=== PATIENT | female | born 1935 | race Hispanic/Latino ===

== ENCOUNTER 2024-12-02 10:29 | Inpatient (IN) | payer MEDICARE ==
[~2024-12-02] VITALS: Ht 162.6 cm; Wt 58.5 kg
[2024-12-02] MEDS: 0.9%NACL 1000ML 1,000 ML IV STA (10:54)
--- NOTE | 2024-12-02 11:30 | ERN ---
ED Note History of Present Illness Stated Complaint: HEART AFIB, DEHYDRATION Chief Complaint: Nausea,Vomiting,Diarrhea Time Seen by MD: 10:32 Time Seen by Midlevel: 10:36 Dictation: 89-year-old female with a history of AFib, hypertension, coming in with complaints of feeling �dehydrated�, states she is not able to keep down any fluid and has not had urine output since yesterday. Patient has epigastric pain upon taking a deep breath. Denies any fever, diarrhea, dysuria. Allergies: Coded Allergies: No Known Drug Allergies (Unverified Allergy, Unknown, 12/02/24) Past Medical History Past Medical History: A-Fib, Hypertension Additional Past Medical Hx: PARKINSON'S Surgical History: Hysterectomy Review of System Dictation Constitutional: Negative for fever,chills, and weight loss Eyes: Negative for injury, pain,redness, and discharge ENT: Negative for injury,pain or swelling Cardiovascular: Negative for chest pain, palpitations, and edema Respiratory: Negative for shortness of breath, cough, and wheezing, Abdomen/GI: Complaining of epigastric pain, nausea or vomiting, no diarrhea, and no constipation Back: Negative for injury and pain : Negative for injury, bleeding and discharge MS/Extremity: Negative for injury and deformity Skin: Negative for rash, and discoloration Neuro: Negative for headache, weakness, numbness, tingling, and seizure Psych: Negative for suicide ideation, homicidal ideation, and hallucinations Review of Systems: was completed Initial Vital Sign VS Vital Signs Date Time Temp Pulse Resp B/P (MAP) Pulse Ox O2 Delivery O2 Flow Rate FiO2 12/02/24 10:51 97.3 68 18 116/74 98 0 12/02/24 13:07 Room Air* 21 Physical Exam Dictation General: awake, alert, NAD Head/Face: Normocephalic, atraumatic Eyes: PERRL, EOMI, vision at baseline ENT: oral cavity clear, TMs clear, no signs of infection Neck: Trachea midline, supple, no nuchal rigidity Cardiovascular: RRR, normal S1/S2, No MRGs, no JVD Respiratory: CTAB, no respiratory distress, No rales or wheezes Abdomen: Soft, non-tender, non-distended, normal bowel sounds, no guarding or rebound. Skin: Warm, dry, normal turgor, no rash MS/Extremity: Pulses equal, no cyanosis, neurovascular intact, FROM Neuro: COAx4, GCS 15, strength 5/5, CN 2-12 intact, normal cerebellar exam, normal gait, Psych: Normal behavior, mood, and affect normal Results (Laboratory/Radiology) Laboratory/Radiology Laboratory Tests Test 12/02/24 11:33 White Blood Count 14.4 K/uL (4.8-10.8) H Red Blood Count 4.97 MIL/uL (4.00-5.50) Hemoglobin 14.8 g/dL (12.0-16.0) Hematocrit 43.1 % (36-48) Mean Corpuscular Volume 86.7 fL (79-99) Mean Corpuscular Hemoglobin 29.8 pg (27.0-33.0) Mean Corpuscular Hemoglobin Concent 34.3 g/dL (32.0-36.0) Red Cell Distribution Width 16.9 % (11.0-15.5) H Platelet Count 281 K/uL (130-400) Mean Platelet Volume 8.8 fL (7.5-10.5) Immature Granulocyte % (Auto) 0.3 % (0-1) Neutrophils (%) (Auto) 73.8 % (40.0-77.0) Lymphocytes (%) (Auto) 17.8 % (21.0-51.0) L Monocytes (%) (Auto) 7.7 % (3.0-13.0) Eosinophils (%) (Auto) 0.3 % (0.0-8.0) Basophils (%) (Auto) 0.1 % (0.0-5.0) Neutrophils # (Auto) 10.6 K/uL (1.8-7.7) H Lymphocytes # (Auto) 2.6 K/uL (1.0-4.8) Monocytes # (Auto) 1.1 K/uL (0.1-1.0) H Eosinophils # (Auto) 0.05 K/uL (0.00-0.70) Basophils # (Auto) 0.02 K/uL (0.00-0.20) Absolute Immature Granulocyte (auto 0.05 K/uL (0-1) Nucleated Red Blood Cells 0.0 % (0.0-0.19) Sodium Level 121 mmol/L (136-145) L Potassium Level 5.0 mmol/L (3.5-5.1) Chloride Level 88 mmol/L (101-111) *L Carbon Dioxide Level 28 mmol/L (21-32) Blood Urea Nitrogen 17 mg/dL (7-18) Creatinine 0.9 mg/dL (0.5-1.0) Glomerular Filtration Rate Calc 62 mL/min (>90) Random Glucose 121 mg/dL (70-105) H Total Calcium 9.6 mg/dL (8.5-10.1) Total Bilirubin 1.1 mg/dL (0.2-1.0) H Direct Bilirubin 0.3 mg/dL (0.0-0.3) Aspartate Amino Transf (AST/SGOT) 16 U/L (10-37) Alanine Aminotransferase (ALT/SGPT) 18 U/L (12-78) Alkaline Phosphatase 126 U/L (50-136) Troponin I High Sensitivity 7 ng/L (4-50) Total Protein 8.1 g/dL (6.0-8.3) Albumin 4.2 g/dL (3.5-5.0) Lipase 38 U/L (16-77) Labs Reviewed?: Yes EKG Comment: EKGs done at 11:44 a.m.. Atrial flutter at a rate of 63. Ventricular premature complex, IVCD, consider RBBB, left ventricular hypertrophy, ST elevation secondary to IVCD. X-RAY Comment: [place] [address] [place] [id number] IMAGING REPORT Signed PATIENT: PAYTON TARANGO MR#: [id number] : 1935 SEX: F AGE: 89 LOCATION: [facility] ORDER 105 STATUS: REG REPORT#: [id number] SERVICE 57 REASON: cp ORDERING PHYSICIAN: HOLLY WAITE NP PROCEDURE: CXR1VW - CHEST 1VW CHEST 1VW HISTORY: Chest pain COMPARISON: None FINDINGS: A frontal projection of the chest was obtained. No acute pulmonary infiltrates is seen. The heart is borderline enlarged. Left humeral prosthesis is seen. Prominent interstitial markings are seen. No evidence of aortic calcification is seen. IMPRESSION: 1. No acute pulmonary infiltrate is seen. DICTATED BY: TIFFANIE SCHAFFER MD DATE: 12/02/24 1147 ELECTRONICALLY SIGNED BY: TIFFANIE SCHAFFER MD DATE: 12/02/[address] Scan Comment: [facility] [address] [place] [address] IMAGING REPORT Signed PATIENT: PAYTON TARANGO MR#: [id number] : 1935 SEX: F AGE: 89 LOCATION: [facility] ORDER 24 STATUS: REG ER REPORT#: [id number] SERVICE 23 REASON: abdominal pain, n/v ORDERING PHYSICIAN: HOLLY WAITE NP PROCEDURE: ABD PEL WO - CT ABDOMEN/PELVIS W/O CONTRAST CT ABDOMEN/PELVIS W/O CONTRAST HISTORY: Abdominal pain COMPARISON: None TECHNIQUE: Multiple sequential axial images of the abdomen and pelvis were obtained from the dome of the diaphragm through symphysis pubis. Patient was not given contrast through intravenous route. Oral contrast was not given. FINDINGS: No pleural effusion is seen bilaterally. Bibasilar linear atelectasis changes are seen. There is no evidence of parenchymal disease or pulmonary nodule of the visualized lower lungs. Degenerative changes of the thoracolumbar spine are present. The heart is not enlarged. Small hiatal hernia is seen. Compression fractures are seen involving L4 and L5 with vertebroplasty changes. The liver, spleen, adrenal glands and pancreas are unremarkable. There is no evidence of hydronephrosis bilaterally. No evidence of renal stone is seen. Fecal material is seen in the colon. There are normal size retroperitoneal and mesenteric lymph nodes. No ascites is seen. Atherosclerotic changes are present. There is diverticulosis. There are small bilateral inguinal hernias with fat content. No CT evidence of acute appendicitis is seen. Pelvic sidewalls are symmetric bilaterally. Bladder is poorly distended. IMPRESSION: 1. No definite bowel obstruction is seen. Small hiatal hernia. Diverticulosis. No ascites is seen. CT was performed with one or more following dose reduction techniques: automated exposure control, adjustment of the mA and kv according to patient's size, or use of a iterative reconstruction technique. DICTATED BY: TIFFANIE SCHAFFER MD DATE: 12/02/24 1326 ELECTRONICALLY SIGNED BY: TIFFANIE SCHAFFER MD DATE: 12/02/24 1331 ED Course ED Course Orders Procedure Category Date Status Time Cbc With Differential LAB 12/02/24 Complete 10:52 Basic Metabolic Panel LAB 12/02/24 Complete 10:52 Lipase LAB 12/02/24 Complete 10:52 Hepatic Function Panel LAB 12/02/24 Complete 10:52 Urinalysis Profile LAB 12/02/24 Logged 10:52 12 Lead Ekg Tracing- EKG 12/02/24 Logged Technical 10:52 Troponin I High LAB 12/02/24 Complete Sensitivity 10:52 Influenza Type A & B, LAB 12/02/24 In Process Rapid 10:52 Covid Rna Naat LAB 12/02/24 In Process 10:52 0.9%Nacl 1000ml (Ns PHA 12/02/24 Complete 1000ml) 10:54 Chest 1vw RAD 12/02/24 Resulted 10:58 Ct Abdomen/Pelvis W/O CT 12/02/24 Resulted Contrast 12:24 Morphine 2mg Syg PHA 12/02/24 Complete (Morphine 2mg Syg) 13:33 Ondansetron 4mg Inj PHA 12/02/24 Complete (Zofran 4mg Inj) 13:33 Current Medications Medications (Trade) Dose Ordered Sig/Mahnaz Route PRN Reason Start Time Stop Time Status Last Admin Dose Admin Morphine Sulfate (morPHINE 2MG SYG) 2 mg ONCE STAT IVP 12/02/24 13:33 12/02/24 13:38 DC 12/02/24 13:39 Ondansetron HCl (zoFRAN 4MG INJ) 4 mg ONCE STAT IVP 12/02/24 13:33 12/02/24 13:38 DC 12/02/24 13:39 Sodium Chloride 1,000 ml @ 1,000 mls/hr Q1H STAT IV 12/02/24 10:54 12/02/24 11:53 DC 12/02/24 10:54 Vital Signs Date Time Temp Pulse Resp B/P (MAP) Pulse Ox O2 Delivery O2 Flow Rate FiO2 12/02/24 13:07 98.1 67 16 167/70 98 Room Air* 0 21 12/02/24 10:51 97.3 68 18 116/74 98 0 Medical Decision Making MDM MDM: 89-year-old female with a history of AFib, hypertension, coming in with complaints of feeling �dehydrated�, states she is not able to keep down any fluid and has not had urine output since yesterday. Patient has epigastric pain upon taking a deep breath. Denies any fever, diarrhea, dysuria. CBC shows leukocytosis of 14, no anemia, no thrombocytopenia. Chemistry shows hyponatremia at 121., hypochloremia at 88, normal kidney function. No transaminitis, lipase within normal range. Pending urinary sample. CT scan of the abdomen shows diverticulosis, fecal material in the colon, no acute findings. Patient will be admitted for dehydration and hyponatremia. Discussed case with cathy Saravia to admit patient. Differential diagnosis: Gastroenteritis, dehydration, YOLANDA Rationale: Tests considered and ordered secondary to shared decision making include: labs, ECG and radiology Previous outside records reviewed: Old ER visits. Risk of complication and/or morbidity or mortality of patient management: None Medications-Per medication reconciliation Need for hospitalization: Patient does meet criteria for hospitalization. Need for emergency major/minor surgery: No There are no social concerns with this patient. Prescription drug management Prescriptions will include symptomatic care Patient's prior external medical records from other ER visits were reviewed by me as indicated. Prior testing and results from previous visits were reviewed. Prior tests were taken into account with medical decision making and resource utilization, independent historian/historians were used to obtain complete medical history. I independently interpreted the test that were performed, results were reviewed by me and considered findings on radiology if ordered. Medical management and examination interpretation discussions were had by me with other qualified healthcare professionals as indicated for the patient's care. DX & DISP Disposition: Inpatient Decision to Admit Date: December 02, 2024 Decision to Admit Time: 13:53 Departure Impression: Primary Impression: Dehydration Additional Impressions: Hyponatremia, Hypochloremia Condition: Stable Referrals: SELF,REFERRAL (PCP) Time of Disposition: 13:53 I have reviewed the case, and I agree with, Diagnosis and Plan HOLLY WAITE NP December 02, 2024 11:30
[2024-12-02 11:41] LABS: BASOPHILS # (AUTO) 0.02 K/uL (0.00-0.20); BASOPHILS % (AUTO) 0.1 % (0.0-5.0); EOSINOPHILS # (AUTO) 0.05 K/uL (0.00-0.70); EOSINOPHILS % (AUTO) 0.3 % (0.0-8.0); HEMATOCRIT 43.1 % (36-48); IMMATURE GRANULOCYTE ABSOLUTE 0.05 K/uL (0-1); LYMPHOCYTES # (AUTO) 2.6 K/uL (1.0-4.8); LYMPHOCYTES % (AUTO) 17.8 % (21.0-51.0); MEAN CORPUSCULAR HEMOGLOBIN 29.8 pg (27.0-33.0); MEAN CORPUSCULAR HGB CONC 34.3 g/dL (32.0-36.0); MEAN CORPUSCULAR VOLUME 86.7 fL (79-99); MONOCYTES # (AUTO) 1.1 K/uL (0.1-1.0); MONOCYTES % (AUTO) 7.7 % (3.0-13.0); NEUTROPHILS # (AUTO) 10.6 K/uL (1.8-7.7); NEUTROPHILS % (AUTO) 73.8 % (40.0-77.0); PLATELET COUNT (AUTO) 281 K/uL (130-400); RED BLOOD CELL COUNT(AUTO) 4.97 MIL/uL (4.00-5.50); RED CELL DISTRIBUTION WIDTH 16.9 % (11.0-15.5); WHITE BLOOD COUNT (AUTO) 14.4 K/uL (4.8-10.8)
--- NOTE | 2024-12-02 11:50 | HMCIMG ---
CHEST 1VW HISTORY: Chest pain COMPARISON: None FINDINGS: A frontal projection of the chest was obtained. No acute pulmonary infiltrates is seen. The heart is borderline enlarged. Left humeral prosthesis is seen. Prominent interstitial markings are seen. No evidence of aortic calcification is seen. IMPRESSION: 1. No acute pulmonary infiltrate is seen.
[2024-12-02 11:56] LABS: ALBUMIN 4.2 g/dL (3.5-5.0); CREATININE 0.9 mg/dL (0.5-1.0)
[2024-12-02 12:00] LABS: BILIRUBIN,DIRECT 0.3 mg/dL (0.0-0.3); BILIRUBIN,TOTAL 1.1 mg/dL (0.2-1.0); TOTAL PROTEIN, SERUM 8.1 g/dL (6.0-8.3)
--- NOTE | 2024-12-02 13:31 | HMCIMG ---
CT ABDOMEN/PELVIS W/O CONTRAST HISTORY: Abdominal pain COMPARISON: None TECHNIQUE: Multiple sequential axial images of the abdomen and pelvis were obtained from the dome of the diaphragm through symphysis pubis. Patient was not given contrast through intravenous route. Oral contrast was not given. FINDINGS: No pleural effusion is seen bilaterally. Bibasilar linear atelectasis changes are seen. There is no evidence of parenchymal disease or pulmonary nodule of the visualized lower lungs. Degenerative changes of the thoracolumbar spine are present. The heart is not enlarged. Small hiatal hernia is seen. Compression fractures are seen involving L4 and L5 with vertebroplasty changes. The liver, spleen, adrenal glands and pancreas are unremarkable. There is no evidence of hydronephrosis bilaterally. No evidence of renal stone is seen. Fecal material is seen in the colon. There are normal size retroperitoneal and mesenteric lymph nodes. No ascites is seen. Atherosclerotic changes are present. There is diverticulosis. There are small bilateral inguinal hernias with fat content. No CT evidence of acute appendicitis is seen. Pelvic sidewalls are symmetric bilaterally. Bladder is poorly distended. IMPRESSION: 1. No definite bowel obstruction is seen. Small hiatal hernia. Diverticulosis. No ascites is seen. CT was performed with one or more following dose reduction techniques: automated exposure control, adjustment of the mA and kv according to patient's size, or use of a iterative reconstruction technique.
[2024-12-02] MEDS: ondanSETRON 4MG INJ IVP STA (13:39)
[2024-12-02] MEDS: morPHINE 2 MG SYG IVP STA (13:39)
[2024-12-02 14:05] LABS: SARS-CoV-2, RNA, NAAT NEGATIVE SARS CoV-2 (NEGATIVE)
[2024-12-02 14:09] LABS: INFLUENZA TYPE A Negative For Type A (NEGATIVE); INFLUENZA TYPE B Negative For Type B (NEGATIVE)
[2024-12-02] MEDS ORDERED: 0.9%NACL 1000ML 1,000 ML IV SCH (14:30)
--- NOTE | 2024-12-02 14:35 | HP ---
[facility] HISTORY AND PHYSICAL Date of Service: December 02, 2024 Time of Service: 14:35 HISTORY OF PRESENT ILLNESS: [Date of service: 12/02/2024, patient was seen in ER room one This is a 89-year-old female with underlying history of hypertension, hyperlipidemia, history of CVA, recent history of compression fractures involving L4 and L5 status post vertebroplasty in [facility], history of atrial fibrillation maintained on chronic anticoagulation with Eliquis, Parkinson's disease who presented to the ER with chief complaint of epigastric pain with midsternal chest discomfort, poor oral intake ongoing since last night. Patient reports having nausea and one episode of vomiting. She has pain when taking a deep breath in as well as when changing positions and walking. Pain is mostly in the epigastric, midsternal region. Daughter reports that she had similar pain about a year ago when she was hospitalized in [place] for chest pain. Patient states that pain is improving and she states that it is mild in intensity. She denies any significant abdominal pain. Oral intake has been poor due to vomiting. Patient also reports having significant back pain from underlying compression fractures and she has been maintained on outpatient hydrocodone. Pain has been worsened after she underwe nt a CT in the ER. Patient denies any falls. Patient is followed by [facility] with Cardiology and Dr. Villarreal with Cardiac electrophysiology. She is supposed to see Dr. Villarreal tomorrow for follow up on her atrial fibrillation. On presentation to the hospital, patient was noted to be afebrile with T-max of 98.1� F, heart rate of 67, blood pressure 116/74. [place] [address], hemoglobin of 14.8, platelet count of 415344. BMP showed sodium of 121, potassium 5.0, chloride of 88, creatinine of 0.9 normal AST and ALT, cardiac troponin was negative with seven. Patient will be admitted for further treatment evaluation of hyponatremia and will be started on gentle IV fluids. Diuretics will be held until sodium trend improves. We will also trend cardiac panel to rule out ACS. We will request consultation with Cardiology and Nephrology, plan of care was discussed with patient and daughters at bedside. ] REVIEW OF SYSTEMS CONSTITUTIONAL: Denies fevers, chills, or night sweats. No unintentional weight loss reported. NEUROLOGICAL: Denies headache, amaurosis fugax, motor weakness, sensory deficit, vertigo/spinning sensation, gait abnormalities, or tremors. ENT: No hearing loss, otalgia, otorrhea, rhinitis, rhinorrhea, hoarseness, or sore throat. CARDIOVASCULAR: Patient reports having substernal chest discomfort PULMONARY: Denies any shortness of breath, cough, phlegm/sputum, hemoptysis, pleuritic chest pain. SLEEP: Denies morning headaches, daytime somnolence or napping. Denies difficulty falling asleep, staying asleep, waking from sleep. Denies knowledge of snoring. GASTROINTESTINAL: Nausea, vomiting, epigastric pain, mild in intensity, denies any significant lower quadrant abdominal pain GENITOURINARY: Denies frequency, urgency, nocturia, hematuria or incontinence (Storage/Irritative symptoms.) Low urinary stream, straining to void, urinary intermittency or hesitancy, splitting of the voiding stream, terminal dribbling. ENDOCRINOLOGIC: Denies polyuria, polydipsia, polyphagia or heat/cold intolerances. HEMATOLOGIC: Denies thrombophilia/previous clots, or coagulopathy/bleeding disorders. ONCOLOGIC: Denies personal history of malignancy. DERMATOLOGIC: Denies rashes or pruritus. PSYCHIATRIC: Denies any suicidal or homicidal ideation. Denies hallucinations. PAST MEDICAL HISTORY: Hypertension, hyperlipidemia, history of atrial fibrillation maintained on chronic anticoagulation with Eliquis, history of Parkinson's disease, per daughter, patient was hospitalized in [place] in 09/2023 for chest pain, history of compression fractures involving L4 and L5 requiring hospitalization in [facility] in 09/2024 PAST SURGICAL HISTORY: History of hysterectomy, history of knee replacement involving the bilateral knees, history of shoulder surgery PAST SOCIAL HISTORY: Denies active smoking alcohol consumption, resides alone at home and uses a walker to ambulate, patient's daughters checks on her frequently FAMILY HISTORY: Denies pertinent family history Allergies: No known drug allergies Home medications: Amlodipine 5 mg daily, apixaban 2.5 mg b.i.d., atorvastatin 40 mg daily, carbidopa-levodopa 25 mg-100 mg t.i.d., furosemide 20 mg daily, Aulander 5 mg q.6 hours p.r.n., methocarbamol 500 mg t.i.d. p.r.n., metoprolol tartrate 75 mg b.i.d., trazodone Coded Allergies: No Known Drug Allergies (Unverified Allergy, Unknown, 12/02/24) PHYSICAL EXAM GENERAL APPEARANCE: The patient is awake, alert, appears frail and chronically ill NEUROLOGICAL: Cranial nerves II-XII grossly intact. Patient is moving her upper and lower extremities, resting tremors noted of the hands HEENT: Face is symmetric. Pupils are equal and reactive. Extraocular movements are intact. NECK: Supple. No JVD. No thyromegaly. No submental, submandibular, pre- /postauricular, occipital or supraclavicular lymphadenopathy. CHEST: Normal chest expansion. No Telemetry. LUNGS: Absence of any rales, rhonchi or any wheezing. CARDIOVASCULAR: Irregular, no rubs or gallops noted ABDOMEN: Soft, nontender, and nondistended. No significant tenderness on palpation of the abdomen : Deferred. No Beckham. EXTREMITIES: Non-edematous and not cyanotic. No clubbing. Good capillary refill. SKIN: No skin breakdown. Vital Sign (Last 24 Hours) 12/02/24 13:07 Temp 98.1 Pulse 67 Resp 16 B/P (MAP) 167/70 Pulse Ox 98 O2 Delivery Room Air* O2 Flow Rate 0 FiO2 21 LABS: Laboratory: Test 12/02/24 13:25 12/02/24 11:33 Range/Units Influenza Type A Antigen Negative For Type A NEGATIVE Influenza Type B Antigen Negative For Type B NEGATIVE SARS-CoV-2, RNA, NAAT NEGATIVE SARS CoV-2 NEGATIVE White Blood Count 14.4 H 4.8-10.8 K/uL Red Blood Count 4.97 4.00-5.50 MIL/uL Hemoglobin 14.8 12.0-16.0 g/dL Hematocrit 43.1 36-48 % Mean Corpuscular Volume 86.7 79-99 fL Mean Corpuscular Hemoglobin 29.8 27.0-33.0 pg Mean Corpuscular Hemoglobin Concent 34.3 32.0-36.0 g/dL Red Cell Distribution Width 16.9 H 11.0-15.5 % Platelet Count 281 130-400 K/uL Mean Platelet Volume 8.8 7.5-10.5 fL Immature Granulocyte % (Auto) 0.3 0-1 % Neutrophils (%) (Auto) 73.8 40.0-77.0 % Lymphocytes (%) (Auto) 17.8 L 21.0-51.0 % Monocytes (%) (Auto) 7.7 3.0-13.0 % Eosinophils (%) (Auto) 0.3 0.0-8.0 % Basophils (%) (Auto) 0.1 0.0-5.0 % Neutrophils # (Auto) 10.6 H 1.8-7.7 K/uL Lymphocytes # (Auto) 2.6 1.0-4.8 K/uL Monocytes # (Auto) 1.1 H 0.1-1.0 K/uL Eosinophils # (Auto) 0.05 0.00-0.70 K/uL Basophils # (Auto) 0.02 0.00-0.20 K/uL Absolute Immature Granulocyte (auto 0.05 0-1 K/uL Nucleated Red Blood Cells 0.0 0.0-0.19 % Sodium Level 121 L 136-145 mmol/L Potassium Level 5.0 3.5-5.1 mmol/L Chloride Level 88 *L 101-111 mmol/L Carbon Dioxide Level 28 21-32 mmol/L Blood Urea Nitrogen 17 7-18 mg/dL Creatinine 0.9 0.5-1.0 mg/dL Glomerular Filtration Rate Calc 62 >90 mL/min Random Glucose 121 H 70-105 mg/dL Total Calcium 9.6 8.5-10.1 mg/dL Total Bilirubin 1.1 H 0.2-1.0 mg/dL Direct Bilirubin 0.3 0.0-0.3 mg/dL Aspartate Amino Transf (AST/SGOT) 16 10-37 U/L Alanine Aminotransferase (ALT/SGPT) 18 12-78 U/L Alkaline Phosphatase 126 50-136 U/L Troponin I High Sensitivity 7 4-50 ng/L Total Protein 8.1 6.0-8.3 g/dL Albumin 4.2 3.5-5.0 g/dL Lipase 38 16-77 U/L Current Medications Medications (Trade) Dose Ordered Sig/Mahnaz Route PRN Reason Start Time Stop Time Status Last Admin Dose Admin Acetaminophen (TYLenol 500MG TAB) 500 mg Q6H PRN PO MILD PAIN (1-3) 12/02/24 14:30 01/01/25 14:29 Ceftriaxone Sodium (ROCEphine 1G INJ) 1 gm Q24H IVPB 12/02/24 14:30 12/12/24 14:29 Hydromorphone HCl (DiLAUDid 0.5MG INJ) 0.5 mg Q6H PRN IVP SEVERE PAIN (7-10) 12/02/24 14:30 12/07/24 14:29 Morphine Sulfate (morPHINE 2MG SYG) 2 mg ONCE STAT IVP 12/02/24 13:33 12/02/24 13:38 DC 12/02/24 13:39 2 MG Nitroglycerin (Nitrostat) 0.4 mg AD PRN SL CHEST PAIN 12/02/24 14:30 01/01/25 14:29 Ondansetron HCl (zoFRAN 4MG INJ) 4 mg ONCE STAT IVP 12/02/24 13:33 12/02/24 13:38 DC 12/02/24 13:39 4 MG Ondansetron HCl (zoFRAN 4MG INJ) 4 mg Q6H PRN IVP NAUSEA/VOMITING 12/02/24 14:30 01/01/25 14:29 Pantoprazole Sodium (PROTonix 40MG INJ) 40 mg Q24H IVP 12/02/24 14:30 01/01/25 14:29 Sodium Chloride 1,000 ml @ 60 mls/hr [id number] IV 12/02/24 14:30 12/02/24 14:26 DC Sodium Chloride 1,000 ml @ 60 mls/hr [id number] IV 12/02/24 14:30 01/01/25 14:29 Sodium Chloride 1,000 ml @ 1,000 mls/hr Q1H STAT IV 12/02/24 10:54 12/02/24 11:53 DC 12/02/24 10:54 1,000 MLS/HR Thiamine HCl (Vitamin B-1) 100 mg Q24H IVP 12/02/24 14:30 01/01/25 14:29 DIAGNOSTICS / RADIOLOGY: SERVICE 1224 REASON: abdominal pain, n/v ORDERING PHYSICIAN: HOLLY WAITE VARNISH INSPECTOR PROCEDURE: ABD PEL WO - CT ABDOMEN/PELVIS W/O CONTRAST CT ABDOMEN/PELVIS W/O CONTRAST HISTORY: Abdominal pain COMPARISON: None TECHNIQUE: Multiple sequential axial images of the abdomen and pelvis were obtained from the dome of the diaphragm through symphysis pubis. Patient was not given contrast through intravenous route. Oral contrast was not given. FINDINGS: No pleural effusion is seen bilaterally. Bibasilar linear atelectasis changes are seen. There is no evidence of parenchymal disease or pulmonary nodule of the visualized lower lungs. Degenerative changes of the thoracolumbar spine are present. The heart is not enlarged. Small hiatal hernia is seen. Compression fractures are seen involving L4 and L5 with vertebroplasty changes. The liver, spleen, adrenal glands and pancreas are unremarkable. There is no evidence of hydronephrosis bilaterally. No evidence of renal stone is seen. Fecal material is seen in the colon. There are normal size retroperitoneal and mesenteric lymph nodes. No ascites is seen. Atherosclerotic changes are present. There is diverticulosis. There are small bilateral inguinal hernias with fat content. No CT evidence of acute appendicitis is seen. Pelvic sidewalls are symmetric bilaterally. Bladder is poorly distended. IMPRESSION: 1. No definite bowel obstruction is seen. Small hiatal hernia. Diverticulosis. No ascites is seen. CT was performed with one or more following dose reduction techniques: automated exposure control, adjustment of the mA and kv according to patient's size, or use of a iterative reconstruction technique. DICTATED BY: TIFFANIE SCHAFFER MD DATE: 12/02/24 1326 ELECTRONICALLY SIGNED BY: TIFFANIE SCHAFFER MD DATE: 12/02/24 1331 ASSESSMENT: [id number] hyponatremia, POA Atypical chest pain, POA Epigastric abdominal pain with nausea and vomiting, POA Leukocytosis, POA History of CVA in 2023, POA History of L4-L5 compression fracture with recent history of vertebroplasty in 09/2024, POA Debility/frailty, POA Prior history of PA in [place] in 09/2023, POA History of atrial fibrillation maintained on chronic anticoagulation with Eliquis, POA History of outpatient use of opioids with hydrocodone, POA Hyperlipidemia, POA Rule out occult infection, POA History of diuretic use as outpatient, POA History of Parkinson's disease, POA Protein calorie malnutrition, POA PLAN: Patient will be admitted to cardiac telemetry floor We will start patient on gentle IV hydration with NS at 60 mL/hour We will obtain cardiac records to see if patient has history of significant cardiomyopathy With regards to workup of hyponatremia, we will monitor BMP q.6-q.8 hours, we will check serum and plasma osmolality, consultation with Nephrology will be requested, we will place fluid restrictions of 1.5 L, we will hold diuretics until sodium trend improves We will trend cardiac panel to rule out active ACS patient with multiple prior cardiac comorbidities Pain control with hydromorphone 0.5 mg q6h, patient is reporting worsening pain of the lower back, she has been maintained on outpatient treatment with hydrocodone We will see how patient progresses in the next 48-72 hours Consultation with physical therapy will be requested Patient to continue with anticoagulation with Eliquis, age adjusted D-dimer is normal for the patient Continue with metoprolol tartrate 75 mg b.i.d. for management of atrial fibrillation All labs will be repeated in the morning Family is requesting for me to notify Dr. Villarreal, per family, she has an appointment with him tomorrow, discussed with family that I will notify cardiology service who is covering for Dr. Villarreal today, discussed with drafter construction cardiology service about the patient Further orders per clinical course, will request dietitian consult for optimizing nutritional intake as patient is very frail Date of service: 12/02/2024 Plan of care was discussed with patient and family at bedside, Mick Andersen MD Advanced Care Planning: Which of the following were discussed: Hospice care: Yes __ No _X_ Therapeutic options: Yes _X_ No __ Advance directives: Yes _X_ No __ Other discussions: Discussed with who?: Patient Voluntary nature of this service was explained to the patient? Yes _x_ No __ Amount of time spent: 20 minutes MICK ANDERSEN MD December 02, 2024 14:35
[2024-12-02 14:38] LABS: APPEARANCE,URINE CLEAR (CLEAR); BILIRUBIN,URINE NEGATIVE (NEGATIVE); COLOR,URINE YELLOW (YELLOW); GLUCOSE, URINE (UA) NEGATIVE (NEGATIVE); KETONES,URINE NEGATIVE (NEGATIVE); LEUKOCYTE ESTERASE ,URINE NEGATIVE Leu/uL (NEGATIVE); NITRATE,URINE NEGATIVE (NEGATIVE); OCCULT BLOOD,URINE NEGATIVE (NEGATIVE); PROTEIN,URINE NEGATIVE (NEGATIVE); UROBILINOGEN,URINE 0.2 mg/dL (0.2-1.0)
[2024-12-02 14:44] LABS: ADD UA MICROSCOPIC YES
[2024-12-02 14:57] LABS: THYROID STIMULATING HORMONE 1.23 uIU/mL (0.36-3.74)
[2024-12-02 14:58] LABS: CREATININE,URINE RANDOM 51.65 mg/dL (30-135)
[2024-12-02 14:59] LABS: PROTHROMBIN TIME 10.6 SEC (9.6-11.6)
[2024-12-02 15:00] LABS: PARTIAL THROMBOPLASTIN TIME 27.8 SEC (26.3-35.5)
[2024-12-02 15:00] LABS: BACTERIA,URINE RARE /HPF (None Seen); MUCUS,URINE RARE LPF (None Seen); SQUAMOUS EPITHELIAL CELL,UR RARE /HPF (0-2); WBC,URINE 0-1 /HPF (0-1)
[2024-12-02] MEDS ORDERED: hydrALAZine 20MG/ML VIAL IV PRN (15:00)
[2024-12-02] MEDS ORDERED: METO75TA PO (15:13)
[2024-12-02] MEDS ORDERED: AMLO-257 PO (15:13)
[2024-12-02] MEDS ORDERED: CARB1TAB35 PO (15:13)
[2024-12-02] MEDS ORDERED: APIX2.5T PO (15:13)
[2024-12-02] MEDS ORDERED: ATOR40TA69 PO (15:13)
[2024-12-02] MEDS ORDERED: METH-811 PO (15:13)
[2024-12-02] MEDS ORDERED: FURO20TA4 PO (15:13)
[2024-12-02] MEDS ORDERED: HYDR-4060 PO (15:18)
[2024-12-02] MEDS ORDERED: TRAZ-185 PO (15:18)
[2024-12-02] MEDS: acetaMINOPHEN 500 MG TABLET PO PRN (17:02)
[2024-12-02] MEDS: hydroMORPHone 0.5 MG SYG (0.5MG/0.5ML) IVP ONE (17:02)
[2024-12-02] MEDS: CARBIDOPA-LEVODOPA 25-100 TAB PO ONE (17:03)
--- NOTE | 2024-12-02 17:13 | CONS ---
[facility] Cardiology Consultation Note Date Patient Seen: December 02, 2024 Time of Visit: 16:58 CHIEF COMPLAINT: [Epigastric pain, nausea, anorexia ] SOURCE: [ ] OUTPATIENT MEDICAL INFORMATION OFFICER: [ Dr. Villarreal--EP, --Cardiology] OUTPATIENT PRIMARY MD: [ ] HPI: [ ] REVIEW OF SYSTEMS: PAST MEDICAL HISTORY: [ ] PAST SURGICAL HISTORY: [ ] FAMILY HISTORY: [ ] SOCIAL HISTORY: [ ] Coded Allergies: No Known Drug Allergies (Unverified Allergy, Unknown, 12/02/24) Reported Medications Trazodone HCl (Trazodone HCl) 50 Mg Tablet, 50 MG PO HSPRN, TAB 12/02/24 Hydrocodone/Acetaminophen (Hydrocodon-Acetaminophen 5-325) 5 Mg-325 Mg Tablet, 1 TAB PO Q6HPRN PRN for pain for 5 Days, #15 TAB 0 Refills 12/02/24 Apixaban (Eliquis) 2.5 Mg Tablet, 1 TAB PO BID, TAB 0 Refills 12/02/24 Metoprolol Tartrate (Metoprolol Tartrate) 75 Mg Tablet, 1 TAB PO BID, TAB 0 Refills 12/02/24 Methocarbamol (Methocarbamol) 500 Mg Tablet, 1 TAB PO TID for 30 Days, #90 TAB 0 Refills 12/02/24 Furosemide (Furosemide) 20 Mg Tablet, 1 TAB PO DAILY for 30 Days, #30 TAB 0 Refills 12/02/24 Atorvastatin Calcium (LIPITOR) 40 Mg Tablet, 1 TAB PO HS, TAB 0 Refills 12/02/24 Carbidopa/Levodopa (Carbidopa-Levodopa 25-100 Tab) 25 Mg-100 Mg Tablet, 1 TAB PO TID, TAB 0 Refills 12/02/24 Amlodipine Besylate (Amlodipine Besylate) 5 Mg Tablet, 5 MG PO DAILY, TAB 12/02/24 PHYSICAL EXAMINATION: GENERAL: [Resting comfortably, no acute distress.] HEENT: [Atraumatic. Hearing is intact. No facial asymmetry, nasal discharge, icterus or lid lag.] NECK: [Symmetric. Midline trachea. No bruits noted bilaterally.] CARDIOVASCULAR: [Rhythm and rate regular. No murmur] No edema. Pedal pulses intact. RESPIRATORY: [Lungs clear to the bases. No retractions, wheezes or rhonchi.] GASTROINTESTINAL: [Benign, soft, nontender, nondistended.] MUSCULOSKELETAL: [No amputations. Range of motion is grossly normal.] SKIN: [No ecchymosis, erythema or ulcers. Warm to touch.] NEUROLOGIC: [No tremors. Speech is clear.] PSYCHIATRY: [Alert and oriented x 3. Cooperative and pleasant.] Vital Signs (last 8hr) Date Time Temp Pulse Resp B/P (MAP) Pulse Ox O2 Delivery O2 Flow Rate FiO2 12/02/24 15:15 98.1 82 16 110/82 98 Room Air* 0 21 12/02/24 13:07 98.1 67 16 167/70 98 Room Air* 0 21 12/02/24 10:51 97.3 68 18 116/74 98 0 Hematology Labs: Test 12/02/24 11:33 Range/Units White Blood Count 14.4 H 4.8-10.8 K/uL Red Blood Count 4.97 4.00-5.50 MIL/uL Hemoglobin 14.8 12.0-16.0 g/dL Hematocrit 43.1 36-48 % Mean Corpuscular Volume 86.7 79-99 fL Mean Corpuscular Hemoglobin 29.8 27.0-33.0 pg Mean Corpuscular Hemoglobin Concent 34.3 32.0-36.0 g/dL Red Cell Distribution Width 16.9 H 11.0-15.5 % Platelet Count 281 130-400 K/uL Mean Platelet Volume 8.8 7.5-10.5 fL Immature Granulocyte % (Auto) 0.3 0-1 % Neutrophils (%) (Auto) 73.8 40.0-77.0 % Lymphocytes (%) (Auto) 17.8 L 21.0-51.0 % Monocytes (%) (Auto) 7.7 3.0-13.0 % Eosinophils (%) (Auto) 0.3 0.0-8.0 % Basophils (%) (Auto) 0.1 0.0-5.0 % Neutrophils # (Auto) 10.6 H 1.8-7.7 K/uL Lymphocytes # (Auto) 2.6 1.0-4.8 K/uL Monocytes # (Auto) 1.1 H 0.1-1.0 K/uL Eosinophils # (Auto) 0.05 0.00-0.70 K/uL Basophils # (Auto) 0.02 0.00-0.20 K/uL Absolute Immature Granulocyte (auto 0.05 0-1 K/uL Nucleated Red Blood Cells 0.0 0.0-0.19 % Erythrocyte Sedimentation Rate 4 0-30 MM/HR Chemistry Labs: Test 12/02/24 16:00 12/02/24 11:33 Range/Units Total Creatine Kinase 30 21-232 U/L Troponin I High Sensitivity 10.3 4-50 ng/L Sodium Level 121 L 136-145 mmol/L Potassium Level 5.0 3.5-5.1 mmol/L Chloride Level 88 *L 101-111 mmol/L Carbon Dioxide Level 28 21-32 mmol/L Blood Urea Nitrogen 17 7-18 mg/dL Creatinine 0.9 0.5-1.0 mg/dL Glomerular Filtration Rate Calc 62 >90 mL/min Random Glucose 121 H 70-105 mg/dL Total Calcium 9.6 8.5-10.1 mg/dL Total Bilirubin 1.1 H 0.2-1.0 mg/dL Direct Bilirubin 0.3 0.0-0.3 mg/dL Aspartate Amino Transf (AST/SGOT) 16 10-37 U/L Alanine Aminotransferase (ALT/SGPT) 18 12-78 U/L Alkaline Phosphatase 126 50-136 U/L C-Reactive Protein, Quantitative 0.60 0.5-3.0 mg/L Total Protein 8.1 6.0-8.3 g/dL Albumin 4.2 3.5-5.0 g/dL Lipase 38 16-77 U/L Procalcitonin < 0.05 L 0.05-0.5 ng/mL Thyroid Stimulating Hormone (TSH) 1.23 0.36-3.74 uIU/mL Coagulation Labs: Test 12/02/24 11:33 Range/Units Prothrombin Time 10.6 9.6-11.6 SEC Prothromb Time International Ratio 1.00 0.85-1.15 Activated Partial Thromboplast Time 27.8 26.3-35.5 SEC D-Dimer Quantitative (PE/DVT) 618 *H 0-500 ng/mL Current Medications Medications (Trade) Dose Ordered Sig/Mahnaz Route Start Time Stop Time Status Last Admin Dose Admin Amlodipine Besylate (NorvASC 5MG TAB) 5 mg DAILY PO 12/03/24 09:00 01/02/25 08:59 Apixaban (EliquIS 2.5 mg) 2.5 mg BID PO 12/02/24 21:00 01/01/25 20:59 Atorvastatin Calcium (LIPItor 40MG) 40 mg HS PO 12/02/24 21:00 01/01/25 20:59 Carbidopa/Levodopa (Sinemet 25-100 Tab) 1 each TID PO 12/02/24 21:00 01/01/25 20:59 Ceftriaxone Sodium (ROCEphine 1G INJ) 1 gm Q24H IVPB 12/02/24 14:30 12/12/24 14:29 Metoprolol Tartrate (loprESSOR) 25 mg BID PO 12/02/24 21:00 01/01/25 20:59 Metoprolol Tartrate (loprESSOR) 50 mg BID PO 12/02/24 21:00 01/01/25 20:59 Miscellaneous Medication (Metoprolol Tartrate ) 1 tab BID PO 12/02/24 21:00 12/02/24 15:32 DC Morphine Sulfate (morPHINE 2MG SYG) 2 mg ONCE STAT IVP 12/02/24 13:33 12/02/24 13:38 DC 12/02/24 13:39 2 MG Ondansetron HCl (zoFRAN 4MG INJ) 4 mg ONCE STAT IVP 12/02/24 13:33 12/02/24 13:38 DC 12/02/24 13:39 4 MG Pantoprazole Sodium (PROTonix 40MG INJ) 40 mg Q24H IVP 12/02/24 14:30 01/01/25 14:29 Sodium Chloride 1,000 ml @ 60 mls/hr [id number] IV 12/02/24 14:30 12/02/24 14:26 DC Sodium Chloride 1,000 ml @ 60 mls/hr [id number] IV 12/02/24 14:30 01/01/25 14:29 Sodium Chloride 1,000 ml @ 1,000 mls/hr Q1H STAT IV 12/02/24 10:54 12/02/24 11:53 DC 12/02/24 10:54 1,000 MLS/HR Thiamine HCl (Vitamin B-1) 100 mg Q24H IVP 12/02/24 14:30 01/01/25 14:29 Trazodone HCl (DesyREL/OlepTRO) 50 mg HS PO 12/02/24 21:00 01/01/25 20:59 EKG: [ ] Personally interpreted. RADIOLOGY: [ ] ASSESSMENT: [ ] PLAN: [ ] SANTOS HOPPER PAC December 02, 2024 17:13
[2024-12-02 17:35] VITALS: BP 151/75; PULSE 77; RESP 19; TEMP 98.2
[2024-12-02 18:00] VITALS: O2SAT 98
[2024-12-02] MEDS: 0.9%NACL 1000ML 1,000 ML IV SCH (18:12)
[2024-12-02 19:00] VITALS: BP 127/52; PULSE 62; RESP 18; TEMP 98.1
[2024-12-02 19:53] LABS: CREATININE 0.8 mg/dL (0.5-1.0); POTASSIUM 4.3 mmol/L (3.5-5.1)
[2024-12-02 20:05] VITALS: O2SAT 95
[2024-12-02] MEDS: APIXaban 2.5 MG TABLET PO SCH (20:06)
[2024-12-02] MEDS: trAZOdone HCL 50 MG TAB PO SCH (20:06)
[2024-12-02] MEDS: cefTRIAXone 1G VIAL IVPB SCH (20:06)
[2024-12-02] MEDS: THIAMINE HCL 100 MG/ML 2ML VIAL IVP SCH (20:07)
[2024-12-02] MEDS: atorVAStatin 40 MG TABLET PO SCH (20:07)
[2024-12-02] MEDS: metoPROLOL tartRATE 25 MG TAB PO SCH (20:08)
[2024-12-02] MEDS: metoPROLOL tartRATE 50 MG TAB PO SCH (20:08)
[2024-12-02] MEDS: PANTOPrazole 40 MG/VIAL IVP SCH (20:10)
[2024-12-02] MEDS ORDERED: NON-FORMULARY MEDICATION 1 EACH (Metoprolol Tartrate 1 TAB) PO SCH (21:00)
--- NOTE | 2024-12-02 22:56 | CONS ---
CHIEF COMPLAINT: Epigastric pain with inspiration. OUTPATIENT ENVIRONMENTAL ENGINEER: Josh Villarreal MD OUTPATIENT GENERAL KEYSEATER OPERATOR: Aj Carney MD SOURCE: The patient, who is reliable, and the medical record. HISTORY OF PRESENT ILLNESS: The patient is an 89-year-old female with a history of hypertension, Parkinsonism, insomnia, ventricular tachycardia with syncope, and VT ablation in 1990 who has felt dehydrated, nauseous, weak, with vomiting and epigastric pain with deep breaths since yesterday. She did not have any chest pain per se, shortness of breath, or palpitations. No leg edema. The patient had a similar episode in [place] in September and was hospitalized for several days, but was told the reproducible chest discomfort is noncardiac. Because of the similarity to the symptoms in September, she was brought to the emergency room. Labs here are notable for 2 normal troponins, sodium 121, chloride 88, glucose 121, white count 14,000, ESR 4. I do not have the EKG, but she has been in sinus sinus jayant since admission. CT of the abdomen and pelvis showed small hiatal hernia. No definite bowel obstruction seen. Chest x-ray showed hyperexpansion, no effusions or infiltrates. Because of the epigastric vein, cardiology was consulted, despite 2 negative troponins. The patient normally sees Dr. Aj Carney at [facility] and reportedly had a normal stress test this year. She has a history of syncope with a VT ablation in 1990 at [facility]. She was hospitalized at [facility] in May 2024 and apparently had some atrial fibrillation, documented on a screenshot of a progress note. She apparently had some decompensated heart failure at that time. In June 2024, she presented to [facility] with hallucinations and hypertensive urgency with a blood pressure of 208 systolic. Subsequent MRI showed subacute right frontal lobe infarct, possible mild petechial hemorrhage. CTA showed mild carotid disease. Echocardiogram at that time showed EF of 65%, negative bubble study. EKG then showed sinus. The patient was discharged on Eliquis 5 mg. Note she was not discharged with Eliquis or other anticoagulant when she was admitted to [facility] in May 2024. The patient was also hospitalized in [place] in September for epigastric pain, worse with inspiration. She saw Dr. Villarreal in July 2024. EKG at that time showed sinus bradycardia at 49. She had mobile telemetry placed and was continued on Eliquis. She fractured her sacrum and so was hospitalized and did not make her followup with Dr. Villarreal. She does have an appointment tomorrow with him, another reason for the consultation. The patient is currently resting in bed, maintaining sinus. She does complain of epigastric discomfort with deep inspiration and palpation. No precordial pain, shortness of breath or edema. She is maintained on Eliquis 2.5 mg, amlodipine 5 mg, metoprolol tartrate 50 mg b.i.d., atorvastatin 40 mg. No fever. She has a chronically elevated white count more today than usual. She has not slept for 2 days. She is tremulous all over as if something is crawling under her skin. She feels this restless crawling sensation throughout her body, not just her legs. No GI or bleeding, diabetes. ALLERGIES: No known drug allergies. HOME MEDICATIONS: Include metoprolol tartrate 75 mg b.i.d., atorvastatin 40, Eliquis 2.5, amlodipine 5, Lasix 20 daily. PAST MEDICAL HISTORY: * Syncope secondary to ventricular tachycardia with ablation in 1990 at [facility]. Reportedly normal cardiac stress test in 2024. * Subacute right frontal lobe CVA in 06/2024 at [facility], with possible mild petechial hemorrhage. * June 2024 echocardiogram, EF 65%, negative bubble study, mildly dilated left atrium. * Mild carotid disease on CTA in June 2024. * Hypertension. * Parkinsonism. * Paroxysmal atrial fibrillation, by report. * Chronic Eliquis anticoagulation. * Chronic diastolic heart failure. FAMILY HISTORY: Mother had heart disease, passed in her 90s from it. She has had left knee and shoulder replacement, remote hysterectomy, and a VT ablation at [facility] in 1990. SOCIAL HISTORY: Nonsmoker, nondrinker. 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 PHYSICAL EXAMINATION: GENERAL: Thin elderly female, in no acute distress. Diffuse trembling. VITAL SIGNS: Temperature 98.1, pulse 82, respirations 16, blood pressure 110/82. HEENT: Hearing intact. No facial asymmetry, nasal discharge, icterus or lid lag. NECK: Symmetric midline trachea. No bruits. CARDIOVASCULAR: Rhythm and rate regular. No murmurs. No edema. Dorsal pulses are nonpalpable due to motion artifact. RESPIRATORY: Clear to the bases. No crackles or wheezes. GASTROINTESTINAL: Epigastric tenderness with deep inspiration and palpation. No guarding or rebound. SKIN: No ecchymosis or ulcerations, somewhat pale. MUSCULOSKELETAL: Thin, diminished muscle bulk overall. No amputations. Range of motion is grossly normal. NEUROLOGIC: Speech clear. Diffuse resting tremors in both feet and both hands, worse on the right. PSYCHIATRY: Alert, oriented and pleasant. Memory intact. LABORATORY: WBC 14,000, otherwise unremarkable CBC. Sodium 121, chloride 88. Cardiac enzymes negative x 2. TSH normal. EKG telemetry shows sinus jayant. Radiology is described above. Benign chest x-ray with hyperexpansion, but no effusions or infiltrates. CT of the abdomen and pelvis showed no definite bowel obstruction. There is small hiatal hernia and diverticulosis noted. ASSESSMENT: * Epigastric pain, anorexia, and nausea. * Electrolyte abnormalities. * Paroxysmal atrial fibrillation. * Chronic Eliquis anticoagulation. * History of ventricular tachycardia and syncope in 1990 with VT ablation at [facility]. * June 2024 subacute right frontal lobe CVA at [facility]. * Mild carotid disease on CTA in June 2024. * June 2024 echocardiogram, EF 65%. Negative bubble study, mildly dilated LA. * Recent fall with sacral fracture. * Insomnia. * Parkinson's. * Hypertension. PLAN: The patient with a vaguely documented history of paroxysmal atrial fibrillation based on a screenshot from a hospitalization in [facility] in May 2024. She did have a mobile telemetry placed with Dr. Villarreal earlier in this year, but has been able to follow up due to sacral fracture. She has a history of ventricular tachycardia with a syncopal event followed by an ablation in 1990. She reportedly had a normal Lexiscan earlier this year with her regular transcripter, Dr. Carney. Cardiology has been consulted because of the epigastric pain, worse with breathing and palpation. Apparently, this was what she felt in [place] in September, which she was told was noncardiac at the time. Troponins have been negative. Other issues include hyponatremia, for which nephrology has been consulted. Unclear if GI or general surgery have been consulted by the primary team due to her abdominal pain. She has extensive Parkinson's, unclear if neurology will be consulted or psychiatry for insomnia. We will notify Dr. Villarreal tomorrow of the consult to review her outpatient mobile telemetry. Continue her current metoprolol 75 mg b.i.d., amlodipine 5 mg, atorvastatin 40 mg, and Eliquis 2.5 mg. TID: [id number] RECEIPT: [id number]
[2024-12-02] MEDS: CARBIDOPA-LEVODOPA 25-100 TAB PO SCH (23:02)
[2024-12-03] VITALS (23 sets, daily range): BP systolic 91–165; BP diastolic 28–88; PULSE 47–161; RESP 15–33; TEMP 98.1–98.8; O2SAT 96–100
[2024-12-03] MEDS: hydrALAZine 20MG/ML VIAL IV PRN (05:10)
--- NOTE | 2024-12-03 06:52 | CONS ---
NEPHROLOGY NOTE REASON FOR CONSULTATION: This patient has multiple medical problems, has renal failure, electrolyte problem, hyponatremia. HISTORY OF PRESENT ILLNESS: An 89-year-old who has a history of coronary artery disease, CVA, hypertension, and hyperlipidemia. The patient also has back pain with compression fracture needing vertebroplasty, history of atrial fibrillation and Parkinson's disease. The patient is admitted with chest pain and abdominal pain. The patient is having some nausea and vomiting also and the patient has poor oral intake and has multiple other comorbidities. The patient has leukocytosis and now very low sodium and electrolyte problem. PAST MEDICAL HISTORY: As above, atrial fibrillation, hypertension, hyperlipidemia, anticoagulation, Parkinson's, MN, compression fracture L4-L5. PAST SURGICAL HISTORY: Knee replacement, shoulder surgery, hysterectomy. SOCIAL HISTORY: No smoking, alcohol, or drug abuse. FAMILY HISTORY: Unremarkable. ALLERGIES: No allergies. MEDICATIONS: Home medicines reviewed include diuretic, Lasix. REVIEW OF SYSTEMS: CONSTITUTIONAL: Has been weak. No fever, chills, or rigors. HEENT: With no headache, oral ulcer, sore throat, or difficulty swallowing. No new vision complaints. RESPIRATORY: Has no cough, expectoration, hemoptysis, or pleuritic pain. CARDIOVASCULAR: As above, chest pain and mild shortness of breath. GASTROINTESTINAL: Positive for nausea, vomiting, and abdominal pain. GENITOURINARY: Negative for dysuria or hematuria. No stone. MUSCULOSKELETAL: No joint redness or inflammation. DERMATOLOGIC: No rashes, pruritus, or skin lesion. NEUROLOGIC: No seizure or syncope. ENDOCRINE: No polyuria, polydipsia, or polyphagia. PSYCHIATRIC: Negative for anxiety or depression. Other systems are unchanged. PHYSICAL EXAMINATION: GENERAL: Elderly, awake, alert, nonfocal, chronically ill. VITAL SIGNS: Blood pressure is 167/70, pulse 67, respiratory rate is 16. HEENT: Head is atraumatic, normocephalic. Pupils are round and reactive. Sclerae are anicteric. Conjunctivae not pale. Oral mucosa is not dry. NECK: Supple. No masses or bruits. Thyroid is palpable. Neck has no bruits. CHEST: Shows equal thoracic percussion note being resonant in all areas. CARDIAC: Regular rhythm. No rub, no S3 or S4. No murmur. ABDOMEN: No guarding or tenderness. Bowel sounds are normoactive. No free fluid. EXTREMITIES: With no edema and no cyanosis, clubbing. NEUROLOGIC: Awake, alert, nonfocal. No cranial nerve palsies or motor sensory deficit. LABORATORY DATA: We have reviewed the labs in detail. Labs have shown, the patient has influenza test, COVID test negative. Hemoglobin and hematocrit are low. Old records reviewed. Sodium is very low up to 121, sugar 121, creatinine 0.9, albumin is 4.2. IMAGING STUDIES: Personally reviewed. The patient underwent CT abdomen and pelvis, no bowel obstruction, small hiatal hernia, diverticulosis. Old records and imaging studies personally reviewed. PROBLEMS: * This patient has moderately severe hyponatremia. * Chest pain. * Abdominal pain. * Uncontrolled hypertension. * Leukocytosis. * History of CVA before. * Previous back surgery for L4-L5 compression. * History of atrial fibrillation. * Coronary artery disease. * Hyperlipidemia. * Parkinson's. PLAN: * The patient will get urine electrolytes. * Uric acid. * TSH. * Serum osmolality. * The patient will have a followup on sodium level. * No need to correct hyponatremia fast. * The patient's narcotics will be minimized. * For pain, Dilaudid 0.5 mg q. 6 hours can be used. * Follow up on blood pressure, electrolytes, and overall status. * We have reviewed the labs, x-rays, imaging studies personally. * We have discussed with Dr. Andersen. * Previous external and old records have been reviewed in detail. * The patient is followed by portainer operator also. Condition is critical and guarded. Seen several times. Thank you for this patient. TID: [id number] RECEIPT: [id number]
[2024-12-03 07:32] LABS: ALBUMIN 3.3 g/dL (3.5-5.0); BILIRUBIN,TOTAL 0.7 mg/dL (0.2-1.0); CREATININE 0.8 mg/dL (0.5-1.0); PHOSPHORUS 3.4 mg/dL (2.5-4.9); POTASSIUM 4.1 mmol/L (3.5-5.1); THYROID STIMULATING HORMONE 1.05 uIU/mL (0.36-3.74); TOTAL PROTEIN, SERUM 6.6 g/dL (6.0-8.3); URIC ACID 2.8 mg/dL (2.6-7.2)
[2024-12-03 07:39] LABS: BASOPHILS # (AUTO) 0.03 K/uL (0.00-0.20); BASOPHILS % (AUTO) 0.3 % (0.0-5.0); EOSINOPHILS # (AUTO) 0.04 K/uL (0.00-0.70); EOSINOPHILS % (AUTO) 0.4 % (0.0-8.0); HEMATOCRIT 38.3 % (36-48); IMMATURE GRANULOCYTE ABSOLUTE 0.04 K/uL (0-1); LYMPHOCYTES # (AUTO) 2.8 K/uL (1.0-4.8); LYMPHOCYTES % (AUTO) 25.7 % (21.0-51.0); MEAN CORPUSCULAR HEMOGLOBIN 30.3 pg (27.0-33.0); MEAN CORPUSCULAR HGB CONC 34.2 g/dL (32.0-36.0); MEAN CORPUSCULAR VOLUME 88.5 fL (79-99); MONOCYTES % (AUTO) 8.9 % (3.0-13.0); NEUTROPHILS # (AUTO) 6.9 K/uL (1.8-7.7); NEUTROPHILS % (AUTO) 64.3 % (40.0-77.0); PLATELET COUNT (AUTO) 211 K/uL (130-400); RED BLOOD CELL COUNT(AUTO) 4.33 MIL/uL (4.00-5.50); RED CELL DISTRIBUTION WIDTH 17.2 % (11.0-15.5); WHITE BLOOD COUNT (AUTO) 10.7 K/uL (4.8-10.8)
--- NOTE | 2024-12-03 08:04 | EKG ---
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
--- NOTE | 2024-12-03 08:35 | PN ---
[facility] PROGRESS NOTE Date of Service: December 03, 2024 Time of Service: 08:25 SUBJECTIVE: [ ] This is a 89-year-old female with underlying history of hypertension, hyperlipidemia, per daughter, prior history of MT in [place] in 09/2023, history of CVA, recent history of compression fractures involving L4 and L5 status post vertebroplasty in [facility], history of atrial fibrillation maintained on chronic anticoagulation with Eliquis, Parkinson's disease who presented to the ER with chief complaint of epigastric pain with midsternal chest discomfort, poor oral intake ongoing since last night. 12/03/24 during my rounds patient was complaining of chest pain states 05/10. Patient was placed on oxygen in given x1 morphine. Patient is retaining urine bladder scan showed [address] Beckham catheter. Patient continues to have chest discomfort patient was given nitroglycerin. AFib with RVR 170. The patient became diaphoretic thereafter radiate to her right arm. Repeat cardiac enzymes. Patient was given one dose of IV Lopressor then was transferred to ICU REVIEW OF SYSTEMS CONSTITUTIONAL: Denies fevers, chills, or night sweats. No unintentional weight loss reported. NEUROLOGICAL: Denies headache, amaurosis fugax, motor weakness, sensory deficit, vertigo/spinning sensation, gait abnormalities, or tremors. ENT: No hearing loss, otalgia, otorrhea, rhinitis, rhinorrhea, hoarseness, or sore throat. CARDIOVASCULAR: Patient reports having substernal chest discomfort PULMONARY: Denies any shortness of breath, cough, phlegm/sputum, hemoptysis, pleuritic chest pain. SLEEP: Denies morning headaches, daytime somnolence or napping. Denies difficulty falling asleep, staying asleep, waking from sleep. Denies knowledge of snoring. GASTROINTESTINAL: Nausea, vomiting, epigastric pain, mild in intensity, denies any significant lower quadrant abdominal pain GENITOURINARY: Denies frequency, urgency, nocturia, hematuria or incontinence (Storage/Irritative symptoms.) Low urinary stream, straining to void, urinary intermittency or hesitancy, splitting of the voiding stream, terminal dribbling. ENDOCRINOLOGIC: Denies polyuria, polydipsia, polyphagia or heat/cold intolerances. HEMATOLOGIC: Denies thrombophilia/previous clots, or coagulopathy/bleeding disorders. ONCOLOGIC: Denies personal history of malignancy. DERMATOLOGIC: Denies rashes or pruritus. PSYCHIATRIC: Denies any suicidal or homicidal ideation. Denies hallucinations. PHYSICAL EXAM GENERAL APPEARANCE: The patient is awake, alert, appears frail and chronically ill NEUROLOGICAL: Cranial nerves II-XII grossly intact. Patient is moving her upper and lower extremities, resting tremors noted of the hands HEENT: Face is symmetric. Pupils are equal and reactive. Extraocular movements are intact. NECK: Supple. No JVD. No thyromegaly. No submental, submandibular, pre- /postauricular, occipital or supraclavicular lymphadenopathy. CHEST: Normal chest expansion. No Telemetry. LUNGS: Absence of any rales, rhonchi or any wheezing. CARDIOVASCULAR: Irregular, no rubs or gallops noted ABDOMEN: Soft, nontender, and nondistended. No significant tenderness on palpation of the abdomen : Deferred. No Beckham. EXTREMITIES: Non-edematous and not cyanotic. No clubbing. Good capillary refill. SKIN: No skin breakdown. Vital Signs (last 8hr) Date Time Temp Pulse Resp B/P (MAP) Pulse Ox O2 Delivery O2 Flow Rate FiO2 12/03/24 07:40 98.1 63 19 140/67 95 Room Air 12/03/24 06:44 73 140/66 12/03/24 04:00 98.4 61 18 165/83 97 Room Air LABS: Laboratory: Test 12/03/24 07:03 12/03/24 00:45 12/02/24 14:22 12/02/24 13:25 Range/Units White Blood Count 10.7 # 4.8-10.8 K/uL Red Blood Count 4.33 4.00-5.50 MIL/uL Hemoglobin 13.1 12.0-16.0 g/dL Hematocrit 38.3 36-48 % Mean Corpuscular Volume 88.5 79-99 fL Mean Corpuscular Hemoglobin 30.3 27.0-33.0 pg Mean Corpuscular Hemoglobin Concent 34.2 32.0-36.0 g/dL Red Cell Distribution Width 17.2 H 11.0-15.5 % Platelet Count 211 130-400 K/uL Mean Platelet Volume 8.8 7.5-10.5 fL Immature Granulocyte % (Auto) 0.4 0-1 % Neutrophils (%) (Auto) 64.3 40.0-77.0 % Lymphocytes (%) (Auto) 25.7 21.0-51.0 % Monocytes (%) (Auto) 8.9 3.0-13.0 % Eosinophils (%) (Auto) 0.4 0.0-8.0 % Basophils (%) (Auto) 0.3 0.0-5.0 % Neutrophils # (Auto) 6.9 1.8-7.7 K/uL Lymphocytes # (Auto) 2.8 1.0-4.8 K/uL Monocytes # (Auto) 1.0 0.1-1.0 K/uL Eosinophils # (Auto) 0.04 0.00-0.70 K/uL Basophils # (Auto) 0.03 0.00-0.20 K/uL Absolute Immature Granulocyte (auto 0.04 0-1 K/uL Nucleated Red Blood Cells 0.0 0.0-0.19 % Sodium Level 132 L 136-145 mmol/L Potassium Level 4.1 3.5-5.1 mmol/L Chloride Level 102 101-111 mmol/L Carbon Dioxide Level 25 21-32 mmol/L Blood Urea Nitrogen 11 7-18 mg/dL Creatinine 0.8 0.5-1.0 mg/dL Glomerular Filtration Rate Calc 71 >90 mL/min Random Glucose 87 70-105 mg/dL Uric Acid 2.8 2.6-7.2 mg/dL Total Calcium 8.8 8.5-10.1 mg/dL Phosphorus Level 3.4 2.5-4.9 mg/dL Magnesium Level 2.00 1.80-2.40 mg/dL Total Bilirubin 0.7 # 0.2-1.0 mg/dL Aspartate Amino Transf (AST/SGOT) 15 10-37 U/L Alanine Aminotransferase (ALT/SGPT) 5 L 12-78 U/L Alkaline Phosphatase 104 50-136 U/L Total Protein 6.6 6.0-8.3 g/dL Albumin 3.3 #L 3.5-5.0 g/dL Thyroid Stimulating Hormone (TSH) 1.05 0.36-3.74 uIU/mL Total Creatine Kinase 59 # 21-232 U/L Troponin I High Sensitivity 11.5 4-50 ng/L Urine Color YELLOW YELLOW Urine Appearance CLEAR CLEAR Urine pH 7.0 5.0-8.0 Urine Specific Zoe 1.011 1.001-1.031 Urine Protein NEGATIVE NEGATIVE mg/dL Urine Glucose (UA) NEGATIVE NEGATIVE mg/dL Urine Ketones NEGATIVE NEGATIVE mg/dL Urine Occult Blood NEGATIVE NEGATIVE Urine Nitrate NEGATIVE NEGATIVE Urine Bilirubin NEGATIVE NEGATIVE mg/dL Urine Urobilinogen 0.2 0.2-1.0 mg/dL Urine Leukocyte Esterase NEGATIVE NEGATIVE Zoie/uL Urine RBC 2-5 H 0-1 /HPF Urine WBC 0-1 0-1 /HPF Urine Squamous Epithelial Cells RARE 0-2 /HPF Urine Bacteria RARE None Seen /HPF Urine Random Creatinine 51.65 30-135 mg/dL Urine Random Sodium 20 L 40-220 mmol/l Influenza Type A Antigen Negative For Type A NEGATIVE Influenza Type B Antigen Negative For Type B NEGATIVE SARS-CoV-2, RNA, NAAT NEGATIVE SARS CoV-2 NEGATIVE Test 12/02/24 11:33 Range/Units Erythrocyte Sedimentation Rate 4 0-30 MM/HR Prothrombin Time 10.6 9.6-11.6 SEC Prothromb Time International Ratio 1.00 0.85-1.15 Activated Partial Thromboplast Time 27.8 26.3-35.5 SEC D-Dimer Quantitative (PE/DVT) 618 *H 0-500 ng/mL Direct Bilirubin 0.3 0.0-0.3 mg/dL C-Reactive Protein, Quantitative 0.60 0.5-3.0 mg/L Lipase 38 16-77 U/L Procalcitonin < 0.05 L 0.05-0.5 ng/mL Current Medications Medications (Trade) Dose Ordered Sig/Mahnaz Route PRN Reason Start Time Stop Time Status Last Admin Dose Admin Acetaminophen (TYLenol 500MG TAB) 500 mg Q6H PRN PO MILD PAIN (1-3) 12/02/24 14:30 01/01/25 14:29 12/02/24 17:02 500 MG Amlodipine Besylate (NorvASC 5MG TAB) 5 mg DAILY PO 12/03/24 09:00 01/02/25 08:59 Apixaban (EliquIS 2.5 mg) 2.5 mg BID PO 12/02/24 21:00 01/01/25 20:59 12/02/24 20:06 2.5 MG Atorvastatin Calcium (LIPItor 40MG) 40 mg HS PO 12/02/24 21:00 01/01/25 20:59 12/02/24 20:07 40 MG Carbidopa/Levodopa (Sinemet 25-100 Tab) 1 each TID PO 12/02/24 21:00 01/01/25 20:59 12/02/24 23:02 1 EACH Ceftriaxone Sodium (ROCEphine 1G INJ) 1 gm Q24H IVPB 12/02/24 14:30 12/12/24 14:29 12/02/24 20:06 1 GM Hydralazine HCl (APRESOLine 20MG INJ) 5 mg Q6H PRN IV ADMINISTER FOR SBP > 160 12/02/24 15:00 12/03/24 04:45 DC Hydralazine HCl (APRESOLine 20MG INJ) 10 mg Q2HPRN PRN IV ADMINISTER FOR SBP > 160 12/03/24 04:30 01/02/25 04:29 12/03/24 05:10 10 MG Hydromorphone HCl (DiLAUDid 0.5MG INJ) 0.5 mg Q6H PRN IVP SEVERE PAIN (7-10) 12/02/24 14:30 12/07/24 14:29 Methocarbamol (methoCARBamol) 500 mg TID PRN PO muscle cramps 12/02/24 15:30 01/01/25 15:29 Metoprolol Tartrate (loprESSOR) 25 mg BID PO 12/02/24 21:00 01/01/25 20:59 12/02/24 20:08 25 MG Metoprolol Tartrate (loprESSOR) 50 mg BID PO 12/02/24 21:00 01/01/25 20:59 12/02/24 20:08 50 MG Miscellaneous Medication (Metoprolol Tartrate ) 1 tab BID PO 12/02/24 21:00 12/02/24 15:32 DC Morphine Sulfate (morPHINE 2MG SYG) 2 mg ONCE STAT IVP 12/02/24 13:33 12/02/24 13:38 DC 12/02/24 13:39 2 MG Nitroglycerin (Nitrostat) 0.4 mg AD PRN SL CHEST PAIN 12/02/24 14:30 01/01/25 14:29 Ondansetron HCl (zoFRAN 4MG INJ) 4 mg ONCE STAT IVP 12/02/24 13:33 12/02/24 13:38 DC 12/02/24 13:39 4 MG Ondansetron HCl (zoFRAN 4MG INJ) 4 mg Q6H PRN IVP NAUSEA/VOMITING 12/02/24 14:30 01/01/25 14:29 Pantoprazole Sodium (PROTonix 40MG INJ) 40 mg Q24H IVP 12/02/24 14:30 01/01/25 14:29 12/02/24 20:10 40 MG Sodium Chloride 1,000 ml @ 60 mls/hr [id number] IV 12/02/24 14:30 12/02/24 14:26 DC Sodium Chloride 1,000 ml @ 60 mls/hr [id number] IV 12/02/24 14:30 01/01/25 14:29 12/02/24 18:12 60 MLS/HR Sodium Chloride 1,000 ml @ 1,000 mls/hr Q1H STAT IV 12/02/24 10:54 12/02/24 11:53 DC 12/02/24 10:54 1,000 MLS/HR Thiamine HCl (Vitamin B-1) 100 mg Q24H IVP 12/02/24 14:30 01/01/25 14:29 12/02/24 20:07 100 MG Trazodone HCl (DesyREL/OlepTRO) 50 mg HS PO 12/02/24 21:00 01/01/25 20:59 12/02/24 20:06 50 MG DIAGNOSTICS / RADIOLOGY: [ ] ASSESSMENT: Afibb with RVR: requiring Adenosine [id number] hyponatremia, POA Atypical chest pain, POA Epigastric abdominal pain with nausea and vomiting, POA Leukocytosis, POA History of CVA in 2023, POA History of L4-L5 compression fracture with recent history of vertebroplasty in 09/2024, POA Debility/frailty, POA Prior history of MT in [place] in 09/2023, POA History of atrial fibrillation maintained on chronic anticoagulation with Eliquis, POA History of outpatient use of opioids with hydrocodone, POA Hyperlipidemia, POA Rule out occult infection, POA History of diuretic use as outpatient, POA History of Parkinson's disease, POA urinary retention not POA PLAN: Admit: med surg with Tele monitoring IVF: NS at 60 ml/hr consulted: Ballaster: DR Villarreal as per family request continue with fluid restriction; sodium today 132 CE x3 negative: 7- 10.3- 11.5 pain management: cont with Methocarbamol prn PT to eval and treat. cont anticoagulation with Eliquis, will monitor H/H trends: transfuse to keep hgb above 7.0 All labs will be repeated in the morning Addendum: transfer to ICU critical team consulted troponin set ordered Lopressor IV given x1 oxygen supplemental, Morphine 1 mg IV inserted Beckham catheter GI Consulted. ATTESTATION BY PHYSICIAN I have seen and examined the patient. I reviewed the documentation, medical decision making, and treatment plan as noted by the mid-level provider above. I agree with the findings and plan of care. MARKELL MAHMOOD MD, ELIZABETH NP December 03, 2024 08:35
[2024-12-03] MEDS: amLODIPine 5 MG TAB PO SCH (09:54)
[2024-12-03] MEDS: morPHINE 2 MG SYG IVP ONE (09:59)
--- NOTE | 2024-12-03 10:07 | NUR ---
PATIENT CALLING OUT INTO HALLWAY, "I NEED HELP". ENTERED PATIENT'S ROOM TO ASSIST. PATIENT STATES, "CAN YOU PLEASE CALL [facility]? MY CHEST IS HURTING". CALLED TELEMETRY TO OBTAIN CURRENT HEART RATE. TELEMETRY REPORTS HEART RATE OF Janiya GARCIA IN THE 160'S. NOTIFIED ADDY NICHOLS NP OF CONDITION. ATTEMPTED TO NOTIFY [facility] TWICE WITH NO RESPONSE. RAPID RESPONSE CALLED AT 1010. PATIENT DISPLAYS PULSE RATES IN THE 170'S. DR. MAHMOOD AND ADDY NICHOLS BUCKLE SEWER ARRIVED AND ORDERED ADMINISTRATION OF IV LOPRESSOR FOR PULSE CONTROL. UNABLE TO OBTAIN BLOOD PRESSURE WITH MACHINE OR MANUAL CUFF. LOPRESSOR ORDERED TO BE GIVEN ANYWAY BY DR. MAHMOOD, WHO IS PRESENT IN ROOM, FOR PULSE CONTROL. PATIENT TO BE TRANSFERRED TO ICU. REPORT CALLED TO JENNIFER LENNON. TRANSFERRED TO ROOM 217 AT 1024.
[2024-12-03] MEDS: NITROGLYCERIN 0.4 MG SL TAB SL PRN (10:25)
[2024-12-03] MEDS: metoPROLOL tartRATE 1 MG/ML 5ML VIAL IV ONE (10:27)
[2024-12-03] MEDS ORDERED: AMIOdarone 900MG VIAL 360 MG in DEXTROSE 5%-WATER 200 ML IV SCH (11:00)
[2024-12-03] MEDS ORDERED: AMIOdarone 900MG VIAL 150 MG in DEXTROSE 5%-WATER 100 ML IV SCH (11:00)
--- NOTE | 2024-12-03 11:00 | NUR ---
Order received for PT to eval and treat (12/02/24 @ 1808). Rapid response called for patient at 10:00 am. Spoke to nurse who stated patient went into A fib with HR in the 170's. Patient was transferred to ICU. PT team to follow.
--- NOTE | 2024-12-03 11:03 | EKG ---
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: [id number] : 1935 Requested By: MARKELL MAHMOOD Order Number: [id number] Reading MD: Thomas Mendes Measurements Intervals [place] Rate: 178 P: 0 KS: 0 QRS: -35 QRSD: 86 T: 132 QT: 250 QTc: 430 Interpretive Statements Atrial fibrillation with rapid ventricular response Left axis deviation Moderate voltage criteria for LVH, may be normal variant Marked ST abnormality, possible inferior subendocardial injury Marked ST abnormality, possible anterolateral subendocardial injury Compared to ECG 12/02/2024 11:44:15 Left-axis deviation now present Atrial flutter no longer present Ventricular premature complex(es) no longer present Intraventricular conduction delay no longer present ST (T wave) deviation still present Electronically Signed On 12-03-2024 12:53:06 CDT by Thomas Mendes Please click the below link to view image of tracing.
[2024-12-03] MEDS: ADENOSINE 6MG VIAL IV STA ×2 (11:06)
--- NOTE | 2024-12-03 11:16 | NUR ---
1035 admitted to unit post rapid response on 3rd floor. HR 160-140'S, PIV started to right AC, adenosine 6mg ivp adm. crash cart at bedside for emergency. 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 12 lead done. Orders received for amiodarone.
[2024-12-03 11:39] LABS: MAGNESIUM 1.9 mg/dL (1.80-2.40); POTASSIUM 4.2 mmol/L (3.5-5.1)
--- NOTE | 2024-12-03 11:56 | CONS ---
[facility] CARDIAC ELECTRTOPHYSIOLOGY CONSULTATION Date Patient Seen: December 03, 2024 Time of Visit: 11:28 Reason for Consultation: Atrial Fibrillation History of Present Illness: The patient is an 89-year-old woman known to me from prior evaluation for atrial fibrillation. 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 Aj Hall in [place]. I last saw the patient in July of 2024 and she had a mobile tetryl blender operator placed however she did not make it to her follow up visit due to a sacral fracture. This monitor showed sinus rhythm with frequent PACs, and one four beat run of nonsustained VT. There was a lot of artifact throughout due to tremor from her Parkinson's disease. She was admitted with atypical chest pain and epigastric pain with nausea , vomiting, and weakness. She then spontaneously developed atrial fibrillation with rapid ventricular response. The patient states that this is the 1st time she has experienced this in several years. She has been at the appropriate dose of Eliquis at 2.5 mg b.i.d. as well as metoprolol. She has not been treated with antiarrhythmic therapy. She had an echocardiogram in June 2024 showing an ejection fraction of 65%, negative bubble study, and a mildly dilated left atrium. This was done when she presented with a subacute right frontal lobe CVA as [facility]. She also has a history of ventricular tachycardia and syncope in 1990 with VT ablation at [facility]. Currently, her heart rate is in the 1 teens to 120s, in comparison to 170s to 180s initially. She is feeling more comfortable. She complains of nausea and vomiting as well as weakness, however she does have chest pain which is r eproducible on palpation of the lower part of the sternum. She she states that when this episode of atrial fibrillation began she experienced chest pain radiating to the back, right arm, and right neck. This pain has subsided. Her troponins have been negative during this admission. Also of note is that the patient and family state that she has lost about 40 lb in the last 14 months. The patient states it was secondary to poor appetite. Past Medical History: As above Family History: Noncontributory Social History: Denies smoking or alcohol abuse Review of Systems: Negative on a 13 point review Physical Examination: GENERAL: Frail woman in no apparent distress HEENT: Grossly within normal limits NECK: No JVD LUNGS: Clear HEART: Irregular and rapid, no murmurs appreciated CHEST: Significant tenderness to palpation of the lower sternum ABD: Mild epigastric tenderness EXT: No edema Vital Signs (last 8hr) Date Time Temp Pulse Resp B/P (MAP) Pulse Ox O2 Delivery O2 Flow Rate FiO2 12/03/24 11:06 150 122/88 12/03/24 10:44 98.8 129 26 122/88 99 Nasal Cannula 4.0 12/03/24 10:34 145 19 107/64 99 Nasal Cannula 4.0 12/03/24 10:27 179 12/03/24 10:12 161 28 N/Cannula Low lpm 4.0 12/03/24 07:40 98.1 63 19 140/67 95 Room Air 12/03/24 06:44 73 140/66 12/03/24 04:00 98.4 61 18 165/83 97 Room Air Laboratory: Hematology Labs: Test 12/03/24 07:03 12/02/24 11:33 Range/Units White Blood Count 10.7 # 4.8-10.8 K/uL Red Blood Count 4.33 4.00-5.50 MIL/uL Hemoglobin 13.1 12.0-16.0 g/dL Hematocrit 38.3 36-48 % Mean Corpuscular Volume 88.5 79-99 fL Mean Corpuscular Hemoglobin 30.3 27.0-33.0 pg Mean Corpuscular Hemoglobin Concent 34.2 32.0-36.0 g/dL Red Cell Distribution Width 17.2 H 11.0-15.5 % Platelet Count 211 130-400 K/uL Mean Platelet Volume 8.8 7.5-10.5 fL Immature Granulocyte % (Auto) 0.4 0-1 % Neutrophils (%) (Auto) 64.3 40.0-77.0 % Lymphocytes (%) (Auto) 25.7 21.0-51.0 % Monocytes (%) (Auto) 8.9 3.0-13.0 % Eosinophils (%) (Auto) 0.4 0.0-8.0 % Basophils (%) (Auto) 0.3 0.0-5.0 % Neutrophils # (Auto) 6.9 1.8-7.7 K/uL Lymphocytes # (Auto) 2.8 1.0-4.8 K/uL Monocytes # (Auto) 1.0 0.1-1.0 K/uL Eosinophils # (Auto) 0.04 0.00-0.70 K/uL Basophils # (Auto) 0.03 0.00-0.20 K/uL Absolute Immature Granulocyte (auto 0.04 0-1 K/uL Nucleated Red Blood Cells 0.0 0.0-0.19 % Erythrocyte Sedimentation Rate 4 0-30 MM/HR Chemistry Labs: Test 12/03/24 10:15 12/03/24 09:44 12/03/24 07:03 12/02/24 11:33 Range/Units Whole Blood Glucose 124 H 70-110 MG/DL Troponin I High Sensitivity 14 4-50 ng/L Sodium Level 132 L 136-145 mmol/L Potassium Level 4.1 3.5-5.1 mmol/L Chloride Level 102 101-111 mmol/L Carbon Dioxide Level 25 21-32 mmol/L Blood Urea Nitrogen 11 7-18 mg/dL Creatinine 0.8 0.5-1.0 mg/dL Glomerular Filtration Rate Calc 71 >90 mL/min Random Glucose 87 70-105 mg/dL Uric Acid 2.8 2.6-7.2 mg/dL Total Calcium 8.8 8.5-10.1 mg/dL Phosphorus Level 3.4 2.5-4.9 mg/dL Magnesium Level 2.00 1.80-2.40 mg/dL Total Bilirubin 0.7 # 0.2-1.0 mg/dL Aspartate Amino Transf (AST/SGOT) 15 10-37 U/L Alanine Aminotransferase (ALT/SGPT) 5 L 12-78 U/L Alkaline Phosphatase 104 50-136 U/L Total Creatine Kinase 19 #L 21-232 U/L Total Protein 6.6 6.0-8.3 g/dL Albumin 3.3 #L 3.5-5.0 g/dL Thyroid Stimulating Hormone (TSH) 1.05 0.36-3.74 uIU/mL Direct Bilirubin 0.3 0.0-0.3 mg/dL C-Reactive Protein, Quantitative 0.60 0.5-3.0 mg/L Lipase 38 16-77 U/L Procalcitonin < 0.05 L 0.05-0.5 ng/mL Coagulation Labs: Test 12/02/24 11:33 Range/Units Prothrombin Time 10.6 9.6-11.6 SEC Prothromb Time International Ratio 1.00 0.85-1.15 Activated Partial Thromboplast Time 27.8 26.3-35.5 SEC D-Dimer Quantitative (PE/DVT) 618 *H 0-500 ng/mL Assessment: 1. Admission for nausea, vomiting, weakness, and epigastric pain 2. Acute onset atrial fibrillation with rapid ventricular response with a history of PAF, none recently. 3. Atypical chest pain due to musculoskeletal source at the sternum. 4. Possible angina related to rapid rate 5. Normal LV systolic function in June 2024 with ejection fraction 65% 6. 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 Possibly unexplained weight loss Plan: 1. Given this patient's tenuous state, I believe prompt mosque of sinus rhythm is preferable over only rate control. 2. We will start the amiodarone intravenous infusion protocol which should assist in rate control which is already better after some IV metoprolol 3. If the patient does not convert to sinus rhythm by morning then we will proceed with cardioversion 4. The patient was experienced nausea and vomiting related to amiodarone in the past. We will therefore avoid this as a oral medication but will select a different antiarrhythmic once the echocardiogram is done. 5. We will proceed with follow up echocardiogram however it would be better to wait until she is in sinus rhythm 6. Once her cardiac rhythm is stabilized then I recommend proceeding with a Lexiscan Cardiolite stress test 7. Workup of nausea vomiting and epigastric pain per hospitalist team 8. Workup of unexplained weight loss as per hospitalist team and outpatient primary care physician. Thank you very much for this consultation. MARAL SHERMAN MD December 03, 2024 11:56
--- NOTE | 2024-12-03 14:14 | PN ---
NEPHROLOGY PROGRESS NOTE Date/Time Patient Seen: December 03, 2024 SUBJECTIVE: This is an 89-year-old who has a history of coronary artery disease, CVA, hypertension, hyperlipidemia, back pain with compression fracture needing vertebroplasty, history of atrial fibrillation and Parkinson's disease. The patient is admitted with chest pain and abdominal pain. The patient is having some nausea and vomiting also and the patient has poor oral intake and has multiple other comorbidities. The patient has leukocytosis and now very low sodium and electrolyte problem. She was transferred to ICU due to atrial fibrillation Renal function is improving Sodium level is improving She was seen in the ICU, in no acute distress Family at the bedside Condition is critical and guarded REVIEW OF SYSTEMS: GENERAL: Negative for any nausea, vomiting, fevers, chills, or weight loss. NEUROLOGIC: Negative for any blurry vision, blind spots, double vision, facial asymmetry, dysphagia, dysarthria, hemiparesis, hemisensory deficits, vertigo, ataxia. HEENT: Negative for any head trauma, neck trauma, neck stiffness, photophobia, phonophobia, sinusitis, rhinitis. CARDIAC: Negative for any chest pain, dyspnea on exertion, paroxysmal nocturnal dyspnea, peripheral edema. PULMONARY: Negative for any shortness of breath, wheezing, COPD, or TB exposure. GASTROINTESTINAL: Negative for any abdominal pain, nausea, vomiting, bright red blood per rectum, melena. GENITOURINARY: Negative for any dysuria, hematuria, incontinence. INTEGUMENTARY: Negative for any rashes, cuts, insect bites. RHEUMATOLOGIC: Negative for any joint pains, photosensitive rashes, history of vasculitis or kidney problems. HEMATOLOGIC: Negative for any abnormal bruising, frequent infections or bleeding. Vital Signs (last 8hr) Date Time Temp Pulse Resp B/P (MAP) Pulse Ox O2 Delivery O2 Flow Rate FiO2 12/03/24 11:44 101 22 104/58 99 Nasal Cannula 4.0 12/03/24 11:29 110 23 117/59 100 Nasal Cannula 4.0 12/03/24 11:14 128 31 134/78 100 Nasal Cannula 4.0 12/03/24 11:06 150 122/88 12/03/24 10:44 98.8 129 26 122/88 99 Nasal Cannula 4.0 12/03/24 10:34 145 19 107/64 99 Nasal Cannula 4.0 12/03/24 10:27 179 5/5/25 10:12 161 28 N/Cannula Low lpm 4.0 12/03/24 09:54 96 Room Air* 0 21 12/03/24 07:40 98.1 63 19 140/67 95 Room Air 12/03/24 06:44 73 140/66 PHYSICAL EXAM: GENERAL: Alert and oriented x 3. No acute distress. Well-nourished. EYES: EOMI. Anicteric. HENT: Moist mucous membranes. No scleral icterus. No cervical lymphadenopathy. LUNGS: Clear to auscultation bilaterally. No accessory muscle use. CARDIOVASCULAR: Regular rate and rhythm. No murmur. No JVD. ABDOMEN: Soft, non-tender and non-distended. No palpable masses. EXTREMITIES: No edema. Non-tender.?SKIN: No rashes or lesions. Warm. NEUROLOGIC: No focal neurological deficits. CN II-XII grossly intact, but not individually tested. PSYCHIATRIC: Cooperative. Appropriate mood and affect. Current Medications Medications (Trade) Dose Ordered Sig/Mahnaz Route PRN Reason Start Time Stop Time Status Last Admin Dose Admin Acetaminophen (TYLenol 500MG TAB) 500 mg Q6H PRN PO MILD PAIN (1-3) 12/02/24 14:30 01/01/25 14:29 12/02/24 17:02 500 MG Adenosine (Adenocard 6mg Vial) 6 mg ONCE STAT IV 12/03/24 10:39 12/03/24 10:42 DC 12/03/24 11:06 6 MG Adenosine (Adenocard 6mg Vial) 6 mg ONCE STAT IV 12/03/24 10:44 12/03/24 10:45 DC Amiodarone HCl 150 mg/Dextrose 103 ml @ 618 mls/hr ONCE IV 12/03/24 11:00 12/03/24 11:03 DC Amiodarone HCl 360 mg/Dextrose 207.2 ml @ 33.3 mls/hr AD IV 12/03/24 11:00 12/03/24 11:03 DC Amlodipine Besylate (NorvASC 5MG TAB) 5 mg DAILY PO 12/03/24 09:00 01/02/25 08:59 12/03/24 09:54 5 MG Apixaban (EliquIS 2.5 mg) 2.5 mg BID PO 12/02/24 21:00 01/01/25 20:59 12/03/24 09:54 2.5 MG Atorvastatin Calcium (LIPItor 40MG) 40 mg HS PO 12/02/24 21:00 01/01/25 20:59 12/02/24 20:07 40 MG Carbidopa/Levodopa (Sinemet 25-100 Tab) 1 each TID PO 12/02/24 21:00 01/01/25 20:59 12/03/24 09:54 1 EACH Ceftriaxone Sodium (ROCEphine 1G INJ) 1 gm Q24H IVPB 12/02/24 14:30 12/12/24 14:29 12/02/24 20:06 1 GM Hydralazine HCl (APRESOLine 20MG INJ) 5 mg Q6H PRN IV ADMINISTER FOR SBP > 160 12/02/24 15:00 12/03/24 04:45 DC Hydralazine HCl (APRESOLine 20MG INJ) 10 mg Q2HPRN PRN IV ADMINISTER FOR SBP > 160 12/03/24 04:30 01/02/25 04:29 12/03/24 05:10 10 MG Hydromorphone HCl (DiLAUDid 0.5MG INJ) 0.5 mg Q6H PRN IVP SEVERE PAIN (7-10) 12/02/24 14:30 12/07/24 14:29 Methocarbamol (methoCARBamol) 500 mg TID PRN PO muscle cramps 12/02/24 15:30 01/01/25 15:29 Metoprolol Tartrate (loprESSOR) 25 mg BID PO 12/02/24 21:00 01/01/25 20:59 12/03/24 09:54 25 MG Metoprolol Tartrate (loprESSOR) 50 mg BID PO 12/02/24 21:00 01/01/25 20:59 12/03/24 12:24 50 MG Miscellaneous Medication (Metoprolol Tartrate ) 1 tab BID PO 12/02/24 21:00 12/02/24 15:32 DC Morphine Sulfate (morPHINE 2MG SYG) 2 mg ONCE STAT IVP 12/02/24 13:33 12/02/24 13:38 DC 12/02/24 13:39 2 MG Nitroglycerin (Nitrostat) 0.4 mg AD PRN SL CHEST PAIN 12/02/24 14:30 01/01/25 14:29 12/03/24 10:25 0.4 MG Ondansetron HCl (zoFRAN 4MG INJ) 4 mg ONCE STAT IVP 12/02/24 13:33 12/02/24 13:38 DC 12/02/24 13:39 4 MG Ondansetron HCl (zoFRAN 4MG INJ) 4 mg Q6H PRN IVP NAUSEA/VOMITING 12/02/24 14:30 01/01/25 14:29 Pantoprazole Sodium (PROTonix 40MG INJ) 40 mg BID IVP 12/03/24 21:00 01/01/25 14:29 Pantoprazole Sodium (PROTonix 40MG INJ) 40 mg Q24H IVP 12/02/24 14:30 12/03/24 09:37 DC 12/02/24 20:10 40 MG Sodium Chloride 1,000 ml @ 60 mls/hr [id number] IV 12/02/24 14:30 12/02/24 14:26 DC Sodium Chloride 1,000 ml @ 60 mls/hr [id number] IV 12/02/24 14:30 01/01/25 14:29 12/02/24 18:12 60 MLS/HR Sodium Chloride 1,000 ml @ 1,000 mls/hr Q1H STAT IV 12/02/24 10:54 12/02/24 11:53 DC 12/02/24 10:54 1,000 MLS/HR Thiamine HCl (Vitamin B-1) 100 mg Q24H IVP 12/02/24 14:30 01/01/25 14:29 12/02/24 20:07 100 MG Trazodone HCl (DesyREL/OlepTRO) 50 mg HS PO 12/02/24 21:00 01/01/25 20:59 12/02/24 20:06 50 MG LABORATORY: [ ] Hematology Labs: Test 12/03/24 07:03 12/02/24 11:33 Range/Units White Blood Count 10.7 # 4.8-10.8 K/uL Red Blood Count 4.33 4.00-5.50 MIL/uL Hemoglobin 13.1 12.0-16.0 g/dL Hematocrit 38.3 36-48 % Mean Corpuscular Volume 88.5 79-99 fL Mean Corpuscular Hemoglobin 30.3 27.0-33.0 pg Mean Corpuscular Hemoglobin Concent 34.2 32.0-36.0 g/dL Red Cell Distribution Width 17.2 H 11.0-15.5 % Platelet Count 211 130-400 K/uL Mean Platelet Volume 8.8 7.5-10.5 fL Immature Granulocyte % (Auto) 0.4 0-1 % Neutrophils (%) (Auto) 64.3 40.0-77.0 % Lymphocytes (%) (Auto) 25.7 21.0-51.0 % Monocytes (%) (Auto) 8.9 3.0-13.0 % Eosinophils (%) (Auto) 0.4 0.0-8.0 % Basophils (%) (Auto) 0.3 0.0-5.0 % Neutrophils # (Auto) 6.9 1.8-7.7 K/uL Lymphocytes # (Auto) 2.8 1.0-4.8 K/uL Monocytes # (Auto) 1.0 0.1-1.0 K/uL Eosinophils # (Auto) 0.04 0.00-0.70 K/uL Basophils # (Auto) 0.03 0.00-0.20 K/uL Absolute Immature Granulocyte (auto 0.04 0-1 K/uL Nucleated Red Blood Cells 0.0 0.0-0.19 % Erythrocyte Sedimentation Rate 4 0-30 MM/HR Chemistry Labs: Test 12/03/24 10:15 12/03/24 09:44 12/03/24 07:03 12/02/24 11:33 Range/Units Whole Blood Glucose 124 H 70-110 MG/DL Potassium Level 4.2 3.5-5.1 mmol/L Magnesium Level 1.90 1.80-2.40 mg/dL Troponin I High Sensitivity 14 4-50 ng/L Sodium Level 132 L 136-145 mmol/L Chloride Level 102 101-111 mmol/L Carbon Dioxide Level 25 21-32 mmol/L Blood Urea Nitrogen 11 7-18 mg/dL Creatinine 0.8 0.5-1.0 mg/dL Glomerular Filtration Rate Calc 71 >90 mL/min Random Glucose 87 70-105 mg/dL Uric Acid 2.8 2.6-7.2 mg/dL Total Calcium 8.8 8.5-10.1 mg/dL Phosphorus Level 3.4 2.5-4.9 mg/dL Total Bilirubin 0.7 # 0.2-1.0 mg/dL Aspartate Amino Transf (AST/SGOT) 15 10-37 U/L Alanine Aminotransferase (ALT/SGPT) 5 L 12-78 U/L Alkaline Phosphatase 104 50-136 U/L Total Creatine Kinase 19 #L 21-232 U/L Total Protein 6.6 6.0-8.3 g/dL Albumin 3.3 #L 3.5-5.0 g/dL Thyroid Stimulating Hormone (TSH) 1.05 0.36-3.74 uIU/mL Direct Bilirubin 0.3 0.0-0.3 mg/dL C-Reactive Protein, Quantitative 0.60 0.5-3.0 mg/L Lipase 38 16-77 U/L Procalcitonin < 0.05 L 0.05-0.5 ng/mL Coagulation Labs: Test 12/02/24 11:33 Range/Units Prothrombin Time 10.6 9.6-11.6 SEC Prothromb Time International Ratio 1.00 0.85-1.15 Activated Partial Thromboplast Time 27.8 26.3-35.5 SEC D-Dimer Quantitative (PE/DVT) 618 *H 0-500 ng/mL DIAGNOSTICS / RADIOLOGY: REASON: abdominal pain, n/v ORDERING PHYSICIAN: HOLLY WAITE NP PROCEDURE: ABD PEL WO - CT ABDOMEN/PELVIS W/O CONTRAST CT ABDOMEN/PELVIS W/O CONTRAST HISTORY: Abdominal pain COMPARISON: None TECHNIQUE: Multiple sequential axial images of the abdomen and pelvis were obtained from the dome of the diaphragm through symphysis pubis. Patient was not given contrast through intravenous route. Oral contrast was not given. FINDINGS: No pleural effusion is seen bilaterally. Bibasilar linear atelectasis changes are seen. There is no evidence of parenchymal disease or pulmonary nodule of the visualized lower lungs. Degenerative changes of the thoracolumbar spine are present. The heart is not enlarged. Small hiatal hernia is seen. Compression fractures are seen involving L4 and L5 with vertebroplasty changes. The liver, spleen, adrenal glands and pancreas are unremarkable. There is no evidence of hydronephrosis bilaterally. No evidence of renal stone is seen. Fecal material is seen in the colon. There are normal size retroperitoneal and mesenteric lymph nodes. No ascites is seen. Atherosclerotic changes are present. There is diverticulosis. There are small bilateral inguinal hernias with fat content. No CT evidence of acute appendicitis is seen. Pelvic sidewalls are symmetric bilaterally. Bladder is poorly distended. IMPRESSION: 1. No definite bowel obstruction is seen. Small hiatal hernia. Diverticulosis. No ascites is seen. CT was performed with one or more following dose reduction techniques: automated exposure control, adjustment of the mA and kv according to patient's size, or use of a iterative reconstruction technique. DICTATED BY: TIFFANIE SCHAFFER MD DATE: 12/02/24 1326 REASON: cp ORDERING PHYSICIAN: HOLLY WAITE NP PROCEDURE: CXR1VW - CHEST 1VW CHEST 1VW HISTORY: Chest pain COMPARISON: None FINDINGS: A frontal projection of the chest was obtained. No acute pulmonary infiltrates is seen. The heart is borderline enlarged. Left humeral prosthesis is seen. Prominent interstitial markings are seen. No evidence of aortic calcification is seen. IMPRESSION: 1. No acute pulmonary infiltrate is seen. DICTATED BY: TIFFANIE SCHAFFER MD DATE: 12/02/24 1147 ASSESSMENT: Hyponatremia, A-fibb with RVR Atypical chest pain Epigastric abdominal pain with nausea and vomiting Leukocytosis History of CVA in 2023 History of L4-L5 compression fracture with recent history of vertebroplasty in 09/2024 Debility/frailty Prior history of ND in [place] in 09/2023, History of atrial fibrillation maintained on chronic anticoagulation with Eliquis History of outpatient use of opioids with hydrocodone Hyperlipidemia Parkinson's disease Urinary retention PLAN: Labs, diagnostic, radiologic exams reviewed and interpreted by myself and supervising physician. We have reviewed external records in detail Discontinue IV fluids Require close monitoring of renal function and electrolytes Order CBC, CMP, and electrolytes in am BiPAP as necessary, for respiratory distress IV pressors as needed Monitor blood pressure adjust medication doses as needed Avoid hypotensive episodes May use Dilaudid 0.5 mg IV every 6 hours as needed for severe pain Monitor blood sugars Strict intake, output, and daily weight should be monitored Please renally adjust medications Avoid nephrotoxic and nonsteroidal drugs Avoid contrast if possible Will continue to monitor renal function, anemia, electrolytes Treatment plan discussed with patient Questions were answered We have discussed with the other team physicians in detail about the care plan We will continue to monitor the patient closely Total critical care time spent with patient, nursing staff, critical care team over 35 minutes ATTESTATION BY PHYSICIAN I have seen and examined the patient. I reviewed the documentation, medical decision making, and treatment plan as noted by the mid-level provider above. I agree with the findings and plan of care. EDRE MESA MD, [facility] December 03, 2024 14:14
--- NOTE | 2024-12-03 16:07 | CONS ---
[facility] CONSULTATION NOTE Date Patient Seen: December 03, 2024 Time of Visit: 16:02 Supervising Physician: Dr. Sweeney Reason for Consultation: Acute onset A-fib with RVR, [facility] Primary Care Physician: Dr. Caridad Iyer Outpatient Specialists: [ ] Inpatient Consults: [ ] PROBLEM LIST: Acute onset AFib with RVR. Atypical chest pain rule out ACS. Acute hyponatremia POA now improved. Leukocytosis POA now resolved. Hypertension. Hyperlipidemia. Parkinson's disease. Severe Protein calorie malnutrition. History of opioid use with hydrocodone HPI: This is any 89-year-old female patient who has a past medical history that is significant for hypertension, hyperlipidemia, history of CVA, recent history of compression fractures involving L4 and L5 status post vertebroplasty in [facility], history of atrial fibrillation maintained on chronic anticoagulation with Eliquis and Parkinson's. She initially presented to the emergency department with complaint of midsternal chest discomfort, poor oral intake and concerns for dehydration. In the emergency department, her initial workup was significant for a WBC count of 14.4, hemoglobin of 14.8, platelet count of 281. Chemistry panel showed sodium of 121, potassium 5.0, chloride of 88, creatinine of 0.9 normal AST and ALT, cardiac troponin was negative with 7. Initial imaging was unremarkable. The patient was admitted and started on gentle IV hydration. Today, her elevated WBC corrected to 10.7, sodium count improved to 132. Unfortunately, the patient began complaining of chest pain and was noticed in tachyarrhythmias on the monitor for which a rapid response was called. After the rapid response, the patient was upgraded to the ICU with concerns for SVT and EPS was consulted. The time of my visit, the patient was in her assigned room and Dr. Villarreal was at the bedside also evaluating the patient. Prior to my visit, the patient had received a dose of adenosine with no significant change in rhythm. No other complaint. PAST MEDICAL HX: see above PAST SURGICAL HX: noncontributory SOCIAL HISTORY: No tobacco, ETOH, or illicit drug use Coded Allergies: No Known Drug Allergies (Unverified Allergy, Unknown, 12/02/24) REVIEW OF SYSTEMS: 12 point ROS reviewed with patient. Pertinent positives mentioned above. Otherwise negative. PHYSICAL EXAM: GENERAL: Alert, weak, awake oriented x 3 HEENT: EOMI, Sclera non icteric, moist mucosa NECK: Supple, no JVD, trachea midline LUNGS: Clear breath sounds bilaterally. No wheezes HEART: Regular rate and rhythm. Normal S1 and S2, without murmurs ABD: Abdomen soft, nontender. Bowel sounds present EXT: + parkinon tremors. No clubbing cyanosis or edema NEURO: Alert and oriented to person, follows commands Vital Signs (last 8hr) Date Time Temp Pulse Resp B/P (MAP) Pulse Ox O2 Delivery O2 Flow Rate FiO2 12/03/24 14:44 98.4 80 18 112/45 (67) 100 12/03/24 13:57 98 33 112/39 (63) 99 12/03/24 12:29 133 26 96/61 (73) 99 12/03/24 12:14 106 26 110/44 (66) 99 12/03/24 11:59 90 15 125/66 (85) 99 12/03/24 11:44 101 22 104/58 99 Nasal Cannula 4.0 12/03/24 11:44 101 22 104/58 (73) 99 12/03/24 11:29 110 23 117/59 (78) 100 12/03/24 11:29 110 23 117/59 100 Nasal Cannula 4.0 12/03/24 11:14 128 31 134/78 (96) 100 12/03/24 11:14 128 31 134/78 100 Nasal Cannula 4.0 12/03/24 11:06 150 122/88 12/03/24 10:44 98.8 129 26 122/88 99 Nasal Cannula 4.0 12/03/24 10:34 145 19 107/64 99 Nasal Cannula 4.0 12/03/24 10:27 179 12/03/24 10:12 161 28 N/Cannula Low lpm 4.0 12/03/24 09:54 96 Room Air* 0 21 LABS: Hematology Labs: Test 12/03/24 07:03 12/02/24 11:33 Range/Units White Blood Count 10.7 # 4.8-10.8 K/uL Red Blood Count 4.33 4.00-5.50 MIL/uL Hemoglobin 13.1 12.0-16.0 g/dL Hematocrit 38.3 36-48 % Mean Corpuscular Volume 88.5 79-99 fL Mean Corpuscular Hemoglobin 30.3 27.0-33.0 pg Mean Corpuscular Hemoglobin Concent 34.2 32.0-36.0 g/dL Red Cell Distribution Width 17.2 H 11.0-15.5 % Platelet Count 211 130-400 K/uL Mean Platelet Volume 8.8 7.5-10.5 fL Immature Granulocyte % (Auto) 0.4 0-1 % Neutrophils (%) (Auto) 64.3 40.0-77.0 % Lymphocytes (%) (Auto) 25.7 21.0-51.0 % Monocytes (%) (Auto) 8.9 3.0-13.0 % Eosinophils (%) (Auto) 0.4 0.0-8.0 % Basophils (%) (Auto) 0.3 0.0-5.0 % Neutrophils # (Auto) 6.9 1.8-7.7 K/uL Lymphocytes # (Auto) 2.8 1.0-4.8 K/uL Monocytes # (Auto) 1.0 0.1-1.0 K/uL Eosinophils # (Auto) 0.04 0.00-0.70 K/uL Basophils # (Auto) 0.03 0.00-0.20 K/uL Absolute Immature Granulocyte (auto 0.04 0-1 K/uL Nucleated Red Blood Cells 0.0 0.0-0.19 % Erythrocyte Sedimentation Rate 4 0-30 MM/HR Chemistry Labs: Test 12/03/24 10:15 12/03/24 09:44 12/03/24 07:03 12/02/24 11:33 Range/Units Whole Blood Glucose 124 H 70-110 MG/DL Potassium Level 4.2 3.5-5.1 mmol/L Magnesium Level 1.90 1.80-2.40 mg/dL Troponin I High Sensitivity 14 4-50 ng/L Sodium Level 132 L 136-145 mmol/L Chloride Level 102 101-111 mmol/L Carbon Dioxide Level 25 21-32 mmol/L Blood Urea Nitrogen 11 7-18 mg/dL Creatinine 0.8 0.5-1.0 mg/dL Glomerular Filtration Rate Calc 71 >90 mL/min Random Glucose 87 70-105 mg/dL Uric Acid 2.8 2.6-7.2 mg/dL Total Calcium 8.8 8.5-10.1 mg/dL Phosphorus Level 3.4 2.5-4.9 mg/dL Total Bilirubin 0.7 # 0.2-1.0 mg/dL Aspartate Amino Transf (AST/SGOT) 15 10-37 U/L Alanine Aminotransferase (ALT/SGPT) 5 L 12-78 U/L Alkaline Phosphatase 104 50-136 U/L Total Creatine Kinase 19 #L 21-232 U/L Total Protein 6.6 6.0-8.3 g/dL Albumin 3.3 #L 3.5-5.0 g/dL Thyroid Stimulating Hormone (TSH) 1.05 0.36-3.74 uIU/mL Direct Bilirubin 0.3 0.0-0.3 mg/dL C-Reactive Protein, Quantitative 0.60 0.5-3.0 mg/L Lipase 38 16-77 U/L Procalcitonin < 0.05 L 0.05-0.5 ng/mL Coagulation Labs: Test 12/02/24 11:33 Range/Units Prothrombin Time 10.6 9.6-11.6 SEC Prothromb Time International Ratio 1.00 0.85-1.15 Activated Partial Thromboplast Time 27.8 26.3-35.5 SEC D-Dimer Quantitative (PE/DVT) 618 *H 0-500 ng/mL DIAGNOSTICS / RADIOLOGY RESULTS: [ ] PLAN The patient was transferred to the ICU, critical care team was consulted. The patient will be started on a amiodarone drip, she is already on Eliquis 2.5 twice daily. We will continue to monitor the rate and rhythm and we will adjust management if necessary. Per Dr. Villarreal possible cardioversion for tomorrow if the patient does not convert to sinus rhythm. She is also on metoprolol 25 p.o. b.i.d.. Considering her low blood pressures I am going to hold the amlodipine to give room for the benefits of metoprolol. Patient will continue on cardiac management per the Cardiology team/EPS. We will repeat surveillance labs in morning and monitor the electrolyte trend. We will follow the recommendation of the CTS and we will intervene if necessary. We will continue to provide general supportive care, GI and DVT prophylaxis. Further orders per attending MD and hospital course. NEURO: Minimize central acting medications as possible. Fall Precautions. Well lighted room through the day and minimize interruptions through the night to prevent acute delirium. PULMONARY: Supplemental 02 as needed Titrate Fio2 to keep Spo2 > or = 90% DuoNeb�s and CPT as needed IS hourly while awake for pulmonary hygiene Out of bed to chair as tolerated VAP Bundle CARDIOVASCULAR: Follow hemodynamics. Titrate vasopressor to keep MAP >65 or systolic blood pressure >95mmHg DIPS: Amiodarone LINES: PIV's GI & NUTRITION: Continue nutritional support Aspirations precautions Prokinetic agents and laxatives as needed KIDNEYS & ELECTROLYTES: Strict monitoring of intake and output Daily weights Avoid nephrotoxic agents Monitor electrolytes and replace as needed Goal urine output of 30mL/hr or 0.5mL/kg/hr Urine output: [ ] Fluid Balance: [ ] ENDOCRINE: Maintain blood glucose between 100-180 at all times. Insulin sliding scale for blood glucose management INFECTIOUS DISEASE: Trend temperature. Rouse-culture if febrile. Micro: [ ] Antibiotics: Rocephin HEMATOLOGY & COAGULATION: Monitor H&H. Keep Hgb > 7 Transfuse 1 unit of PRBC for Hgb < 7 Transfuse 1 pack of platelets of platelets < 20, 000 Watch for any signs and symptoms of bleeding SKIN: Pressure ulcer prevention per facility protocol Rehab: PT/OT Prophylaxis: GI: Protonix DVT: Eliquis Code Status: Full Resuscitation Disposition: ICU Other: I personally spent 45 minutes of critical care time in treatment of this patient. This includes patient management, time at bedside, time reviewing tests, labs, appropriate images and studies, documentation, and patient care coordination. This time excludes separately billable procedures. Case was discussed and seen with my supervising physician. The above plan was formulated and agreed upon. BREANNA BARBER NP December 03, 2024 16:07
--- NOTE | 2024-12-03 16:53 | HMCIMG ---
Exam Type: CHEST 1VW Clinical Information: picc line placement Comparison: None Findings: RightPICC line is noted with tip within the distal superior vena cava and there are no other interval changes. IMPRESSION: Right PICC line as noted.
[2024-12-03] MEDS: AMIOdarone 900MG VIAL 540 MG in DEXTROSE 5%-WATER 300 ML IV ONE (17:17)
[2024-12-03] MEDS: PANTOPrazole 40 MG/VIAL IVP SCH (21:17)
[2024-12-04] VITALS (29 sets, daily range): BP systolic 102–169; BP diastolic 39–85; PULSE 43–73; RESP 16–30; TEMP 97.8–99.1; O2SAT 94–99
[2024-12-04 05:22] LABS: BASOPHILS # (AUTO) 0.04 K/uL (0.00-0.20); BASOPHILS % (AUTO) 0.3 % (0.0-5.0); EOSINOPHILS # (AUTO) 0.04 K/uL (0.00-0.70); EOSINOPHILS % (AUTO) 0.3 % (0.0-8.0); HEMATOCRIT 36.9 % (36-48); IMMATURE GRANULOCYTE ABSOLUTE 0.05 K/uL (0-1); LYMPHOCYTES # (AUTO) 2.4 K/uL (1.0-4.8); MEAN CORPUSCULAR HEMOGLOBIN 29.4 pg (27.0-33.0); MEAN CORPUSCULAR HGB CONC 32.8 g/dL (32.0-36.0); MEAN CORPUSCULAR VOLUME 89.8 fL (79-99); MONOCYTES # (AUTO) 1.1 K/uL (0.1-1.0); MONOCYTES % (AUTO) 8.2 % (3.0-13.0); NEUTROPHILS # (AUTO) 9.5 K/uL (1.8-7.7); NEUTROPHILS % (AUTO) 72.8 % (40.0-77.0); PLATELET COUNT (AUTO) 197 K/uL (130-400); RED BLOOD CELL COUNT(AUTO) 4.11 MIL/uL (4.00-5.50); RED CELL DISTRIBUTION WIDTH 17.6 % (11.0-15.5); WHITE BLOOD COUNT (AUTO) 13.1 K/uL (4.8-10.8)
[2024-12-04 05:50] LABS: BILIRUBIN,TOTAL 0.4 mg/dL (0.2-1.0); CREATININE 0.9 mg/dL (0.5-1.0); MAGNESIUM 1.8 mg/dL (1.80-2.40); POTASSIUM 3.8 mmol/L (3.5-5.1); TOTAL PROTEIN, SERUM 6.3 g/dL (6.0-8.3)
--- NOTE | 2024-12-04 09:04 | PN ---
[facility] PROGRESS NOTE Date Patient Seen: December 04, 2024 Time of Visit: 09:04 Supervising Physician: Neil Sweeney MD Primary Care Physician: Dr. Caridad Iyer Outpatient Specialists: [ ] Inpatient Consults: [ ] PROBLEM LIST: Acute onset AFib with RVR, now sinus bradycardia Atypical chest pain rule out ACS Acute hyponatremia POA now improved. Leukocytosis POA now resolved. Hypertension. Hyperlipidemia. Parkinson's disease. Severe Protein calorie malnutrition. History of opioid use with hydrocodone INTERVAL HISTORY: Pt is awake alert and oriented x 3. She continues on amiodarone gtt at 0.5mg/min but has refused PO amiodarone due to side effects and has been administered metoprolol PO. This morning HR 42 bpm, therefore we will hold BB for now until further recs from cardiology. She is hemodynamically stable. WBC 13.1, slightly increased from yesterday, Chemistry unremarkable. She has a Lexiscan test planned for today. If HR improves ok to downgrade to PCCU. REVIEW OF SYSTEMS: 12 point ROS reviewed with patient. Pertinent positives mentioned above. Otherwise negative. PHYSICAL EXAM: GENERAL: Alert, weak, awake oriented x 3 HEENT: EOMI, Sclera non icteric, moist mucosa NECK: Supple, no JVD, trachea midline LUNGS: Clear breath sounds bilaterally. No wheezes HEART: Regular rate and rhythm. Normal S1 and S2, without murmurs ABD: Abdomen soft, nontender. Bowel sounds present EXT: + parkinon tremors. No clubbing cyanosis or edema NEURO: Alert and oriented to person, follows commands Vital Signs (last 8hr) Date Time Temp Pulse Resp B/P (MAP) Pulse Ox O2 Delivery O2 Flow Rate FiO2 12/04/24 07:51 94 Room Air* 0 21 12/04/24 07:00 97.9 43 21 106/39 (61) 95 12/04/24 05:00 52 20 148/65 (92) 98 12/04/24 04:00 97 Room Air* 0 21 12/04/24 04:00 98.8 12/04/24 04:00 52 20 125/46 (72) 97 12/04/24 03:00 49 30 125/50 (75) 98 12/04/24 02:00 46 16 127/47 (73) 99 LABS: Hematology Labs: Test 12/04/24 05:08 12/02/24 11:33 Range/Units White Blood Count 13.1 H 4.8-10.8 K/uL Red Blood Count 4.11 4.00-5.50 MIL/uL Hemoglobin 12.1 12.0-16.0 g/dL Hematocrit 36.9 36-48 % Mean Corpuscular Volume 89.8 79-99 fL Mean Corpuscular Hemoglobin 29.4 27.0-33.0 pg Mean Corpuscular Hemoglobin Concent 32.8 32.0-36.0 g/dL Red Cell Distribution Width 17.6 H 11.0-15.5 % Platelet Count 197 130-400 K/uL Mean Platelet Volume 9.1 7.5-10.5 fL Immature Granulocyte % (Auto) 0.4 0-1 % Neutrophils (%) (Auto) 72.8 40.0-77.0 % Lymphocytes (%) (Auto) 18.0 L 21.0-51.0 % Monocytes (%) (Auto) 8.2 3.0-13.0 % Eosinophils (%) (Auto) 0.3 0.0-8.0 % Basophils (%) (Auto) 0.3 0.0-5.0 % Neutrophils # (Auto) 9.5 H 1.8-7.7 K/uL Lymphocytes # (Auto) 2.4 1.0-4.8 K/uL Monocytes # (Auto) 1.1 H 0.1-1.0 K/uL Eosinophils # (Auto) 0.04 0.00-0.70 K/uL Basophils # (Auto) 0.04 0.00-0.20 K/uL Absolute Immature Granulocyte (auto 0.05 0-1 K/uL Nucleated Red Blood Cells 0.0 0.0-0.19 % Erythrocyte Sedimentation Rate 4 0-30 MM/HR Chemistry Labs: Test 12/04/24 05:08 12/03/24 10:15 12/03/24 09:44 12/03/24 07:03 Range/Units Sodium Level 134 L 136-145 mmol/L Potassium Level 3.8 3.5-5.1 mmol/L Chloride Level 101 101-111 mmol/L Carbon Dioxide Level 23 21-32 mmol/L Blood Urea Nitrogen 18 7-18 mg/dL Creatinine 0.9 0.5-1.0 mg/dL Glomerular Filtration Rate Calc 62 >90 mL/min Random Glucose 159 #H 70-105 mg/dL Total Calcium 8.4 L 8.5-10.1 mg/dL Magnesium Level 1.80 1.80-2.40 mg/dL Total Bilirubin 0.4 # 0.2-1.0 mg/dL Aspartate Amino Transf (AST/SGOT) 17 10-37 U/L Alanine Aminotransferase (ALT/SGPT) 17 # 12-78 U/L Alkaline Phosphatase 104 50-136 U/L Total Protein 6.3 6.0-8.3 g/dL Albumin 3.0 L 3.5-5.0 g/dL Whole Blood Glucose 124 H 70-110 MG/DL Troponin I High Sensitivity 14 4-50 ng/L Uric Acid 2.8 2.6-7.2 mg/dL Phosphorus Level 3.4 2.5-4.9 mg/dL Total Creatine Kinase 19 #L 21-232 U/L Thyroid Stimulating Hormone (TSH) 1.05 0.36-3.74 uIU/mL Test 12/02/24 11:33 Range/Units Serum Osmolality 261 L 278-305 mOsm/kg Direct Bilirubin 0.3 0.0-0.3 mg/dL C-Reactive Protein, Quantitative 0.60 0.5-3.0 mg/L Lipase 38 16-77 U/L Procalcitonin < 0.05 L 0.05-0.5 ng/mL Coagulation Labs: Test 12/02/24 11:33 Range/Units Prothrombin Time 10.6 9.6-11.6 SEC Prothromb Time International Ratio 1.00 0.85-1.15 Activated Partial Thromboplast Time 27.8 26.3-35.5 SEC D-Dimer Quantitative (PE/DVT) 618 *H 0-500 ng/mL DIAGNOSTICS / RADIOLOGY RESULTS: [ ] IMAGING REPORT Signed PATIENT: PAYTON TARANGO MR#: [id number] : 1935 SEX: F AGE: 89 LOCATION: 2CH ORDER 1155 STATUS: ADM IN REPORT#: [id number] SERVICE 1153 REASON: nonsustained ventricular tachycardia ORDERING PHYSICIAN: MARAL SHERMAN MD PROCEDURE: ECHO CMP - ECHO 2-D COMPLETE APPROVED REPORT EXAM: Two-dimensional and M-mode echocardiogram with Doppler and color Doppler. INDICATION ICD: nonsustained ventricular tachycardia 2D Dimensions RVDd 3.3 cm LVEF(%) 67.8 (>50%) LVED Vol(simp.) 63.0 mL IVSd 1.4 (0.7-1.1cm) FS(%) 37 % LVES Vol(simp.) 21.0 mL LVDd 3.6 (3.8-5.6cm) LA (2D) 4.2 (1.6-4.0cm) LVEF(%, simp.) 67 % PWd 1.2 (0.7-1.1cm) Ao Root(2D) 2.7 (2.0-3.7cm) LA ESV INDEX (BP) 27.63 mL/m2 LVDs 2.3 (2.5-4.0cm) LVOT diam 1.8 (1.8-2.4cm) IVC diam 1.6 cm Deformation Strain Apical 4 -19.7 % Apical 2 -21.6 % Apical 3 -11.5 % Global Strain -17.6 % M-Mode Dimensions EPSS 0.3 cm LA (MM) 4.7 (1.6-4.0cm) Ao Root(MM) 2.6 (2.0-3.7cm) Aortic Valve AoV Vmax 1.3 m/s Ao Peak GR 6.8 mmHg LVOT Vmax 1.0 m/s AoV VTI 0.3 m Ao Mean GR 2.8 mmHg LVOT VTI 0.23 m KIMBER (VMAX) 1.99 cm2 Al P1/2T 797 ms KIMBER (VTI) 2.0 cm2 Mitral Valve MV E Vmax 88.7 cm/s DECEL Time 217 ms MV A Vmax 88.7 cm/s P 1/2 T 95 ms E/A ratio 1.0 MVA (PHT) 2.3 cm2 TDI E/E' Medial 12.0 E/E' Lateral 10.2 Medial E' Peak V 7.37 cm/s Lateral E' Peak V 8.66 cm/s Tricuspid Valve TR Vmax 2.9 m/s RVSP 30.7 mmHg TR Peak GR 36.5 mmHg Left Ventricle The left ventricle is normal size. Mild concentric left ventricular hypertrophy. LVEF is 65-70%. Indeterminate diastolic dysfunction. Right Ventricle The right ventricle is normal size. The right ventricular systolic function is normal. Atria The left atrium size is normal. The right atrium size is normal. Aortic Valve The aortic valve is normal in structure. Mild aortic regurgitation. There is no aortic valvular stenosis. Mitral Valve Mitral valve leaflets open well. Posterior leaflet is moderately calcified. Mitral regurgitation is mild. There is no mitral valve stenosis. Tricuspid Valve The tricuspid valve is normal in structure. There is mild tricuspid valve regurgitation noted. Pulmonic Valve The pulmonary valve is normal in structure. There is no pulmonic valvular regurgitation. Great Vessels The aortic root is normal in size. The IVC is normal in size and collapses >50% with inspiration. Pericardium There is no pericardial effusion. DICTATED BY: DELLA HARPER MD DATE: 12/04/24906 ELECTRONICALLY SIGNED BY: DELLA HARPER MD DATE: 12/04/24 [id number] PLAN pt converted to sinus jayant , no need for cardioversion Lexiscan test today downgrade to medical surgical if HR improves. NEURO: Minimize central acting medications as possible. Fall Precautions. Well lighted room through the day and minimize interruptions through the night to prevent acute delirium. PULMONARY: Supplemental 02 as needed Titrate Fio2 to keep Spo2 > or = 90% DuoNeb�s and CPT as needed IS hourly while awake for pulmonary hygiene Out of bed to chair as tolerated VAP Bundle CARDIOVASCULAR: Follow hemodynamics. Titrate vasopressor to keep MAP >65 or systolic blood pressure >95mmHg DIPS: Amiodarone LINES: PIV's GI & NUTRITION: Continue nutritional support Aspirations precautions Prokinetic agents and laxatives as needed KIDNEYS & ELECTROLYTES: Strict monitoring of intake and output Daily weights Avoid nephrotoxic agents Monitor electrolytes and replace as needed Goal urine output of 30mL/hr or 0.5mL/kg/hr Urine output: [ ] Fluid Balance: [ ] ENDOCRINE: Maintain blood glucose between 100-180 at all times. Insulin sliding scale for blood glucose management INFECTIOUS DISEASE: Trend temperature. Rouse-culture if febrile. Micro: [ ] Antibiotics: Rocephin HEMATOLOGY & COAGULATION: Monitor H&H. Keep Hgb > 7 Transfuse 1 unit of PRBC for Hgb < 7 Transfuse 1 pack of platelets of platelets < 20, 000 Watch for any signs and symptoms of bleeding SKIN: Pressure ulcer prevention per facility protocol Rehab: PT/OT Prophylaxis: GI: Protonix DVT: Eliquis Code Status: Full Resuscitation Disposition: ICU Other: I personally spent 45 minutes of critical care time in treatment of this patient. This includes patient management, time at bedside, time reviewing tests, labs, appropriate images and studies, documentation, and patient care coordination. This time excludes separately billable procedures. Case was discussed and seen with my supervising physician. The above plan was formulated and agreed upon. ATTESTATION BY PHYSICIAN I attest that I reviewed and discussed the case with the Physician Clutch Assembler as well as agree with the Physician Clutch Assembler's findings, plans of care, and documentation above. Neil Parker MD, NELLY J ARNP December 04, 2024 09:04
--- NOTE | 2024-12-04 09:08 | PN ---
[facility] PROGRESS NOTE Date of Service: December 04, 2024 Time of Service: 09:07 SUBJECTIVE: [ ] This is a 89-year-old female with underlying history of hypertension, hyperlipidemia, per daughter, prior history of SC in [place] in 09/2023, history of CVA, recent history of compression fractures involving L4 and L5 status post vertebroplasty in [facility], history of atrial fibrillation maintained on chronic anticoagulation with Eliquis, Parkinson's disease who presented to the ER with chief complaint of epigastric pain with midsternal chest discomfort, poor oral intake ongoing since last night. 12/03/24 during my rounds patient was complaining of chest pain states 05/10. Patient was placed on oxygen in given x1 morphine. Patient is retaining urine bladder scan showed [address] Beckham catheter. Patient continues to have chest discomfort patient was given nitroglycerin. AFib with RVR 170. The patient became diaphoretic thereafter radiate to her right arm. Repeat cardiac enzymes. Patient was given one dose of IV Lopressor then was transferred to ICU 12/04/24 patient went down for nuclear medicine. Lexiscan we will follow results. Bradycardia beta-blockers were discontinued patient converted back to sinus We will follow air compressor operator's recommendations. REVIEW OF SYSTEMS CONSTITUTIONAL: Denies fevers, chills, or night sweats. No unintentional weight loss reported. NEUROLOGICAL: Denies headache, amaurosis fugax, motor weakness, sensory deficit, vertigo/spinning sensation, gait abnormalities, or tremors. ENT: No hearing loss, otalgia, otorrhea, rhinitis, rhinorrhea, hoarseness, or sore throat. CARDIOVASCULAR: Patient reports having substernal chest discomfort PULMONARY: Denies any shortness of breath, cough, phlegm/sputum, hemoptysis, pleuritic chest pain. SLEEP: Denies morning headaches, daytime somnolence or napping. Denies difficulty falling asleep, staying asleep, waking from sleep. Denies knowledge of snoring. GASTROINTESTINAL: Nausea, vomiting, epigastric pain, mild in intensity, denies any significant lower quadrant abdominal pain GENITOURINARY: Denies frequency, urgency, nocturia, hematuria or incontinence (Storage/Irritative symptoms.) Low urinary stream, straining to void, urinary intermittency or hesitancy, splitting of the voiding stream, terminal dribbling. ENDOCRINOLOGIC: Denies polyuria, polydipsia, polyphagia or heat/cold intolerances. HEMATOLOGIC: Denies thrombophilia/previous clots, or coagulopathy/bleeding disorders. ONCOLOGIC: Denies personal history of malignancy. DERMATOLOGIC: Denies rashes or pruritus. PSYCHIATRIC: Denies any suicidal or homicidal ideation. Denies hallucinations. PHYSICAL EXAM GENERAL APPEARANCE: The patient is awake, alert, appears frail and chronically ill NEUROLOGICAL: Cranial nerves II-XII grossly intact. Patient is moving her upper and lower extremities, resting tremors noted of the hands HEENT: Face is symmetric. Pupils are equal and reactive. Extraocular movements are intact. NECK: Supple. No JVD. No thyromegaly. No submental, submandibular, pre- /postauricular, occipital or supraclavicular lymphadenopathy. CHEST: Normal chest expansion. No Telemetry. LUNGS: Absence of any rales, rhonchi or any wheezing. CARDIOVASCULAR: Irregular, no rubs or gallops noted ABDOMEN: Soft, nontender, and nondistended. No significant tenderness on palpation of the abdomen : Deferred. No Beckham. EXTREMITIES: Non-edematous and not cyanotic. No clubbing. Good capillary refill. SKIN: No skin breakdown. Vital Signs (last 8hr) Date Time Temp Pulse Resp B/P (MAP) Pulse Ox O2 Delivery O2 Flow Rate FiO2 12/04/24 07:51 94 Room Air* 0 21 12/04/24 07:00 97.9 43 21 106/39 (61) 95 12/04/24 05:00 52 20 148/65 (92) 98 12/04/24 04:00 97 Room Air* 0 21 12/04/24 04:00 98.8 12/04/24 04:00 52 20 125/46 (72) 97 12/04/24 03:00 49 30 125/50 (75) 98 12/04/24 02:00 46 16 127/47 (73) 99 LABS: Laboratory: Test 12/04/24 05:08 12/03/24 10:15 12/03/24 09:44 12/03/24 07:03 Range/Units White Blood Count 13.1 H 4.8-10.8 K/uL Red Blood Count 4.11 4.00-5.50 MIL/uL Hemoglobin 12.1 12.0-16.0 g/dL Hematocrit 36.9 36-48 % Mean Corpuscular Volume 89.8 79-99 fL Mean Corpuscular Hemoglobin 29.4 27.0-33.0 pg Mean Corpuscular Hemoglobin Concent 32.8 32.0-36.0 g/dL Red Cell Distribution Width 17.6 H 11.0-15.5 % Platelet Count 197 130-400 K/uL Mean Platelet Volume 9.1 7.5-10.5 fL Immature Granulocyte % (Auto) 0.4 0-1 % Neutrophils (%) (Auto) 72.8 40.0-77.0 % Lymphocytes (%) (Auto) 18.0 L 21.0-51.0 % Monocytes (%) (Auto) 8.2 3.0-13.0 % Eosinophils (%) (Auto) 0.3 0.0-8.0 % Basophils (%) (Auto) 0.3 0.0-5.0 % Neutrophils # (Auto) 9.5 H 1.8-7.7 K/uL Lymphocytes # (Auto) 2.4 1.0-4.8 K/uL Monocytes # (Auto) 1.1 H 0.1-1.0 K/uL Eosinophils # (Auto) 0.04 0.00-0.70 K/uL Basophils # (Auto) 0.04 0.00-0.20 K/uL Absolute Immature Granulocyte (auto 0.05 0-1 K/uL Nucleated Red Blood Cells 0.0 0.0-0.19 % Sodium Level 134 L 136-145 mmol/L Potassium Level 3.8 3.5-5.1 mmol/L Chloride Level 101 101-111 mmol/L Carbon Dioxide Level 23 21-32 mmol/L Blood Urea Nitrogen 18 7-18 mg/dL Creatinine 0.9 0.5-1.0 mg/dL Glomerular Filtration Rate Calc 62 >90 mL/min Random Glucose 159 #H 70-105 mg/dL Total Calcium 8.4 L 8.5-10.1 mg/dL Magnesium Level 1.80 1.80-2.40 mg/dL Total Bilirubin 0.4 # 0.2-1.0 mg/dL Aspartate Amino Transf (AST/SGOT) 17 10-37 U/L Alanine Aminotransferase (ALT/SGPT) 17 # 12-78 U/L Alkaline Phosphatase 104 50-136 U/L Total Protein 6.3 6.0-8.3 g/dL Albumin 3.0 L 3.5-5.0 g/dL Whole Blood Glucose 124 H 70-110 MG/DL Troponin I High Sensitivity 14 4-50 ng/L Uric Acid 2.8 2.6-7.2 mg/dL Phosphorus Level 3.4 2.5-4.9 mg/dL Total Creatine Kinase 19 #L 21-232 U/L Thyroid Stimulating Hormone (TSH) 1.05 0.36-3.74 uIU/mL Test 12/02/24 14:22 12/02/24 13:25 12/02/24 11:33 Range/Units Urine Color YELLOW YELLOW Urine Appearance CLEAR CLEAR Urine pH 7.0 5.0-8.0 Urine Specific [place] 1.011 1.001-1.031 Urine Protein NEGATIVE NEGATIVE mg/dL Urine Glucose (UA) NEGATIVE NEGATIVE mg/dL Urine Ketones NEGATIVE NEGATIVE mg/dL Urine Occult Blood NEGATIVE NEGATIVE Urine Nitrate NEGATIVE NEGATIVE Urine Bilirubin NEGATIVE NEGATIVE mg/dL Urine Urobilinogen 0.2 0.2-1.0 mg/dL Urine Leukocyte Esterase NEGATIVE NEGATIVE [place]/uL Urine RBC 2-5 H 0-1 /HPF Urine WBC 0-1 0-1 /HPF Urine Squamous Epithelial Cells RARE 0-2 /HPF Urine Bacteria RARE None Seen /HPF Urine Osmolality 315 50-1200 mOsm/kg Urine Random Creatinine 51.65 30-135 mg/dL Urine Random Sodium 20 L 40-220 mmol/l Influenza Type A Antigen Negative For Type A NEGATIVE Influenza Type B Antigen Negative For Type B NEGATIVE SARS-CoV-2, RNA, NAAT NEGATIVE SARS CoV-2 NEGATIVE Erythrocyte Sedimentation Rate 4 0-30 MM/HR Prothrombin Time 10.6 9.6-11.6 SEC Prothromb Time International Ratio 1.00 0.85-1.15 Activated Partial Thromboplast Time 27.8 26.3-35.5 SEC D-Dimer Quantitative (PE/DVT) 618 *H 0-500 ng/mL Serum Osmolality 261 L 278-305 mOsm/kg Direct Bilirubin 0.3 0.0-0.3 mg/dL C-Reactive Protein, Quantitative 0.60 0.5-3.0 mg/L Lipase 38 16-77 U/L Procalcitonin < 0.05 L 0.05-0.5 ng/mL Current Medications Medications (Trade) Dose Ordered Sig/Mahnaz Route PRN Reason Start Time Stop Time Status Last Admin Dose Admin Acetaminophen (TYLenol 500MG TAB) 500 mg Q6H PRN PO MILD PAIN (1-3) 12/02/24 14:30 01/01/25 14:29 12/02/24 17:02 500 MG Adenosine (Adenocard 6mg Vial) 6 mg ONCE STAT IV 12/03/24 10:39 12/03/24 10:42 DC 12/03/24 11:06 6 MG Adenosine (Adenocard 6mg Vial) 6 mg ONCE STAT IV 12/03/24 10:44 12/03/24 10:45 DC Amiodarone HCl 150 mg/Dextrose 103 ml @ 618 mls/hr ONCE IV 12/03/24 11:00 12/03/24 11:03 DC Amiodarone HCl 360 mg/Dextrose 207.2 ml @ 33.3 mls/hr AD IV 12/03/24 11:00 12/03/24 11:03 DC Amlodipine Besylate (NorvASC 5MG TAB) 5 mg DAILY PO 12/03/24 09:00 12/03/24 16:08 DC 12/03/24 09:54 5 MG Apixaban (EliquIS 2.5 mg) 2.5 mg BID PO 12/02/24 21:00 01/01/25 20:59 12/03/24 21:17 2.5 MG Atorvastatin Calcium (LIPItor 40MG) 40 mg HS PO 12/02/24 21:00 01/01/25 20:59 12/03/24 21:17 40 MG Carbidopa/Levodopa (Sinemet 25-100 Tab) 1 each TID PO 12/02/24 21:00 01/01/25 20:59 12/03/24 17:16 1 EACH Ceftriaxone Sodium (ROCEphine 1G INJ) 1 gm Q24H IVPB 12/02/24 14:30 12/12/24 14:29 12/03/24 15:54 1 GM Hydralazine HCl (APRESOLine 20MG INJ) 5 mg Q6H PRN IV ADMINISTER FOR SBP > 160 12/02/24 15:00 12/03/24 04:45 DC Hydralazine HCl (APRESOLine 20MG INJ) 10 mg Q2HPRN PRN IV ADMINISTER FOR SBP > 160 12/03/24 04:30 01/02/25 04:29 12/03/24 05:10 10 MG Hydromorphone HCl (DiLAUDid 0.5MG INJ) 0.5 mg Q6H PRN IVP SEVERE PAIN (7-10) 12/02/24 14:30 12/07/24 14:29 Methocarbamol (methoCARBamol) 500 mg TID PRN PO muscle cramps 12/02/24 15:30 01/01/25 15:29 Metoprolol Tartrate (loprESSOR) 25 mg BID PO 12/02/24 21:00 01/01/25 20:59 Hold 12/03/24 21:17 25 MG Metoprolol Tartrate (loprESSOR) 50 mg BID PO 12/02/24 21:00 01/01/25 20:59 Hold 12/03/24 22:17 50 MG Miscellaneous Medication (Metoprolol Tartrate ) 1 tab BID PO 12/02/24 21:00 12/02/24 15:32 DC Morphine Sulfate (morPHINE 2MG SYG) 2 mg ONCE STAT IVP 12/02/24 13:33 12/02/24 13:38 DC 12/02/24 13:39 2 MG Nitroglycerin (Nitrostat) 0.4 mg AD PRN SL CHEST PAIN 12/02/24 14:30 01/01/25 14:29 12/03/24 10:25 0.4 MG Ondansetron HCl (zoFRAN 4MG INJ) 4 mg ONCE STAT IVP 12/02/24 13:33 12/02/24 13:38 DC 12/02/24 13:39 4 MG Ondansetron HCl (zoFRAN 4MG INJ) 4 mg Q6H PRN IVP NAUSEA/VOMITING 12/02/24 14:30 01/01/25 14:29 Pantoprazole Sodium (PROTonix 40MG INJ) 40 mg BID IVP 12/03/24 21:00 01/01/25 14:29 12/03/24 21:17 40 MG Pantoprazole Sodium (PROTonix 40MG INJ) 40 mg Q24H IVP 12/02/24 14:30 12/03/24 09:37 DC 12/02/24 20:10 40 MG Sodium Chloride 1,000 ml @ 60 mls/hr [id number] IV 12/02/24 14:30 12/02/24 14:26 DC Sodium Chloride 1,000 ml @ 60 mls/hr [id number] IV 12/02/24 14:30 01/01/25 14:29 12/04/24 00:16 60 MLS/HR Sodium Chloride 1,000 ml @ 1,000 mls/hr Q1H STAT IV 12/02/24 10:54 12/02/24 11:53 DC 12/02/24 10:54 1,000 MLS/HR Thiamine HCl (Vitamin B-1) 100 mg Q24H IVP 12/02/24 14:30 01/01/25 14:29 12/03/24 17:16 100 MG Trazodone HCl (DesyREL/OlepTRO) 50 mg HS PO 12/02/24 21:00 01/01/25 20:59 12/03/24 21:17 50 MG DIAGNOSTICS / RADIOLOGY: [ ] ASSESSMENT: [id number] hyponatremia, POA Atypical chest pain, POA Epigastric abdominal pain with nausea and vomiting, POA Leukocytosis, POA History of CVA in 2023, POA History of L4-L5 compression fracture with recent history of vertebroplasty in 09/2024, POA Debility/frailty, POA Prior history of SC in [place] in 09/2023, POA History of atrial fibrillation maintained on chronic anticoagulation with Eliquis, POA History of outpatient use of opioids with hydrocodone, POA Hyperlipidemia, POA Rule out occult infection, POA History of diuretic use as outpatient, POA History of Parkinson's disease, POA Protein calorie malnutrition, POA Bradycardia not POA PLAN: Admit: med surg with Tele monitoring IVF: Hep-Lock consulted: Color Strainer: DR Villarreal we will follow recommendations Test Lexiscan we will follow-up results Bradycardia being monitored. Beta-blockers were discontinued Amiodarone was discontinued. Continues Eliquis 2.5 mg.will monitor H/H trends: transfuse to keep hgb above 7.0 Continues carbidopa levodopa for Parkinson's. pain management: cont with Methocarbamol prn and Dilaudid as needed. PT to eval and treat. All labs will be repeated in the morning DVT GI prophylaxis Further orders as per response to treatment All questions addressed. ATTESTATION BY PHYSICIAN I have seen and examined the patient. I reviewed the documentation, medical decision making, and treatment plan as noted by the mid-level provider above. I agree with the findings and plan of care. MARKELL MAHMOOD MD, ELIZABETH NP December 04, 2024 09:08
[2024-12-04] MEDS ORDERED: REGADENOSON 0.4 MG/5 ML PF SYG IVP ONE (09:27)
[2024-12-04] MEDS ORDERED: diazePAM 5 MG/ML 2 ML SYG IV PRN (09:30)
--- NOTE | 2024-12-04 09:40 | HMCIMG ---
Exam Type: CHEST 1VW Clinical Information: PNA Comparison: None Findings: Pulmonary pattern is as before. No worrisome interval changes have taken place. Impression: Stable exam.
--- NOTE | 2024-12-04 10:03 | EKG ---
[facility] Test Date: 2024-12-03 Test Time: 10:53:02 Pat Name: PAYTON TARANGO Department: [facility] Room: 204 Gender: F Buttonhole Tacker: jenny : [id number] Requested By: MARKELL MAHMOOD Order Number: [id number] Reading MD: Lashon Rea Measurements Intervals [place] Rate: 129 P: 0 FL: 0 QRS: -13 QRSD: 77 T: 82 QT: 310 QTc: 455 Interpretive Statements Poor quality data, interpretation may be affected Atrial fibrillation Probable left ventricular hypertrophy Repolarization abnormality, prob rate related Compared to ECG 12/03/2024 09:16:43 Early repolarization now present Left-axis deviation no longer present ST (T wave) deviation no longer present Electronically Signed On 12-05-2024 09:18:46 CDT by Lashon Rea Please click the below link to view image of tracing.
--- NOTE | 2024-12-04 11:04 | NUR ---
PRESENTLY SHARON NEAL
--- NOTE | 2024-12-04 11:06 | NUR ---
C/O OF CHEST PAIN, THEN ABDOMINAL PAIN THEN "TORSO PAIN" DURING GER[place]IA SCAN.
--- NOTE | 2024-12-04 11:27 | NUR ---
DCP: HOME vs SNF SW spoke with dgt Valentin Bradshaw [phone] due to pt being down for a procedure. Pt lives alone in her home, a friend goes over once a day to assist her with completing ADLs. Pt has a walker and wheelchair at home. Dgt voiced being interested in getting a shower chair, bedside commode, and cane for when she goes home. PCP is Dr. Caridad Iyer and uses [facility] for RX needs. During conversation dgt voiced that they would be open to the idea of SNF if the DR were to recommend it for pt if not she will dc home. Addendum: 12/04/24 at 1138 by PAMELA JOHANSEN SS Amended: Links added.
--- NOTE | 2024-12-04 12:47 | PN ---
NEPHROLOGY PROGRESS NOTE Date/Time Patient Seen: December 04, 2024 Reason for Consultation: 12:46 SUBJECTIVE: This is an 89-year-old who has a history of coronary artery disease, CVA, hypertension, hyperlipidemia, back pain with compression fracture needing vertebroplasty, history of atrial fibrillation and Parkinson's disease. The patient is admitted with chest pain and abdominal pain. The patient is having some nausea and vomiting also and the patient has poor oral intake and has multiple other comorbidities. The patient has leukocytosis and now very low sodium and electrolyte problem. She was transferred to ICU due to atrial fibrillation Renal function is stable Sodium continues to improve. Pending Lexiscan stress test and echocardiogram. She was seen in the ICU, in no acute distress Family at the bedside Condition is critical and guarded REVIEW OF SYSTEMS: GENERAL: Negative for any nausea, vomiting, fevers, chills, or weight loss. NEUROLOGIC: Negative for any blurry vision, blind spots, double vision, facial asymmetry, dysphagia, dysarthria, hemiparesis, hemisensory deficits, vertigo, ataxia. HEENT: Negative for any head trauma, neck trauma, neck stiffness, photophobia, phonophobia, sinusitis, rhinitis. CARDIAC: Negative for any chest pain, dyspnea on exertion, paroxysmal nocturnal dyspnea, peripheral edema. PULMONARY: Negative for any shortness of breath, wheezing, COPD, or TB exposure. GASTROINTESTINAL: Negative for any abdominal pain, nausea, vomiting, bright red blood per rectum, melena. GENITOURINARY: Negative for any dysuria, hematuria, incontinence. INTEGUMENTARY: Negative for any rashes, cuts, insect bites. RHEUMATOLOGIC: Negative for any joint pains, photosensitive rashes, history of vasculitis or kidney problems. HEMATOLOGIC: Negative for any abnormal bruising, frequent infections or bleeding. Vital Signs (last 8hr) Date Time Temp Pulse Resp B/P (MAP) Pulse Ox O2 Delivery O2 Flow Rate FiO2 12/03/24 11:44 101 22 104/58 99 Nasal Cannula 4.0 12/03/24 11:29 110 23 117/59 100 Nasal Cannula 4.0 12/03/24 11:14 128 31 134/78 100 Nasal Cannula 4.0 12/03/24 11:06 150 122/88 12/03/24 10:44 98.8 129 26 122/88 99 Nasal Cannula 4.0 12/03/24 10:34 145 19 107/64 99 Nasal Cannula 4.0 12/03/24 10:27 179 12/03/24 10:12 161 28 N/Cannula Low lpm 4.0 12/03/24 09:54 96 Room Air* 0 21 12/03/24 07:40 98.1 63 19 140/67 95 Room Air 12/03/24 06:44 73 140/66 PHYSICAL EXAM: GENERAL: Alert and oriented x 3. No acute distress. Well-nourished. EYES: EOMI. Anicteric. HENT: Moist mucous membranes. No scleral icterus. No cervical lymphadenopathy. LUNGS: Clear to auscultation bilaterally. No accessory muscle use. CARDIOVASCULAR: Regular rate and rhythm. No murmur. No JVD. ABDOMEN: Soft, non-tender and non-distended. No palpable masses. EXTREMITIES: No edema. Non-tender.?SKIN: No rashes or lesions. Warm. NEUROLOGIC: No focal neurological deficits. CN II-XII grossly intact, but not individually tested. PSYCHIATRIC: Cooperative. Appropriate mood and affect. Current Medications Medications (Trade) Dose Ordered Sig/Mahnaz Route PRN Reason Start Time Stop Time Status Last Admin Dose Admin Acetaminophen (TYLenol 500MG TAB) 500 mg Q6H PRN PO MILD PAIN (1-3) 12/02/24 14:30 01/01/25 14:29 12/02/24 17:02 500 MG Adenosine (Adenocard 6mg Vial) 6 mg ONCE STAT IV 12/03/24 10:39 12/03/24 10:42 DC 12/03/24 11:06 6 MG Adenosine (Adenocard 6mg Vial) 6 mg ONCE STAT IV 12/03/24 10:44 12/03/24 10:45 DC Amiodarone HCl 150 mg/Dextrose 103 ml @ 618 mls/hr ONCE IV 12/03/24 11:00 12/03/24 11:03 DC Amiodarone HCl 360 mg/Dextrose 207.2 ml @ 33.3 mls/hr AD IV 12/03/24 11:00 12/03/24 11:03 DC Amlodipine Besylate (NorvASC 5MG TAB) 5 mg DAILY PO 12/03/24 09:00 01/02/25 08:59 12/03/24 09:54 5 MG Apixaban (EliquIS 2.5 mg) 2.5 mg BID PO 12/02/24 21:00 01/01/25 20:59 12/03/24 09:54 2.5 MG Atorvastatin Calcium (LIPItor 40MG) 40 mg HS PO 12/02/24 21:00 01/01/25 20:59 12/02/24 20:07 40 MG Carbidopa/Levodopa (Sinemet 25-100 Tab) 1 each TID PO 12/02/24 21:00 01/01/25 20:59 12/03/24 09:54 1 EACH Ceftriaxone Sodium (ROCEphine 1G INJ) 1 gm Q24H IVPB 12/02/24 14:30 12/12/24 14:29 12/02/24 20:06 1 GM Hydralazine HCl (APRESOLine 20MG INJ) 5 mg Q6H PRN IV ADMINISTER FOR SBP > 160 12/02/24 15:12/03/24 04:45 DC Hydralazine HCl (APRESOLine 20MG INJ) 10 mg Q2HPRN PRN IV ADMINISTER FOR SBP > 160 12/03/24 04:30 01/02/25 04:29 12/03/24 05:10 10 MG Hydromorphone HCl (DiLAUDid 0.5MG INJ) 0.5 mg Q6H PRN IVP SEVERE PAIN (7-10) 12/02/24 14:30 12/07/24 14:29 Methocarbamol (methoCARBamol) 500 mg TID PRN PO muscle cramps 12/02/24 15:30 01/01/25 15:29 Metoprolol Tartrate (loprESSOR) 25 mg BID PO 12/02/24 21:00 01/01/25 20:59 12/03/24 09:54 25 MG Metoprolol Tartrate (loprESSOR) 50 mg BID PO 12/02/24 21:00 01/01/25 20:59 12/03/24 12:24 50 MG Miscellaneous Medication (Metoprolol Tartrate ) 1 tab BID PO 12/02/24 21:00 12/02/24 15:32 DC Morphine Sulfate (morPHINE 2MG SYG) 2 mg ONCE STAT IVP 12/02/24 13:33 12/02/24 13:38 DC 12/02/24 13:39 2 MG Nitroglycerin (Nitrostat) 0.4 mg AD PRN SL CHEST PAIN 12/02/24 14:30 01/01/25 14:29 12/03/24 10:25 0.4 MG Ondansetron HCl (zoFRAN 4MG INJ) 4 mg ONCE STAT IVP 12/02/24 13:33 12/02/24 13:38 DC 12/02/24 13:39 4 MG Ondansetron HCl (zoFRAN 4MG INJ) 4 mg Q6H PRN IVP NAUSEA/VOMITING 12/02/24 14:30 01/01/25 14:29 Pantoprazole Sodium (PROTonix 40MG INJ) 40 mg BID IVP 12/03/24 21:00 01/01/25 14:29 Pantoprazole Sodium (PROTonix 40MG INJ) 40 mg Q24H IVP 12/02/24 14:30 12/03/24 09:37 DC 12/02/24 20:10 40 MG Sodium Chloride 1,000 ml @ 60 mls/hr [id number] IV 12/02/24 14:30 12/02/24 14:26 DC Sodium Chloride 1,000 ml @ 60 mls/hr [id number] IV 12/02/24 14:30 01/01/25 14:29 12/02/24 18:12 60 MLS/HR Sodium Chloride 1,000 ml @ 1,000 mls/hr Q1H STAT IV 12/02/24 10:54 12/02/24 11:53 DC 12/02/24 10:54 1,000 MLS/HR Thiamine HCl (Vitamin B-1) 100 mg Q24H IVP 12/02/24 14:30 01/01/25 14:29 12/02/24 20:07 100 MG Trazodone HCl (DesyREL/OlepTRO) 50 mg HS PO 12/02/24 21:00 01/01/25 20:59 12/02/24 20:06 50 MG LABORATORY: [ ] Hematology Labs: Test 12/04/24 05:08 Range/Units White Blood Count 13.1 H 4.8-10.8 K/uL Red Blood Count 4.11 4.00-5.50 MIL/uL Hemoglobin 12.1 12.0-16.0 g/dL Hematocrit 36.9 36-48 % Mean Corpuscular Volume 89.8 79-99 fL Mean Corpuscular Hemoglobin 29.4 27.0-33.0 pg Mean Corpuscular Hemoglobin Concent 32.8 32.0-36.0 g/dL Red Cell Distribution Width 17.6 H 11.0-15.5 % Platelet Count 197 130-400 K/uL Mean Platelet Volume 9.1 7.5-10.5 fL Immature Granulocyte % (Auto) 0.4 0-1 % Neutrophils (%) (Auto) 72.8 40.0-77.0 % Lymphocytes (%) (Auto) 18.0 L 21.0-51.0 % Monocytes (%) (Auto) 8.2 3.0-13.0 % Eosinophils (%) (Auto) 0.3 0.0-8.0 % Basophils (%) (Auto) 0.3 0.0-5.0 % Neutrophils # (Auto) 9.5 H 1.8-7.7 K/uL Lymphocytes # (Auto) 2.4 1.0-4.8 K/uL Monocytes # (Auto) 1.1 H 0.1-1.0 K/uL Eosinophils # (Auto) 0.04 0.00-0.70 K/uL Basophils # (Auto) 0.04 0.00-0.20 K/uL Absolute Immature Granulocyte (auto 0.05 0-1 K/uL Nucleated Red Blood Cells 0.0 0.0-0.19 % Chemistry Labs: Test 12/04/24 05:08 12/03/24 10:15 12/03/24 09:44 12/03/24 07:03 Range/Units Sodium Level 134 L 136-145 mmol/L Potassium Level 3.8 3.5-5.1 mmol/L Chloride Level 101 101-111 mmol/L Carbon Dioxide Level 23 21-32 mmol/L Blood Urea Nitrogen 18 7-18 mg/dL Creatinine 0.9 0.5-1.0 mg/dL Glomerular Filtration Rate Calc 62 >90 mL/min Random Glucose 159 #H 70-105 mg/dL Total Calcium 8.4 L 8.5-10.1 mg/dL Magnesium Level 1.80 1.80-2.40 mg/dL Total Bilirubin 0.4 # 0.2-1.0 mg/dL Aspartate Amino Transf (AST/SGOT) 17 10-37 U/L Alanine Aminotransferase (ALT/SGPT) 17 # 12-78 U/L Alkaline Phosphatase 104 50-136 U/L Total Protein 6.3 6.0-8.3 g/dL Albumin 3.0 L 3.5-5.0 g/dL Whole Blood Glucose 124 H 70-110 MG/DL Troponin I High Sensitivity 14 4-50 ng/L Uric Acid 2.8 2.6-7.2 mg/dL Phosphorus Level 3.4 2.5-4.9 mg/dL Total Creatine Kinase 19 #L 21-232 U/L Thyroid Stimulating Hormone (TSH) 1.05 0.36-3.74 uIU/mL DIAGNOSTICS / RADIOLOGY: REASON: PNA ORDERING PHYSICIAN: BREANNA BARBER NP PROCEDURE: CXR1VW - CHEST 1VW Exam Type: CHEST 1VW Clinical Information: PNA Comparison: None Findings: Pulmonary pattern is as before. No worrisome interval changes have taken place. Impression: Stable exam. DICTATED BY: WILLIAM LEON MD DATE: 12/04/24 0937 REASON: picc line placement ORDERING PHYSICIAN: BREANNA BARBER NP PROCEDURE: CXR1VW - CHEST 1VW Exam Type: CHEST 1VW Clinical Information: picc line placement Comparison: None Findings: RightPICC line is noted with tip within the distal superior vena cava and there are no other interval changes. IMPRESSION: Right PICC line as noted. DICTATED BY: WILLIAM LEON MD DATE: 12/03/24 1648 REASON: abdominal pain, n/v ORDERING PHYSICIAN: HOLLY WAITE NP PROCEDURE: ABD PEL WO - CT ABDOMEN/PELVIS W/O CONTRAST CT ABDOMEN/PELVIS W/O CONTRAST HISTORY: Abdominal pain COMPARISON: None TECHNIQUE: Multiple sequential axial images of the abdomen and pelvis were obtained from the dome of the diaphragm through symphysis pubis. Patient was not given contrast through intravenous route. Oral contrast was not given. FINDINGS: No pleural effusion is seen bilaterally. Bibasilar linear atelectasis changes are seen. There is no evidence of parenchymal disease or pulmonary nodule of the visualized lower lungs. Degenerative changes of the thoracolumbar spine are present. The heart is not enlarged. Small hiatal hernia is seen. Compression fractures are seen involving L4 and L5 with vertebroplasty changes. The liver, spleen, adrenal glands and pancreas are unremarkable. There is no evidence of hydronephrosis bilaterally. No evidence of renal stone is seen. Fecal material is seen in the colon. There are normal size retroperitoneal and mesenteric lymph nodes. No ascites is seen. Atherosclerotic changes are present. There is diverticulosis. There are small bilateral inguinal hernias with fat content. No CT evidence of acute appendicitis is seen. Pelvic sidewalls are symmetric bilaterally. Bladder is poorly distended. IMPRESSION: 1. No definite bowel obstruction is seen. Small hiatal hernia. Diverticulosis. No ascites is seen. CT was performed with one or more following dose reduction techniques: automated exposure control, adjustment of the mA and kv according to patient's size, or use of a iterative reconstruction technique. DICTATED BY: TIFFANIE SCHAFFER MD DATE: 12/02/24 1326 REASON: cp ORDERING PHYSICIAN: HOLLY WAITE NP PROCEDURE: CXR1VW - CHEST 1VW CHEST 1VW HISTORY: Chest pain COMPARISON: None FINDINGS: A frontal projection of the chest was obtained. No acute pulmonary infiltrates is seen. The heart is borderline enlarged. Left humeral prosthesis is seen. Prominent interstitial markings are seen. No evidence of aortic calcification is seen. IMPRESSION: 1. No acute pulmonary infiltrate is seen. DICTATED BY: TIFFANIE SCHAFFER MD DATE: 12/02/24 1147 ASSESSMENT: Hyponatremia, A-fibb with RVR Atypical chest pain Epigastric abdominal pain with nausea and vomiting Leukocytosis History of CVA in 2023 History of L4-L5 compression fracture with recent history of vertebroplasty in 09/2024 Debility/frailty Prior history of ME in [place] in 09/2023, History of atrial fibrillation maintained on chronic anticoagulation with Eliquis History of outpatient use of opioids with hydrocodone Hyperlipidemia Parkinson's disease Urinary retention PLAN: Labs, diagnostic, radiologic exams reviewed and interpreted by myself and supervising physician. We have reviewed external records in detail Pending stress test and echocardiogram results Require close monitoring of renal function and electrolytes Order CBC, CMP, and electrolytes in am BiPAP as necessary, for respiratory distress IV pressors as needed Monitor blood pressure adjust medication doses as needed Avoid hypotensive episodes May use Dilaudid 0.5 mg IV every 6 hours as needed for severe pain Monitor blood sugars Strict intake, output, and daily weight should be monitored Please renally adjust medications Avoid nephrotoxic and nonsteroidal drugs Avoid contrast if possible Will continue to monitor renal function, anemia, electrolytes Treatment plan discussed with patient Questions were answered We have discussed with the other team physicians in detail about the care plan We will continue to monitor the patient closely Total critical care time spent with patient, nursing staff, critical care team over 35 minutes ATTESTATION BY PHYSICIAN I have seen and examined the patient. I reviewed the documentation, medical decision making, and treatment plan as noted by the mid-level provider above. I agree with the findings and plan of care. EDER MESA MD, [facility] December 04, 2024 12:46
[2024-12-04] MEDS: AMIOdarone 900MG VIAL 540 MG in DEXTROSE 5%-WATER 300 ML IV SCH (15:05)
--- NOTE | 2024-12-04 15:56 | HMCIMG ---
Exam Type: US VENOUS DOPPLER BILATERAL Clinical Information: rule out D VT Comparison: None Findings: The examination shows normal deep venous system. There is normal compressibility at all levels. There is no intraluminal clot. There is no occlusion. Adequate response is obtained on augmentation. Impression: No evidence of DVT.
--- NOTE | 2024-12-04 16:00 | NUR ---
DR SHERMAN ROUNDED, UPDATED FAMILY. LEXISCAN AND ECHO RESULTS HAVE NOT RESULTED. DR SHERMAN ASKED IF AMIODARONE DRIP TO BE CONTINUED SINCE LOPRESSOR PO ON HOLD. HE WANTS AMIODARONE PROTOCOL ONLY. AMIODARONE TO BE COMPLETED AT 2300.
--- NOTE | 2024-12-04 17:31 | HMCSR ---
APPROVED REPORT Height: 5 ft 4in Weight: 125 lbs TEST INDICATIONS Chest Pain The imaging protocol used to acquire images was Rest Tc-99m/stress Tc-99m 1 day Consent: The procedure was explained and understood by the patient. Informerd consent was witnessed Mauro Summers RN First, low dose rest was performed then high dose stress. RESTING DATA: The resting ekg shows: a-fib Rest SPECT myocardial perfusion imaging was performed in supine position minutes following the intra venous injection of 11.5 mCi of Tc-99 Sestamibi. Time of rest injection: 08:52: Date: 12/04/2024 PHARMACOLOGIC STRESS: Pharmacologic stress test was performed by injecting regadenoson 0.4 mg IV push followed by the intra venous injection of 27 mCi of Tc-99 Sestamibi. Time of stress injection: 11:05: Date: 12/04/2024 Heart Rate at time of stress injection: 66 bpm. Gated Stress SPECT was performed 60 minutes after stress injection. The images were gated to evaluate regional wall motion and calculate left ventricular ejection fracti on. STRESS DETAILS Reason for Termination: Infusion complete Stress Symptoms: Dyspnea, Stomach Cramps Max HR Achieved: 84 bpm % of APMHR Achieved: 74 Max Blood Pressure: 137/56/ mmHg Stress ECG: a-fib Study quality was good. Lung uptake was Normal. Artifact: No artifact IMPRESSION Normal pharmacologic nuclear stress test. Conclusion Normal perfusion. TID 0.77. LVEF 42%.
--- NOTE | 2024-12-04 17:42 | HMCSR ---
APPROVED REPORT EXAM: Two-dimensional and M-mode echocardiogram with Doppler and color Doppler. INDICATION ICD: nonsustained ventricular tachycardia 2D Dimensions RVDd3.3 cmLVEF(%)67.8 (>50%)LVED Vol(simp.)63.0 mL IVSd1.4 (0.7-1.1cm)FS(%)37 %LVES Vol(simp.)21.0 mL LVDd3.6 (3.8-5.6cm)LA (2D)4.2 (1.6-4.0cm)LVEF(%, simp.)67 % PWd1.2 (0.7-1.1cm)Ao Root(2D)2.7 (2.0-3.7cm)LA ESV INDEX (BP)27.63 mL/m2 LVDs2.3 (2.5-4.0cm)LVOT diam1.8 (1.8-2.4cm) IVC diam1.6 cm Deformation Strain Apical 4-19.7 % Apical 2-21.6 % Apical 3-11.5 % Global Strain-17.6 % M-Mode Dimensions EPSS0.3 cm LA (MM)4.7 (1.6-4.0cm) Ao Root(MM)2.6 (2.0-3.7cm) Aortic Valve AoV Vmax1.3 m/[place] Peak GR6.8 mmHgLVOT Vmax1.0 m/s AoV VTI0.3 mAo Mean GR2.8 mmHgLVOT VTI0.23 m KIMBER (VMAX)1.99 cm2Al P1/2T797 msAVA (VTI) 2.0 cm2 Mitral Valve MV E Vmax88.7 cm/sDECEL Fvht544 ms MV A Vmax88.7 cm/sP 1/2 T95 ms E/A ratio1.0MVA (PHT)2.3 cm2 TDI E/E' [id number]/E' [id number] Medial E' Peak V7.37 cm/sLateral E' Peak V8.66 cm/s Tricuspid Valve TR Vmax2.9 m/sRVSP30.7 mmHg TR Peak GR36.5 mmHg Left Ventricle The left ventricle is normal size. Mild concentric left ventricular hypertrophy. LVEF is 65-70%. Inde terminate diastolic dysfunction. Right Ventricle The right ventricle is normal size. The right ventricular systolic function is normal. Atria The left atrium size is normal. The right atrium size is normal. Aortic Valve The aortic valve is normal in structure. Mild aortic regurgitation. There is no aortic valvular steno sis. Mitral Valve Mitral valve leaflets open well. Posterior leaflet is moderately calcified. Mitral regurgitation is m ild. There is no mitral valve stenosis. Tricuspid Valve The tricuspid valve is normal in structure. There is mild tricuspid valve regurgitation noted. Pulmonic Valve The pulmonary valve is normal in structure. There is no pulmonic valvular regurgitation. Great Vessels The aortic root is normal in size. The IVC is normal in size and collapses >50% with inspiration. Pericardium There is no pericardial effusion.
--- NOTE | 2024-12-04 19:23 | NUR ---
PT held for imaging/doppler.PT to follow
[2024-12-04] MEDS: hydroMORPHone 0.5 MG SYG (0.5MG/0.5ML) IVP PRN (22:20)
[2024-12-05] VITALS (13 sets, daily range): BP systolic 139–189; BP diastolic 53–91; PULSE 55–110; RESP 16–30; TEMP 98–98.8; O2SAT 95–98
--- NOTE | 2024-12-05 05:08 | NUR ---
@0400y Received report from nurse john LENNON. when patient was received into room 204. Patient was transferred from icu on amiodarone iv drip. Call was made to telemetry room whom stated patient in sinus rhythm 60s with episodes of sinus bradycardia 50s.
[2024-12-05 05:22] LABS: BASOPHILS # (AUTO) 0.03 K/uL (0.00-0.20); BASOPHILS % (AUTO) 0.3 % (0.0-5.0); EOSINOPHILS # (AUTO) 0.05 K/uL (0.00-0.70); EOSINOPHILS % (AUTO) 0.5 % (0.0-8.0); HEMATOCRIT 35.5 % (36-48); IMMATURE GRANULOCYTE ABSOLUTE 0.06 K/uL (0-1); LYMPHOCYTES % (AUTO) 19.6 % (21.0-51.0); MEAN CORPUSCULAR HEMOGLOBIN 30.3 pg (27.0-33.0); MEAN CORPUSCULAR HGB CONC 34.1 g/dL (32.0-36.0); MEAN CORPUSCULAR VOLUME 88.8 fL (79-99); MONOCYTES # (AUTO) 0.7 K/uL (0.1-1.0); MONOCYTES % (AUTO) 7.1 % (3.0-13.0); NEUTROPHILS # (AUTO) 7.5 K/uL (1.8-7.7); NEUTROPHILS % (AUTO) 71.9 % (40.0-77.0); PLATELET COUNT (AUTO) 168 K/uL (130-400); RED CELL DISTRIBUTION WIDTH 17.3 % (11.0-15.5); WHITE BLOOD COUNT (AUTO) 10.4 K/uL (4.8-10.8)
[2024-12-05 05:38] LABS: ALBUMIN 2.9 g/dL (3.5-5.0); BILIRUBIN,TOTAL 0.5 mg/dL (0.2-1.0); CREATININE 0.8 mg/dL (0.5-1.0); MAGNESIUM 2.6 mg/dL (1.80-2.40); TOTAL PROTEIN, SERUM 6.1 g/dL (6.0-8.3)
[2024-12-05] MEDS: dilTIAZem 25MG INJ IVP ONE (09:19)
--- NOTE | 2024-12-05 09:57 | PN ---
[facility] PROGRESS NOTE Date Patient Seen: December 05, 2024 Time of Visit: 09:55 Supervising Physician: Tom Dangelo MD Primary Care Physician: Dr. Caridad Iyer Outpatient Specialists: [ ] Inpatient Consults: [ ] PROBLEM LIST: Recurrent AFib with RVR Atypical chest pain rule out ACS Acute hyponatremia POA now improved. Leukocytosis POA now resolved. Normal Lexiscan Cardiolite stress test 12/03/24 Hypertension. Hyperlipidemia. Parkinson's disease. Severe Protein calorie malnutrition. History of opioid use with hydrocodone Unremarkable echocardiogram W/ EF 65-70% and mild mitral valve regurgitation on 2D echo 12/04/24 suspected mild pulmonary HTN RVSP 30.7 mmHg INTERVAL HISTORY: Per Rn pt is Back to AFib with RVR this morning was restarted on amiodarone drip. She was also given Cardizem push x 1 dose. Currently heart rate 109 beats per minute. 2D echo was unremarkable with the EF of 65-70% and only mild mitral regurgitation. There was no pericardial effusion. RVSP of 30.7 mm Hg. Venous Doppler rule out lower extremities negative for DVT. Will order CTA to rule out PE due to elevated D dimer Well's score for PE 3 moderate risk for ti. REVIEW OF SYSTEMS: 12 point ROS reviewed with patient. Pertinent positives mentioned above. Otherwise negative. PHYSICAL EXAM: GENERAL: Alert, weak, awake oriented x 3 HEENT: EOMI, Sclera non icteric, moist mucosa NECK: Supple, no JVD, trachea midline LUNGS: Clear breath sounds bilaterally. No wheezes HEART: Regular rate and rhythm. Normal S1 and S2, without murmurs ABD: Abdomen soft, nontender. Bowel sounds present EXT: + parkinon tremors. No clubbing cyanosis or edema NEURO: Alert and oriented to person, follows commands Vital Signs (last 8hr) Date Time Temp Pulse Resp B/P (MAP) Pulse Ox O2 Delivery O2 Flow Rate FiO2 12/05/24 09:19 150 135/79 12/05/24 07:00 98.6 70 20 152/61 95 Room Air 12/05/24 04:11 98.6 60 22 155/56 95 Room Air 0.0 12/05/24 02:44 55 30 189/69 (109) 98 LABS: Hematology Labs: Test 12/05/24 05:16 Range/Units White Blood Count 10.4 4.8-10.8 K/uL Red Blood Count 4.00 4.00-5.50 MIL/uL Hemoglobin 12.1 12.0-16.0 g/dL Hematocrit 35.5 L 36-48 % Mean Corpuscular Volume 88.8 79-99 fL Mean Corpuscular Hemoglobin 30.3 27.0-33.0 pg Mean Corpuscular Hemoglobin Concent 34.1 32.0-36.0 g/dL Red Cell Distribution Width 17.3 H 11.0-15.5 % Platelet Count 168 130-400 K/uL Mean Platelet Volume 9.1 7.5-10.5 fL Immature Granulocyte % (Auto) 0.6 0-1 % Neutrophils (%) (Auto) 71.9 40.0-77.0 % Lymphocytes (%) (Auto) 19.6 L 21.0-51.0 % Monocytes (%) (Auto) 7.1 3.0-13.0 % Eosinophils (%) (Auto) 0.5 0.0-8.0 % Basophils (%) (Auto) 0.3 0.0-5.0 % Neutrophils # (Auto) 7.5 1.8-7.7 K/uL Lymphocytes # (Auto) 2.0 1.0-4.8 K/uL Monocytes # (Auto) 0.7 0.1-1.0 K/uL Eosinophils # (Auto) 0.05 0.00-0.70 K/uL Basophils # (Auto) 0.03 0.00-0.20 K/uL Absolute Immature Granulocyte (auto 0.06 0-1 K/uL Nucleated Red Blood Cells 0.0 0.0-0.19 % Chemistry Labs: Test 12/05/24 05:16 12/03/24 10:15 Range/Units Sodium Level 136 136-145 mmol/L Potassium Level 4.0 3.5-5.1 mmol/L Chloride Level 103 101-111 mmol/L Carbon Dioxide Level 27 21-32 mmol/L Blood Urea Nitrogen 16 7-18 mg/dL Creatinine 0.8 0.5-1.0 mg/dL Glomerular Filtration Rate Calc 71 >90 mL/min Random Glucose 103 70-105 mg/dL Total Calcium 8.6 8.5-10.1 mg/dL Magnesium Level 2.60 H 1.80-2.40 mg/dL Total Bilirubin 0.5 0.2-1.0 mg/dL Aspartate Amino Transf (AST/SGOT) 17 10-37 U/L Alanine Aminotransferase (ALT/SGPT) 9 L 12-78 U/L Alkaline Phosphatase 101 50-136 U/L Total Protein 6.1 6.0-8.3 g/dL Albumin 2.9 L 3.5-5.0 g/dL Whole Blood Glucose 124 H 70-110 MG/DL DIAGNOSTICS / RADIOLOGY RESULTS: IMAGING REPORT Signed PATIENT: PAYTON TARANGO MR#: [id number] : 1935 SEX: F AGE: 89 LOCATION: [facility] ORDER 1155 STATUS: ADM IN REPORT#: [id number] SERVICE 1153 REASON: nonsustained ventricular tachycardia ORDERING PHYSICIAN: MARAL SHERMAN MD PROCEDURE: ECHO CMP - ECHO 2-D COMPLETE APPROVED REPORT EXAM: Two-dimensional and M-mode echocardiogram with Doppler and color Doppler. INDICATION ICD: nonsustained ventricular tachycardia 2D Dimensions RVDd 3.3 cm LVEF(%) 67.8 (>50%) LVED Vol(simp.) 63.0 mL IVSd 1.4 (0.7-1.1cm) FS(%) 37 % LVES Vol(simp.) 21.0 mL LVDd 3.6 (3.8-5.6cm) LA (2D) 4.2 (1.6-4.0cm) LVEF(%, simp.) 67 % PWd 1.2 (0.7-1.1cm) Ao Root(2D) 2.7 (2.0-3.7cm) LA ESV INDEX (BP) 27.63 mL/m2 LVDs 2.3 (2.5-4.0cm) LVOT diam 1.8 (1.8-2.4cm) IVC diam 1.6 cm Deformation Strain Apical 4 -19.7 % Apical 2 -21.6 % Apical 3 -11.5 % Global Strain -17.6 % M-Mode Dimensions EPSS 0.3 cm LA (MM) 4.7 (1.6-4.0cm) Ao Root(MM) 2.6 (2.0-3.7cm) Aortic Valve AoV Vmax 1.3 m/s Ao Peak GR 6.8 mmHg LVOT Vmax 1.0 m/s AoV VTI 0.3 m Ao Mean GR 2.8 mmHg LVOT VTI 0.23 m KIMBER (VMAX) 1.99 cm2 Al P1/2T 797 ms KIMBER (VTI) 2.0 cm2 Mitral Valve MV E Vmax 88.7 cm/s DECEL Time 217 ms MV A Vmax 88.7 cm/s P 1/2 T 95 ms E/A ratio 1.0 MVA (PHT) 2.3 cm2 TDI E/E' Medial 12.0 E/E' Lateral 10.2 Medial E' Peak V 7.37 cm/s Lateral E' Peak V 8.66 cm/s Tricuspid Valve TR Vmax 2.9 m/s RVSP 30.7 mmHg TR Peak GR 36.5 mmHg Left Ventricle The left ventricle is normal size. Mild concentric left ventricular hypertrophy. LVEF is 65-70%. Indeterminate diastolic dysfunction. Right Ventricle The right ventricle is normal size. The right ventricular systolic function is normal. Atria The left atrium size is normal. The right atrium size is normal. Aortic Valve The aortic valve is normal in structure. Mild aortic regurgitation. There is no aortic valvular stenosis. Mitral Valve Mitral valve leaflets open well. Posterior leaflet is moderately calcified. Mitral regurgitation is mild. There is no mitral valve stenosis. Tricuspid Valve The tricuspid valve is normal in structure. There is mild tricuspid valve regurgitation noted. Pulmonic Valve The pulmonary valve is normal in structure. There is no pulmonic valvular regurgitation. Great Vessels The aortic root is normal in size. The IVC is normal in size and collapses >50% with inspiration. Pericardium There is no pericardial effusion. DICTATED BY: DELLA HARPER MD DATE: 12/04/24 09 ELECTRONICALLY SIGNED BY: DELLA HARPER MD DATE: 12/04/24 [id number] PLAN Follow cardiology recommendations Amiodarone drip per Cardiology Continue cardiac monitoring CTA to rule out PE due to moderate most score of 3, for PE Maintain O2 sats above 92% NEURO: Minimize central acting medications as possible. Maintain fall precautions, adequate lighting during the day PULMONARY: Supplemental 02 as needed. Maintain aspiration precautions at all times CARDIOVASCULAR: Follow hemodynamics. Vital signs per facility protocol GI & NUTRITION: Continue with nutritional support. Continue stool softeners and laxatives as needed. KIDNEYS & ELECTROLYTES: Strict monitoring of intake, output and overall fluid balance. Avoid nephrotoxic medications to the extent possible. Medications to be dosed according to renal function. Monitor electrolytes and replace as needed ENDOCRINE: Maintain blood glucose between 100-180 at all times. Hypoglycemia protocol in place INFECTIOUS DISEASE: Trend temperature, WBC and procalcitonin level Follow cultures, deescalate antibiotics as soon as possible. Panculture if new onset fever ONCOLOGY/HEMATOLOGY/COAGULATION: Monitor for s/s of bleeding Monitor hemoglobin, coagulation studies as needed SKIN: Pressure ulcer prevention per facility protocol Specialty mattress ORTHO/REHAB: Continue PT/OT Prophylaxis: Continue GI and DVT prophylaxis Code Status: Full Resuscitation Disposition: TBD Other: Total patient care time exceeds 35 minutes excluding all procedures. ATTESTATION BY PHYSICIAN I reviewed the documentation, medical decision making, and treatment plan as noted by the mid-level provider above. I agree with the findings and plan of care. Tom Dangelo MD, NELLY J ARNP December 05, 2024 09:57
--- NOTE | 2024-12-05 10:00 | NUR ---
PT follow up note: Patient remains on hold due to high heart rate and continuous A Fib. PT team to follow.
--- NOTE | 2024-12-05 11:03 | PN ---
[facility] CARDIAC ELECTROPHYSIOLOGY PROGRESS NOTE Date Patient Seen: December 04, 2024 Time of Visit: 10:57 Interval History: The patient is doing well today having converted back to sinus rhythm yesterday evening. She continues on the amiodarone maintenance infusion. She is still pending an echocardiogram. A Lexiscan stress test was done however this is not yet been interpreted. Physical Examination: GENERAL: Frail woman in no apparent distress HEENT: Grossly within normal limits NECK: No JVD LUNGS: Clear HEART: Regular rate and rhythm, no murmurs appreciated CHEST: Significant tenderness to palpation of the lower sternum ABD: Mild epigastric tenderness EXT: No edema Laboratory: [ ] Hematology Labs: Test 12/05/24 05:16 Range/Units White Blood Count 10.4 4.8-10.8 K/uL Red Blood Count 4.00 4.00-5.50 MIL/uL Hemoglobin 12.1 12.0-16.0 g/dL Hematocrit 35.5 L 36-48 % Mean Corpuscular Volume 88.8 79-99 fL Mean Corpuscular Hemoglobin 30.3 27.0-33.0 pg Mean Corpuscular Hemoglobin Concent 34.1 32.0-36.0 g/dL Red Cell Distribution Width 17.3 H 11.0-15.5 % Platelet Count 168 130-400 K/uL Mean Platelet Volume 9.1 7.5-10.5 fL Immature Granulocyte % (Auto) 0.6 0-1 % Neutrophils (%) (Auto) 71.9 40.0-77.0 % Lymphocytes (%) (Auto) 19.6 L 21.0-51.0 % Monocytes (%) (Auto) 7.1 3.0-13.0 % Eosinophils (%) (Auto) 0.5 0.0-8.0 % Basophils (%) (Auto) 0.3 0.0-5.0 % Neutrophils # (Auto) 7.5 1.8-7.7 K/uL Lymphocytes # (Auto) 2.0 1.0-4.8 K/uL Monocytes # (Auto) 0.7 0.1-1.0 K/uL Eosinophils # (Auto) 0.05 0.00-0.70 K/uL Basophils # (Auto) 0.03 0.00-0.20 K/uL Absolute Immature Granulocyte (auto 0.06 0-1 K/uL Nucleated Red Blood Cells 0.0 0.0-0.19 % Chemistry Labs: Test 12/05/24 05:16 Range/Units Sodium Level 136 136-145 mmol/L Potassium Level 4.0 3.5-5.1 mmol/L Chloride Level 103 101-111 mmol/L Carbon Dioxide Level 27 21-32 mmol/L Blood Urea Nitrogen 16 7-18 mg/dL Creatinine 0.8 0.5-1.0 mg/dL Glomerular Filtration Rate Calc 71 >90 mL/min Random Glucose 103 70-105 mg/dL Total Calcium 8.6 8.5-10.1 mg/dL Magnesium Level 2.60 H 1.80-2.40 mg/dL Total Bilirubin 0.5 0.2-1.0 mg/dL Aspartate Amino Transf (AST/SGOT) 17 10-37 U/L Alanine Aminotransferase (ALT/SGPT) 9 L 12-78 U/L Alkaline Phosphatase 101 50-136 U/L Total Protein 6.1 6.0-8.3 g/dL Albumin 2.9 L 3.5-5.0 g/dL Impression: 1. Acute onset atrial fibrillation with rapid ventricular response with a history of PAF, now converted to sinus rhythm with amiodarone 2. Possible angina related to rapid rate-pending results of Lexiscan stress test 3. Normal LV systolic function in June 2024 with ejection fraction 65%- pending repeat echo 4. 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 Possibly unexplained weight loss Plan: 1. Continue amiodarone infusion until protocol is completed 2. Based on patient's previous intolerance to oral amiodarone, we will attempt to use a low dose of Multaq 200 mg b.i.d., as this may be effective given her low body weight at age. 3. Further ischemia workup depending upon results of the Lexiscan stress has 4. Pending echocardiogram results 5. Workup of nausea vomiting and epigastric pain per hospitalist team 6. Workup of unexplained weight loss as per hospitalist team and outpatient primary care physician. MARAL SHERMAN MD December 05, 2024 11:03
--- NOTE | 2024-12-05 11:18 | PN ---
[facility] CARDIAC ELECTROPHYSIOLGY PROGRESS NOTE Date Patient Seen: December 05, 2024 Time of Visit: 11:14 Interval History: The patient had converted to sinus rhythm yesterday but unfortunately is now back in atrial fibrillation. She was given diltiazem 10 mg intravenously in the amiodarone maintenance infusion was restarted. She is now running in the one teens. Her Lexiscan Cardiolite stress test was normal, and her echocardiogram was basically normal, showing only mild concentric LVH, normal LV systolic function with ejection fraction 65-70%, normal left atrial size, and mild aortic, mitral, and tricuspid regurgitation. Physical Examination: GENERAL: Frail woman in no apparent distress NECK: No JVD LUNGS: Clear HEART: Irregular rhythm, no murmurs appreciated EXT: No edema Laboratory: [ ] Hematology Labs: Test 12/05/24 05:16 Range/Units White Blood Count 10.4 4.8-10.8 K/uL Red Blood Count 4.00 4.00-5.50 MIL/uL Hemoglobin 12.1 12.0-16.0 g/dL Hematocrit 35.5 L 36-48 % Mean Corpuscular Volume 88.8 79-99 fL Mean Corpuscular Hemoglobin 30.3 27.0-33.0 pg Mean Corpuscular Hemoglobin Concent 34.1 32.0-36.0 g/dL Red Cell Distribution Width 17.3 H 11.0-15.5 % Platelet Count 168 130-400 K/uL Mean Platelet Volume 9.1 7.5-10.5 fL Immature Granulocyte % (Auto) 0.6 0-1 % Neutrophils (%) (Auto) 71.9 40.0-77.0 % Lymphocytes (%) (Auto) 19.6 L 21.0-51.0 % Monocytes (%) (Auto) 7.1 3.0-13.0 % Eosinophils (%) (Auto) 0.5 0.0-8.0 % Basophils (%) (Auto) 0.3 0.0-5.0 % Neutrophils # (Auto) 7.5 1.8-7.7 K/uL Lymphocytes # (Auto) 2.0 1.0-4.8 K/uL Monocytes # (Auto) 0.7 0.1-1.0 K/uL Eosinophils # (Auto) 0.05 0.00-0.70 K/uL Basophils # (Auto) 0.03 0.00-0.20 K/uL Absolute Immature Granulocyte (auto 0.06 0-1 K/uL Nucleated Red Blood Cells 0.0 0.0-0.19 % Chemistry Labs: Test 12/05/24 05:16 Range/Units Sodium Level 136 136-145 mmol/L Potassium Level 4.0 3.5-5.1 mmol/L Chloride Level 103 101-111 mmol/L Carbon Dioxide Level 27 21-32 mmol/L Blood Urea Nitrogen 16 7-18 mg/dL Creatinine 0.8 0.5-1.0 mg/dL Glomerular Filtration Rate Calc 71 >90 mL/min Random Glucose 103 70-105 mg/dL Total Calcium 8.6 8.5-10.1 mg/dL Magnesium Level 2.60 H 1.80-2.40 mg/dL Total Bilirubin 0.5 0.2-1.0 mg/dL Aspartate Amino Transf (AST/SGOT) 17 10-37 U/L Alanine Aminotransferase (ALT/SGPT) 9 L 12-78 U/L Alkaline Phosphatase 101 50-136 U/L Total Protein 6.1 6.0-8.3 g/dL Albumin 2.9 L 3.5-5.0 g/dL Impression: 1. Recurrent atrial fibrillation after amiodarone loading 2. Normal Lexiscan Cardiolite stress test 3. Unremarkable echocardiogram except for mild valve regurgitations as noted above Plan: 1. Continue amiodarone maintenance infusion which has been restarted 2. Further rate control with intravenous diltiazem as needed 3. Hopefully patient will convert to sinus rhythm in the next 12-24 hours 4. At this point, chronic oral antiarrhythmic therapy may be more beneficial using an agent with a different mechanism of action. We may start propafenone tomorrow depending on the events of the next 24 hours. MARAL SHERMAN MD December 05, 2024 11:18
--- NOTE | 2024-12-05 11:18 | NUR ---
Nutritional Note: Pt is at high risk for worsening nutritional status due to poor appetite and suboptimal PO Intake 50% of meals taken, GI complaints, unintentional wt loss, and medication side effects notably opioid use. Physical exm support mild- moderate muscle wasting/fat loss. Recommend: -Continue GI soft diet -Nephrovite MVI combination of B vitamins may be used to treat or prevent vitamin deficiency due to poor diet. -Magic Cup 4oz w/ PM tray: Provides 9gm pro/ 290kcal and 20 vitamins and minerals. [place] to serve with meals as a means of adding calories and protein for unintended weight loss. -ProStat BID (30 ml) JELLO -Continue Thiamine - Electrolyte replacements per protocol -Consider INSPECTOR PROCESS evaluation to assess if swallowing is impacting intake. -Monitor feeding tolerance, %, wt, and labs -Document PO intake and wt daily. -If No BM >3days consider bowel stimulant. -Schedule outpatient RD f/u for long-term nutrition care. - Notify RD if additional nutrition concerns arise. SEE RD Nutritional Assessment for additional assessment information. Addendum: 12/05/24 at [address] Amended: Links added.
--- NOTE | 2024-12-05 11:45 | NUR ---
Beckham catheter was discontinued as ordered at bedside, patient tolerated intervention well with minimal discomfort. Catheter tip appeared intact. Stat lock removed using alcohol swabs. Patient due to void at 1615. External urinary catheter placed at this time.
--- NOTE | 2024-12-05 12:47 | PN ---
NEPHROLOGY PROGRESS NOTE Date/Time Patient Seen: December 05, 2024 SUBJECTIVE: This is an 89-year-old who has a history of coronary artery disease, CVA, hypertension, hyperlipidemia, back pain with compression fracture needing vertebroplasty, history of atrial fibrillation and Parkinson's disease. The patient is admitted with chest pain and abdominal pain. The patient is having some nausea and vomiting also and the patient has poor oral intake and has multiple other comorbidities. The patient has leukocytosis and now very low sodium and electrolyte problem. She was transferred to ICU due to atrial fibrillation Renal function and electrolytes are stable. She continues to be followed by She continues on amiodarone drip due to atrial fibrillation. Family at the bedside Condition is critical and guarded REVIEW OF SYSTEMS: GENERAL: Negative for any nausea, vomiting, fevers, chills, or weight loss. NEUROLOGIC: Negative for any blurry vision, blind spots, double vision, facial asymmetry, dysphagia, dysarthria, hemiparesis, hemisensory deficits, vertigo, ataxia. HEENT: Negative for any head trauma, neck trauma, neck stiffness, photophobia, phonophobia, sinusitis, rhinitis. CARDIAC: Negative for any chest pain, dyspnea on exertion, paroxysmal nocturnal dyspnea, peripheral edema. PULMONARY: Negative for any shortness of breath, wheezing, COPD, or TB exposure. GASTROINTESTINAL: Negative for any abdominal pain, nausea, vomiting, bright red blood per rectum, melena. GENITOURINARY: Negative for any dysuria, hematuria, incontinence. INTEGUMENTARY: Negative for any rashes, cuts, insect bites. RHEUMATOLOGIC: Negative for any joint pains, photosensitive rashes, history of vasculitis or kidney problems. HEMATOLOGIC: Negative for any abnormal bruising, frequent infections or bleeding. Vital Signs (last 8hr) Date Time Temp Pulse Resp B/P (MAP) Pulse Ox O2 Delivery O2 Flow Rate FiO2 12/03/24 11:44 101 22 104/58 99 Nasal Cannula 4.0 12/03/24 11:29 110 23 117/59 100 Nasal Cannula 4.0 12/03/24 11:14 128 31 134/78 100 Nasal Cannula 4.0 12/03/24 11:06 150 122/88 12/03/24 10:44 98.8 129 26 122/88 99 Nasal Cannula 4.0 12/03/24 10:34 145 19 107/64 99 Nasal Cannula 4.0 12/03/24 10:27 179 12/03/24 10:12 161 28 N/Cannula Low lpm 4.0 12/03/24 09:54 96 Room Air* 0 21 12/03/24 07:40 98.1 63 19 140/67 95 Room Air 12/03/24 06:44 73 140/66 PHYSICAL EXAM: GENERAL: Alert and oriented x 3. No acute distress. Well-nourished. EYES: EOMI. Anicteric. HENT: Moist mucous membranes. No scleral icterus. No cervical lymphadenopathy. LUNGS: Clear to auscultation bilaterally. No accessory muscle use. CARDIOVASCULAR: Regular rate and rhythm. No murmur. No JVD. ABDOMEN: Soft, non-tender and non-distended. No palpable masses. EXTREMITIES: No edema. Non-tender.?SKIN: No rashes or lesions. Warm. NEUROLOGIC: No focal neurological deficits. CN II-XII grossly intact, but not individually tested. PSYCHIATRIC: Cooperative. Appropriate mood and affect. Current Medications Medications (Trade) Dose Ordered Sig/Mahnaz Route PRN Reason Start Time Stop Time Status Last Admin Dose Admin Acetaminophen (TYLenol 500MG TAB) 500 mg Q6H PRN PO MILD PAIN (1-3) 12/02/24 14:30 01/01/25 14:29 12/02/24 17:02 500 MG Adenosine (Adenocard 6mg Vial) 6 mg ONCE STAT IV 12/03/24 10:39 12/03/24 10:42 DC 12/03/24 11:06 6 MG Adenosine (Adenocard 6mg Vial) 6 mg ONCE STAT IV 12/03/24 10:44 12/03/24 10:45 DC Amiodarone HCl 150 mg/Dextrose 103 ml @ 618 mls/hr ONCE IV 12/03/24 11:00 12/03/24 11:03 DC Amiodarone HCl 360 mg/Dextrose 207.2 ml @ 33.3 mls/hr AD IV 12/03/24 11:00 12/03/24 11:03 DC Amlodipine Besylate (NorvASC 5MG TAB) 5 mg DAILY PO 12/03/24 09:00 01/02/25 08:59 12/03/24 09:54 5 MG Apixaban (EliquIS 2.5 mg) 2.5 mg BID PO 12/02/24 21:00 01/01/25 20:59 12/03/24 09:54 2.5 MG Atorvastatin Calcium (LIPItor 40MG) 40 mg HS PO 12/02/24 21:00 01/01/25 20:59 12/02/24 20:07 40 MG Carbidopa/Levodopa (Sinemet 25-100 Tab) 1 each TID PO 12/02/24 21:00 01/01/25 20:59 12/03/24 09:54 1 EACH Ceftriaxone Sodium (ROCEphine 1G INJ) 1 gm Q24H IVPB 12/02/24 14:30 12/12/24 14:29 12/02/24 20:06 1 GM Hydralazine HCl (APRESOLine 20MG INJ) 5 mg Q6H PRN IV ADMINISTER FOR SBP > 160 12/02/24 15:00 12/03/24 04:45 DC Hydralazine HCl (APRESOLine 20MG INJ) 10 mg Q2HPRN PRN IV ADMINISTER FOR SBP > 160 12/03/24 04:30 01/02/25 04:29 12/03/24 05:10 10 MG Hydromorphone HCl (DiLAUDid 0.5MG INJ) 0.5 mg Q6H PRN IVP SEVERE PAIN (7-10) 12/02/24 14:30 12/07/24 14:29 Methocarbamol (methoCARBamol) 500 mg TID PRN PO muscle cramps 12/02/24 15:30 01/01/25 15:29 Metoprolol Tartrate (loprESSOR) 25 mg BID PO 12/02/24 21:00 01/01/25 20:59 12/03/24 09:54 25 MG Metoprolol Tartrate (loprESSOR) 50 mg BID PO 12/02/24 21:00 01/01/25 20:59 12/03/24 12:24 50 MG Miscellaneous Medication (Metoprolol Tartrate ) 1 tab BID PO 12/02/24 21:00 12/02/24 15:32 DC Morphine Sulfate (morPHINE 2MG SYG) 2 mg ONCE STAT IVP 12/02/24 13:33 12/02/24 13:38 DC 12/02/24 13:39 2 MG Nitroglycerin (Nitrostat) 0.4 mg AD PRN SL CHEST PAIN 12/02/24 14:30 01/01/25 14:29 12/03/24 10:25 0.4 MG Ondansetron HCl (zoFRAN 4MG INJ) 4 mg ONCE STAT IVP 12/02/24 13:33 12/02/24 13:38 DC 12/02/24 13:39 4 MG Ondansetron HCl (zoFRAN 4MG INJ) 4 mg Q6H PRN IVP NAUSEA/VOMITING 12/02/24 14:30 01/01/25 14:29 Pantoprazole Sodium (PROTonix 40MG INJ) 40 mg BID IVP 12/03/24 21:00 01/01/25 14:29 Pantoprazole Sodium (PROTonix 40MG INJ) 40 mg Q24H IVP 12/02/24 14:30 12/03/24 09:37 DC 12/02/24 20:10 40 MG Sodium Chloride 1,000 ml @ 60 mls/hr [id number] IV 12/02/24 14:30 12/02/24 14:26 DC Sodium Chloride 1,000 ml @ 60 mls/hr [id number] IV 12/02/24 14:30 01/01/25 14:29 12/02/24 18:12 60 MLS/HR Sodium Chloride 1,000 ml @ 1,000 mls/hr Q1H STAT IV 12/02/24 10:54 12/02/24 11:53 DC 12/02/24 10:54 1,000 MLS/HR Thiamine HCl (Vitamin B-1) 100 mg Q24H IVP 12/02/24 14:30 01/01/25 14:29 12/02/24 20:07 100 MG Trazodone HCl (DesyREL/OlepTRO) 50 mg HS PO 12/02/24 21:00 01/01/25 20:59 12/02/24 20:06 50 MG LABORATORY: [ ] Hematology Labs: Test 12/05/24 05:16 Range/Units White Blood Count 10.4 4.8-10.8 K/uL Red Blood Count 4.00 4.00-5.50 MIL/uL Hemoglobin 12.1 12.0-16.0 g/dL Hematocrit 35.5 L 36-48 % Mean Corpuscular Volume 88.8 79-99 fL Mean Corpuscular Hemoglobin 30.3 27.0-33.0 pg Mean Corpuscular Hemoglobin Concent 34.1 32.0-36.0 g/dL Red Cell Distribution Width 17.3 H 11.0-15.5 % Platelet Count 168 130-400 K/uL Mean Platelet Volume 9.1 7.5-10.5 fL Immature Granulocyte % (Auto) 0.6 0-1 % Neutrophils (%) (Auto) 71.9 40.0-77.0 % Lymphocytes (%) (Auto) 19.6 L 21.0-51.0 % Monocytes (%) (Auto) 7.1 3.0-13.0 % Eosinophils (%) (Auto) 0.5 0.0-8.0 % Basophils (%) (Auto) 0.3 0.0-5.0 % Neutrophils # (Auto) 7.5 1.8-7.7 K/uL Lymphocytes # (Auto) 2.0 1.0-4.8 K/uL Monocytes # (Auto) 0.7 0.1-1.0 K/uL Eosinophils # (Auto) 0.05 0.00-0.70 K/uL Basophils # (Auto) 0.03 0.00-0.20 K/uL Absolute Immature Granulocyte (auto 0.06 0-1 K/uL Nucleated Red Blood Cells 0.0 0.0-0.19 % Chemistry Labs: Test 12/05/24 05:16 Range/Units Sodium Level 136 136-145 mmol/L Potassium Level 4.0 3.5-5.1 mmol/L Chloride Level 103 101-111 mmol/L Carbon Dioxide Level 27 21-32 mmol/L Blood Urea Nitrogen 16 7-18 mg/dL Creatinine 0.8 0.5-1.0 mg/dL Glomerular Filtration Rate Calc 71 >90 mL/min Random Glucose 103 70-105 mg/dL Total Calcium 8.6 8.5-10.1 mg/dL Magnesium Level 2.60 H 1.80-2.40 mg/dL Total Bilirubin 0.5 0.2-1.0 mg/dL Aspartate Amino Transf (AST/SGOT) 17 10-37 U/L Alanine Aminotransferase (ALT/SGPT) 9 L 12-78 U/L Alkaline Phosphatase 101 50-136 U/L Total Protein 6.1 6.0-8.3 g/dL Albumin 2.9 L 3.5-5.0 g/dL DIAGNOSTICS / RADIOLOGY: REASON: nonsustained ventricular tachycardia ORDERING PHYSICIAN: MARAL SHERMAN MD PROCEDURE: ECHO CMP - ECHO 2-D COMPLETE APPROVED REPORT EXAM: Two-dimensional and M-mode echocardiogram with Doppler and color Doppler. INDICATION ICD: nonsustained ventricular tachycardia 2D Dimensions RVDd 3.3 cm LVEF(%) 67.8 (>50%) LVED Vol(simp.) 63.0 mL IVSd 1.4 (0.7-1.1cm) FS(%) 37 % LVES Vol(simp.) 21.0 mL LVDd 3.6 (3.8-5.6cm) LA (2D) 4.2 (1.6-4.0cm) LVEF(%, simp.) 67 % PWd 1.2 (0.7-1.1cm) Ao Root(2D) 2.7 (2.0-3.7cm) LA ESV INDEX (BP) 27.63 mL/m2 LVDs 2.3 (2.5-4.0cm) LVOT diam 1.8 (1.8-2.4cm) IVC diam 1.6 cm Deformation Strain Apical 4 -19.7 % Apical 2 -21.6 % Apical 3 -11.5 % Global Strain -17.6 % M-Mode Dimensions EPSS 0.3 cm LA (MM) 4.7 (1.6-4.0cm) Ao Root(MM) 2.6 (2.0-3.7cm) Aortic Valve AoV Vmax 1.3 m/s Ao Peak GR 6.8 mmHg LVOT Vmax 1.0 m/s AoV VTI 0.3 m Ao Mean GR 2.8 mmHg LVOT VTI 0.23 m KIMBER (VMAX) 1.99 cm2 Al P1/2T 797 ms KIMBER (VTI) 2.0 cm2 Mitral Valve MV E Vmax 88.7 cm/s DECEL Time 217 ms MV A Vmax 88.7 cm/s P 1/2 T 95 ms E/A ratio 1.0 MVA (PHT) 2.3 cm2 TDI E/E' Medial 12.0 E/E' Lateral 10.2 Medial E' Peak V 7.37 cm/s Lateral E' Peak V 8.66 cm/s Tricuspid Valve TR Vmax 2.9 m/s RVSP 30.7 mmHg TR Peak GR 36.5 mmHg Left Ventricle The left ventricle is normal size. Mild concentric left ventricular hypertrophy. LVEF is 65-70%. Indeterminate diastolic dysfunction. Right Ventricle The right ventricle is normal size. The right ventricular systolic function is normal. Atria The left atrium size is normal. The right atrium size is normal. Aortic Valve The aortic valve is normal in structure. Mild aortic regurgitation. There is no aortic valvular stenosis. Mitral Valve Mitral valve leaflets open well. Posterior leaflet is moderately calcified. Mitral regurgitation is mild. There is no mitral valve stenosis. Tricuspid Valve The tricuspid valve is normal in structure. There is mild tricuspid valve regurgitation noted. Pulmonic Valve The pulmonary valve is normal in structure. There is no pulmonic valvular regurgitation. Great Vessels The aortic root is normal in size. The IVC is normal in size and collapses >50% with inspiration. Pericardium There is no pericardial effusion. DICTATED BY: DELLA HARPER MD DATE: 12/04/24 0907 REASON: rule out D VT ORDERING PHYSICIAN: YULIYA MONROY PROCEDURE: VENOUS CECILIA - US VENOUS DOPPLER BILATERAL Exam Type: US VENOUS DOPPLER BILATERAL Clinical Information: rule out D VT Comparison: None Findings: The examination shows normal deep venous system. There is normal compressibility at all levels. There is no intraluminal clot. There is no occlusion. Adequate response is obtained on augmentation. Impression: No evidence of DVT. DICTATED BY: WILLIAM LEON MD DATE: 12/04/24 1238 REASON: chest pain ORDERING PHYSICIAN: MARAL SHERMAN MD PROCEDURE: CARD GERMANIA - NM LEXISCAN CARDIOLITE APPROVED REPORT Height: 5 ft 4in Weight: 125 lbs TEST INDICATIONS Chest Pain The imaging protocol used to acquire images was Rest Tc-99m/stress Tc-99m 1 day Consent: The procedure was explained and understood by the patient. Informerd consent was witnessed by Rashida Summers RN First, low dose rest was performed then high dose stress. RESTING DATA: The resting ekg shows: a-fib Rest SPECT myocardial perfusion imaging was performed in supine position minutes following the intravenous injection of 11.5 mCi of Tc-99 Sestamibi. Time of rest injection: 08:52: Date: 12/04/2024 PHARMACOLOGIC STRESS: Pharmacologic stress test was performed by injecting regadenoson 0.4 mg IV push followed by the intravenous injection of 27 mCi of Tc-99 Sestamibi. Time of stress injection: 11:05: Date: 12/04/2024 Heart Rate at time of stress injection: 66 bpm. Gated Stress SPECT was performed 60 minutes after stress injection. The images were gated to evaluate regional wall motion and calculate left ventricular ejection fraction. STRESS DETAILS Reason for Termination: Infusion complete Stress Symptoms: Dyspnea, Stomach Cramps Max HR Achieved: 84 bpm % of APMHR Achieved: 74 Max Blood Pressure: 137/56/ mmHg Stress ECG: a-fib Study quality was good. Lung uptake was Normal. Artifact: No artifact IMPRESSION Normal pharmacologic nuclear stress test. Conclusion Normal perfusion. TID 0.77. LVEF 42%. DICTATED BY: DELLA HARPER MD DATE: 12/04/24926 REASON: PNA ORDERING PHYSICIAN: BREANNA BARBER NP PROCEDURE: CXR1VW - CHEST 1VW Exam Type: CHEST 1VW Clinical Information: PNA Comparison: None Findings: Pulmonary pattern is as before. No worrisome interval changes have taken place. Impression: Stable exam. DICTATED BY: WILLIAM LEON MD DATE: 12/04/24936 REASON: picc line placement ORDERING PHYSICIAN: BREANNA BARBER NP PROCEDURE: CXR1VW - CHEST 1VW Exam Type: CHEST 1VW Clinical Information: picc line placement Comparison: None Findings: RightPICC line is noted with tip within the distal superior vena cava and there are no other interval changes. IMPRESSION: Right PICC line as noted. DICTATED BY: WILLIAM LEON MD DATE: 12/03/24 1648 REASON: abdominal pain, n/v ORDERING PHYSICIAN: HOLLY WAITE NP PROCEDURE: ABD PEL WO - CT ABDOMEN/PELVIS W/O CONTRAST CT ABDOMEN/PELVIS W/O CONTRAST HISTORY: Abdominal pain COMPARISON: None TECHNIQUE: Multiple sequential axial images of the abdomen and pelvis were obtained from the dome of the diaphragm through symphysis pubis. Patient was not given contrast through intravenous route. Oral contrast was not given. FINDINGS: No pleural effusion is seen bilaterally. Bibasilar linear atelectasis changes are seen. There is no evidence of parenchymal disease or pulmonary nodule of the visualized lower lungs. Degenerative changes of the thoracolumbar spine are present. The heart is not enlarged. Small hiatal hernia is seen. Compression fractures are seen involving L4 and L5 with vertebroplasty changes. The liver, spleen, adrenal glands and pancreas are unremarkable. There is no evidence of hydronephrosis bilaterally. No evidence of renal stone is seen. Fecal material is seen in the colon. There are normal size retroperitoneal and mesenteric lymph nodes. No ascites is seen. Atherosclerotic changes are present. There is diverticulosis. There are small bilateral inguinal hernias with fat content. No CT evidence of acute appendicitis is seen. Pelvic sidewalls are symmetric bilaterally. Bladder is poorly distended. IMPRESSION: 1. No definite bowel obstruction is seen. Small hiatal hernia. Diverticulosis. No ascites is seen. CT was performed with one or more following dose reduction techniques: automated exposure control, adjustment of the mA and kv according to patient's size, or use of a iterative reconstruction technique. DICTATED BY: TIFFANIE SCHAFFER MD DATE: 12/02/24 1326 REASON: cp ORDERING PHYSICIAN: HOLLY WAITE NP PROCEDURE: CXR1VW - CHEST 1VW CHEST 1VW HISTORY: Chest pain COMPARISON: None FINDINGS: A frontal projection of the chest was obtained. No acute pulmonary infiltrates is seen. The heart is borderline enlarged. Left humeral prosthesis is seen. Prominent interstitial markings are seen. No evidence of aortic calcification is seen. IMPRESSION: 1. No acute pulmonary infiltrate is seen. DICTATED BY: TIFFANIE SCHAFFER MD DATE: 12/02/24 5613 ASSESSMENT: Hyponatremia, A-fibb with RVR Atypical chest pain Epigastric abdominal pain with nausea and vomiting Leukocytosis History of CVA in 2023 History of L4-L5 compression fracture with recent history of vertebroplasty in 09/2024 Debility/frailty Prior history of [place] in [place] in 09/2023, History of atrial fibrillation maintained on chronic anticoagulation with Eliquis History of outpatient use of opioids with hydrocodone Hyperlipidemia Parkinson's disease Urinary retention PLAN: Labs, diagnostic, radiologic exams reviewed and interpreted by myself and supervising physician. We have reviewed external records in detail Follow Cardiology recommendations Require close monitoring of renal function and electrolytes Order CBC, CMP, and electrolytes in am BiPAP as necessary, for respiratory distress Monitor blood pressure adjust medication doses as needed Avoid hypotensive episodes May use Dilaudid 0.5 mg IV every 6 hours as needed for severe pain Monitor blood sugars Strict intake, output, and daily weight should be monitored Please renally adjust medications Avoid nephrotoxic and nonsteroidal drugs Avoid contrast if possible Will continue to monitor renal function, anemia, electrolytes Treatment plan discussed with patient Questions were answered We have discussed with the other team physicians in detail about the care plan We will continue to monitor the patient closely ATTESTATION BY PHYSICIAN I have seen and examined the patient. I reviewed the documentation, medical decision making, and treatment plan as noted by the mid-level provider above. I agree with the findings and plan of care. EDER MESA MD, [facility] December 05, 2024 12:47
--- NOTE | 2024-12-05 13:36 | PN ---
[facility] PROGRESS NOTE Date of Service: December 05, 2024 Time of Service: 13:33 SUBJECTIVE: [ ] This is a 89-year-old female with underlying history of hypertension, hyperlipidemia, per daughter, prior history of [place] in [place] in 09/2023, history of CVA, recent history of compression fractures involving L4 and L5 status post vertebroplasty in [facility], history of atrial fibrillation maintained on chronic anticoagulation with Eliquis, Parkinson's disease who presented to the ER with chief complaint of epigastric pain with midsternal chest discomfort, poor oral intake ongoing since last night. 12/03/24 during my rounds patient was complaining of chest pain states 05/10. Patient was placed on oxygen in given x1 morphine. Patient is retaining urine bladder scan showed [address] Beckham catheter. Patient continues to have chest discomfort patient was given nitroglycerin. AFib with RVR 170. The patient became diaphoretic thereafter radiate to her right arm. Repeat cardiac enzymes. Patient was given one dose of IV Lopressor then was transferred to ICU 12/04/24 patient went down for nuclear medicine. Lexiscan we will follow results. Bradycardia beta-blockers were discontinued patient converted back to sinus We will follow government clerk's recommendations. 12/05/24 the patient was seen earlier: she is fully awake and alert oriented x3. denies chest pain or sob. Primary nurse reports she went into afibb with RVR overnight. This morning was given Diltiazem 10 mg IV one . amiodrone drip was restarted. Lexiscan was negative/ we will wait from DR Villarreal if any further workup. REVIEW OF SYSTEMS CONSTITUTIONAL: Denies fevers, chills, or night sweats. No unintentional weight loss reported. NEUROLOGICAL: Denies headache, amaurosis fugax, motor weakness, sensory deficit, vertigo/spinning sensation, gait abnormalities, or tremors. ENT: No hearing loss, otalgia, otorrhea, rhinitis, rhinorrhea, hoarseness, or sore throat. CARDIOVASCULAR: Patient reports having substernal chest discomfort PULMONARY: Denies any shortness of breath, cough, phlegm/sputum, hemoptysis, pleuritic chest pain. SLEEP: Denies morning headaches, daytime somnolence or napping. Denies difficulty falling asleep, staying asleep, waking from sleep. Denies knowledge of snoring. GASTROINTESTINAL: Nausea, vomiting, epigastric pain, mild in intensity, denies any significant lower quadrant abdominal pain GENITOURINARY: Denies frequency, urgency, nocturia, hematuria or incontinence (Storage/Irritative symptoms.) Low urinary stream, straining to void, urinary intermittency or hesitancy, splitting of the voiding stream, terminal dribbling. ENDOCRINOLOGIC: Denies polyuria, polydipsia, polyphagia or heat/cold intolerances. HEMATOLOGIC: Denies thrombophilia/previous clots, or coagulopathy/bleeding disorders. ONCOLOGIC: Denies personal history of malignancy. DERMATOLOGIC: Denies rashes or pruritus. PSYCHIATRIC: Denies any suicidal or homicidal ideation. Denies hallucinations. PHYSICAL EXAM GENERAL APPEARANCE: The patient is awake, alert, appears frail and chronically ill NEUROLOGICAL: Cranial nerves II-XII grossly intact. Patient is moving her upper and lower extremities, resting tremors noted of the hands HEENT: Face is symmetric. Pupils are equal and reactive. Extraocular movements are intact. NECK: Supple. No JVD. No thyromegaly. No submental, submandibular, pre- /postauricular, occipital or supraclavicular lymphadenopathy. CHEST: Normal chest expansion. No Telemetry. LUNGS: Absence of any rales, rhonchi or any wheezing. CARDIOVASCULAR: Irregular, no rubs or gallops noted ABDOMEN: Soft, nontender, and nondistended. No significant tenderness on palpation of the abdomen : Deferred. No Beckham. EXTREMITIES: Non-edematous and not cyanotic. No clubbing. Good capillary r efill. SKIN: No skin breakdown. Vital Signs (last 8hr) Date Time Temp Pulse Resp B/P (MAP) Pulse Ox O2 Delivery O2 Flow Rate FiO2 12/05/24 11:00 98.4 104 22 139/68 99 Nasal Cannula 2.0 12/05/24 09:19 150 135/79 12/05/24 08:00 95 Nasal Cannula* 2 28 12/05/24 07:00 98.6 70 20 152/61 95 Room Air LABS: Laboratory: Test 12/05/24 05:16 Range/Units White Blood Count 10.4 4.8-10.8 K/uL Red Blood Count 4.00 4.00-5.50 MIL/uL Hemoglobin 12.1 12.0-16.0 g/dL Hematocrit 35.5 L 36-48 % Mean Corpuscular Volume 88.8 79-99 fL Mean Corpuscular Hemoglobin 30.3 27.0-33.0 pg Mean Corpuscular Hemoglobin Concent 34.1 32.0-36.0 g/dL Red Cell Distribution Width 17.3 H 11.0-15.5 % Platelet Count 168 130-400 K/uL Mean Platelet Volume 9.1 7.5-10.5 fL Immature Granulocyte % (Auto) 0.6 0-1 % Neutrophils (%) (Auto) 71.9 40.0-77.0 % Lymphocytes (%) (Auto) 19.6 L 21.0-51.0 % Monocytes (%) (Auto) 7.1 3.0-13.0 % Eosinophils (%) (Auto) 0.5 0.0-8.0 % Basophils (%) (Auto) 0.3 0.0-5.0 % Neutrophils # (Auto) 7.5 1.8-7.7 K/uL Lymphocytes # (Auto) 2.0 1.0-4.8 K/uL Monocytes # (Auto) 0.7 0.1-1.0 K/uL Eosinophils # (Auto) 0.05 0.00-0.70 K/uL Basophils # (Auto) 0.03 0.00-0.20 K/uL Absolute Immature Granulocyte (auto 0.06 0-1 K/uL Nucleated Red Blood Cells 0.0 0.0-0.19 % Sodium Level 136 136-145 mmol/L Potassium Level 4.0 3.5-5.1 mmol/L Chloride Level 103 101-111 mmol/L Carbon Dioxide Level 27 21-32 mmol/L Blood Urea Nitrogen 16 7-18 mg/dL Creatinine 0.8 0.5-1.0 mg/dL Glomerular Filtration Rate Calc 71 >90 mL/min Random Glucose 103 70-105 mg/dL Total Calcium 8.6 8.5-10.1 mg/dL Magnesium Level 2.60 H 1.80-2.40 mg/dL Total Bilirubin 0.5 0.2-1.0 mg/dL Aspartate Amino Transf (AST/SGOT) 17 10-37 U/L Alanine Aminotransferase (ALT/SGPT) 9 L 12-78 U/L Alkaline Phosphatase 101 50-136 U/L Total Protein 6.1 6.0-8.3 g/dL Albumin 2.9 L 3.5-5.0 g/dL Current Medications Medications (Trade) Dose Ordered Sig/Mahnaz Route PRN Reason Start Time Stop Time Status Last Admin Dose Admin Acetaminophen (TYLenol 500MG TAB) 500 mg Q6H PRN PO MILD PAIN (1-3) 12/02/24 14:30 01/01/25 14:29 12/04/24 20:58 500 MG Adenosine (Adenocard 6mg Vial) 6 mg ONCE STAT IV 12/03/24 10:39 12/03/24 10:42 DC 12/03/24 11:06 6 MG Adenosine (Adenocard 6mg Vial) 6 mg ONCE STAT IV 12/03/24 10:44 12/03/24 10:45 DC Amiodarone HCl 150 mg/Dextrose 103 ml @ 618 mls/hr ONCE IV 12/03/24 11:00 12/03/24 11:03 DC Amiodarone HCl 360 mg/Dextrose 207.2 ml @ 33.3 mls/hr AD IV 12/03/24 11:00 12/03/24 11:03 DC Amiodarone HCl 540 mg/Dextrose 310.8 ml @ 16.7 mls/hr [id number] IV 12/04/24 15:00 01/03/25 14:59 12/05/24 09:23 16.7 MLS/HR Amlodipine Besylate (NorvASC 5MG TAB) 5 mg DAILY PO 12/03/24 09:00 12/03/24 16:08 DC 12/03/24 09:54 5 MG Apixaban (EliquIS 2.5 mg) 2.5 mg BID PO 12/02/24 21:00 01/01/25 20:59 12/05/24 09:15 2.5 MG Atorvastatin Calcium (LIPItor 40MG) 40 mg HS PO 12/02/24 21:00 01/01/25 20:59 12/04/24 21:11 40 MG Carbidopa/Levodopa (Sinemet 25-100 Tab) 1 each TID PO 12/02/24 21:00 01/01/25 20:59 12/05/24 09:15 1 EACH Ceftriaxone Sodium (ROCEphine 1G INJ) 1 gm Q24H IVPB 12/02/24 14:30 12/12/24 14:29 12/04/24 16:47 1 GM Diazepam (VALium 5 MG/ML 2 ML SYG) 5 mg Q4H PRN IV ANXIETY 12/04/24 09:30 12/04/24 09:29 DC Hydralazine HCl (APRESOLine 20MG INJ) 5 mg Q6H PRN IV ADMINISTER FOR SBP > 160 12/02/24 15:00 12/03/24 04:45 DC Hydralazine HCl (APRESOLine 20MG INJ) 10 mg Q2HPRN PRN IV ADMINISTER FOR SBP > 160 12/03/24 04:30 01/02/25 04:29 12/03/24 05:10 10 MG Hydromorphone HCl (DiLAUDid 0.5MG INJ) 0.5 mg Q6H PRN IVP SEVERE PAIN (7-10) 12/02/24 14:30 12/07/24 14:29 12/04/24 22:20 0.5 MG Methocarbamol (methoCARBamol) 500 mg TID PRN PO muscle cramps 12/02/24 15:30 01/01/25 15:29 Metoprolol Tartrate (loprESSOR) 25 mg BID PO 12/02/24 21:00 12/04/24 09:07 DC 12/03/24 21:17 25 MG Metoprolol Tartrate (loprESSOR) 50 mg BID PO 12/02/24 21:00 12/04/24 09:07 DC 12/03/24 22:17 50 MG Miscellaneous Medication (Metoprolol Tartrate ) 1 tab BID PO 12/02/24 21:00 12/02/24 15:32 DC Morphine Sulfate (morPHINE 2MG SYG) 2 mg ONCE STAT IVP 12/02/24 13:33 12/02/24 13:38 DC 12/02/24 13:39 2 MG Nitroglycerin (Nitrostat) 0.4 mg AD PRN SL CHEST PAIN 12/02/24 14:30 01/01/25 14:29 12/03/24 10:25 0.4 MG Ondansetron HCl (zoFRAN 4MG INJ) 4 mg ONCE STAT IVP 12/02/24 13:33 12/02/24 13:38 DC 12/02/24 13:39 4 MG Ondansetron HCl (zoFRAN 4MG INJ) 4 mg Q6H PRN IVP NAUSEA/VOMITING 12/02/24 14:30 01/01/25 14:29 Pantoprazole Sodium (PROTonix 40MG INJ) 40 mg BID IVP 12/03/24 21:00 01/01/25 14:29 12/05/24 09:15 40 MG Pantoprazole Sodium (PROTonix 40MG INJ) 40 mg Q24H IVP 12/02/24 14:30 12/03/24 09:37 DC 12/02/24 20:10 40 MG Sodium Chloride 1,000 ml @ 60 mls/hr [id number] IV 12/02/24 14:30 12/02/24 14:26 DC Sodium Chloride 1,000 ml @ 60 mls/hr [id number] IV 12/02/24 14:30 12/04/24 09:29 DC 12/04/24 00:16 60 MLS/HR Sodium Chloride 1,000 ml @ 1,000 mls/hr Q1H STAT IV 12/02/24 10:54 12/02/24 11:53 DC 12/02/24 10:54 1,000 MLS/HR Thiamine HCl (Vitamin B-1) 100 mg Q24H IVP 12/02/24 14:30 01/01/25 14:29 12/03/24 17:16 100 MG Trazodone HCl (DesyREL/OlepTRO) 50 mg HS PO 12/02/24 21:00 01/01/25 20:59 12/04/24 21:11 50 MG DIAGNOSTICS / RADIOLOGY: [ ] ASSESSMENT: Vvyfxrzn-gv-dqmudu hyponatremia, POA Atypical chest pain, POA Epigastric abdominal pain with nausea and vomiting, POA Leukocytosis, POA History of CVA in 2023, POA History of L4-L5 compression fracture with recent history of vertebroplasty in 09/2024, POA Debility/frailty, POA Prior history of [place] in [place] in 09/2023, POA History of atrial fibrillation maintained on chronic anticoagulation with Eliquis, POA History of outpatient use of opioids with hydrocodone, POA Hyperlipidemia, POA Rule out occult infection, POA History of diuretic use as outpatient, POA History of Parkinson's disease, POA Protein calorie malnutrition, POA Bradycardia not POA PLAN: Admit: med surg with Tele monitoring IVF: Hep-Lock consulted: Physician Assistant Psychiatry: DR Villarreal we will follow recommendations Test Lexiscan noted. was normal and Echo: normal Amiodarone drip restarted. Continues Eliquis 2.5 mg.will monitor H/H trends: transfuse to keep hgb above 7.0 Continues carbidopa levodopa for Parkinson's. pain management: cont with Methocarbamol prn and Dilaudid as needed. PT to eval and treat. All labs will be repeated in the morning DVT GI prophylaxis Further orders as per response to treatment All questions addressed. ATTESTATION BY PHYSICIAN I have seen and examined the patient. I reviewed the documentation, medical decision making, and treatment plan as noted by the mid-level provider above. I agree with the findings and plan of care. MARKELL MAHMOOD MD, ELIZABETH NP December 05, 2024 13:36
--- NOTE | 2024-12-05 15:40 | HMCIMG ---
Carotid Duplex and color-flow Doppler bilateral History: dizziness Comparison: None Findings: No significant plaque is identified on either side. Left Internal Carotid Artery Peak Systolic Velocity (PSV), Left Internal Carotid to Common Carotid Artery peak systolic velocity ratio, Right Internal Carotid Artery Peak Systolic Velocity (PSV) and Right Internal Carotid to Common Carotid Artery peak systolic velocity ratio, are all within normal limits. External carotid artery velocities normal bilaterally. Bilateral vertebral arteries show antegrade flow. Impression: Normal exam. NASCET CRITERIA. The degree of internal carotid artery stenosis is based on NASCET criteria. Normal is no stenosis. Mild is less than 50% stenosis. Moderate is 50-69% stenosis. Severe is 70% to 99% stenosis. Total occlusion is no detectable patent lumen.
[2024-12-05] MEDS ORDERED: IOHEXOL-350 75 ML VIAL IV ONE (16:02)
--- NOTE | 2024-12-05 16:36 | NUR ---
CT ANGIO ON HOLD SAJI CHAN PT UNSTABLE FOR CT AT THIS TIME. WILL CALL BACK WITH UPDATES. Addendum: 12/05/24 at [address] ANGIO STILL ON HOLD, PT UNSTABLE AT THIS TIME AFIB. WILL TRY TOMORROW MORNING.
[2024-12-06] VITALS (10 sets, daily range): BP systolic 133–157; BP diastolic 60–96; PULSE 71–168; RESP 16–21; TEMP 97.5–99; O2SAT 97–99
[2024-12-06] MEDS: methoCARBamol 500 MG TABLET PO PRN (00:53)
[2024-12-06 03:49] LABS: BASOPHILS # (AUTO) 0.04 K/uL (0.00-0.20); BASOPHILS % (AUTO) 0.3 % (0.0-5.0); EOSINOPHILS # (AUTO) 0.06 K/uL (0.00-0.70); EOSINOPHILS % (AUTO) 0.5 % (0.0-8.0); IMMATURE GRANULOCYTE ABSOLUTE 0.05 K/uL (0-1); MEAN CORPUSCULAR HEMOGLOBIN 29.8 pg (27.0-33.0); MEAN CORPUSCULAR HGB CONC 33.7 g/dL (32.0-36.0); MEAN CORPUSCULAR VOLUME 88.4 fL (79-99); MONOCYTES # (AUTO) 0.8 K/uL (0.1-1.0); MONOCYTES % (AUTO) 6.5 % (3.0-13.0); NEUTROPHILS % (AUTO) 75.3 % (40.0-77.0); PLATELET COUNT (AUTO) 173 K/uL (130-400)
[2024-12-06 04:10] LABS: ALBUMIN 2.9 g/dL (3.5-5.0); BILIRUBIN,TOTAL 0.5 mg/dL (0.2-1.0); CREATININE 0.6 mg/dL (0.5-1.0); MAGNESIUM 1.9 mg/dL (1.80-2.40); PHOSPHORUS 3.1 mg/dL (2.5-4.9); POTASSIUM 3.8 mmol/L (3.5-5.1); TOTAL PROTEIN, SERUM 6.3 g/dL (6.0-8.3)
[2024-12-06] MEDS ORDERED: IOHEXOL-350 75 ML VIAL IV ONE ×2 (05:51→06:06)
[2024-12-06] MEDS ORDERED: AMIOdarone 150MG VIAL 150 MG in DEXTROSE 5%-WATER 100 ML IV SCH (07:30)
[2024-12-06] MEDS: dilTIAZem 60MG TAB PO SCH (08:30)
--- NOTE | 2024-12-06 08:37 | PN ---
[facility] PROGRESS NOTE Date of Service: December 06, 2024 Time of Service: 08:34 SUBJECTIVE: [ ] This is a 89-year-old female with underlying history of hypertension, hyperlipidemia, per daughter, prior history of [place] in [place] in 09/2023, history of CVA, recent history of compression fractures involving L4 and L5 status post vertebroplasty in [facility], history of atrial fibrillation maintained on chronic anticoagulation with Eliquis, Parkinson's disease who presented to the ER with chief complaint of epigastric pain with midsternal chest discomfort, poor oral intake ongoing since last night. 12/03/24 during my rounds patient was complaining of chest pain states 05/10. Patient was placed on oxygen in given x1 morphine. Patient is retaining urine bladder scan showed [address] Beckham catheter. Patient continues to have chest discomfort patient was given nitroglycerin. AFib with RVR 170. The patient became diaphoretic thereafter radiate to her right arm. Repeat cardiac enzymes. Patient was given one dose of IV Lopressor then was transferred to ICU 12/04/24 patient went down for nuclear medicine. Lexiscan we will follow results. Bradycardia beta-blockers were discontinued patient converted back to sinus We will follow voice intercept technician's recommendations. 12/05/24 the patient was seen earlier: she is fully awake and alert oriented x3. denies chest pain or sob. Primary nurse reports she went into afibb with RVR overnight. This morning was given Diltiazem 10 mg IV one . amiodrone drip was restarted. Lexiscan was negative/ we will wait from DR Villarreal if any further workup. 12/06/24 the patient continue to have Afibb with RVR: this morning she was in the 160's as per Tele ep tech. Epic Kaleidoscope Analyst started PO Cardizen [address] Villarreal scheduled a cardioversion for am. REVIEW OF SYSTEMS CONSTITUTIONAL: Denies fevers, chills, or night sweats. No unintentional weight loss reported. NEUROLOGICAL: Denies headache, amaurosis fugax, motor weakness, sensory deficit, vertigo/spinning sensation, gait abnormalities, or tremors. ENT: No hearing loss, otalgia, otorrhea, rhinitis, rhinorrhea, hoarseness, or sore throat. CARDIOVASCULAR: Patient reports having substernal chest discomfort PULMONARY: Denies any shortness of breath, cough, phlegm/sputum, hemoptysis, pleuritic chest pain. SLEEP: Denies morning headaches, daytime somnolence or napping. Denies diff iculty falling asleep, staying asleep, waking from sleep. Denies knowledge of snoring. GASTROINTESTINAL: Nausea, vomiting, epigastric pain, mild in intensity, denies any significant lower quadrant abdominal pain GENITOURINARY: Denies frequency, urgency, nocturia, hematuria or incontinence (Storage/Irritative symptoms.) Low urinary stream, straining to void, urinary intermittency or hesitancy, splitting of the voiding stream, terminal dribbling. ENDOCRINOLOGIC: Denies polyuria, polydipsia, polyphagia or heat/cold intolerances. HEMATOLOGIC: Denies thrombophilia/previous clots, or coagulopathy/bleeding disorders. ONCOLOGIC: Denies personal history of malignancy. DERMATOLOGIC: Denies rashes or pruritus. PSYCHIATRIC: Denies any suicidal or homicidal ideation. Denies hallucinations. PHYSICAL EXAM GENERAL APPEARANCE: The patient is awake, alert, appears frail and chronically ill NEUROLOGICAL: Cranial nerves II-XII grossly intact. Patient is moving her upper and lower extremities, resting tremors noted of the hands HEENT: Face is symmetric. Pupils are equal and reactive. Extraocular movements are intact. NECK: Supple. No JVD. No thyromegaly. No submental, submandibular, pre-/po stauricular, occipital or supraclavicular lymphadenopathy. CHEST: Normal chest expansion. No Telemetry. LUNGS: Absence of any rales, rhonchi or any wheezing. CARDIOVASCULAR: Irregular, no rubs or gallops noted ABDOMEN: Soft, nontender, and nondistended. No significant tenderness on palpation of the abdomen : Deferred. No Beckham. EXTREMITIES: Non-edematous and not cyanotic. No clubbing. Good capillary refill. SKIN: No skin breakdown. Vital Signs (last 8hr) Date Time Temp Pulse Resp B/P (MAP) Pulse Ox O2 Delivery O2 Flow Rate FiO2 12/06/24 07:00 97.5 168 16 157/88 98 Room Air 12/06/24 04:00 97.5 100 21 136/96 98 Nasal Cannula 2.0 LABS: Laboratory: Test 12/06/24 03:43 Range/Units White Blood Count 12.0 H 4.8-10.8 K/uL Red Blood Count 4.30 4.00-5.50 MIL/uL Hemoglobin 12.8 12.0-16.0 g/dL Hematocrit 38.0 36-48 % Mean Corpuscular Volume 88.4 79-99 fL Mean Corpuscular Hemoglobin 29.8 27.0-33.0 pg Mean Corpuscular Hemoglobin Concent 33.7 32.0-36.0 g/dL Red Cell Distribution Width 17.0 H 11.0-15.5 % Platelet Count 173 130-400 K/uL Mean Platelet Volume 8.8 7.5-10.5 fL Immature Granulocyte % (Auto) 0.4 0-1 % Neutrophils (%) (Auto) 75.3 40.0-77.0 % Lymphocytes (%) (Auto) 17.0 L 21.0-51.0 % Monocytes (%) (Auto) 6.5 3.0-13.0 % Eosinophils (%) (Auto) 0.5 0.0-8.0 % Basophils (%) (Auto) 0.3 0.0-5.0 % Neutrophils # (Auto) 9.0 H 1.8-7.7 K/uL Lymphocytes # (Auto) 2.0 1.0-4.8 K/uL Monocytes # (Auto) 0.8 0.1-1.0 K/uL Eosinophils # (Auto) 0.06 0.00-0.70 K/uL Basophils # (Auto) 0.04 0.00-0.20 K/uL Absolute Immature Granulocyte (auto 0.05 0-1 K/uL Nucleated Red Blood Cells 0.0 0.0-0.19 % Sodium Level 134 L 136-145 mmol/L Potassium Level 3.8 3.5-5.1 mmol/L Chloride Level 101 101-111 mmol/L Carbon Dioxide Level 26 21-32 mmol/L Blood Urea Nitrogen 11 7-18 mg/dL Creatinine 0.6 0.5-1.0 mg/dL Glomerular Filtration Rate Calc 87 >90 mL/min Random Glucose 125 H 70-105 mg/dL Total Calcium 8.7 8.5-10.1 mg/dL Phosphorus Level 3.1 2.5-4.9 mg/dL Magnesium Level 1.90 1.80-2.40 mg/dL Total Bilirubin 0.5 0.2-1.0 mg/dL Aspartate Amino Transf (AST/SGOT) 13 10-37 U/L Alanine Aminotransferase (ALT/SGPT) 5 L 12-78 U/L Alkaline Phosphatase 108 50-136 U/L Total Protein 6.3 6.0-8.3 g/dL Albumin 2.9 L 3.5-5.0 g/dL Current Medications Medications (Trade) Dose Ordered Sig/Mahnaz Route PRN Reason Start Time Stop Time Status Last Admin Dose Admin Acetaminophen (TYLenol 500MG TAB) 500 mg Q6H PRN PO MILD PAIN (1-3) 12/02/24 14:30 01/01/25 14:29 12/04/24 20:58 500 MG Adenosine (Adenocard 6mg Vial) 6 mg ONCE STAT IV 12/03/24 10:39 12/03/24 10:42 DC 12/03/24 11:06 6 MG Adenosine (Adenocard 6mg Vial) 6 mg ONCE STAT IV 12/03/24 10:44 12/03/24 10:45 DC Amiodarone HCl 150 mg/Dextrose 100 ml @ 0 mls/hr PROTOCOL IV 12/06/24 07:30 12/06/24 07:24 DC Amiodarone HCl 150 mg/Dextrose 103 ml @ 618 mls/hr ONCE IV 12/03/24 11:00 12/03/24 11:03 DC Amiodarone HCl 360 mg/Dextrose 207.2 ml @ 33.3 mls/hr AD IV 12/03/24 11:00 12/03/24 11:03 DC Amiodarone HCl 540 mg/Dextrose 310.8 ml @ 16.7 mls/hr [id number] IV 12/04/24 15:00 01/03/25 14:59 12/05/24 19:56 16.7 MLS/HR Amlodipine Besylate (NorvASC 5MG TAB) 5 mg DAILY PO 12/03/24 09:00 12/03/24 16:08 DC 12/03/24 09:54 5 MG Apixaban (EliquIS 2.5 mg) 2.5 mg BID PO 12/02/24 21:00 01/01/25 20:59 12/05/24 20:51 2.5 MG Atorvastatin Calcium (LIPItor 40MG) 40 mg HS PO 12/02/24 21:00 6/3/25 20:59 12/05/24 20:51 40 MG Carbidopa/Levodopa (Sinemet 25-100 Tab) 1 each TID PO 12/02/24 21:00 01/01/25 20:59 12/05/24 20:51 1 EACH Ceftriaxone Sodium (ROCEphine 1G INJ) 1 gm Q24H IVPB 12/02/24 14:30 12/12/24 14:29 12/05/24 14:30 1 GM Diazepam (VALium 5 MG/ML 2 ML SYG) 5 mg Q4H PRN IV ANXIETY 12/04/24 09:30 12/04/24 09:29 DC Diltiazem HCl (CARDIzem 60MG TAB) 60 mg TID PO 12/06/24 08:30 01/05/25 08:29 Hydralazine HCl (APRESOLine 20MG INJ) 5 mg Q6H PRN IV ADMINISTER FOR SBP > 160 12/02/24 15:00 12/03/24 04:45 DC Hydralazine HCl (APRESOLine 20MG INJ) 10 mg Q2HPRN PRN IV ADMINISTER FOR SBP > 160 12/03/24 04:30 01/02/25 04:29 12/03/24 05:10 10 MG Hydromorphone HCl (DiLAUDid 0.5MG INJ) 0.5 mg Q6H PRN IVP SEVERE PAIN (7-10) 12/02/24 14:30 12/07/24 14:29 12/06/24 06:37 0.5 MG Methocarbamol (methoCARBamol) 500 mg TID PRN PO muscle cramps 12/02/24 15:30 01/01/25 15:29 12/06/24 00:53 500 MG Metoprolol Tartrate (loprESSOR) 25 mg BID PO 12/02/24 21:00 12/04/24 09:07 DC 12/03/24 21:17 25 MG Metoprolol Tartrate (loprESSOR) 50 mg BID PO 12/02/24 21:00 12/04/24 09:07 DC 12/03/24 22:17 50 MG Miscellaneous Medication (Metoprolol Tartrate ) 1 tab BID PO 12/02/24 21:00 12/02/24 15:32 DC Morphine Sulfate (morPHINE 2MG SYG) 2 mg ONCE STAT IVP 12/02/24 13:33 12/02/24 13:38 DC 12/02/24 13:39 2 MG Nitroglycerin (Nitrostat) 0.4 mg AD PRN SL CHEST PAIN 12/02/24 14:30 01/01/25 14:29 12/03/24 10:25 0.4 MG Ondansetron HCl (zoFRAN 4MG INJ) 4 mg ONCE STAT IVP 12/02/24 13:33 12/02/24 13:38 DC 12/02/24 13:39 4 MG Ondansetron HCl (zoFRAN 4MG INJ) 4 mg Q6H PRN IVP NAUSEA/VOMITING 12/02/24 14:30 01/01/25 14:29 Pantoprazole Sodium (PROTonix 40MG INJ) 40 mg BID IVP 12/03/24 21:00 01/01/25 14:29 12/05/24 20:50 40 MG Pantoprazole Sodium (PROTonix 40MG INJ) 40 mg Q24H IVP 12/02/24 14:30 12/03/24 09:37 DC 12/02/24 20:10 40 MG Sodium Chloride 1,000 ml @ 60 mls/hr [id number] IV 12/02/24 14:30 12/02/24 14:26 DC Sodium Chloride 1,000 ml @ 60 mls/hr [id number] IV 12/02/24 14:30 12/04/24 09:29 DC 12/04/24 00:16 60 MLS/HR Sodium Chloride 1,000 ml @ 1,000 mls/hr Q1H STAT IV 12/02/24 10:54 12/02/24 11:53 DC 12/02/24 10:54 1,000 MLS/HR Thiamine HCl (Vitamin B-1) 100 mg Q24H IVP 12/02/24 14:30 01/01/25 14:29 12/05/24 14:30 100 MG Trazodone HCl (DesyREL/OlepTRO) 50 mg HS PO 12/02/24 21:00 01/01/25 20:59 12/05/24 20:50 50 MG DIAGNOSTICS / RADIOLOGY: [ ] ASSESSMENT: Tcjyheqy-[id number] hyponatremia, POA Atypical chest pain, POA Epigastric abdominal pain with nausea and vomiting, POA Leukocytosis, POA History of CVA in 2023, POA History of L4-L5 compression fracture with recent history of vertebroplasty in 09/2024, POA Debility/frailty, POA Prior history of [place] in [place] in 09/2023, POA History of atrial fibrillation maintained on chronic anticoagulation with Eliquis, POA History of outpatient use of opioids with hydrocodone, POA Hyperlipidemia, POA Rule out occult infection, POA History of diuretic use as outpatient, POA History of Parkinson's disease, POA Protein calorie malnutrition, POA Bradycardia not POA PLAN: Admit: med surg with Tele monitoring IVF: Hep-Lock consulted: Epic Kaleidoscope Analyst: DR Villarreal we will follow recommendations continue afibb with RVR: on IV diltiazem as needed possible: Propafenone will be started will wait for DR Villarreal recommendation Cardizem 60 mg po tid. Procedure: Cardioversion in am Continues Eliquis 2.5 mg.will monitor H/H trends: transfuse to keep hgb above 7.0 Continues carbidopa levodopa for Parkinson's. pain management: cont with Methocarbamol prn and Dilaudid as needed. PT to eval and treat. All labs will be repeated in the morning DVT GI prophylaxis Further orders as per response to treatment All questions addressed. ATTESTATION BY PHYSICIAN I have seen and examined the patient. I reviewed the documentation, medical decision making, and treatment plan as noted by the mid-level provider above. I agree with the findings and plan of care. MARKELL MAHMOOD MD, ELIZABETH NP December 06, 2024 08:37
--- NOTE | 2024-12-06 08:42 | HMCIMG ---
CT angiogram chest CLINICAL INDICATION: rule out PE COMPARISON: None. CT Dose Index (CTDI): 113.50 mGy Dose Length Product (DLP): 1408.10 total mGy PROTOCOL: Contrast: 100 cc of Isovue-370, injected IV, no complications Examination is done at 2.5 millimeter volumetric acquisition after contrast administration. Photography is done at 5 millimeter thick intervals for the thorax. FINDINGS: There is no evidence of pulmonary embolism. The airway is intact. The trachea and major bronchi are unremarkable. No pulmonary infiltrates or mass lesions are seen. No pleural effusions are identified. The exam of the surya and mediastinum is unremarkable. No evidence of hilar enlargement is seen. Ectasia of the ascending thoracic aorta, maximum diameter 4 cm No significant brachiocephalic vascular abnormalities are seen. The heart is unremarkable. It is not enlarged. No significant coronary arterial calcifications are seen. There is no pericardial effusion. The rib cage appears unremarkable. The soft tissues of the chest wall are unremarkable. The dorsal spine shows no significant abnormalities. Limited evaluation of the upper abdomen demonstrates no gross abnormalities. IMPRESSION: No evidence of pulmonary embolism. Clear lungs. Ectasia ascending aorta. This study was performed using dose reduction techniques to include automated exposure control and/or adjustment of the mA and/or kV according to patient size.
--- NOTE | 2024-12-06 08:53 | PN ---
This is an 89-year-old female with a history syncope and ventricular tachycardia status post VT ablation in 1990, subacute right frontal lobe CVA, hypertension and Parkinson's disease. She was admitted 12/02/2024 with complaints of epigastric pain. She developed atrial fibrillation with response on 12/03/2024. She was started on IV amiodarone with a plan to perform cardioversion. She has spontaneously converted to sinus rhythm which he maintained up until yesterday morning when she developed recurrent atrial fibrillation with rapid ventricular response. Amiodarone maintenance infusion was restarted, and she was given IV Cardizem 10 mg x 1. Unfortunately she has remained in atrial fibrillation with rapid ventricular response, currently in the 110s. She underwent echocardiogram 12/04/2024 which demonstrates an ejection fraction of 65-70% with mild LVH, normal-sized left atrium, mild mitral valve regurgitation, mild aortic valve regurgitation and mild tricuspid valve regurgitation. Lexiscan shows normal perfusion with LVEF of 42%. White blood count 12.0, hemoglobin 10.8, hematocrit 38.0, platelets 173, creatinine 0.6, potassium 134, magnesium 1.90. Her most recent blood pressure is 157/88. She reports feeling poorly and fatigued. On exam, she has a resting tremor, irregularly irregular rhythm, tachycardic, lungs are clear to auscultation bilaterally, no lower extremity edema is noted. Assessment: 1. Atrial fibrillation with rapid ventricular response. 2. Preserved LVEF. 3. History of ventricular tachycardia status post ablation in 1990. 4. Parkinson's disease. Plan: 1. We will continue amiodarone maintenance infusion and add p.o. diltiazem 60 mg every 8 hours. If this is ineffective at rate control, consider switching to IV Cardizem drip. 2. Continue Eliquis 2.5 mg twice daily. 3. We will monitor her rhythm over the next 24 hours and determine if she will require cardioversion. Vitals/Labs Vital Signs Date Time Temp Pulse Resp B/P (MAP) Pulse Ox O2 Delivery O2 Flow Rate FiO2 12/06/24 07:00 97.5 168 16 157/88 98 Room Air 12/06/24 04:00 2.0 12/05/24 20:00 28 Laboratory Tests 12/06/24 03:43 ZAHEER UNGER December 06, 2024 08:53
--- NOTE | 2024-12-06 13:00 | NUR ---
PT ange completed. Ambulation was not attempted due to ongoing bouts of A Fib with RVR. Patient was sat in chair, tolerated well. Will progress activity per patient tolerance. Addendum: 12/06/24 at 1547 by YOUSUF CAVAZOS PT Amended: Links added.
--- NOTE | 2024-12-06 13:56 | PN ---
NEPHROLOGY PROGRESS NOTE Date/Time Patient Seen: December 06, 2024 SUBJECTIVE: This is an 89-year-old who has a history of coronary artery disease, CVA, hypertension, hyperlipidemia, back pain with compression fracture needing vertebroplasty, history of atrial fibrillation and Parkinson's disease. The patient is admitted with chest pain and abdominal pain. The patient is having some nausea and vomiting also and the patient has poor oral intake and has multiple other comorbidities. The patient has leukocytosis and now very low sodium and electrolyte problem. She was transferred to ICU due to atrial fibrillation Renal function and electrolytes are stable. She continues to be followed by Cardiology workup is ongoing Family at the bedside Condition is critical and guarded REVIEW OF SYSTEMS: GENERAL: Negative for any nausea, vomiting, fevers, chills, or weight loss. NEUROLOGIC: Negative for any blurry vision, blind spots, double vision, facial asymmetry, dysphagia, dysarthria, hemiparesis, hemisensory deficits, vertigo, ataxia. HEENT: Negative for any head trauma, neck trauma, neck stiffness, photophobia, phonophobia, sinusitis, rhinitis. CARDIAC: Negative for any chest pain, dyspnea on exertion, paroxysmal nocturnal dyspnea, peripheral edema. PULMONARY: Negative for any shortness of breath, wheezing, COPD, or TB exposure. GASTROINTESTINAL: Negative for any abdominal pain, nausea, vomiting, bright red blood per rectum, melena. GENITOURINARY: Negative for any dysuria, hematuria, incontinence. INTEGUMENTARY: Negative for any rashes, cuts, insect bites. RHEUMATOLOGIC: Negative for any joint pains, photosensitive rashes, history of vasculitis or kidney problems. HEMATOLOGIC: Negative for any abnormal bruising, frequent infections or bleeding. Vital Signs (last 8hr) Date Time Temp Pulse Resp B/P (MAP) Pulse Ox O2 Delivery O2 Flow Rate FiO2 12/03/24 11:44 101 22 104/58 99 Nasal Cannula 4.0 12/03/24 11:29 110 23 117/59 100 Nasal Cannula 4.0 12/03/24 11:14 128 31 134/78 100 Nasal Cannula 4.0 12/03/24 11:06 150 122/88 12/03/24 10:44 98.8 129 26 122/88 99 Nasal Cannula 4.0 12/03/24 10:34 145 19 107/64 99 Nasal Cannula 4.0 12/03/24 10:27 179 12/03/24 10:12 161 28 N/Cannula Low lpm 4.0 12/03/24 09:54 96 Room Air* 0 21 12/03/24 07:40 98.1 63 19 140/67 95 Room Air 12/03/24 06:44 73 140/66 PHYSICAL EXAM: GENERAL: Alert and oriented x 3. No acute distress. Well-nourished. EYES: EOMI. Anicteric. HENT: Moist mucous membranes. No scleral icterus. No cervical lymphadenopathy. LUNGS: Clear to auscultation bilaterally. No accessory muscle use. CARDIOVASCULAR: Regular rate and rhythm. No murmur. No JVD. ABDOMEN: Soft, non-tender and non-distended. No palpable masses. EXTREMITIES: No edema. Non-tender.?SKIN: No rashes or lesions. Warm. NEUROLOGIC: No focal neurological deficits. CN II-XII grossly intact, but not individually tested. PSYCHIATRIC: Cooperative. Appropriate mood and affect. Current Medications Medications (Trade) Dose Ordered Sig/Mahnaz Route PRN Reason Start Time Stop Time Status Last Admin Dose Admin Acetaminophen (TYLenol 500MG TAB) 500 mg Q6H PRN PO MILD PAIN (1-3) 12/02/24 14:30 01/01/25 14:29 12/02/24 17:02 500 MG Adenosine (Adenocard 6mg Vial) 6 mg ONCE STAT IV 12/03/24 10:39 12/03/24 10:42 DC 12/03/24 11:06 6 MG Adenosine (Adenocard 6mg Vial) 6 mg ONCE STAT IV 12/03/24 10:44 12/03/24 10:45 DC Amiodarone HCl 150 mg/Dextrose 103 ml @ 618 mls/hr ONCE IV 12/03/24 11:00 12/03/24 11:03 DC Amiodarone HCl 360 mg/Dextrose 207.2 ml @ 33.3 mls/hr AD IV 12/03/24 11:00 12/03/24 11:03 DC Amlodipine Besylate (NorvASC 5MG TAB) 5 mg DAILY PO 12/03/24 09:00 01/02/25 08:59 12/03/24 09:54 5 MG Apixaban (EliquIS 2.5 mg) 2.5 mg BID PO 12/02/24 21:00 01/01/25 20:59 12/03/24 09:54 2.5 MG Atorvastatin Calcium (LIPItor 40MG) 40 mg HS PO 12/02/24 21:00 01/01/25 20:59 12/02/24 20:07 40 MG Carbidopa/Levodopa (Sinemet 25-100 Tab) 1 each TID PO 12/02/24 21:00 01/01/25 20:59 12/03/24 09:54 1 EACH Ceftriaxone Sodium (ROCEphine 1G INJ) 1 gm Q24H IVPB 12/02/24 14:30 12/12/24 14:29 12/02/24 20:06 1 GM Hydralazine HCl (APRESOLine 20MG INJ) 5 mg Q6H PRN IV ADMINISTER FOR SBP > 160 12/02/24 15:00 12/03/24 04:45 DC Hydralazine HCl (APRESOLine 20MG INJ) 10 mg Q2HPRN PRN IV ADMINISTER FOR SBP > 160 12/03/24 04:30 01/02/25 04:29 12/03/24 05:10 10 MG Hydromorphone HCl (DiLAUDid 0.5MG INJ) 0.5 mg Q6H PRN IVP SEVERE PAIN (7-10) 12/02/24 14:30 12/07/24 14:29 Methocarbamol (methoCARBamol) 500 mg TID PRN PO muscle cramps 12/02/24 15:30 01/01/25 15:29 Metoprolol Tartrate (loprESSOR) 25 mg BID PO 12/02/24 21:00 01/01/25 20:59 12/03/24 09:54 25 MG Metoprolol Tartrate (loprESSOR) 50 mg BID PO 12/02/24 21:00 01/01/25 20:59 12/03/24 12:24 50 MG Miscellaneous Medication (Metoprolol Tartrate ) 1 tab BID PO 12/02/24 21:00 12/02/24 15:32 DC Morphine Sulfate (morPHINE 2MG SYG) 2 mg ONCE STAT IVP 12/02/24 13:33 12/02/24 13:38 DC 12/02/24 13:39 2 MG Nitroglycerin (Nitrostat) 0.4 mg AD PRN SL CHEST PAIN 12/02/24 14:30 01/01/25 14:29 12/03/24 10:25 0.4 MG Ondansetron HCl (zoFRAN 4MG INJ) 4 mg ONCE STAT IVP 12/02/24 13:33 12/02/24 13:38 DC 12/02/24 13:39 4 MG Ondansetron HCl (zoFRAN 4MG INJ) 4 mg Q6H PRN IVP NAUSEA/VOMITING 12/02/24 14:30 01/01/25 14:29 Pantoprazole Sodium (PROTonix 40MG INJ) 40 mg BID IVP 12/03/24 21:00 01/01/25 14:29 Pantoprazole Sodium (PROTonix 40MG INJ) 40 mg Q24H IVP 12/02/24 14:30 12/03/24 09:37 DC 12/02/24 20:10 40 MG Sodium Chloride 1,000 ml @ 60 mls/hr [id number] IV 12/02/24 14:30 12/02/24 14:26 DC Sodium Chloride 1,000 ml @ 60 mls/hr [id number] IV 12/02/24 14:30 01/01/25 14:29 12/02/24 18:12 60 MLS/HR Sodium Chloride 1,000 ml @ 1,000 mls/hr Q1H STAT IV 12/02/24 10:54 12/02/24 11:53 DC 12/02/24 10:54 1,000 MLS/HR Thiamine HCl (Vitamin B-1) 100 mg Q24H IVP 12/02/24 14:30 01/01/25 14:29 12/02/24 20:07 100 MG Trazodone HCl (DesyREL/OlepTRO) 50 mg HS PO 12/02/24 21:00 01/01/25 20:59 12/02/24 20:06 50 MG LABORATORY: [ ] Hematology Labs: Test 12/06/24 03:43 Range/Units White Blood Count 12.0 H 4.8-10.8 K/uL Red Blood Count 4.30 4.00-5.50 MIL/uL Hemoglobin 12.8 12.0-16.0 g/dL Hematocrit 38.0 36-48 % Mean Corpuscular Volume 88.4 79-99 fL Mean Corpuscular Hemoglobin 29.8 27.0-33.0 pg Mean Corpuscular Hemoglobin Concent 33.7 32.0-36.0 g/dL Red Cell Distribution Width 17.0 H 11.0-15.5 % Platelet Count 173 130-400 K/uL Mean Platelet Volume 8.8 7.5-10.5 fL Immature Granulocyte % (Auto) 0.4 0-1 % Neutrophils (%) (Auto) 75.3 40.0-77.0 % Lymphocytes (%) (Auto) 17.0 L 21.0-51.0 % Monocytes (%) (Auto) 6.5 3.0-13.0 % Eosinophils (%) (Auto) 0.5 0.0-8.0 % Basophils (%) (Auto) 0.3 0.0-5.0 % Neutrophils # (Auto) 9.0 H 1.8-7.7 K/uL Lymphocytes # (Auto) 2.0 1.0-4.8 K/uL Monocytes # (Auto) 0.8 0.1-1.0 K/uL Eosinophils # (Auto) 0.06 0.00-0.70 K/uL Basophils # (Auto) 0.04 0.00-0.20 K/uL Absolute Immature Granulocyte (auto 0.05 0-1 K/uL Nucleated Red Blood Cells 0.0 0.0-0.19 % Chemistry Labs: Test 12/06/24 03:43 Range/Units Sodium Level 134 L 136-145 mmol/L Potassium Level 3.8 3.5-5.1 mmol/L Chloride Level 101 101-111 mmol/L Carbon Dioxide Level 26 21-32 mmol/L Blood Urea Nitrogen 11 7-18 mg/dL Creatinine 0.6 0.5-1.0 mg/dL Glomerular Filtration Rate Calc 87 >90 mL/min Random Glucose 125 H 70-105 mg/dL Total Calcium 8.7 8.5-10.1 mg/dL Phosphorus Level 3.1 2.5-4.9 mg/dL Magnesium Level 1.90 1.80-2.40 mg/dL Total Bilirubin 0.5 0.2-1.0 mg/dL Aspartate Amino Transf (AST/SGOT) 13 10-37 U/L Alanine Aminotransferase (ALT/SGPT) 5 L 12-78 U/L Alkaline Phosphatase 108 50-136 U/L Total Protein 6.3 6.0-8.3 g/dL Albumin 2.9 L 3.5-5.0 g/dL DIAGNOSTICS / RADIOLOGY: REASON: rule out PE ORDERING PHYSICIAN: YULIYA MONROY PROCEDURE: CHES PE - CT CHEST PE PROTOCOL WWO CONT CT angiogram chest CLINICAL INDICATION: rule out PE COMPARISON: None. CT Dose Index (CTDI): 113.50 mGy Dose Length Product (DLP): 1408.10 total mGy PROTOCOL: Contrast: 100 cc of Isovue-370, injected IV, no complications Examination is done at 2.5 millimeter volumetric acquisition after contrast administration. Photography is done at 5 millimeter thick intervals for the thorax. FINDINGS: There is no evidence of pulmonary embolism. The airway is intact. The trachea and major bronchi are unremarkable. No pulmonary infiltrates or mass lesions are seen. No pleural effusions are identified. The exam of the surya and mediastinum is unremarkable. No evidence of hilar enlargement is seen. Ectasia of the ascending thoracic aorta, maximum diameter 4 cm No significant brachiocephalic vascular abnormalities are seen. The heart is unremarkable. It is not enlarged. No significant coronary arterial calcifications are seen. There is no pericardial effusion. The rib cage appears unremarkable. The soft tissues of the chest wall are unremarkable. The dorsal spine shows no significant abnormalities. Limited evaluation of the upper abdomen demonstrates no gross abnormalities. IMPRESSION: No evidence of pulmonary embolism. Clear lungs. Ectasia ascending aorta. This study was performed using dose reduction techniques to include automated exposure control and/or adjustment of the mA and/or kV according to patient size. DICTATED BY: WILLIAM LEON MD DATE: 12/06/24 0839 REASON: dizziness ORDERING PHYSICIAN: MARKELL MAHMOOD MD PROCEDURE: CAROTID - US CAROTID DUPLEX Carotid Duplex and color-flow Doppler bilateral History: dizziness Comparison: None Findings: No significant plaque is identified on either side. Left Internal Carotid Artery Peak Systolic Velocity (PSV), Left Internal Carotid to Common Carotid Artery peak systolic velocity ratio, Right Internal Carotid Artery Peak Systolic Velocity (PSV) and Right Internal Carotid to Common Carotid Artery peak systolic velocity ratio, are all within normal limits. External carotid artery velocities normal bilaterally. Bilateral vertebral arteries show antegrade flow. Impression: Normal exam. NASCET CRITERIA. The degree of internal carotid artery stenosis is based on NASCET criteria. Normal is no stenosis. Mild is less than 50% stenosis. Moderate is 50-69% stenosis. Severe is 70% to 99% stenosis. Total occlusion is no detectable patent lumen. DICTATED BY: WILLIAM LEON MD DATE: 12/05/24 8204 REASON: nonsustained ventricular tachycardia ORDERING PHYSICIAN: MARAL SHERMAN MD PROCEDURE: ECHO CMP - ECHO 2-D COMPLETE APPROVED REPORT EXAM: Two-dimensional and M-mode echocardiogram with Doppler and color Doppler. INDICATION ICD: nonsustained ventricular tachycardia 2D Dimensions RVDd 3.3 cm LVEF(%) 67.8 (>50%) LVED Vol(simp.) 63.0 mL IVSd 1.4 (0.7-1.1cm) FS(%) 37 % LVES Vol(simp.) 21.0 mL LVDd 3.6 (3.8-5.6cm) LA (2D) 4.2 (1.6-4.0cm) LVEF(%, simp.) 67 % PWd 1.2 (0.7-1.1cm) Ao Root(2D) 2.7 (2.0-3.7cm) LA ESV INDEX (BP) 27.63 mL/m2 LVDs 2.3 (2.5-4.0cm) LVOT diam 1.8 (1.8-2.4cm) IVC diam 1.6 cm Deformation Strain Apical 4 -19.7 % Apical 2 -21.6 % Apical 3 -11.5 % Global Strain -17.6 % M-Mode Dimensions EPSS 0.3 cm LA (MM) 4.7 (1.6-4.0cm) Ao Root(MM) 2.6 (2.0-3.7cm) Aortic Valve AoV Vmax 1.3 m/s Ao Peak GR 6.8 mmHg LVOT Vmax 1.0 m/s AoV VTI 0.3 m Ao Mean GR 2.8 mmHg LVOT VTI 0.23 m KIMBER (VMAX) 1.99 cm2 Al P1/2T 797 ms KIMBER (VTI) 2.0 cm2 Mitral Valve MV E Vmax 88.7 cm/s DECEL Time 217 ms MV A Vmax 88.7 cm/s P 1/2 T 95 ms E/A ratio 1.0 MVA (PHT) 2.3 cm2 TDI E/E' Medial 12.0 E/E' Lateral 10.2 Medial E' Peak V 7.37 cm/s Lateral E' Peak V 8.66 cm/s Tricuspid Valve TR Vmax 2.9 m/s RVSP 30.7 mmHg TR Peak GR 36.5 mmHg Left Ventricle The left ventricle is normal size. Mild concentric left ventricular hypertrophy. LVEF is 65-70%. Indeterminate diastolic dysfunction. Right Ventricle The right ventricle is normal size. The right ventricular systolic function is normal. Atria The left atrium size is normal. The right atrium size is normal. Aortic Valve The aortic valve is normal in structure. Mild aortic regurgitation. There is no aortic valvular stenosis. Mitral Valve Mitral valve leaflets open well. Posterior leaflet is moderately calcified. Mitral regurgitation is mild. There is no mitral valve stenosis. Tricuspid Valve The tricuspid valve is normal in structure. There is mild tricuspid valve regurgitation noted. Pulmonic Valve The pulmonary valve is normal in structure. There is no pulmonic valvular regurgitation. Great Vessels The aortic root is normal in size. The IVC is normal in size and collapses >50% with inspiration. Pericardium There is no pericardial effusion. DICTATED BY: DELLA HARPER MD DATE: 12/04/24 0907 REASON: rule out D VT ORDERING PHYSICIAN: YULIYA MONROY PROCEDURE: VENOUS CECILIA - US VENOUS DOPPLER BILATERAL Exam Type: US VENOUS DOPPLER BILATERAL Clinical Information: rule out D VT Comparison: None Findings: The examination shows normal deep venous system. There is normal compressibility at all levels. There is no intraluminal clot. There is no occlusion. Adequate response is obtained on augmentation. Impression: No evidence of DVT. DICTATED BY: WILLIAM LEON MD DATE: 12/04/24 1238 REASON: chest pain ORDERING PHYSICIAN: MARAL SHERMAN MD PROCEDURE: CARD GERMANIA - NM LEXISCAN CARDIOLITE APPROVED REPORT Height: 5 ft 4in Weight: 125 lbs TEST INDICATIONS Chest Pain The imaging protocol used to acquire images was Rest Tc-99m/stress Tc-99m 1 day Consent: The procedure was explained and understood by the patient. Informerd consent was witnessed by Rashida Summers RN First, low dose rest was performed then high dose stress. RESTING DATA: The resting ekg shows: a-fib Rest SPECT myocardial perfusion imaging was performed in supine position minutes following the intravenous injection of 11.5 mCi of Tc-99 Sestamibi. Time of rest injection: 08:52: Date: 12/04/2024 PHARMACOLOGIC STRESS: Pharmacologic stress test was performed by injecting regadenoson 0.4 mg IV push followed by the intravenous injection of 27 mCi of Tc-99 Sestamibi. Time of stress injection: 11:05: Date: 12/04/2024 Heart Rate at time of stress injection: 66 bpm. Gated Stress SPECT was performed 60 minutes after stress injection. The images were gated to evaluate regional wall motion and calculate left ventricular ejection fraction. STRESS DETAILS Reason for Termination: Infusion complete Stress Symptoms: Dyspnea, Stomach Cramps Max HR Achieved: 84 bpm % of APMHR Achieved: 74 Max Blood Pressure: 137/56/ mmHg Stress ECG: a-fib Study quality was good. Lung uptake was Normal. Artifact: No artifact IMPRESSION Normal pharmacologic nuclear stress test. Conclusion Normal perfusion. TID 0.77. LVEF 42%. DICTATED BY: DELLA HARPER MD DATE: 12/04/24926 REASON: PNA ORDERING PHYSICIAN: BREANNA BABRER NP PROCEDURE: CXR1VW - CHEST 1VW Exam Type: CHEST 1VW Clinical Information: PNA Comparison: None Findings: Pulmonary pattern is as before. No worrisome interval changes have taken place. Impression: Stable exam. DICTATED BY: WILLIAM LEON MD DATE: 12/04/2437 REASON: picc line placement ORDERING PHYSICIAN: BREANNA BARBER NP PROCEDURE: CXR1VW - CHEST 1VW Exam Type: CHEST 1VW Clinical Information: picc line placement Comparison: None Findings: RightPICC line is noted with tip within the distal superior vena cava and there are no other interval changes. IMPRESSION: Right PICC line as noted. DICTATED BY: WILLIAM LEON MD DATE: 12/03/24 1648 REASON: abdominal pain, n/v ORDERING PHYSICIAN: HOLLY WAITE NP PROCEDURE: ABD PEL WO - CT ABDOMEN/PELVIS W/O CONTRAST CT ABDOMEN/PELVIS W/O CONTRAST HISTORY: Abdominal pain COMPARISON: None TECHNIQUE: Multiple sequential axial images of the abdomen and pelvis were obtained from the dome of the diaphragm through symphysis pubis. Patient was not given contrast through intravenous route. Oral contrast was not given. FINDINGS: No pleural effusion is seen bilaterally. Bibasilar linear atelectasis changes are seen. There is no evidence of parenchymal disease or pulmonary nodule of the visualized lower lungs. Degenerative changes of the thoracolumbar spine are present. The heart is not enlarged. Small hiatal hernia is seen. Compression fractures are seen involving L4 and L5 with vertebroplasty changes. The liver, spleen, adrenal glands and pancreas are unremarkable. There is no evidence of hydronephrosis bilaterally. No evidence of renal stone is seen. Fecal material is seen in the colon. There are normal size retroperitoneal and mesenteric lymph nodes. No ascites is seen. Atherosclerotic changes are present. There is diverticulosis. There are small bilateral inguinal hernias with fat content. No CT evidence of acute appendicitis is seen. Pelvic sidewalls are symmetric bilaterally. Bladder is poorly distended. IMPRESSION: 1. No definite bowel obstruction is seen. Small hiatal hernia. Diverticulosis. No ascites is seen. CT was performed with one or more following dose reduction techniques: automated exposure control, adjustment of the mA and kv according to patient's size, or use of a iterative reconstruction technique. DICTATED BY: TIFFANIE SCHAFFER MD DATE: 12/02/24 1326 REASON: cp ORDERING PHYSICIAN: HOLLY WAITE NP PROCEDURE: CXR1VW - CHEST 1VW CHEST 1VW HISTORY: Chest pain COMPARISON: None FINDINGS: A frontal projection of the chest was obtained. No acute pulmonary infiltrates is seen. The heart is borderline enlarged. Left humeral prosthesis is seen. Prominent interstitial markings are seen. No evidence of aortic calcification is seen. IMPRESSION: 1. No acute pulmonary infiltrate is seen. DICTATED BY: TIFFANIE SCHAFFER MD DATE: 12/02/24 2404 ASSESSMENT: Hyponatremia, A-fibb with RVR Atypical chest pain Epigastric abdominal pain with nausea and vomiting Leukocytosis History of CVA in 2023 History of L4-L5 compression fracture with recent history of vertebroplasty in 09/2024 Debility/frailty Prior history of DE in [place] in 09/2023, History of atrial fibrillation maintained on chronic anticoagulation with Eliquis History of outpatient use of opioids with hydrocodone Hyperlipidemia Parkinson's disease Urinary retention PLAN: Labs, diagnostic, radiologic exams reviewed and interpreted by myself and supervising physician. We have reviewed external records in detail Follow Cardiology recommendations Require close monitoring of renal function and electrolytes Order CBC, CMP, and electrolytes in am BiPAP as necessary, for respiratory distress Monitor blood pressure adjust medication doses as needed Avoid hypotensive episodes May use Dilaudid 0.5 mg IV every 6 hours as needed for severe pain Monitor blood sugars Strict intake, output, and daily weight should be monitored Please renally adjust medications Avoid nephrotoxic and nonsteroidal drugs Avoid contrast if possible Will continue to monitor renal function, anemia, electrolytes Treatment plan discussed with patient Questions were answered We have discussed with the other team physicians in detail about the care plan We will continue to monitor the patient closely ATTESTATION BY PHYSICIAN I have seen and examined the patient. I reviewed the documentation, medical decision making, and treatment plan as noted by the mid-level provider above. I agree with the findings and plan of care. EDER MESA MD, [facility] December 06, 2024 13:56
[2024-12-06] MEDS: CARBIDOPA-LEVODOPA 25-100 TAB PO SCH (17:49)
--- NOTE | 2024-12-06 19:46 | PN ---
[facility] PROGRESS NOTE Date Patient Seen: December 06, 2024 Time of Visit: 11:00 Supervising Physician: Beatriz Owusu MD Primary Care Physician: Dr. Caridad Iyer Outpatient Specialists: [ ] Inpatient Consults: [ ] PROBLEM LIST: Recurrent AFib with RVR , now rate controlled On anticoagulation with Eliquis Atypical chest pain rule out ACS Acute hyponatremia POA now improved. Leukocytosis POA now resolved. Normal Lexiscan Cardiolite stress test 12/03/24 Hypertension. Hyperlipidemia. Parkinson's disease. Severe Protein calorie malnutrition. History of opioid use with hydrocodone Unremarkable echocardiogram W/ EF 65-70% and mild mitral valve regurgitation on 2D echo 12/04/24 suspected mild pulmonary HTN RVSP 30.7 mmHg INTERVAL HISTORY: No major overnight events. Patient denies any palpitation, shortness for breath dizziness or nausea/vomiting. She denies any chills fevers or cough. Patient continues on amiodarone drip and has been started on p.o. Cardizem 60 mg every 8 hours. She continues anticoagulation with 2.5 mg of Eliquis twice a day. Atrial fibrillation at a controlled rate in the 90s today hemodynamically stable blood pressure of 140 over 60s saturating 97% on room air and afebrile. We will continue to follow further Cardiology recommendations. WBCs of 12 H&H stable 12.8/38.0 platelet count of 173 K. chemistries sodium is 134 glucose of 125 mg/dL magnesium is 1.90. She is on magnesium protocol to remain above two. CTA to rule out PE was negative no evidence of pulmonary embolism, clear lungs, Ectasia ascending aorta. REVIEW OF SYSTEMS: 12 point ROS reviewed with patient. Pertinent positives mentioned above. Otherwise negative. PHYSICAL EXAM: GENERAL: Alert, weak, awake oriented x 3 HEENT: EOMI, Sclera non icteric, moist mucosa NECK: Supple, no JVD, trachea midline LUNGS: Clear breath sounds bilaterally. No wheezes HEART: Regular rate and rhythm. Normal S1 and S2, without murmurs ABD: Abdomen soft, nontender. Bowel sounds present EXT: + parkinon tremors. No clubbing cyanosis or edema NEURO: Alert and oriented to person, follows commands Vital Signs (last 8hr) Date Time Temp Pulse Resp B/P (MAP) Pulse Ox O2 Delivery O2 Flow Rate FiO2 12/06/24 19:34 97 18 N/A Room Air 21.0 12/06/24 19:28 99.0 79 18 140/60 97 Room Air 12/06/24 16:00 98.4 95 20 133/73 98 Room Air LABS: Hematology Labs: Test 12/06/24 03:43 Range/Units White Blood Count 12.0 H 4.8-10.8 K/uL Red Blood Count 4.30 4.00-5.50 MIL/uL Hemoglobin 12.8 12.0-16.0 g/dL Hematocrit 38.0 36-48 % Mean Corpuscular Volume 88.4 79-99 fL Mean Corpuscular Hemoglobin 29.8 27.0-33.0 pg Mean Corpuscular Hemoglobin Concent 33.7 32.0-36.0 g/dL Red Cell Distribution Width 17.0 H 11.0-15.5 % Platelet Count 173 130-400 K/uL Mean Platelet Volume 8.8 7.5-10.5 fL Immature Granulocyte % (Auto) 0.4 0-1 % Neutrophils (%) (Auto) 75.3 40.0-77.0 % Lymphocytes (%) (Auto) 17.0 L 21.0-51.0 % Monocytes (%) (Auto) 6.5 3.0-13.0 % Eosinophils (%) (Auto) 0.5 0.0-8.0 % Basophils (%) (Auto) 0.3 0.0-5.0 % Neutrophils # (Auto) 9.0 H 1.8-7.7 K/uL Lymphocytes # (Auto) 2.0 1.0-4.8 K/uL Monocytes # (Auto) 0.8 0.1-1.0 K/uL Eosinophils # (Auto) 0.06 0.00-0.70 K/uL Basophils # (Auto) 0.04 0.00-0.20 K/uL Absolute Immature Granulocyte (auto 0.05 0-1 K/uL Nucleated Red Blood Cells 0.0 0.0-0.19 % Chemistry Labs: Test 12/06/24 03:43 Range/Units Sodium Level 134 L 136-145 mmol/L Potassium Level 3.8 3.5-5.1 mmol/L Chloride Level 101 101-111 mmol/L Carbon Dioxide Level 26 21-32 mmol/L Blood Urea Nitrogen 11 7-18 mg/dL Creatinine 0.6 0.5-1.0 mg/dL Glomerular Filtration Rate Calc 87 >90 mL/min Random Glucose 125 H 70-105 mg/dL Total Calcium 8.7 8.5-10.1 mg/dL Phosphorus Level 3.1 2.5-4.9 mg/dL Magnesium Level 1.90 1.80-2.40 mg/dL Total Bilirubin 0.5 0.2-1.0 mg/dL Aspartate Amino Transf (AST/SGOT) 13 10-37 U/L Alanine Aminotransferase (ALT/SGPT) 5 L 12-78 U/L Alkaline Phosphatase 108 50-136 U/L Total Protein 6.3 6.0-8.3 g/dL Albumin 2.9 L 3.5-5.0 g/dL DIAGNOSTICS / RADIOLOGY RESULTS: IMAGING REPORT Signed PATIENT: PAYTON TARANGO MR#: [id number] : 1935 SEX: F AGE: 89 LOCATION: [facility] ORDER 145 STATUS: ADM IN REPORT#: [id number] SERVICE [id number] REASON: rule out PE ORDERING PHYSICIAN: YULIYA MONROY PROCEDURE: CHES PE - CT CHEST PE PROTOCOL WWO CONT CT angiogram chest CLINICAL INDICATION: rule out PE COMPARISON: None. CT Dose Index (CTDI): 113.50 mGy Dose Length Product (DLP): 1408.10 total mGy PROTOCOL: Contrast: 100 cc of Isovue-370, injected IV, no complications Examination is done at 2.5 millimeter volumetric acquisition after contrast administration. Photography is done at 5 millimeter thick intervals for the thorax. FINDINGS: There is no evidence of pulmonary embolism. The airway is intact. The trachea and major bronchi are unremarkable. No pulmonary infiltrates or mass lesions are seen. No pleural effusions are identified. The exam of the surya and mediastinum is unremarkable. No evidence of hilar enlargement is seen. Ectasia of the ascending thoracic aorta, maximum diameter 4 cm No significant brachiocephalic vascular abnormalities are seen. The heart is unremarkable. It is not enlarged. No significant coronary arterial calcifications are seen. There is no pericardial effusion. The rib cage appears unremarkable. The soft tissues of the chest wall are unremarkable. The dorsal spine shows no significant abnormalities. Limited evaluation of the upper abdomen demonstrates no gross abnormalities. IMPRESSION: No evidence of pulmonary embolism. Clear lungs. Ectasia ascending aorta. This study was performed using dose reduction techniques to include automated exposure control and/or adjustment of the mA and/or kV according to patient size. DICTATED BY: WILLIAM LEON MD DATE: 12/06/24838 ELECTRONICALLY SIGNED BY: WILLIAM LEON MD DATE: 12/06/24841 PLAN Follow cardiology recommendations Amiodarone drip per Cardiology Continue anticoagulation with eliquis 2.5mg po BID per cardiology recs. Continue cardiac monitoring CTA negative for PE Maintain O2 sats above 92% NEURO: Minimize central acting medications as possible. Maintain fall precautions, adequate lighting during the day PULMONARY: Supplemental 02 as needed. Maintain aspiration precautions at all times CARDIOVASCULAR: Follow hemodynamics. Vital signs per facility protocol GI & NUTRITION: Continue with nutritional support. Continue stool softeners and laxatives as needed. KIDNEYS & ELECTROLYTES: Strict monitoring of intake, output and overall fluid balance. Avoid nephrotoxic medications to the extent possible. Medications to be dosed according to renal function. Monitor electrolytes and replace as needed ENDOCRINE: Maintain blood glucose between 100-180 at all times. Hypoglycemia protocol in place INFECTIOUS DISEASE: Trend temperature, WBC and procalcitonin level Follow cultures, deescalate antibiotics as soon as possible. Panculture if new onset fever ONCOLOGY/HEMATOLOGY/COAGULATION: Monitor for s/s of bleeding Monitor hemoglobin, coagulation studies as needed SKIN: Pressure ulcer prevention per facility protocol Specialty mattress ORTHO/REHAB: Continue PT/OT Prophylaxis: Continue GI and DVT prophylaxis Code Status: Full Resuscitation Disposition: TBD Other: Total patient care time exceeds 35 minutes excluding all procedures. YULIYA MONROY [facility] December 06, 2024 19:46
[2024-12-06] MEDS: AMIOdarone 200 MG TABLET PO SCH (20:38)
[2024-12-07] VITALS (7 sets, daily range): BP systolic 107–171; BP diastolic 46–77; PULSE 68–112; RESP 16–18; TEMP 97.8–98.8; O2SAT 97
[2024-12-07 04:06] LABS: BASOPHILS # (AUTO) 0.02 K/uL (0.00-0.20); BASOPHILS % (AUTO) 0.2 % (0.0-5.0); EOSINOPHILS # (AUTO) 0.03 K/uL (0.00-0.70); EOSINOPHILS % (AUTO) 0.3 % (0.0-8.0); HEMATOCRIT 37.5 % (36-48); IMMATURE GRANULOCYTE ABSOLUTE 0.03 K/uL (0-1); LYMPHOCYTES # (AUTO) 1.5 K/uL (1.0-4.8); LYMPHOCYTES % (AUTO) 15.4 % (21.0-51.0); MEAN CORPUSCULAR HEMOGLOBIN 29.5 pg (27.0-33.0); MEAN CORPUSCULAR HGB CONC 33.6 g/dL (32.0-36.0); MEAN CORPUSCULAR VOLUME 87.8 fL (79-99); MONOCYTES # (AUTO) 0.7 K/uL (0.1-1.0); MONOCYTES % (AUTO) 7.4 % (3.0-13.0); NEUTROPHILS # (AUTO) 7.7 K/uL (1.8-7.7); NEUTROPHILS % (AUTO) 76.4 % (40.0-77.0); PLATELET COUNT (AUTO) 168 K/uL (130-400); RED BLOOD CELL COUNT(AUTO) 4.27 MIL/uL (4.00-5.50); RED CELL DISTRIBUTION WIDTH 17.1 % (11.0-15.5)
[2024-12-07 04:36] LABS: ALBUMIN 3.1 g/dL (3.5-5.0); BILIRUBIN,TOTAL 0.6 mg/dL (0.2-1.0); CREATININE 0.8 mg/dL (0.5-1.0); POTASSIUM 3.6 mmol/L (3.5-5.1); TOTAL PROTEIN, SERUM 6.5 g/dL (6.0-8.3)
[2024-12-07] MEDS: dilTIAZem 125 MG/25 ML INJ 125 MG in 0.9%NACL 100ML 100 ML IV SCH (08:53)
--- NOTE | 2024-12-07 08:55 | PN ---
This is an 89-year-old female with a history syncope and ventricular tachycardia status post VT ablation in 1990, subacute right frontal lobe CVA, hypertension and Parkinson's disease. She was admitted 12/02/2024 with complaints of epigastric pain. She has had recurrent atrial fibrillation with rapid ventricular response. She had been on IV amiodarone maintenance dose up and p.o. diltiazem 60 mg was added for rate control. Yesterday she converted to sinus rhythm around 3:00 p.m.. IV Amiodarone was discontinued and she was transitioned to p.o. amiodarone 200 mg twice daily. This morning she reverted to atrial fibrillation at around 7:00 a.m.. Ventricular rates in the 160s to 170s. She has preserved LVEF with an ejection fraction of 65-70% on this admission. Her most recent blood pressure is 133/83. White blood count 10.0, hemoglobin 12.6, hematocrit 37.5, platelets 168, creatinine 0.8, potassium 3.6, magnesium 2.0. She continues to feel fatigued and is very discouraged this morning. On exam, she is in no acute distress, irregularly irregular rhythm, tachycardic, lungs are clear to auscultation bilaterally, no lower extremity edema is noted. Assessment: 1. Atrial fibrillation with rapid ventricular response. 2. Preserved LVEF. 3. History of ventricular tachycardia status post ablation in 1990. 4. Parkinson's disease. Plan: Discussed with Dr. Villarreal. 1. She reverted to atrial fibrillation with rapid ventricular response with ventricular rates in the 160s to 170s this morning. We will initiate Cardizem drip for rate control. We will hold p.o. Cardizem while on the Cardizem drip. 2. Continue amiodarone 200 mg twice daily. However, long-term we do not recommend continuing the p.o. amiodarone as she has been intolerant in the past. 3. Continue Eliquis 2.5 mg twice daily. 4. We will follow the patient. Chart addendum 12/07/2024: We will discontinue p.o. amiodarone and start propafenone 150 mg every 8 hours. Continue cardizem drip for rate control. Attempt to transition to p.o cardizem 60 mg every 6-8 hours once ventricular rates 110 bpm or less. Vitals/Labs Vital Signs Date Time Temp Pulse Resp B/P (MAP) Pulse Ox O2 Delivery O2 Flow Rate FiO2 12/07/24 07:31 97.9 108 16 131/71 98 Room Air 12/06/24 20:00 0 21 Laboratory Tests 12/07/24 03:36 ZAHEER UNGER December 07, 2024 08:55
[2024-12-07] MEDS: acetaMINOPHEN 325 MG TAB PO PRN (10:40)
[2024-12-07] MEDS ORDERED: PoTASSium chloRIDE 20MEQ/100ML 100 ML IV PRN (12:00)
[2024-12-07] MEDS: PoTASSium chloRIDE 20MEQ ER 20 MEQ ERTAB PO PRN (12:51)
--- NOTE | 2024-12-07 12:51 | PN ---
[facility] PROGRESS NOTE Date of Service: December 07, 2024 Time of Service: 12:48 SUBJECTIVE: [ ] This is a 89-year-old female with underlying history of hypertension, hyperlipidemia, per daughter, prior history of GA in [place] in 09/2023, history of CVA, recent history of compression fractures involving L4 and L5 status post vertebroplasty in [facility], history of atrial fibrillation maintained on chronic anticoagulation with Eliquis, Parkinson's disease who presented to the ER with chief complaint of epigastric pain with midsternal chest discomfort, poor oral intake ongoing since last night. 12/03/24 during my rounds patient was complaining of chest pain states 05/10. Patient was placed on oxygen in given x1 morphine. Patient is retaining urine bladder scan showed [address] Beckham catheter. Patient continues to have chest discomfort patient was given nitroglycerin. AFib with RVR 170. The patient became diaphoretic thereafter radiate to her right arm. Repeat cardiac enzymes. Patient was given one dose of IV Lopressor then was transferred to ICU 12/04/24 patient went down for nuclear medicine. Lexiscan we will follow results. Bradycardia beta-blockers were discontinued patient converted back to sinus We will follow alteration manager's recommendations. 12/05/24 the patient was seen earlier: she is fully awake and alert oriented x3. denies chest pain or sob. Primary nurse reports she went into afibb with RVR overnight. This morning was given Diltiazem 10 mg IV one . amiodrone drip was restarted. Lexiscan was negative/ we will wait from DR Villarreal if any further workup. 12/06/24 the patient continue to have Afibb with RVR: this morning she was in the 160's as per Tele insulation technician. [employer] started PO Cardizen [address] Villarreal scheduled a cardioversion for am. 12/07 the patient has been seen and examined earlier this morning during my rounding, case discussed with the RN, the patient converted back to normal sinus rhythm yesterday around 3:00 p.m., however again earlier this morning, patient went into atrial fibrillation with a rapid ventricular response, with a heart rate between 160-170, she was complaining of mild shortness a breath, reason for which she was started on supplemental oxygen via nasal cannula at 2 L, cardiology notified, patient is started on Cardizem drip. During my visit the patient is alert oriented x3, hemodynamically stable, off supplemental oxygen, saturating normal on room air, heart rate controlled at 88, however still persistent atrial fibrillation. Patient's two daughters at bedside, updated, all questions answered. REVIEW OF SYSTEMS CONSTITUTIONAL: Denies fevers, chills, or night sweats. No unintentional weight loss reported. NEUROLOGICAL: Denies headache, amaurosis fugax, motor weakness, sensory deficit, vertigo/spinning sensation, gait abnormalities, or tremors. ENT: No hearing loss, otalgia, otorrhea, rhinitis, rhinorrhea, hoarseness, or sore throat. CARDIOVASCULAR: Patient reports having substernal chest discomfort PULMONARY: Denies any shortness of breath, cough, phlegm/sputum, hemoptysis, pleuritic chest pain. SLEEP: Denies morning headaches, daytime somnolence or napping. Denies difficulty falling asleep, staying asleep, waking from sleep. Denies knowledge of snoring. GASTROINTESTINAL: Nausea, vomiting, epigastric pain, mild in intensity, denies any significant lower quadrant abdominal pain GENITOURINARY: Denies frequency, urgency, nocturia, hematuria or incontinence (Storage/Irritative symptoms.) Low urinary stream, straining to void, urinary intermittency or hesitancy, splitting of the voiding stream, terminal dribbling. ENDOCRINOLOGIC: Denies polyuria, polydipsia, polyphagia or heat/cold intolerances. HEMATOLOGIC: Denies thrombophilia/previous clots, or coagulopathy/bleeding disorders. ONCOLOGIC: Denies personal history of malignancy. DERMATOLOGIC: Denies rashes or pruritus. PSYCHIATRIC: Denies any suicidal or homicidal ideation. Denies hallucinations. PHYSICAL EXAM GENERAL APPEARANCE: The patient is awake, alert, appears frail and chronically ill NEUROLOGICAL: Cranial nerves II-XII grossly intact. Patient is moving her upper and lower extremities, resting tremors noted of the hands HEENT: Face is symmetric. Pupils are equal and reactive. Extraocular movements are intact. NECK: Supple. No JVD. No thyromegaly. No submental, submandibular, pre- /postauricular, occipital or supraclavicular lymphadenopathy. CHEST: Normal chest expansion. No Telemetry. LUNGS: Absence of any rales, rhonchi or any wheezing. CARDIOVASCULAR: Irregular, no rubs or gallops noted ABDOMEN: Soft, nontender, and nondistended. No significant tenderness on palpation of the abdomen : Deferred. No Beckham. EXTREMITIES: Non-edematous and not cyanotic. No clubbing. Good capillary refill. SKIN: No skin breakdown. Vital Signs (last 8hr) Date Time Temp Pulse Resp B/P (MAP) Pulse Ox O2 Delivery O2 Flow Rate FiO2 12/07/24 11:29 97.9 112 18 126/72 97 Nasal Cannula 2.0 12/07/24 08:53 119 133/73 12/07/24 08:00 97 Nasal Cannula* 2 28 12/07/24 07:31 97.9 108 16 131/71 98 Room Air 12/07/24 06:44 92 18 133/69 95 Room Air LABS: Laboratory: Test 12/07/24 03:36 12/06/24 03:43 Range/Units White Blood Count 10.0 4.8-10.8 K/uL Red Blood Count 4.27 4.00-5.50 MIL/uL Hemoglobin 12.6 12.0-16.0 g/dL Hematocrit 37.5 36-48 % Mean Corpuscular Volume 87.8 79-99 fL Mean Corpuscular Hemoglobin 29.5 27.0-33.0 pg Mean Corpuscular Hemoglobin Concent 33.6 32.0-36.0 g/dL Red Cell Distribution Width 17.1 H 11.0-15.5 % Platelet Count 168 130-400 K/uL Mean Platelet Volume 8.9 7.5-10.5 fL Immature Granulocyte % (Auto) 0.3 0-1 % Neutrophils (%) (Auto) 76.4 40.0-77.0 % Lymphocytes (%) (Auto) 15.4 L 21.0-51.0 % Monocytes (%) (Auto) 7.4 3.0-13.0 % Eosinophils (%) (Auto) 0.3 0.0-8.0 % Basophils (%) (Auto) 0.2 0.0-5.0 % Neutrophils # (Auto) 7.7 1.8-7.7 K/uL Lymphocytes # (Auto) 1.5 1.0-4.8 K/uL Monocytes # (Auto) 0.7 0.1-1.0 K/uL Eosinophils # (Auto) 0.03 0.00-0.70 K/uL Basophils # (Auto) 0.02 0.00-0.20 K/uL Absolute Immature Granulocyte (auto 0.03 0-1 K/uL Nucleated Red Blood Cells 0.0 0.0-0.19 % Sodium Level 136 136-145 mmol/L Potassium Level 3.6 3.5-5.1 mmol/L Chloride Level 102 101-111 mmol/L Carbon Dioxide Level 25 21-32 mmol/L Blood Urea Nitrogen 17 7-18 mg/dL Creatinine 0.8 0.5-1.0 mg/dL Glomerular Filtration Rate Calc 71 >90 mL/min Random Glucose 126 H 70-105 mg/dL Total Calcium 8.8 8.5-10.1 mg/dL Magnesium Level 2.00 1.80-2.40 mg/dL Total Bilirubin 0.6 0.2-1.0 mg/dL Aspartate Amino Transf (AST/SGOT) 15 10-37 U/L Alanine Aminotransferase (ALT/SGPT) 14 # 12-78 U/L Alkaline Phosphatase 115 50-136 U/L Total Protein 6.5 6.0-8.3 g/dL Albumin 3.1 L 3.5-5.0 g/dL Phosphorus Level 3.1 2.5-4.9 mg/dL Current Medications Medications (Trade) Dose Ordered Sig/Mahnaz Route PRN Reason Start Time Stop Time Status Last Admin Dose Admin Acetaminophen (TYLenol 325MG TAB) 650 mg Q6H PRN PO MODERATE PAIN (4-6) 12/06/24 14:30 01/05/25 14:29 12/07/24 10:40 650 MG Acetaminophen (TYLenol 500MG TAB) 500 mg Q6H PRN PO MILD PAIN (1-3) 12/02/24 14:30 01/01/25 14:29 12/04/24 20:58 500 MG Adenosine (Adenocard 6mg Vial) 6 mg ONCE STAT IV 12/03/24 10:39 12/03/24 10:42 DC 12/03/24 11:06 6 MG Adenosine (Adenocard 6mg Vial) 6 mg ONCE STAT IV 12/03/24 10:44 12/03/24 10:45 DC Amiodarone HCl (pacERONE 200MG) 200 mg BID PO 12/06/24 21:00 01/05/25 20:59 12/07/24 08:02 200 MG Amiodarone HCl 150 mg/Dextrose 100 ml @ 0 mls/hr PROTOCOL IV 12/06/24 07:30 12/06/24 07:24 DC Amiodarone HCl 150 mg/Dextrose 103 ml @ 618 mls/hr ONCE IV 12/03/24 11:00 12/03/24 11:03 DC Amiodarone HCl 360 mg/Dextrose 207.2 ml @ 33.3 mls/hr AD IV 12/03/24 11:00 12/03/24 11:03 DC Amiodarone HCl 540 mg/Dextrose 310.8 ml @ 16.7 mls/hr [id number] IV 12/04/24 15:00 12/06/24 18:53 DC 12/06/24 17:50 16.7 MLS/HR Amlodipine Besylate (NorvASC 5MG TAB) 5 mg DAILY PO 12/03/24 09:00 12/03/24 16:08 DC 12/03/24 09:54 5 MG Apixaban (EliquIS 2.5 mg) 2.5 mg BID PO 12/02/24 21:00 01/01/25 20:59 12/07/24 08:02 2.5 MG Atorvastatin Calcium (LIPItor 40MG) 40 mg HS PO 12/02/24 21:00 01/01/25 20:59 12/06/24 20:38 40 MG Carbidopa/Levodopa (Sinemet 25-100 Tab) 1 each TID PO 12/02/24 21:00 12/06/24 15:11 DC 12/06/24 13:45 1 EACH Carbidopa/Levodopa (Sinemet 25-100 Tab) 1 each TIDAC PO 12/06/24 17:00 01/05/25 16:59 12/07/24 06:48 1 EACH Ceftriaxone Sodium (ROCEphine 1G INJ) 1 gm Q24H IVPB 12/02/24 14:30 12/12/24 14:29 12/06/24 15:12 1 GM Diazepam (VALium 5 MG/ML 2 ML SYG) 5 mg Q4H PRN IV ANXIETY 12/04/24 09:30 12/04/24 09:29 DC Diltiazem HCl (CARDIzem 60MG TAB) 60 mg TID PO 12/06/24 08:30 01/05/25 08:29 12/07/24 08:02 60 MG Diltiazem HCl 125 mg/Sodium Chloride 125 ml @ 0 mls/hr PROTOCOL IV 12/07/24 09:00 01/06/25 08:59 12/07/24 08:53 5 MLS/HR Hydralazine HCl (APRESOLine 20MG INJ) 5 mg Q6H PRN IV ADMINISTER FOR SBP > 160 12/02/24 15:00 12/03/24 04:45 DC Hydralazine HCl (APRESOLine 20MG INJ) 10 mg Q2HPRN PRN IV ADMINISTER FOR SBP > 160 12/03/24 04:30 01/02/25 04:29 12/07/24 05:51 10 MG Hydromorphone HCl (DiLAUDid 0.5MG INJ) 0.2 mg Q6H PRN IVP SEVERE PAIN (7-10) 12/06/24 14:30 12/11/24 14:29 Hydromorphone HCl (DiLAUDid 0.5MG INJ) 0.5 mg Q6H PRN IVP SEVERE PAIN (7-10) 12/02/24 14:30 12/06/24 14:29 DC 12/06/24 06:37 0.5 MG Methocarbamol (methoCARBamol) 500 mg TID PRN PO muscle cramps 12/02/24 15:30 01/01/25 15:29 12/07/24 10:39 500 MG Metoprolol Tartrate (loprESSOR) 25 mg BID PO 12/02/24 21:00 12/04/24 09:07 DC 12/03/24 21:17 25 MG Metoprolol Tartrate (loprESSOR) 50 mg BID PO 12/02/24 21:00 12/04/24 09:07 DC 12/03/24 22:17 50 MG Miscellaneous Medication (Metoprolol Tartrate ) 1 tab BID PO 12/02/24 21:00 12/02/24 15:32 DC Morphine Sulfate (morPHINE 2MG SYG) 2 mg ONCE STAT IVP 12/02/24 13:33 12/02/24 13:38 DC 12/02/24 13:39 2 MG Nitroglycerin (Nitrostat) 0.4 mg AD PRN SL CHEST PAIN 12/02/24 14:30 01/01/25 14:29 12/03/24 10:25 0.4 MG Ondansetron HCl (zoFRAN 4MG INJ) 4 mg ONCE STAT IVP 12/02/24 13:33 12/02/24 13:38 DC 12/02/24 13:39 4 MG Ondansetron HCl (zoFRAN 4MG INJ) 4 mg Q6H PRN IVP NAUSEA/VOMITING 12/02/24 14:30 01/01/25 14:29 Pantoprazole Sodium (PROTonix 40MG INJ) 40 mg BID IVP 12/03/24 21:00 01/01/25 14:29 12/07/24 08:02 40 MG Pantoprazole Sodium (PROTonix 40MG INJ) 40 mg Q24H IVP 12/02/24 14:30 12/03/24 09:37 DC 12/02/24 20:10 40 MG Potassium Chloride 100 ml @ 100 mls/hr AD PRN IV POTASSIUM PROTOCOL 12/07/24 12:00 01/06/25 11:59 Potassium Chloride (K-Dur/Klor-Con 20meq) 20 meq AD PRN PO POTASSIUM PROTOCOL 12/07/24 12:00 01/06/25 11:59 Potassium Chloride (KCl 10% Elixir 20meq/15ml) 20 meq AD PRN PO POTASSIUM PROTOCOL 12/07/24 12:00 01/06/25 11:59 Sodium Chloride 1,000 ml @ 60 mls/hr [id number] IV 12/02/24 14:30 12/02/24 14:26 DC Sodium Chloride 1,000 ml @ 60 mls/hr [id number] IV 12/02/24 14:30 12/04/24 09:29 DC 12/04/24 00:16 60 MLS/HR Sodium Chloride 1,000 ml @ 1,000 mls/hr Q1H STAT IV 12/02/24 10:54 12/02/24 11:53 DC 12/02/24 10:54 1,000 MLS/HR Thiamine HCl (Vitamin B-1) 100 mg Q24H IVP 12/02/24 14:30 01/01/25 14:29 12/06/24 15:12 100 MG Trazodone HCl (DesyREL/OlepTRO) 50 mg HS PO 12/02/24 21:00 01/01/25 20:59 12/06/24 20:39 50 MG DIAGNOSTICS / RADIOLOGY: [ ] ASSESSMENT: [id number] hyponatremia, POA Atypical chest pain, POA Epigastric abdominal pain with nausea and vomiting, POA Leukocytosis, POA History of CVA in 2023, POA History of L4-L5 compression fracture with recent history of vertebroplasty in 09/2024, POA Debility/frailty, POA Prior history of GA in [place] in 09/2023, POA History of atrial fibrillation maintained on chronic anticoagulation with Eliquis, POA History of ventricular tachycardia status post ablation 1990 History of outpatient use of opioids with hydrocodone, POA Hyperlipidemia, POA Rule out occult infection, POA History of diuretic use as outpatient, POA History of Parkinson's disease, POA Protein calorie malnutrition, POA PLAN: The patient remains admitted to the progressive care unit Continue the patient on sales lead generator Continue the patient on Cardizem drip Continue supplemental oxygen as needed via nasal cannula to keep oxygen saturation greater than 94% GI input noted and appreciated, continue the patient on Eliquis 2.5 mg p.o. b.i.d. Continue home dose of Sinemet for Parkinson's disease NEURO: Minimize central acting medications as possible. Fall Precautions. Well lighted room through the day and minimize interruptions through the night to prevent acute delirium. PULMONARY: Supplemental 02 as needed BiPAP as necessary, for respiratory distress Titrate Fio2 to keep Spo2 > or = 90% DuoNeb�s and CPT as needed IS hourly while awake for pulmonary hygiene prn Out of bed to chair as tolerated Maintain aspiration precautions at all times CARDIOVASCULAR: Follow hemodynamics. Vital signs per facility protocol GI & NUTRITION: Continue nutritional support Aspirations precautions Prokinetic agents and laxatives as needed KIDNEYS & ELECTROLYTES: Strict monitoring of intake and output Daily weights Avoid nephrotoxic agents Monitor electrolytes and replace as needed Goal urine output of 30mL/hr or 0.5mL/kg/hr Medications to be dosed according to renal function. Avoid contrast if possible ENDOCRINE: Maintain blood glucose between 100-180 at all times. Insulin sliding scale for blood glucose management Hypoglycemia and hyperglycemia protocol in place INFECTIOUS DISEASE: Trend temperature, WBC and procalcitonin level Follow cultures, deescalate antibiotics as soon as possible. Panculture if new onset fever HEMATOLOGY & COAGULATION: Monitor H&H. Keep Hgb > 7 Transfuse 1 unit of PRBC for Hgb < 7 Transfuse 1 pack of platelets of platelets < 20, 000 Watch for any signs and symptoms of bleeding SKIN: Pressure ulcer prevention per facility protocol Specialty mattress as needed ORTHO/REHAB Continue PT/OT PRN: MEDICATIONS Tylenol 650 mg po every 4 hrs for fever zofran 4 mg IV every 6 hrs for n/v Hydralazine 5 mg IV every 4 hrs systolic pressure > 160 bowel regiment: lactulose 20 gm PO BID PRN constipation Supportive measures: Continue GI and DVT prophylaxis Disposition: Pending improvement in clinical condition All questions answered time spent: > 35 min MARKELL MAHMOOD MD December 07, 2024 12:51
--- NOTE | 2024-12-07 13:40 | NUR ---
PATIENT IS C/O URINARY RETENTION AND BLADDER SCAN WAS DONE. >543ML WAS FOUND. NEW ORDER FOR INSERTION OF GARCIA CATHETER PER DR. MAHMOOD.
--- NOTE | 2024-12-07 13:56 | NUR ---
[address] GARCIA CATHETER ON THIS PATIENT AND WAS UNSUCCESSFUL. I NOTIFIED MY COLLE[employer]UE TO HELP WITH INSERTION.
--- NOTE | 2024-12-07 14:08 | NUR ---
Nutritional f/u Note: Chart, meds, and labs Reviewed. Pt continues with poor energy intake. Pt on GI Soft reg diet w/ prostat jello and Magic cup. Recommend: -Give Levodopa 30min april to meals. -probiotics -Encourage fluid intake -If PO intake continues <50% of most meals consider appetite stimulant. -RD to provide further recommendations based on clinical progress. -Monitor feeding tolerance, %, wt, and labs -If No BM >3days consider bowel stimulant. - Please notify RD if additional nutrition concerns arise. Addendum: 12/07/24 at [address] Amended: Links added.
--- NOTE | 2024-12-07 14:08 | PN ---
NEPHROLOGY PROGRESS NOTE Date/Time Patient Seen: December 07, 2024 SUBJECTIVE: This is an 89-year-old who has a history of coronary artery disease, CVA, hypertension, hyperlipidemia, back pain with compression fracture needing vertebroplasty, history of atrial fibrillation and Parkinson's disease. The patient is admitted with chest pain and abdominal pain. The patient is having some nausea and vomiting also and the patient has poor oral intake and has multiple other comorbidities. The patient has leukocytosis and now very low sodium and electrolyte problem. Renal function and electrolytes are stable. Cardiology workup is ongoing Complaining of back pain Family at the bedside Condition is critical and guarded REVIEW OF SYSTEMS: GENERAL: Negative for any nausea, vomiting, fevers, chills, or weight loss. NEUROLOGIC: Negative for any blurry vision, blind spots, double vision, facial asymmetry, dysphagia, dysarthria, hemiparesis, hemisensory deficits, vertigo, ataxia. HEENT: Negative for any head trauma, neck trauma, neck stiffness, photophobia, phonophobia, sinusitis, rhinitis. CARDIAC: Negative for any chest pain, dyspnea on exertion, paroxysmal nocturnal dyspnea, peripheral edema. PULMONARY: Negative for any shortness of breath, wheezing, COPD, or TB exposure. GASTROINTESTINAL: Negative for any abdominal pain, nausea, vomiting, bright red blood per rectum, melena. GENITOURINARY: Negative for any dysuria, hematuria, incontinence. INTEGUMENTARY: Negative for any rashes, cuts, insect bites. RHEUMATOLOGIC: Negative for any joint pains, photosensitive rashes, history of vasculitis or kidney problems. HEMATOLOGIC: Negative for any abnormal bruising, frequent infections or bleeding. Vital Signs (last 8hr) Date Time Temp Pulse Resp B/P (MAP) Pulse Ox O2 Delivery O2 Flow Rate FiO2 12/03/24 11:44 101 22 104/58 99 Nasal Cannula 4.0 12/03/24 11:29 110 23 117/59 100 Nasal Cannula 4.0 12/03/24 11:14 128 31 134/78 100 Nasal Cannula 4.0 12/03/24 11:06 150 122/88 12/03/24 10:44 98.8 129 26 122/88 99 Nasal Cannula 4.0 12/03/24 10:34 145 19 107/64 99 Nasal Cannula 4.0 12/03/24 10:27 179 12/03/24 10:12 161 28 N/Cannula Low lpm 4.0 12/03/24 09:54 96 Room Air* 0 21 12/03/24 07:40 98.1 63 19 140/67 95 Room Air 12/03/24 06:44 73 140/66 PHYSICAL EXAM: GENERAL: Alert and oriented x 3. No acute distress. Well-nourished. EYES: EOMI. Anicteric. HENT: Moist mucous membranes. No scleral icterus. No cervical lymphadenopathy. LUNGS: Clear to auscultation bilaterally. No accessory muscle use. CARDIOVASCULAR: Regular rate and rhythm. No murmur. No JVD. ABDOMEN: Soft, non-tender and non-distended. No palpable masses. EXTREMITIES: No edema. Non-tender.?SKIN: No rashes or lesions. Warm. NEUROLOGIC: No focal neurological deficits. CN II-XII grossly intact, but not individually tested. PSYCHIATRIC: Cooperative. Appropriate mood and affect. Current Medications Medications (Trade) Dose Ordered Sig/Mahnaz Route PRN Reason Start Time Stop Time Status Last Admin Dose Admin Acetaminophen (TYLenol 500MG TAB) 500 mg Q6H PRN PO MILD PAIN (1-3) 12/02/24 14:30 01/01/25 14:29 12/02/24 17:02 500 MG Adenosine (Adenocard 6mg Vial) 6 mg ONCE STAT IV 12/03/24 10:39 12/03/24 10:42 DC 12/03/24 11:06 6 MG Adenosine (Adenocard 6mg Vial) 6 mg ONCE STAT IV 12/03/24 10:44 12/03/24 10:45 DC Amiodarone HCl 150 mg/Dextrose 103 ml @ 618 mls/hr ONCE IV 12/03/24 11:00 12/03/24 11:03 DC Amiodarone HCl 360 mg/Dextrose 207.2 ml @ 33.3 mls/hr AD IV 12/03/24 11:00 12/03/24 11:03 DC Amlodipine Besylate (NorvASC 5MG TAB) 5 mg DAILY PO 12/03/24 09:00 01/02/25 08:59 12/03/24 09:54 5 MG Apixaban (EliquIS 2.5 mg) 2.5 mg BID PO 12/02/24 21:00 01/01/25 20:59 12/03/24 09:54 2.5 MG Atorvastatin Calcium (LIPItor 40MG) 40 mg HS PO 12/02/24 21:00 01/01/25 20:59 12/02/24 20:07 40 MG Carbidopa/Levodopa (Sinemet 25-100 Tab) 1 each TID PO 12/02/24 21:00 01/01/25 20:59 12/03/24 09:54 1 EACH Ceftriaxone Sodium (ROCEphine 1G INJ) 1 gm Q24H IVPB 12/02/24 14:30 12/12/24 14:29 12/02/24 20:06 1 GM Hydralazine HCl (APRESOLine 20MG INJ) 5 mg Q6H PRN IV ADMINISTER FOR SBP > 160 12/02/24 15:00 12/03/24 04:45 DC Hydralazine HCl (APRESOLine 20MG INJ) 10 mg Q2HPRN PRN IV ADMINISTER FOR SBP > 160 12/03/24 04:30 01/02/25 04:29 12/03/24 05:10 10 MG Hydromorphone HCl (DiLAUDid 0.5MG INJ) 0.5 mg Q6H PRN IVP SEVERE PAIN (7-10) 12/02/24 14:30 12/07/24 14:29 Methocarbamol (methoCARBamol) 500 mg TID PRN PO muscle cramps 12/02/24 15:30 01/01/25 15:29 Metoprolol Tartrate (loprESSOR) 25 mg BID PO 12/02/24 21:00 01/01/25 20:59 12/03/24 09:54 25 MG Metoprolol Tartrate (loprESSOR) 50 mg BID PO 12/02/24 21:00 01/01/25 20:59 12/03/24 12:24 50 MG Miscellaneous Medication (Metoprolol Tartrate ) 1 tab BID PO 12/02/24 21:00 12/02/24 15:32 DC Morphine Sulfate (morPHINE 2MG SYG) 2 mg ONCE STAT IVP 12/02/24 13:33 12/02/24 13:38 DC 12/02/24 13:39 2 MG Nitroglycerin (Nitrostat) 0.4 mg AD PRN SL CHEST PAIN 12/02/24 14:30 01/01/25 14:29 12/03/24 10:25 0.4 MG Ondansetron HCl (zoFRAN 4MG INJ) 4 mg ONCE STAT IVP 12/02/24 13:33 12/02/24 13:38 DC 12/02/24 13:39 4 MG Ondansetron HCl (zoFRAN 4MG INJ) 4 mg Q6H PRN IVP NAUSEA/VOMITING 12/02/24 14:30 01/01/25 14:29 Pantoprazole Sodium (PROTonix 40MG INJ) 40 mg BID IVP 12/03/24 21:00 01/01/25 14:29 Pantoprazole Sodium (PROTonix 40MG INJ) 40 mg Q24H IVP 12/02/24 14:30 12/03/24 09:37 DC 12/02/24 20:10 40 MG Sodium Chloride 1,000 ml @ 60 mls/hr [id number] IV 12/02/24 14:30 12/02/24 14:26 DC Sodium Chloride 1,000 ml @ 60 mls/hr [id number] IV 12/02/24 14:30 01/01/25 14:29 12/02/24 18:12 60 MLS/HR Sodium Chloride 1,000 ml @ 1,000 mls/hr Q1H STAT IV 12/02/24 10:54 12/02/24 11:53 DC 12/02/24 10:54 1,000 MLS/HR Thiamine HCl (Vitamin B-1) 100 mg Q24H IVP 12/02/24 14:30 01/01/25 14:29 12/02/24 20:07 100 MG Trazodone HCl (DesyREL/OlepTRO) 50 mg HS PO 12/02/24 21:00 01/01/25 20:59 12/02/24 20:06 50 MG LABORATORY: [ ] Hematology Labs: Test 12/07/24 03:36 Range/Units White Blood Count 10.0 4.8-10.8 K/uL Red Blood Count 4.27 4.00-5.50 MIL/uL Hemoglobin 12.6 12.0-16.0 g/dL Hematocrit 37.5 36-48 % Mean Corpuscular Volume 87.8 79-99 fL Mean Corpuscular Hemoglobin 29.5 27.0-33.0 pg Mean Corpuscular Hemoglobin Concent 33.6 32.0-36.0 g/dL Red Cell Distribution Width 17.1 H 11.0-15.5 % Platelet Count 168 130-400 K/uL Mean Platelet Volume 8.9 7.5-10.5 fL Immature Granulocyte % (Auto) 0.3 0-1 % Neutrophils (%) (Auto) 76.4 40.0-77.0 % Lymphocytes (%) (Auto) 15.4 L 21.0-51.0 % Monocytes (%) (Auto) 7.4 3.0-13.0 % Eosinophils (%) (Auto) 0.3 0.0-8.0 % Basophils (%) (Auto) 0.2 0.0-5.0 % Neutrophils # (Auto) 7.7 1.8-7.7 K/uL Lymphocytes # (Auto) 1.5 1.0-4.8 K/uL Monocytes # (Auto) 0.7 0.1-1.0 K/uL Eosinophils # (Auto) 0.03 0.00-0.70 K/uL Basophils # (Auto) 0.02 0.00-0.20 K/uL Absolute Immature Granulocyte (auto 0.03 0-1 K/uL Nucleated Red Blood Cells 0.0 0.0-0.19 % Chemistry Labs: Test 12/07/24 03:36 12/06/24 03:43 Range/Units Sodium Level 136 136-145 mmol/L Potassium Level 3.6 3.5-5.1 mmol/L Chloride Level 102 101-111 mmol/L Carbon Dioxide Level 25 21-32 mmol/L Blood Urea Nitrogen 17 7-18 mg/dL Creatinine 0.8 0.5-1.0 mg/dL Glomerular Filtration Rate Calc 71 >90 mL/min Random Glucose 126 H 70-105 mg/dL Total Calcium 8.8 8.5-10.1 mg/dL Magnesium Level 2.00 1.80-2.40 mg/dL Total Bilirubin 0.6 0.2-1.0 mg/dL Aspartate Amino Transf (AST/SGOT) 15 10-37 U/L Alanine Aminotransferase (ALT/SGPT) 14 # 12-78 U/L Alkaline Phosphatase 115 50-136 U/L Total Protein 6.5 6.0-8.3 g/dL Albumin 3.1 L 3.5-5.0 g/dL Phosphorus Level 3.1 2.5-4.9 mg/dL DIAGNOSTICS / RADIOLOGY: REASON: rule out PE ORDERING PHYSICIAN: YULIYA MONROY PROCEDURE: CHES PE - CT CHEST PE PROTOCOL WWO CONT CT angiogram chest CLINICAL INDICATION: rule out PE COMPARISON: None. CT Dose Index (CTDI): 113.50 mGy Dose Length Product (DLP): 1408.10 total mGy PROTOCOL: Contrast: 100 cc of Isovue-370, injected IV, no complications Examination is done at 2.5 millimeter volumetric acquisition after contrast administration. Photography is done at 5 millimeter thick intervals for the thorax. FINDINGS: There is no evidence of pulmonary embolism. The airway is intact. The trachea and major bronchi are unremarkable. No pulmonary infiltrates or mass lesions are seen. No pleural effusions are identified. The exam of the surya and mediastinum is unremarkable. No evidence of hilar enlargement is seen. Ectasia of the ascending thoracic aorta, maximum diameter 4 cm No significant brachiocephalic vascular abnormalities are seen. The heart is unremarkable. It is not enlarged. No significant coronary arterial calcifications are seen. There is no pericardial effusion. The rib cage appears unremarkable. The soft tissues of the chest wall are unremarkable. The dorsal spine shows no significant abnormalities. Limited evaluation of the upper abdomen demonstrates no gross abnormalities. IMPRESSION: No evidence of pulmonary embolism. Clear lungs. Ectasia ascending aorta. This study was performed using dose reduction techniques to include automated exposure control and/or adjustment of the mA and/or kV according to patient size. DICTATED BY: WILLIAM LEON MD DATE: 12/06/24 0839 REASON: dizziness ORDERING PHYSICIAN: MARKELL MAHMOOD MD PROCEDURE: CAROTID - US CAROTID DUPLEX Carotid Duplex and color-flow Doppler bilateral History: dizziness Comparison: None Findings: No significant plaque is identified on either side. Left Internal Carotid Artery Peak Systolic Velocity (PSV), Left Internal Carotid to Common Carotid Artery peak systolic velocity ratio, Right Internal Carotid Artery Peak Systolic Velocity (PSV) and Right Internal Carotid to Common Carotid Artery peak systolic velocity ratio, are all within normal limits. External carotid artery velocities normal bilaterally. Bilateral vertebral arteries show antegrade flow. Impression: Normal exam. NASCET CRITERIA. The degree of internal carotid artery stenosis is based on NASCET criteria. Normal is no stenosis. Mild is less than 50% stenosis. Moderate is 50-69% stenosis. Severe is 70% to 99% stenosis. Total occlusion is no detectable patent lumen. DICTATED BY: WILLIAM LEON MD DATE: 12/05/24 1537 REASON: nonsustained ventricular tachycardia ORDERING PHYSICIAN: MARAL SHERMAN MD PROCEDURE: ECHO CMP - ECHO 2-D COMPLETE APPROVED REPORT EXAM: Two-dimensional and M-mode echocardiogram with Doppler and color Doppler. INDICATION ICD: nonsustained ventricular tachycardia 2D Dimensions RVDd 3.3 cm LVEF(%) 67.8 (>50%) LVED Vol(simp.) 63.0 mL IVSd 1.4 (0.7-1.1cm) FS(%) 37 % LVES Vol(simp.) 21.0 mL LVDd 3.6 (3.8-5.6cm) LA (2D) 4.2 (1.6-4.0cm) LVEF(%, simp.) 67 % PWd 1.2 (0.7-1.1cm) Ao Root(2D) 2.7 (2.0-3.7cm) LA ESV INDEX (BP) 27.63 mL/m2 LVDs 2.3 (2.5-4.0cm) LVOT diam 1.8 (1.8-2.4cm) IVC diam 1.6 cm Deformation Strain Apical 4 -19.7 % Apical 2 -21.6 % Apical 3 -11.5 % Global Strain -17.6 % M-Mode Dimensions EPSS 0.3 cm LA (MM) 4.7 (1.6-4.0cm) Ao Root(MM) 2.6 (2.0-3.7cm) Aortic Valve AoV Vmax 1.3 m/s Ao Peak GR 6.8 mmHg LVOT Vmax 1.0 m/s AoV VTI 0.3 m Ao Mean GR 2.8 mmHg LVOT VTI 0.23 m KIMBER (VMAX) 1.99 cm2 Al P1/2T 797 ms KIMBER (VTI) 2.0 cm2 Mitral Valve MV E Vmax 88.7 cm/s DECEL Time 217 ms MV A Vmax 88.7 cm/s P 1/2 T 95 ms E/A ratio 1.0 MVA (PHT) 2.3 cm2 TDI E/E' Medial 12.0 E/E' Lateral 10.2 Medial E' Peak V 7.37 cm/s Lateral E' Peak V 8.66 cm/s Tricuspid Valve TR Vmax 2.9 m/s RVSP 30.7 mmHg TR Peak GR 36.5 mmHg Left Ventricle The left ventricle is normal size. Mild concentric left ventricular hypertrophy. LVEF is 65-70%. Indeterminate diastolic dysfunction. Right Ventricle The right ventricle is normal size. The right ventricular systolic function is normal. Atria The left atrium size is normal. The right atrium size is normal. Aortic Valve The aortic valve is normal in structure. Mild aortic regurgitation. There is no aortic valvular stenosis. Mitral Valve Mitral valve leaflets open well. Posterior leaflet is moderately calcified. Mitral regurgitation is mild. There is no mitral valve stenosis. Tricuspid Valve The tricuspid valve is normal in structure. There is mild tricuspid valve regurgitation noted. Pulmonic Valve The pulmonary valve is normal in structure. There is no pulmonic valvular regurgitation. Great Vessels The aortic root is normal in size. The IVC is normal in size and collapses >50% with inspiration. Pericardium There is no pericardial effusion. DICTATED BY: DELLA HARPER MD DATE: 12/04/24 0907 REASON: rule out D VT ORDERING PHYSICIAN: YULIYA MONROY PROCEDURE: VENOUS CECILIA - US VENOUS DOPPLER BILATERAL Exam Type: US VENOUS DOPPLER BILATERAL Clinical Information: rule out D VT Comparison: None Findings: The examination shows normal deep venous system. There is normal compressibility at all levels. There is no intraluminal clot. There is no occlusion. Adequate response is obtained on augmentation. Impression: No evidence of DVT. DICTATED BY: WILLIAM LEON MD DATE: 12/04/24 1238 REASON: chest pain ORDERING PHYSICIAN: MARAL SHERMAN MD PROCEDURE: CARD GERMANIA - NM LEXISCAN CARDIOLITE APPROVED REPORT Height: 5 ft 4in Weight: 125 lbs TEST INDICATIONS Chest Pain The imaging protocol used to acquire images was Rest Tc-99m/stress Tc-99m 1 day Consent: The procedure was explained and understood by the patient. Informerd consent was witnessed by Rashida Summers RN First, low dose rest was performed then high dose stress. RESTING DATA: The resting ekg shows: a-fib Rest SPECT myocardial perfusion imaging was performed in supine position minutes following the intravenous injection of 11.5 mCi of Tc-99 Sestamibi. Time of rest injection: 08:52: Date: 12/04/2024 PHARMACOLOGIC STRESS: Pharmacologic stress test was performed by injecting regadenoson 0.4 mg IV push followed by the intravenous injection of 27 mCi of Tc-99 Sestamibi. Time of stress injection: 11:05: Date: 12/04/2024 Heart Rate at time of stress injection: 66 bpm. Gated Stress SPECT was performed 60 minutes after stress injection. The images were gated to evaluate regional wall motion and calculate left ventricular ejection fraction. STRESS DETAILS Reason for Termination: Infusion complete Stress Symptoms: Dyspnea, Stomach Cramps Max HR Achieved: 84 bpm % of APMHR Achieved: 74 Max Blood Pressure: 137/56/ mmHg Stress ECG: a-fib Study quality was good. Lung uptake was Normal. Artifact: No artifact IMPRESSION Normal pharmacologic nuclear stress test. Conclusion Normal perfusion. TID 0.77. LVEF 42%. DICTATED BY: DELLA HARPER MD DATE: 12/04/24926 REASON: PNA ORDERING PHYSICIAN: BREANNA BARBER NP PROCEDURE: CXR1VW - CHEST 1VW Exam Type: CHEST 1VW Clinical Information: PNA Comparison: None Findings: Pulmonary pattern is as before. No worrisome interval changes have taken place. Impression: Stable exam. DICTATED BY: WILLIAM LEON MD DATE: 12/04/2437 REASON: picc line placement ORDERING PHYSICIAN: BREANNA BARBER NP PROCEDURE: CXR1VW - CHEST 1VW Exam Type: CHEST 1VW Clinical Information: picc line placement Comparison: None Findings: RightPICC line is noted with tip within the distal superior vena cava and there are no other interval changes. IMPRESSION: Right PICC line as noted. DICTATED BY: WILLIAM LEON MD DATE: 12/03/24 1648 REASON: abdominal pain, n/v ORDERING PHYSICIAN: HOLLY WAITE PANTOGRAPH WATCHER PROCEDURE: ABD PEL WO - CT ABDOMEN/PELVIS W/O CONTRAST CT ABDOMEN/PELVIS W/O CONTRAST HISTORY: Abdominal pain COMPARISON: None TECHNIQUE: Multiple sequential axial images of the abdomen and pelvis were obtained from the dome of the diaphragm through symphysis pubis. Patient was not given contrast through intravenous route. Oral contrast was not given. FINDINGS: No pleural effusion is seen bilaterally. Bibasilar linear atelectasis changes are seen. There is no evidence of parenchymal disease or pulmonary nodule of the visualized lower lungs. Degenerative changes of the thoracolumbar spine are present. The heart is not enlarged. Small hiatal hernia is seen. Compression fractures are seen involving L4 and L5 with vertebroplasty changes. The liver, spleen, adrenal glands and pancreas are unremarkable. There is no evidence of hydronephrosis bilaterally. No evidence of renal stone is seen. Fecal material is seen in the colon. There are normal size retroperitoneal and mesenteric lymph nodes. No ascites is seen. Atherosclerotic changes are present. There is diverticulosis. There are small bilateral inguinal hernias with fat content. No CT evidence of acute appendicitis is seen. Pelvic sidewalls are symmetric bilaterally. Bladder is poorly distended. IMPRESSION: 1. No definite bowel obstruction is seen. Small hiatal hernia. Diverticulosis. No ascites is seen. CT was performed with one or more following dose reduction techniques: automated exposure control, adjustment of the mA and kv according to patient's size, or use of a iterative reconstruction technique. DICTATED BY: TIFFANIE SCHAFFER MD DATE: 12/02/24 1326 REASON: cp ORDERING PHYSICIAN: HOLLY WAITE NP PROCEDURE: CXR1VW - CHEST 1VW CHEST 1VW HISTORY: Chest pain COMPARISON: None FINDINGS: A frontal projection of the chest was obtained. No acute pulmonary infiltrates is seen. The heart is borderline enlarged. Left humeral prosthesis is seen. Prominent interstitial markings are seen. No evidence of aortic calcification is seen. IMPRESSION: 1. No acute pulmonary infiltrate is seen. DICTATED BY: TIFFANIE SCHAFFER MD DATE: 12/02/24 7910 ASSESSMENT: Hyponatremia, A-fibb with RVR Atypical chest pain Epigastric abdominal pain with nausea and vomiting Leukocytosis History of CVA in 2023 History of L4-L5 compression fracture with recent history of vertebroplasty in 09/2024 Debility/frailty Prior history of MS in [place] in 09/2023, History of atrial fibrillation maintained on chronic anticoagulation with Eliquis History of outpatient use of opioids with hydrocodone Hyperlipidemia Parkinson's disease Urinary retention PLAN: Labs, diagnostic, radiologic exams reviewed and interpreted by myself and supervising physician. We have reviewed external records in detail Follow Cardiology recommendations Require close monitoring of renal function and electrolytes Order CBC, CMP, and electrolytes in am BiPAP as necessary, for respiratory distress Monitor blood pressure adjust medication doses as needed Avoid hypotensive episodes May use Dilaudid 0.5 mg IV every 6 hours as needed for severe pain Monitor blood sugars Strict intake, output, and daily weight should be monitored Please renally adjust medications Avoid nephrotoxic and nonsteroidal drugs Avoid contrast if possible Will continue to monitor renal function, anemia, electrolytes Treatment plan discussed with patient Questions were answered We have discussed with the other team physicians in detail about the care plan We will continue to monitor the patient closely ATTESTATION BY PHYSICIAN I have seen and examined the patient. I reviewed the documentation, medical decision making, and treatment plan as noted by the mid-level provider above. I agree with the findings and plan of care. EDER MESA MD, [facility] December 07, 2024 14:08
[2024-12-07] MEDS: PROPAFENONE HCL 150 MG TABLET PO SCH (14:29)
[2024-12-07 15:28] LABS: HIV 1&2 ANTIBODY Non-Reactive (Negative); HIV-1 p24 Antigen Non-Reactive (Negative)
--- NOTE | 2024-12-07 16:22 | CONS ---
GASTROENTEROLOGY CONSULTATION NOTE Date of Consultation: December 07, 2024 Time of Consultation: 16:22 History of Present Illness: This is an 89-year-old female with past medical history of hypertension, hyperlipidemia, CVA, compression fractures, atrial fibrillation on Eliquis, Parkinson's who presented due to epigastric pain and chest discomfort. She has been having poor oral intake. She is on Cardizem drip. Hemoglobin stable. CT abdomen on admission revealing small hiatal hernia and diverticulosis. She was seen today at bedside in no acute distress without abdominal pain. She does state that she has not had a bowel movement. She is requesting laxative. Review of Systems: CONSTITUTIONAL: No malaise or change in sensation of wellbeing. ENMT: No rhinorrhea, otorrhea, sinus pain, ear ache. CARDIOVASCULAR: No angina, palpitations, orthopnea or paroxysmal dyspnea. RESPIRATORY: No SOB. GASTROINTESTINAL: No abdominal pain, nausea, vomiting, diarrhea, hematemesis, melena or change in the patient's habitual bowel movements consistency/number. GENITOURINARY: No dysuria, hematuria or change in bladder continence. MUSCULOSKELETAL: No new muscle pain or decrease in muscular strength. No new joint swelling, redness or tenderness. SKIN: No new rash. Past Medical History: [ ] Past Surgical History: [ ] Past Social History: [ ] Family History: [ ] Coded Allergies: No Known Drug Allergies (Unverified Allergy, Unknown, 12/02/24) Physical Exam: GEN: Awake, alert, oriented in person, time and place, and in no acute distress. HEENT: No sinus tenderness. Tympanic membranes were not examined. No rhinorrhea. Oral pharyngeal mucosa is pink, moist and within normal limits. Neck is supple with no cervical lymphadenopathy, thyromegaly or JVD. CHEST: Inspection, palpation and percussion of the chest were unremarkable. Lung auscultation revealed normal breath sounds bilaterally. CARDIAC: PMI is within normal limits. Heart sounds are regular. Normal S1, S2. No gallop or murmur. ABD: Soft, non-tender and not distended. No peritoneal signs on palpation. No organomegaly. Normal bowel sounds. EXT: No cyanosis or clubbing. No edema. SKIN: Intact. No rashes. JOINTS: No evidence of synovitis or acute arthritis. NEURO: Alert and oriented to name, place and person. Cranial nerve examination is unremarkable. No focal motor deficits. Normal speech. Gait is normal. Strength is normal. Vital Sign (Last 24 Hours) 12/07/24 12/07/24 08:00 15:32 Temp 98.2 Pulse 68 Resp 18 B/P (MAP) 107/46 Pulse Ox 97 O2 Delivery Nasal Cannula O2 Flow Rate 2.0 FiO2 28 Intake & Output (last 24hrs) 12/06/24 12/06/24 12/07/24 15:00 23:00 07:00 Intake Total 100.0 ml 250.4 ml 240 ml Output Total 600 ml 400 ml Balance 100.0 ml -349.6 ml -160 ml Laboratory: [ ] Laboratory: Test 12/07/24 13:59 12/07/24 03:36 12/06/24 03:43 Range/Units HIV (1&2) Antibody Non-Reactive Negative HIV P24 Antigen, Qualitative Non-Reactive Negative White Blood Count 10.0 4.8-10.8 K/uL Red Blood Count 4.27 4.00-5.50 MIL/uL Hemoglobin 12.6 12.0-16.0 g/dL Hematocrit 37.5 36-48 % Mean Corpuscular Volume 87.8 79-99 fL Mean Corpuscular Hemoglobin 29.5 27.0-33.0 pg Mean Corpuscular Hemoglobin Concent 33.6 32.0-36.0 g/dL Red Cell Distribution Width 17.1 H 11.0-15.5 % Platelet Count 168 130-400 K/uL Mean Platelet Volume 8.9 7.5-10.5 fL Immature Granulocyte % (Auto) 0.3 0-1 % Neutrophils (%) (Auto) 76.4 40.0-77.0 % Lymphocytes (%) (Auto) 15.4 L 21.0-51.0 % Monocytes (%) (Auto) 7.4 3.0-13.0 % Eosinophils (%) (Auto) 0.3 0.0-8.0 % Basophils (%) (Auto) 0.2 0.0-5.0 % Neutrophils # (Auto) 7.7 1.8-7.7 K/uL Lymphocytes # (Auto) 1.5 1.0-4.8 K/uL Monocytes # (Auto) 0.7 0.1-1.0 K/uL Eosinophils # (Auto) 0.03 0.00-0.70 K/uL Basophils # (Auto) 0.02 0.00-0.20 K/uL Absolute Immature Granulocyte (auto 0.03 0-1 K/uL Nucleated Red Blood Cells 0.0 0.0-0.19 % Sodium Level 136 136-145 mmol/L Potassium Level 3.6 3.5-5.1 mmol/L Chloride Level 102 101-111 mmol/L Carbon Dioxide Level 25 21-32 mmol/L Blood Urea Nitrogen 17 7-18 mg/dL Creatinine 0.8 0.5-1.0 mg/dL Glomerular Filtration Rate Calc 71 >90 mL/min Random Glucose 126 H 70-105 mg/dL Total Calcium 8.8 8.5-10.1 mg/dL Magnesium Level 2.00 1.80-2.40 mg/dL Total Bilirubin 0.6 0.2-1.0 mg/dL Aspartate Amino Transf (AST/SGOT) 15 10-37 U/L Alanine Aminotransferase (ALT/SGPT) 14 # 12-78 U/L Alkaline Phosphatase 115 50-136 U/L Total Protein 6.5 6.0-8.3 g/dL Albumin 3.1 L 3.5-5.0 g/dL Phosphorus Level 3.1 2.5-4.9 mg/dL Current Medications Medications (Trade) Dose Ordered Sig/Mahnaz Route PRN Reason Start Time Stop Time Status Last Admin Dose Admin Acetaminophen (TYLenol 325MG TAB) 650 mg Q6H PRN PO MODERATE PAIN (4-6) 12/06/24 14:30 01/05/25 14:29 12/07/24 10:40 650 MG Acetaminophen (TYLenol 500MG TAB) 500 mg Q6H PRN PO MILD PAIN (1-3) 12/02/24 14:30 01/01/25 14:29 12/04/24 20:58 500 MG Adenosine (Adenocard 6mg Vial) 6 mg ONCE STAT IV 12/03/24 10:39 12/03/24 10:42 DC 12/03/24 11:06 6 MG Adenosine (Adenocard 6mg Vial) 6 mg ONCE STAT IV 12/03/24 10:44 12/03/24 10:45 DC Amiodarone HCl (pacERONE 200MG) 200 mg BID PO 12/06/24 21:00 12/07/24 13:04 DC 12/07/24 08:02 200 MG Amiodarone HCl 150 mg/Dextrose 100 ml @ 0 mls/hr PROTOCOL IV 12/06/24 07:30 12/06/24 07:24 DC Amiodarone HCl 150 mg/Dextrose 103 ml @ 618 mls/hr ONCE IV 12/03/24 11:00 12/03/24 11:03 DC Amiodarone HCl 360 mg/Dextrose 207.2 ml @ 33.3 mls/hr AD IV 12/03/24 11:00 12/03/24 11:03 DC Amiodarone HCl 540 mg/Dextrose 310.8 ml @ 16.7 mls/hr [id number] IV 12/04/24 15:00 12/06/24 18:53 DC 12/06/24 17:50 16.7 MLS/HR Amlodipine Besylate (NorvASC 5MG TAB) 5 mg DAILY PO 12/03/24 09:00 12/03/24 16:08 DC 12/03/24 09:54 5 MG Apixaban (EliquIS 2.5 mg) 2.5 mg BID PO 12/02/24 21:00 01/01/25 20:59 12/07/24 08:02 2.5 MG Atorvastatin Calcium (LIPItor 40MG) 40 mg HS PO 12/02/24 21:00 01/01/25 20:59 12/06/24 20:38 40 MG Carbidopa/Levodopa (Sinemet 25-100 Tab) 1 each TID PO 12/02/24 21:00 12/06/24 15:11 DC 12/06/24 13:45 1 EACH Carbidopa/Levodopa (Sinemet 25-100 Tab) 1 each TIDAC PO 12/06/24 17:00 01/05/25 16:59 12/07/24 12:50 1 EACH Ceftriaxone Sodium (ROCEphine 1G INJ) 1 gm Q24H IVPB 12/02/24 14:30 12/12/24 14:29 12/06/24 15:12 1 GM Diazepam (VALium 5 MG/ML 2 ML SYG) 5 mg Q4H PRN IV ANXIETY 12/04/24 09:30 12/04/24 09:29 DC Diltiazem HCl (CARDIzem 60MG TAB) 60 mg TID PO 12/06/24 08:30 01/05/25 08:29 12/07/24 14:29 60 MG Diltiazem HCl 125 mg/Sodium Chloride 125 ml @ 0 mls/hr PROTOCOL IV 12/07/24 09:00 01/06/25 08:59 12/07/24 08:53 5 MLS/HR Hydralazine HCl (APRESOLine 20MG INJ) 5 mg Q6H PRN IV ADMINISTER FOR SBP > 160 12/02/24 15:00 12/03/24 04:45 DC Hydralazine HCl (APRESOLine 20MG INJ) 10 mg Q2HPRN PRN IV ADMINISTER FOR SBP > 160 12/03/24 04:30 01/02/25 04:29 12/07/24 05:51 10 MG Hydromorphone HCl (DiLAUDid 0.5MG INJ) 0.2 mg Q6H PRN IVP SEVERE PAIN (7-10) 12/06/24 14:30 12/11/24 14:29 Hydromorphone HCl (DiLAUDid 0.5MG INJ) 0.5 mg Q6H PRN IVP SEVERE PAIN (7-10) 12/02/24 14:30 12/06/24 14:29 DC 12/06/24 06:37 0.5 MG Lidocaine (Lidocaine Patch 4%) 1 each DAILY TP 12/08/24 09:00 01/07/25 08:59 Methocarbamol (methoCARBamol) 500 mg TID PRN PO muscle cramps 12/02/24 15:30 01/01/25 15:29 12/07/24 10:39 500 MG Metoprolol Tartrate (loprESSOR) 25 mg BID PO 12/02/24 21:00 12/04/24 09:07 DC 12/03/24 21:17 25 MG Metoprolol Tartrate (loprESSOR) 50 mg BID PO 12/02/24 21:00 12/04/24 09:07 DC 12/03/24 22:17 50 MG Miscellaneous Medication (Metoprolol Tartrate ) 1 tab BID PO 12/02/24 21:00 12/02/24 15:32 DC Morphine Sulfate (morPHINE 2MG SYG) 2 mg ONCE STAT IVP 12/02/24 13:33 12/02/24 13:38 DC 12/02/24 13:39 2 MG Nitroglycerin (Nitrostat) 0.4 mg AD PRN SL CHEST PAIN 12/02/24 14:30 01/01/25 14:29 12/03/24 10:25 0.4 MG Ondansetron HCl (zoFRAN 4MG INJ) 4 mg ONCE STAT IVP 12/02/24 13:33 12/02/24 13:38 DC 12/02/24 13:39 4 MG Ondansetron HCl (zoFRAN 4MG INJ) 4 mg Q6H PRN IVP NAUSEA/VOMITING 12/02/24 14:30 01/01/25 14:29 Pantoprazole Sodium (PROTonix 40MG INJ) 40 mg BID IVP 12/03/24 21:00 01/01/25 14:29 12/07/24 08:02 40 MG Pantoprazole Sodium (PROTonix 40MG INJ) 40 mg Q24H IVP 12/02/24 14:30 12/03/24 09:37 DC 12/02/24 20:10 40 MG Potassium Chloride 100 ml @ 100 mls/hr AD PRN IV POTASSIUM PROTOCOL 12/07/24 12:00 01/06/25 11:59 Potassium Chloride (K-Dur/Klor-Con 20meq) 20 meq AD PRN PO POTASSIUM PROTOCOL 12/07/24 12:00 01/06/25 11:59 12/07/24 12:51 20 MEQ Potassium Chloride (KCl 10% Elixir 20meq/15ml) 20 meq AD PRN PO POTASSIUM PROTOCOL 12/07/24 12:00 01/06/25 11:59 Propafenone HCl (Rythmol) 150 mg Q8H PO 12/07/24 13:30 01/06/25 13:29 12/07/24 14:29 150 MG Sodium Chloride 1,000 ml @ 60 mls/hr [id number] IV 12/02/24 14:30 12/02/24 14:26 DC Sodium Chloride 1,000 ml @ 60 mls/hr [id number] IV 12/02/24 14:30 12/04/24 09:29 DC 12/04/24 00:16 60 MLS/HR Sodium Chloride 1,000 ml @ 1,000 mls/hr Q1H STAT IV 12/02/24 10:54 5/4/25 11:53 DC 12/02/24 10:54 1,000 MLS/HR Thiamine HCl (Vitamin B-1) 100 mg Q24H IVP 12/02/24 14:30 01/01/25 14:29 12/06/24 15:12 100 MG Trazodone HCl (DesyREL/OlepTRO) 50 mg HS PO 12/02/24 21:00 01/01/25 20:59 12/06/24 20:39 50 MG Diagnostics / Radiology: [COPY/PASTE HERE IF NO REPORTS PLEASE DELETE SECTION] Assessment: Abdominal pain, improved Constipation Atrial fibrillation on cardizem drip Plan: Patient is not a candidate for endoscopies given hemodynamic instability Will treat conservatively and start laxative for constipation Continue GI prophylaxis Advance diet as tolerated Avoid NSAIDs Antireflux measures Monitor H&H and transfuse as needed Call with questions, concerns or change in clinical status Patient to follow-up at clinic post discharge Thank you for this consult KAY VELASCO TAKER OFF December 07, 2024 16:22
[2024-12-07] MEDS: LIDOCAINE 4% ADH..PATCH TP ONE (17:46)
[2024-12-07] MEDS: hydroMORPHone 0.5 MG SYG (0.5MG/0.5ML) IVP PRN (17:52)
--- NOTE | 2024-12-07 18:45 | NUR ---
CARDIZEM GTT OFF
--- NOTE | 2024-12-07 20:25 | PN ---
[facility] PROGRESS NOTE Date Patient Seen: December 07, 2024 Time of Visit: 20:16 Supervising Physician:Beatriz Owusu MD Primary Care Physician: Dr. Caridad Iyer Outpatient Specialists: [ ] Inpatient Consults: [ ] PROBLEM LIST: Recurrent AFib with RVR On anticoagulation with Eliquis Atypical chest pain rule out ACS Acute hyponatremia POA now improved. Leukocytosis POA now resolved. Normal Lexiscan Cardiolite stress test 12/03/24 Hypertension. Hyperlipidemia. Parkinson's disease. Severe Protein calorie malnutrition. History of opioid use with hydrocodone Unremarkable echocardiogram W/ EF 65-70% and mild mitral valve regurgitation on 2D echo 12/04/24 suspected mild pulmonary HTN RVSP 30.7 mmHg Hx of ventricular tachycardia s/p ablation in 1990 INTERVAL HISTORY: Per RN pt had converted to DR yesterday at approximate 1500 but this morning pt reverted to Afib with RVR in the 160's to 170's again and was started on c ardizem gtt per cardiology team. She has been started on propafenone 150 mg every 8 hours per per EP recommendation. Pt only complain is that of left side neck pain. As per pt she has been having the pain for a few days. there is no palpable abnormality or lymphadenopathy. Lidocaine patch ordered for pain. she reports it is a 4/10 at this time. Lab work unremarkable. We will contonue to follow cardiology recs. REVIEW OF SYSTEMS: Const: [no fever, fatigue, or weight changes] Eyes:[ no recent vision problems] ENT: [No congestion, ear pain, or sore throat] C/V: [no chest pain, palpitations or edema] Resp: [No cough, congestion, wheezing , or Shortness of breath] GI: [No abdominal pain, nausea, vomiting, constipation, or diarrhea] : [No incontinence of or dyuria] M/S: yes to involuntary tremors 2/2 [parkinson's disease and neck pain. Skin: [No rash] Neuro: [no headache, focal numbness, or weakness, dizziness or seizures] Psych: [no depression or anxiety] Heme: [no abnormal bruising or bleeding] Lymph: [no swollen glands] PHYSICAL EXAM: GENERAL: Alert, weak, awake oriented x 3 HEENT: EOMI, Sclera non icteric, moist mucosa NECK: Supple, no JVD, trachea midline LUNGS: Clear breath sounds bilaterally. No wheezes HEART: Regular rate and rhythm. Normal S1 and S2, without murmurs ABD: Abdomen soft, nontender. Bowel sounds present EXT: + parkinon tremors. No clubbing cyanosis or edema NEURO: Alert and oriented to person, follows commands Vital Signs (last 8hr) Date Time Temp Pulse Resp B/P (MAP) Pulse Ox O2 Delivery O2 Flow Rate FiO2 12/07/24 20:04 98.2 72 18 142/76 99 Nasal Cannula 12/07/24 15:32 98.2 68 18 107/46 97 Nasal Cannula 2.0 LABS: Hematology Labs: Test 12/07/24 03:36 Range/Units White Blood Count 10.0 4.8-10.8 K/uL Red Blood Count 4.27 4.00-5.50 MIL/uL Hemoglobin 12.6 12.0-16.0 g/dL Hematocrit 37.5 36-48 % Mean Corpuscular Volume 87.8 79-99 fL Mean Corpuscular Hemoglobin 29.5 27.0-33.0 pg Mean Corpuscular Hemoglobin Concent 33.6 32.0-36.0 g/dL Red Cell Distribution Width 17.1 H 11.0-15.5 % Platelet Count 168 130-400 K/uL Mean Platelet Volume 8.9 7.5-10.5 fL Immature Granulocyte % (Auto) 0.3 0-1 % Neutrophils (%) (Auto) 76.4 40.0-77.0 % Lymphocytes (%) (Auto) 15.4 L 21.0-51.0 % Monocytes (%) (Auto) 7.4 3.0-13.0 % Eosinophils (%) (Auto) 0.3 0.0-8.0 % Basophils (%) (Auto) 0.2 0.0-5.0 % Neutrophils # (Auto) 7.7 1.8-7.7 K/uL Lymphocytes # (Auto) 1.5 1.0-4.8 K/uL Monocytes # (Auto) 0.7 0.1-1.0 K/uL Eosinophils # (Auto) 0.03 0.00-0.70 K/uL Basophils # (Auto) 0.02 0.00-0.20 K/uL Absolute Immature Granulocyte (auto 0.03 0-1 K/uL Nucleated Red Blood Cells 0.0 0.0-0.19 % Chemistry Labs: Test 12/07/24 03:36 12/06/24 03:43 Range/Units Sodium Level 136 136-145 mmol/L Potassium Level 3.6 3.5-5.1 mmol/L Chloride Level 102 101-111 mmol/L Carbon Dioxide Level 25 21-32 mmol/L Blood Urea Nitrogen 17 7-18 mg/dL Creatinine 0.8 0.5-1.0 mg/dL Glomerular Filtration Rate Calc 71 >90 mL/min Random Glucose 126 H 70-105 mg/dL Total Calcium 8.8 8.5-10.1 mg/dL Magnesium Level 2.00 1.80-2.40 mg/dL Total Bilirubin 0.6 0.2-1.0 mg/dL Aspartate Amino Transf (AST/SGOT) 15 10-37 U/L Alanine Aminotransferase (ALT/SGPT) 14 # 12-78 U/L Alkaline Phosphatase 115 50-136 U/L Total Protein 6.5 6.0-8.3 g/dL Albumin 3.1 L 3.5-5.0 g/dL Phosphorus Level 3.1 2.5-4.9 mg/dL DIAGNOSTICS / RADIOLOGY RESULTS: [ ] PLAN Follow cardiology recommendations on Cardizem gtt per cardiology recs. Continue anticoagulation with eliquis 2.5mg po BID per cardiology recs. Continue cardiac monitoring CTA negative for PE Maintain O2 sats above 92% NEURO: Minimize central acting medications as possible. Maintain fall precautions, adequate lighting during the day PULMONARY: Supplemental 02 as needed. Maintain aspiration precautions at all times CARDIOVASCULAR: Follow hemodynamics. Vital signs per facility protocol GI & NUTRITION: Continue with nutritional support. Continue stool softeners and laxatives as needed. KIDNEYS & ELECTROLYTES: Strict monitoring of intake, output and overall fluid balance. Avoid nephrotoxic medications to the extent possible. Medications to be dosed according to renal function. Monitor electrolytes and replace as needed ENDOCRINE: Maintain blood glucose between 100-180 at all times. Hypoglycemia protocol in place INFECTIOUS DISEASE: Trend temperature, WBC and procalcitonin level Follow cultures, deescalate antibiotics as soon as possible. Panculture if new onset fever ONCOLOGY/HEMATOLOGY/COAGULATION: Monitor for s/s of bleeding Monitor hemoglobin, coagulation studies as needed SKIN: Pressure ulcer prevention per facility protocol Specialty mattress ORTHO/REHAB: Continue PT/OT Prophylaxis: Continue GI and DVT prophylaxis Code Status: Full Resuscitation Disposition: TBD Other: Total patient care time exceeds 35 minutes excluding all procedures. YULIYA MONROY [facility] December 07, 2024 20:25
[2024-12-07] MEDS: PoTASSium chl 10% ELIXIR 20MEQ 20 MEQ/15 ML UDCUP PO PRN (21:19)
[2024-12-07] MEDS: ondanSETRON 4MG INJ IVP PRN (21:35)
[2024-12-08] VITALS (10 sets, daily range): BP systolic 117–154; BP diastolic 53–76; PULSE 66–102; RESP 18; TEMP 97.5–98.8; O2SAT 97
[2024-12-08 04:56] LABS: MEAN CORPUSCULAR HEMOGLOBIN 29.5 pg (27.0-33.0); MEAN CORPUSCULAR HGB CONC 33.5 g/dL (32.0-36.0); MEAN CORPUSCULAR VOLUME 88.1 fL (79-99); RED BLOOD CELL COUNT(AUTO) 4.2 MIL/uL (4.00-5.50); RED CELL DISTRIBUTION WIDTH 17.4 % (11.0-15.5); WHITE BLOOD COUNT (AUTO) 11.6 K/uL (4.8-10.8)
[2024-12-08 05:30] LABS: CREATININE 0.7 mg/dL (0.5-1.0); POTASSIUM 4.3 mmol/L (3.5-5.1)
[2024-12-08] MEDS: polyETHYLene GLYCol 3350 17 GM POWD.PACK PO SCH (09:50)
[2024-12-08] MEDS: LIDOCAINE 4% ADH..PATCH TP SCH (09:51)
--- NOTE | 2024-12-08 10:12 | PN ---
NEPHROLOGY PROGRESS NOTE Date/Time Patient Seen: December 08, 2024 SUBJECTIVE: This is an 89-year-old who has a history of coronary artery disease, CVA, hypertension, hyperlipidemia, back pain with compression fracture needing vertebroplasty, history of atrial fibrillation and Parkinson's disease. The patient is admitted with chest pain and abdominal pain. The patient is having some nausea and vomiting also and the patient has poor oral intake and has multiple other comorbidities. The patient has leukocytosis and now very low sodium and electrolyte problem. Renal function and electrolytes are stable. Cardiology workup is ongoing Complaining of back pain Family at the bedside Condition is critical and guarded REVIEW OF SYSTEMS: GENERAL: Negative for any nausea, vomiting, fevers, chills, or weight loss. NEUROLOGIC: Negative for any blurry vision, blind spots, double vision, facial asymmetry, dysphagia, dysarthria, hemiparesis, hemisensory deficits, vertigo, ataxia. HEENT: Negative for any head trauma, neck trauma, neck stiffness, photophobia, phonophobia, sinusitis, rhinitis. CARDIAC: Negative for any chest pain, dyspnea on exertion, paroxysmal nocturnal dyspnea, peripheral edema. PULMONARY: Negative for any shortness of breath, wheezing, COPD, or TB exposure. GASTROINTESTINAL: Negative for any abdominal pain, nausea, vomiting, bright red blood per rectum, melena. GENITOURINARY: Negative for any dysuria, hematuria, incontinence. INTEGUMENTARY: Negative for any rashes, cuts, insect bites. RHEUMATOLOGIC: Negative for any joint pains, photosensitive rashes, history of vasculitis or kidney problems. HEMATOLOGIC: Negative for any abnormal bruising, frequent infections or bleeding. Vital Signs (last 8hr) Date Time Temp Pulse Resp B/P (MAP) Pulse Ox O2 Delivery O2 Flow Rate FiO2 12/03/24 11:44 101 22 104/58 99 Nasal Cannula 4.0 12/03/24 11:29 110 23 117/59 100 Nasal Cannula 4.0 12/03/24 11:14 128 31 134/78 100 Nasal Cannula 4.0 12/03/24 11:06 150 122/88 12/03/24 10:44 98.8 129 26 122/88 99 Nasal Cannula 4.0 12/03/24 10:34 145 19 107/64 99 Nasal Cannula 4.0 12/03/24 10:27 179 12/03/24 10:12 161 28 N/Cannula Low lpm 4.0 12/03/24 09:54 96 Room Air* 0 21 12/03/24 07:40 98.1 63 19 140/67 95 Room Air 12/03/24 06:44 73 140/66 PHYSICAL EXAM: GENERAL: Alert and oriented x 3. No acute distress. Well-nourished. EYES: EOMI. Anicteric. HENT: Moist mucous membranes. No scleral icterus. No cervical lymphadenopathy. LUNGS: Clear to auscultation bilaterally. No accessory muscle use. CARDIOVASCULAR: Regular rate and rhythm. No murmur. No JVD. ABDOMEN: Soft, non-tender and non-distended. No palpable masses. EXTREMITIES: No edema. Non-tender.?SKIN: No rashes or lesions. Warm. NEUROLOGIC: No focal neurological deficits. CN II-XII grossly intact, but not individually tested. PSYCHIATRIC: Cooperative. Appropriate mood and affect. Current Medications Medications (Trade) Dose Ordered Sig/Mahnaz Route PRN Reason Start Time Stop Time Status Last Admin Dose Admin Acetaminophen (TYLenol 500MG TAB) 500 mg Q6H PRN PO MILD PAIN (1-3) 12/02/24 14:30 01/01/25 14:29 12/02/24 17:02 500 MG Adenosine (Adenocard 6mg Vial) 6 mg ONCE STAT IV 12/03/24 10:39 12/03/24 10:42 DC 12/03/24 11:06 6 MG Adenosine (Adenocard 6mg Vial) 6 mg ONCE STAT IV 12/03/24 10:44 12/03/24 10:45 DC Amiodarone HCl 150 mg/Dextrose 103 ml @ 618 mls/hr ONCE IV 12/03/24 11:00 12/03/24 11:03 DC Amiodarone HCl 360 mg/Dextrose 207.2 ml @ 33.3 mls/hr AD IV 12/03/24 11:00 12/03/24 11:03 DC Amlodipine Besylate (NorvASC 5MG TAB) 5 mg DAILY PO 12/03/24 09:00 01/02/25 08:59 12/03/24 09:54 5 MG Apixaban (EliquIS 2.5 mg) 2.5 mg BID PO 12/02/24 21:00 01/01/25 20:59 12/03/24 09:54 2.5 MG Atorvastatin Calcium (LIPItor 40MG) 40 mg HS PO 12/02/24 21:00 01/01/25 20:59 12/02/24 20:07 40 MG Carbidopa/Levodopa (Sinemet 25-100 Tab) 1 each TID PO 12/02/24 21:00 01/01/25 20:59 12/03/24 09:54 1 EACH Ceftriaxone Sodium (ROCEphine 1G INJ) 1 gm Q24H IVPB 12/02/24 14:30 12/12/24 14:29 12/02/24 20:06 1 GM Hydralazine HCl (APRESOLine 20MG INJ) 5 mg Q6H PRN IV ADMINISTER FOR SBP > 160 12/02/24 15:00 12/03/24 04:45 DC Hydralazine HCl (APRESOLine 20MG INJ) 10 mg Q2HPRN PRN IV ADMINISTER FOR SBP > 160 12/03/24 04:30 01/02/25 04:29 12/03/24 05:10 10 MG Hydromorphone HCl (DiLAUDid 0.5MG INJ) 0.5 mg Q6H PRN IVP SEVERE PAIN (7-10) 12/02/24 14:30 12/07/24 14:29 Methocarbamol (methoCARBamol) 500 mg TID PRN PO muscle cramps 12/02/24 15:30 01/01/25 15:29 Metoprolol Tartrate (loprESSOR) 25 mg BID PO 12/02/24 21:00 01/01/25 20:59 12/03/24 09:54 25 MG Metoprolol Tartrate (loprESSOR) 50 mg BID PO 12/02/24 21:00 01/01/25 20:59 12/03/24 12:24 50 MG Miscellaneous Medication (Metoprolol Tartrate ) 1 tab BID PO 12/02/24 21:00 12/02/24 15:32 DC Morphine Sulfate (morPHINE 2MG SYG) 2 mg ONCE STAT IVP 12/02/24 13:33 12/02/24 13:38 DC 12/02/24 13:39 2 MG Nitroglycerin (Nitrostat) 0.4 mg AD PRN SL CHEST PAIN 12/02/24 14:30 01/01/25 14:29 12/03/24 10:25 0.4 MG Ondansetron HCl (zoFRAN 4MG INJ) 4 mg ONCE STAT IVP 12/02/24 13:33 12/02/24 13:38 DC 12/02/24 13:39 4 MG Ondansetron HCl (zoFRAN 4MG INJ) 4 mg Q6H PRN IVP NAUSEA/VOMITING 12/02/24 14:30 01/01/25 14:29 Pantoprazole Sodium (PROTonix 40MG INJ) 40 mg BID IVP 12/03/24 21:00 01/01/25 14:29 Pantoprazole Sodium (PROTonix 40MG INJ) 40 mg Q24H IVP 12/02/24 14:30 12/03/24 09:37 DC 12/02/24 20:10 40 MG Sodium Chloride 1,000 ml @ 60 mls/hr [id number] IV 12/02/24 14:30 12/02/24 14:26 DC Sodium Chloride 1,000 ml @ 60 mls/hr [id number] IV 12/02/24 14:30 01/01/25 14:29 12/02/24 18:12 60 MLS/HR Sodium Chloride 1,000 ml @ 1,000 mls/hr Q1H STAT IV 12/02/24 10:54 12/02/24 11:53 DC 12/02/24 10:54 1,000 MLS/HR Thiamine HCl (Vitamin B-1) 100 mg Q24H IVP 12/02/24 14:30 01/01/25 14:29 12/02/24 20:07 100 MG Trazodone HCl (DesyREL/OlepTRO) 50 mg HS PO 12/02/24 21:00 01/01/25 20:59 12/02/24 20:06 50 MG LABORATORY: [ ] Hematology Labs: Test 12/08/24 03:51 12/07/24 03:36 Range/Units White Blood Count 11.6 H 4.8-10.8 K/uL Red Blood Count 4.20 4.00-5.50 MIL/uL Hemoglobin 12.4 12.0-16.0 g/dL Hematocrit 37.0 36-48 % Mean Corpuscular Volume 88.1 79-99 fL Mean Corpuscular Hemoglobin 29.5 27.0-33.0 pg Mean Corpuscular Hemoglobin Concent 33.5 32.0-36.0 g/dL Red Cell Distribution Width 17.4 H 11.0-15.5 % Platelet Count 179 130-400 K/uL Mean Platelet Volume 9.5 7.5-10.5 fL Nucleated Red Blood Cells 0.0 0.0-0.19 % Immature Granulocyte % (Auto) 0.3 0-1 % Neutrophils (%) (Auto) 76.4 40.0-77.0 % Lymphocytes (%) (Auto) 15.4 L 21.0-51.0 % Monocytes (%) (Auto) 7.4 3.0-13.0 % Eosinophils (%) (Auto) 0.3 0.0-8.0 % Basophils (%) (Auto) 0.2 0.0-5.0 % Neutrophils # (Auto) 7.7 1.8-7.7 K/uL Lymphocytes # (Auto) 1.5 1.0-4.8 K/uL Monocytes # (Auto) 0.7 0.1-1.0 K/uL Eosinophils # (Auto) 0.03 0.00-0.70 K/uL Basophils # (Auto) 0.02 0.00-0.20 K/uL Absolute Immature Granulocyte (auto 0.03 0-1 K/uL Chemistry Labs: Test 12/08/24 03:51 12/07/24 03:36 Range/Units Sodium Level 137 136-145 mmol/L Potassium Level 4.3 3.5-5.1 mmol/L Chloride Level 103 101-111 mmol/L Carbon Dioxide Level 26 21-32 mmol/L Blood Urea Nitrogen 20 H 7-18 mg/dL Creatinine 0.7 0.5-1.0 mg/dL Glomerular Filtration Rate Calc 84 >90 mL/min Random Glucose 132 H 70-105 mg/dL Total Calcium 8.8 8.5-10.1 mg/dL Magnesium Level 2.00 1.80-2.40 mg/dL Total Bilirubin 0.6 0.2-1.0 mg/dL Aspartate Amino Transf (AST/SGOT) 15 10-37 U/L Alanine Aminotransferase (ALT/SGPT) 14 # 12-78 U/L Alkaline Phosphatase 115 50-136 U/L Total Protein 6.5 6.0-8.3 g/dL Albumin 3.1 L 3.5-5.0 g/dL DIAGNOSTICS / RADIOLOGY: REASON: rule out PE ORDERING PHYSICIAN: YULIYA MONROY PROCEDURE: CHES PE - CT CHEST PE PROTOCOL WWO CONT CT angiogram chest CLINICAL INDICATION: rule out PE COMPARISON: None. CT Dose Index (CTDI): 113.50 mGy Dose Length Product (DLP): 1408.10 total mGy PROTOCOL: Contrast: 100 cc of Isovue-370, injected IV, no complications Examination is done at 2.5 millimeter volumetric acquisition after contrast administration. Photography is done at 5 millimeter thick intervals for the thorax. FINDINGS: There is no evidence of pulmonary embolism. The airway is intact. The trachea and major bronchi are unremarkable. No pulmonary infiltrates or mass lesions are seen. No pleural effusions are identified. The exam of the surya and mediastinum is unremarkable. No evidence of hilar enlargement is seen. Ectasia of the ascending thoracic aorta, maximum diameter 4 cm No significant brachiocephalic vascular abnormalities are seen. The heart is unremarkable. It is not enlarged. No significant coronary arterial calcifications are seen. There is no pericardial effusion. The rib cage appears unremarkable. The soft tissues of the chest wall are unremarkable. The dorsal spine shows no significant abnormalities. Limited evaluation of the upper abdomen demonstrates no gross abnormalities. IMPRESSION: No evidence of pulmonary embolism. Clear lungs. Ectasia ascending aorta. This study was performed using dose reduction techniques to include automated exposure control and/or adjustment of the mA and/or kV according to patient size. DICTATED BY: WILLIAM LEON MD DATE: 12/06/24 0839 REASON: dizziness ORDERING PHYSICIAN: MARKELL MAHMOOD MD PROCEDURE: CAROTID - US CAROTID DUPLEX Carotid Duplex and color-flow Doppler bilateral History: dizziness Comparison: None Findings: No significant plaque is identified on either side. Left Internal Carotid Artery Peak Systolic Velocity (PSV), Left Internal Carotid to Common Carotid Artery peak systolic velocity ratio, Right Internal Carotid Artery Peak Systolic Velocity (PSV) and Right Internal Carotid to Common Carotid Artery peak systolic velocity ratio, are all within normal limits. External carotid artery velocities normal bilaterally. Bilateral vertebral arteries show antegrade flow. Impression: Normal exam. NASCET CRITERIA. The degree of internal carotid artery stenosis is based on NASCET criteria. Normal is no stenosis. Mild is less than 50% stenosis. Moderate is 50-69% stenosis. Severe is 70% to 99% stenosis. Total occlusion is no detectable patent lumen. DICTATED BY: WILLIAM LEON MD DATE: 12/05/24 3670 REASON: nonsustained ventricular tachycardia ORDERING PHYSICIAN: MARAL SHERMAN MD PROCEDURE: ECHO CMP - ECHO 2-D COMPLETE APPROVED REPORT EXAM: Two-dimensional and M-mode echocardiogram with Doppler and color Doppler. INDICATION ICD: nonsustained ventricular tachycardia 2D Dimensions RVDd 3.3 cm LVEF(%) 67.8 (>50%) LVED Vol(simp.) 63.0 mL IVSd 1.4 (0.7-1.1cm) FS(%) 37 % LVES Vol(simp.) 21.0 mL LVDd 3.6 (3.8-5.6cm) LA (2D) 4.2 (1.6-4.0cm) LVEF(%, simp.) 67 % PWd 1.2 (0.7-1.1cm) Ao Root(2D) 2.7 (2.0-3.7cm) LA ESV INDEX (BP) 27.63 mL/m2 LVDs 2.3 (2.5-4.0cm) LVOT diam 1.8 (1.8-2.4cm) IVC diam 1.6 cm Deformation Strain Apical 4 -19.7 % Apical 2 -21.6 % Apical 3 -11.5 % Global Strain -17.6 % M-Mode Dimensions EPSS 0.3 cm LA (MM) 4.7 (1.6-4.0cm) Ao Root(MM) 2.6 (2.0-3.7cm) Aortic Valve AoV Vmax 1.3 m/s Ao Peak GR 6.8 mmHg LVOT Vmax 1.0 m/s AoV VTI 0.3 m Ao Mean GR 2.8 mmHg LVOT VTI 0.23 m KIMBER (VMAX) 1.99 cm2 Al P1/2T 797 ms KIMBER (VTI) 2.0 cm2 Mitral Valve MV E Vmax 88.7 cm/s DECEL Time 217 ms MV A Vmax 88.7 cm/s P 1/2 T 95 ms E/A ratio 1.0 MVA (PHT) 2.3 cm2 TDI E/E' Medial 12.0 E/E' Lateral 10.2 Medial E' Peak V 7.37 cm/s Lateral E' Peak V 8.66 cm/s Tricuspid Valve TR Vmax 2.9 m/s RVSP 30.7 mmHg TR Peak GR 36.5 mmHg Left Ventricle The left ventricle is normal size. Mild concentric left ventricular hypertrophy. LVEF is 65-70%. Indeterminate diastolic dysfunction. Right Ventricle The right ventricle is normal size. The right ventricular systolic function is normal. Atria The left atrium size is normal. The right atrium size is normal. Aortic Valve The aortic valve is normal in structure. Mild aortic regurgitation. There is no aortic valvular stenosis. Mitral Valve Mitral valve leaflets open well. Posterior leaflet is moderately calcified. Mitral regurgitation is mild. There is no mitral valve stenosis. Tricuspid Valve The tricuspid valve is normal in structure. There is mild tricuspid valve regurgitation noted. Pulmonic Valve The pulmonary valve is normal in structure. There is no pulmonic valvular regurgitation. Great Vessels The aortic root is normal in size. The IVC is normal in size and collapses >50% with inspiration. Pericardium There is no pericardial effusion. DICTATED BY: DELLA HARPER MD DATE: 12/04/24 0907 REASON: rule out D VT ORDERING PHYSICIAN: YULIYA MONROY PROCEDURE: VENOUS CECILIA - US VENOUS DOPPLER BILATERAL Exam Type: US VENOUS DOPPLER BILATERAL Clinical Information: rule out D VT Comparison: None Findings: The examination shows normal deep venous system. There is normal compressibility at all levels. There is no intraluminal clot. There is no occlusion. Adequate response is obtained on augmentation. Impression: No evidence of DVT. DICTATED BY: WILLIAM LEON MD DATE: 12/04/24 1238 REASON: chest pain ORDERING PHYSICIAN: MARAL SHERMAN MD PROCEDURE: CARD GERMANIA - NM LEXISCAN CARDIOLITE APPROVED REPORT Height: 5 ft 4in Weight: 125 lbs TEST INDICATIONS Chest Pain The imaging protocol used to acquire images was Rest Tc-99m/stress Tc-99m 1 day Consent: The procedure was explained and understood by the patient. Informerd consent was witnessed by Rashida Summers RN First, low dose rest was performed then high dose stress. RESTING DATA: The resting ekg shows: a-fib Rest SPECT myocardial perfusion imaging was performed in supine position minutes following the intravenous injection of 11.5 mCi of Tc-99 Sestamibi. Time of rest injection: 08:52: Date: 12/04/2024 PHARMACOLOGIC STRESS: Pharmacologic stress test was performed by injecting regadenoson 0.4 mg IV push followed by the intravenous injection of 27 mCi of Tc-99 Sestamibi. Time of stress injection: 11:05: Date: 12/04/2024 Heart Rate at time of stress injection: 66 bpm. Gated Stress SPECT was performed 60 minutes after stress injection. The images were gated to evaluate regional wall motion and calculate left ventricular ejection fraction. STRESS DETAILS Reason for Termination: Infusion complete Stress Symptoms: Dyspnea, Stomach Cramps Max HR Achieved: 84 bpm % of APMHR Achieved: 74 Max Blood Pressure: 137/56/ mmHg Stress ECG: a-fib Study quality was good. Lung uptake was Normal. Artifact: No artifact IMPRESSION Normal pharmacologic nuclear stress test. Conclusion Normal perfusion. TID 0.77. LVEF 42%. DICTATED BY: DELLA HARPER MD DATE: 12/04/24926 REASON: PNA ORDERING PHYSICIAN: BREANNA BARBER NP PROCEDURE: CXR1VW - CHEST 1VW Exam Type: CHEST 1VW Clinical Information: PNA Comparison: None Findings: Pulmonary pattern is as before. No worrisome interval changes have taken place. Impression: Stable exam. DICTATED BY: WILLIAM LEON MD DATE: 12/04/2437 REASON: picc line placement ORDERING PHYSICIAN: BREANNA BARBER NP PROCEDURE: CXR1VW - CHEST 1VW Exam Type: CHEST 1VW Clinical Information: picc line placement Comparison: None Findings: RightPICC line is noted with tip within the distal superior vena cava and there are no other interval changes. IMPRESSION: Right PICC line as noted. DICTATED BY: WILLIAM LEON MD DATE: 12/03/24 1646 REASON: abdominal pain, n/v ORDERING PHYSICIAN: HOLLY WAITE NP PROCEDURE: ABD PEL WO - CT ABDOMEN/PELVIS W/O CONTRAST CT ABDOMEN/PELVIS W/O CONTRAST HISTORY: Abdominal pain COMPARISON: None TECHNIQUE: Multiple sequential axial images of the abdomen and pelvis were obtained from the dome of the diaphragm through symphysis pubis. Patient was not given contrast through intravenous route. Oral contrast was not given. FINDINGS: No pleural effusion is seen bilaterally. Bibasilar linear atelectasis changes are seen. There is no evidence of parenchymal disease or pulmonary nodule of the visualized lower lungs. Degenerative changes of the thoracolumbar spine are present. The heart is not enlarged. Small hiatal hernia is seen. Compression fractures are seen involving L4 and L5 with vertebroplasty changes. The liver, spleen, adrenal glands and pancreas are unremarkable. There is no evidence of hydronephrosis bilaterally. No evidence of renal stone is seen. Fecal material is seen in the colon. There are normal size retroperitoneal and mesenteric lymph nodes. No ascites is seen. Atherosclerotic changes are present. There is diverticulosis. There are small bilateral inguinal hernias with fat content. No CT evidence of acute appendicitis is seen. Pelvic sidewalls are symmetric bilaterally. Bladder is poorly distended. IMPRESSION: 1. No definite bowel obstruction is seen. Small hiatal hernia. Diverticulosis. No ascites is seen. CT was performed with one or more following dose reduction techniques: automated exposure control, adjustment of the mA and kv according to patient's size, or use of a iterative reconstruction technique. DICTATED BY: TIFFANIE SCHAFFER MD DATE: 12/02/24 1326 REASON: cp ORDERING PHYSICIAN: HOLLY WAITE NP PROCEDURE: CXR1VW - CHEST 1VW CHEST 1VW HISTORY: Chest pain COMPARISON: None FINDINGS: A frontal projection of the chest was obtained. No acute pulmonary infiltrates is seen. The heart is borderline enlarged. Left humeral prosthesis is seen. Prominent interstitial markings are seen. No evidence of aortic calcification is seen. IMPRESSION: 1. No acute pulmonary infiltrate is seen. DICTATED BY: TIFFANIE SCHAFFER MD DATE: 12/02/24 7281 ASSESSMENT: Hyponatremia, A-fibb with RVR Atypical chest pain Epigastric abdominal pain with nausea and vomiting Leukocytosis History of CVA in 2023 History of L4-L5 compression fracture with recent history of vertebroplasty in 09/2024 Debility/frailty Prior history of IA in [place] in 09/2023, History of atrial fibrillation maintained on chronic anticoagulation with Eliquis History of outpatient use of opioids with hydrocodone Hyperlipidemia Parkinson's disease Urinary retention PLAN: Labs, diagnostic, radiologic exams reviewed and interpreted by myself and superv [facility] physician. We have reviewed external records in detail Require close monitoring of renal function and electrolytes Order CBC, CMP, and electrolytes in am BiPAP as necessary, for respiratory distress Monitor blood pressure adjust medication doses as needed Avoid hypotensive episodes May use Dilaudid 0.5 mg IV every 6 hours as needed for severe pain Monitor blood sugars Strict intake, output, and daily weight should be monitored Please renally adjust medications Avoid nephrotoxic and nonsteroidal drugs Avoid contrast if possible Will continue to monitor renal function, anemia, electrolytes Treatment plan discussed with patient Questions were answered We have discussed with the other team physicians in detail about the care plan We will continue to monitor the patient closely ATTESTATION BY PHYSICIAN I have seen and examined the patient. I reviewed the documentation, medical decision making, and treatment plan as noted by the mid-level provider above. I agree with the findings and plan of care. EDER MESA MD, [facility] December 08, 2024 10:12
--- NOTE | 2024-12-08 12:49 | PN ---
[facility] PROGRESS NOTE Date of Service: December 08, 2024 Time of Service: 12:47 SUBJECTIVE: [ ] This is a 89-year-old female with underlying history of hypertension, hyperlipidemia, per daughter, prior history of CA in [place] in 09/2023, history of CVA, recent history of compression fractures involving L4 and L5 status post vertebroplasty in [facility], history of atrial fibrillation maintained on chronic anticoagulation with Eliquis, Parkinson's disease who presented to the ER with chief complaint of epigastric pain with midsternal chest discomfort, poor oral intake ongoing since last night. 12/03/24 during my rounds patient was complaining of chest pain states 05/10. Patient was placed on oxygen in given x1 morphine. Patient is retaining urine bladder scan showed [address] Beckham catheter. Patient continues to have chest discomfort patient was given nitroglycerin. AFib with RVR 170. The patient became diaphoretic thereafter radiate to her right arm. Repeat cardiac enzymes. Patient was given one dose of IV Lopressor then was transferred to ICU 12/04/24 patient went down for nuclear medicine. Lexiscan we will follow results. Bradycardia beta-blockers were discontinued patient converted back to sinus We will follow farm helper's recommendations. 12/05/24 the patient was seen earlier: she is fully awake and alert oriented x3. denies chest pain or sob. Primary nurse reports she went into afibb with RVR overnight. This morning was given Diltiazem 10 mg IV one . amiodrone drip was restarted. Lexiscan was negative/ we will wait from DR Villarreal if any further workup. 12/06/24 the patient continue to have Afibb with RVR: this morning she was in the 160's as per Tele maintenance service technician. Fill Manager started PO Cardizen [address] Villarreal scheduled a cardioversion for am. 12/07 the patient has been seen and examined earlier this morning during my rounding, case discussed with the RN, the patient converted back to normal sinus rhythm yesterday around 3:00 p.m., however again earlier this morning, patient went into atrial fibrillation with a rapid ventricular response, with a heart rate between 160-170, she was complaining of mild shortness a breath, reason for which she was started on supplemental oxygen via nasal cannula at 2 L, cardiology notified, patient is started on Cardizem drip. During my visit the patient is alert oriented x3, hemodynamically stable, off supplemental oxygen, saturating normal on room air, heart rate controlled at 88, however still persistent atrial fibrillation. Patient's two daughters at bedside, updated, all questions answered. 12/08 patient is seen and examined at bedside during my rounding, case discussed with the RN, patient off Cardizem drip, converted back to normal sinus rhythm, she is alert oriented x3, complaining of mild pain to the back of the neck. BP 137/61, heart rate of 76, saturating normal on room air. Daughter at bedside d luising my visit, updated. REVIEW OF SYSTEMS CONSTITUTIONAL: Denies fevers, chills, or night sweats. No unintentional weight loss reported. NEUROLOGICAL: Denies headache, amaurosis fugax, motor weakness, sensory deficit, vertigo/spinning sensation, gait abnormalities, or tremors. ENT: No hearing loss, otalgia, otorrhea, rhinitis, rhinorrhea, hoarseness, or sore throat. CARDIOVASCULAR: Patient reports having substernal chest discomfort PULMONARY: Denies any shortness of breath, cough, phlegm/sputum, hemoptysis, pleuritic chest pain. SLEEP: Denies morning headaches, daytime somnolence or napping. Denies difficulty falling asleep, staying asleep, waking from sleep. Denies knowledge of snoring. GASTROINTESTINAL: Nausea, vomiting, epigastric pain, mild in intensity, denies any significant lower quadrant abdominal pain GENITOURINARY: Denies frequency, urgency, nocturia, hematuria or incontinence (Storage/Irritative symptoms.) Low urinary stream, straining to void, urinary intermittency or hesitancy, splitting of the voiding stream, terminal dribbling. ENDOCRINOLOGIC: Denies polyuria, polydipsia, polyphagia or heat/cold intolerances. HEMATOLOGIC: Denies thrombophilia/previous clots, or coagulopathy/bleeding disorders. ONCOLOGIC: Denies personal history of malignancy. DERMATOLOGIC: Denies rashes or pruritus. PSYCHIATRIC: Denies any suicidal or homicidal ideation. Denies hallucinations. PHYSICAL EXAM GENERAL APPEARANCE: The patient is awake, alert, appears frail and chronically ill NEUROLOGICAL: Cranial nerves II-XII grossly intact. Patient is moving her upper and lower extremities, resting tremors noted of the hands HEENT: Face is symmetric. Pupils are equal and reactive. Extraocular movements are intact. NECK: Supple. No JVD. No thyromegaly. No submental, submandibular, pre-/postauricular, occipital or supraclavicular lymphadenopathy. CHEST: Normal chest expansion. No Telemetry. LUNGS: Absence of any rales, rhonchi or any wheezing. CARDIOVASCULAR: Irregular, no rubs or gallops noted ABDOMEN: Soft, nontender, and nondistended. No significant tenderness on palpation of the abdomen : Deferred. No Beckham. EXTREMITIES: Non-edematous and not cyanotic. No clubbing. Good capillary refill. SKIN: No skin breakdown. Vital Signs (last 8hr) Date Time Temp Pulse Resp B/P (MAP) Pulse Ox O2 Delivery O2 Flow Rate FiO2 12/08/24 12:44 76 18 137/61 97 Room Air 12/08/24 11:08 97.5 80 18 154/76 97 Room Air 12/08/24 08:00 97 Nasal Cannula* 2 28 12/08/24 07:18 98.4 70 18 135/64 97 Room Air 12/08/24 05:12 98.4 102 18 150/69 97 Nasal Cannula LABS: Laboratory: Test 12/08/24 03:51 12/07/24 13:59 12/07/24 03:36 Range/Units White Blood Count 11.6 H 4.8-10.8 K/uL Red Blood Count 4.20 4.00-5.50 MIL/uL Hemoglobin 12.4 12.0-16.0 g/dL Hematocrit 37.0 36-48 % Mean Corpuscular Volume 88.1 79-99 fL Mean Corpuscular Hemoglobin 29.5 27.0-33.0 pg Mean Corpuscular Hemoglobin Concent 33.5 32.0-36.0 g/dL Red Cell Distribution Width 17.4 H 11.0-15.5 % Platelet Count 179 130-400 K/uL Mean Platelet Volume 9.5 7.5-10.5 fL Nucleated Red Blood Cells 0.0 0.0-0.19 % Sodium Level 137 136-145 mmol/L Potassium Level 4.3 3.5-5.1 mmol/L Chloride Level 103 101-111 mmol/L Carbon Dioxide Level 26 21-32 mmol/L Blood Urea Nitrogen 20 H 7-18 mg/dL Creatinine 0.7 0.5-1.0 mg/dL Glomerular Filtration Rate Calc 84 >90 mL/min Random Glucose 132 H 70-105 mg/dL Total Calcium 8.8 8.5-10.1 mg/dL HIV (1&2) Antibody Non-Reactive Negative HIV P24 Antigen, Qualitative Non-Reactive Negative Immature Granulocyte % (Auto) 0.3 0-1 % Neutrophils (%) (Auto) 76.4 40.0-77.0 % Lymphocytes (%) (Auto) 15.4 L 21.0-51.0 % Monocytes (%) (Auto) 7.4 3.0-13.0 % Eosinophils (%) (Auto) 0.3 0.0-8.0 % Basophils (%) (Auto) 0.2 0.0-5.0 % Neutrophils # (Auto) 7.7 1.8-7.7 K/uL Lymphocytes # (Auto) 1.5 1.0-4.8 K/uL Monocytes # (Auto) 0.7 0.1-1.0 K/uL Eosinophils # (Auto) 0.03 0.00-0.70 K/uL Basophils # (Auto) 0.02 0.00-0.20 K/uL Absolute Immature Granulocyte (auto 0.03 0-1 K/uL Magnesium Level 2.00 1.80-2.40 mg/dL Total Bilirubin 0.6 0.2-1.0 mg/dL Aspartate Amino Transf (AST/SGOT) 15 10-37 U/L Alanine Aminotransferase (ALT/SGPT) 14 # 12-78 U/L Alkaline Phosphatase 115 50-136 U/L Total Protein 6.5 6.0-8.3 g/dL Albumin 3.1 L 3.5-5.0 g/dL Current Medications Medications (Trade) Dose Ordered Sig/Mahnaz Route PRN Reason Start Time Stop Time Status Last Admin Dose Admin Acetaminophen (TYLenol 325MG TAB) 650 mg Q6H PRN PO MODERATE PAIN (4-6) 12/06/24 14:30 01/05/25 14:29 12/07/24 10:40 650 MG Acetaminophen (TYLenol 500MG TAB) 500 mg Q6H PRN PO MILD PAIN (1-3) 12/02/24 14:30 01/01/25 14:29 12/04/24 20:58 500 MG Adenosine (Adenocard 6mg Vial) 6 mg ONCE STAT IV 12/03/24 10:39 12/03/24 10:42 DC 12/03/24 11:06 6 MG Adenosine (Adenocard 6mg Vial) 6 mg ONCE STAT IV 12/03/24 10:44 12/03/24 10:45 DC Amiodarone HCl (pacERONE 200MG) 200 mg BID PO 12/06/24 21:00 12/07/24 13:04 DC 12/07/24 08:02 200 MG Amiodarone HCl 150 mg/Dextrose 100 ml @ 0 mls/hr PROTOCOL IV 12/06/24 07:30 12/06/24 07:24 DC Amiodarone HCl 150 mg/Dextrose 103 ml @ 618 mls/hr ONCE IV 12/03/24 11:00 12/03/24 11:03 DC Amiodarone HCl 360 mg/Dextrose 207.2 ml @ 33.3 mls/hr AD IV 12/03/24 11:00 12/03/24 11:03 DC Amiodarone HCl 540 mg/Dextrose 310.8 ml @ 16.7 mls/hr [id number] IV 12/04/24 15:00 12/06/24 18:53 DC 12/06/24 17:50 16.7 MLS/HR Amlodipine Besylate (NorvASC 5MG TAB) 5 mg DAILY PO 12/03/24 09:00 12/03/24 16:08 DC 12/03/24 09:54 5 MG Apixaban (EliquIS 2.5 mg) 2.5 mg BID PO 12/02/24 21:00 01/01/25 20:59 12/08/24 09:51 2.5 MG Atorvastatin Calcium (LIPItor 40MG) 40 mg HS PO 12/02/24 21:00 01/01/25 20:59 12/07/24 21:17 40 MG Carbidopa/Levodopa (Sinemet 25-100 Tab) 1 each TID PO 12/02/24 21:00 12/06/24 15:11 DC 12/06/24 13:45 1 EACH Carbidopa/Levodopa (Sinemet 25-100 Tab) 1 each TIDAC PO 12/06/24 17:00 01/05/25 16:59 12/08/24 06:50 1 EACH Ceftriaxone Sodium (ROCEphine 1G INJ) 1 gm Q24H IVPB 12/02/24 14:30 12/12/24 14:29 12/07/24 17:40 1 GM Diazepam (VALium 5 MG/ML 2 ML SYG) 5 mg Q4H PRN IV ANXIETY 12/04/24 09:30 12/04/24 09:29 DC Diltiazem HCl (CARDIzem 60MG TAB) 60 mg TID PO 12/06/24 08:30 01/05/25 08:29 12/08/24 09:50 60 MG Diltiazem HCl 125 mg/Sodium Chloride 125 ml @ 0 mls/hr PROTOCOL IV 12/07/24 09:00 01/06/25 08:59 12/07/24 08:53 5 MLS/HR Hydralazine HCl (APRESOLine 20MG INJ) 5 mg Q6H PRN IV ADMINISTER FOR SBP > 160 12/02/24 15:00 12/03/24 04:45 DC Hydralazine HCl (APRESOLine 20MG INJ) 10 mg Q2HPRN PRN IV ADMINISTER FOR SBP > 160 12/03/24 04:30 01/02/25 04:29 12/07/24 05:51 10 MG Hydromorphone HCl (DiLAUDid 0.5MG INJ) 0.2 mg Q6H PRN IVP SEVERE PAIN (7-10) 12/06/24 14:30 12/11/24 14:29 12/08/24 09:59 0.2 MG Hydromorphone HCl (DiLAUDid 0.5MG INJ) 0.5 mg Q6H PRN IVP SEVERE PAIN (7-10) 12/02/24 14:30 12/06/24 14:29 DC 12/06/24 06:37 0.5 MG Lidocaine (Lidocaine Patch 4%) 1 each DAILY TP 12/08/24 09:00 01/07/25 08:59 12/08/24 09:51 1 EACH Methocarbamol (methoCARBamol) 500 mg TID PRN PO muscle cramps 12/02/24 15:30 01/01/25 15:29 12/07/24 10:39 500 MG Metoprolol Tartrate (loprESSOR) 25 mg BID PO 12/02/24 21:00 12/04/24 09:07 DC 12/03/24 21:17 25 MG Metoprolol Tartrate (loprESSOR) 50 mg BID PO 12/02/24 21:00 12/04/24 09:07 DC 12/03/24 22:17 50 MG Miscellaneous Medication (Metoprolol Tartrate ) 1 tab BID PO 12/02/24 21:00 12/02/24 15:32 DC Morphine Sulfate (morPHINE 2MG SYG) 2 mg ONCE STAT IVP 12/02/24 13:33 12/02/24 13:38 DC 12/02/24 13:39 2 MG Nitroglycerin (Nitrostat) 0.4 mg AD PRN SL CHEST PAIN 12/02/24 14:30 01/01/25 14:29 12/03/24 10:25 0.4 MG Ondansetron HCl (zoFRAN 4MG INJ) 4 mg ONCE STAT IVP 12/02/24 13:33 12/02/24 13:38 DC 12/02/24 13:39 4 MG Ondansetron HCl (zoFRAN 4MG INJ) 4 mg Q6H PRN IVP NAUSEA/VOMITING 12/02/24 14:30 01/01/25 14:29 12/07/24 21:35 4 MG Pantoprazole Sodium (PROTonix 40MG INJ) 40 mg BID IVP 12/03/24 21:00 01/01/25 14:29 12/08/24 09:50 40 MG Pantoprazole Sodium (PROTonix 40MG INJ) 40 mg Q24H IVP 12/02/24 14:30 12/03/24 09:37 DC 12/02/24 20:10 40 MG Polyethylene Glycol (MIRalax 3350 17 GM POWD.PACK) 17 gm DAILY PO 12/08/24 09:00 01/07/25 08:59 12/08/24 09:50 17 GM Potassium Chloride 100 ml @ 100 mls/hr AD PRN IV POTASSIUM PROTOCOL 12/07/24 12:00 01/06/25 11:59 Potassium Chloride (K-Dur/Klor-Con 20meq) 20 meq AD PRN PO POTASSIUM PROTOCOL 12/07/24 12:00 01/06/25 11:59 12/07/24 12:51 20 MEQ Potassium Chloride (KCl 10% Elixir 20meq/15ml) 20 meq AD PRN PO POTASSIUM PROTOCOL 12/07/24 12:00 01/06/25 11:59 12/07/24 21:19 20 MEQ Propafenone HCl (Rythmol) 150 mg Q8H PO 12/07/24 13:30 01/06/25 13:29 12/08/24 06:10 150 MG Sodium Chloride 1,000 ml @ 60 mls/hr [id number] IV 12/02/24 14:30 12/02/24 14:26 DC Sodium Chloride 1,000 ml @ 60 mls/hr [id number] IV 12/02/24 14:30 12/04/24 09:29 DC 12/04/24 00:16 60 MLS/HR Sodium Chloride 1,000 ml @ 1,000 mls/hr Q1H STAT IV 12/02/24 10:54 12/02/24 11:53 DC 12/02/24 10:54 1,000 MLS/HR Thiamine HCl (Vitamin B-1) 100 mg Q24H IVP 12/02/24 14:30 01/01/25 14:29 12/07/24 17:46 100 MG Trazodone HCl (DesyREL/OlepTRO) 50 mg HS PO 12/02/24 21:00 01/01/25 20:59 12/07/24 21:17 50 MG DIAGNOSTICS / RADIOLOGY: [ ] ASSESSMENT: [id number] hyponatremia, POA Atypical chest pain, POA Epigastric abdominal pain with nausea and vomiting, POA Leukocytosis, POA History of CVA in 2023, POA History of L4-L5 compression fracture with recent history of vertebroplasty in 09/2024, POA Debility/frailty, POA Prior history of CA in [place] in 09/2023, POA History of atrial fibrillation maintained on chronic anticoagulation with Eliquis, POA History of ventricular tachycardia status post ablation 1990 History of outpatient use of opioids with hydrocodone, POA Hyperlipidemia, POA Rule out occult infection, POA History of diuretic use as outpatient, POA History of Parkinson's disease, POA Protein calorie malnutrition, POA PLAN: The patient remains admitted to the progressive care unit Continue the patient on night monitor Patient converted back to sinus rhythm, off Cardizem drip, on Rythmol 150 mg p.o. q.8 hours. Continue Cardizem 60 mg p.o. t.i.d. Lidocaine patch one patch topical daily to the back of the neck Continue supplemental oxygen as needed via nasal cannula to keep oxygen sat uration greater than 94% GI input noted and appreciated, continue the patient on Eliquis 2.5 mg p.o. b.i.d. Continue home dose of Sinemet for Parkinson's disease Follow up PT input and recommendation, discharge plan to halfway facility discussed with case management. NEURO: Minimize central acting medications as possible. Fall Precautions. Well lighted room through the day and minimize interruptions through the night to prevent acute delirium. PULMONARY: Supplemental 02 as needed BiPAP as necessary, for respiratory distress Titrate Fio2 to keep Spo2 > or = 90% DuoNeb�s and CPT as needed IS hourly while awake for pulmonary hygiene prn Out of bed to chair as tolerated Maintain aspiration precautions at all times CARDIOVASCULAR: Follow hemodynamics. Vital signs per facility protocol GI & NUTRITION: Continue nutritional support Aspirations precautions Prokinetic agents and laxatives as needed KIDNEYS & ELECTROLYTES: Strict monitoring of intake and output Daily weights Avoid nephrotoxic agents Monitor electrolytes and replace as needed Goal urine output of 30mL/hr or 0.5mL/kg/hr Medications to be dosed according to renal function. Avoid contrast if possible ENDOCRINE: Maintain blood glucose between 100-180 at all times. Insulin sliding scale for blood glucose management Hypoglycemia and hyperglycemia protocol in place INFECTIOUS DISEASE: Trend temperature, WBC and procalcitonin level Follow cultures, deescalate antibiotics as soon as possible. Panculture if new onset fever HEMATOLOGY & COAGULATION: Monitor H&H. Keep Hgb > 7 Transfuse 1 unit of PRBC for Hgb < 7 Transfuse 1 pack of platelets of platelets < 20, 000 Watch for any signs and symptoms of bleeding SKIN: Pressure ulcer prevention per facility protocol Specialty mattress as needed ORTHO/REHAB Continue PT/OT PRN: MEDICATIONS Tylenol 650 mg po every 4 hrs for fever zofran 4 mg IV every 6 hrs for n/v Hydralazine 5 mg IV every 4 hrs systolic pressure > 160 bowel regiment: lactulose 20 gm PO BID PRN constipation Supportive measures: Continue GI and DVT prophylaxis Disposition: Pending improvement in clinical condition All questions answered time spent: > 35 min MARKELL MAHMOOD MD December 08, 2024 12:49
--- NOTE | 2024-12-08 13:04 | PN ---
[facility] CARDIOLOGY PROGRESS NOTE Date Patient Seen: December 08, 2024 Time of Visit: 12:43 Interval History: This is an 89-year-old white female who normally sees her continuous improvement black belt, Dr. Aj Carney in [place] and referred to Dr. Villarreal for EP evaluation has a past medical history of hypertension, Parkinsonism, insomnia, ventricular tachycardia with syncope and VT ablation in 1990 ( [facility]), paroxysmal atrial fibrillation during a hospitalization at [facility] May 2024 and decompensation of diastolic congestive heart failure, normal stress test reported earlier this year, hospitalization at [facility] June 2024 with a hypertensive urgency and hallucinations and was noted to have a subacute right frontal lobe infarct with possible mild petechial hemorrhage by MRI of the brain. a CT angiogram of the brain demonstrated mild carotid disease and a 2D echocardiogram at that time demonstrated normal LVEF and negative bubble study. She had not been on anticoagulation after discharge from [facility] in May of 2024. She was evaluated initially by Dr. Villarreal in July of 2024 and at that time, she was maintaining a sinus bradycardia with a heart rates in the 40-50 beat per minute range and she was continued on Eliquis. An outpatient cardiac mobile radiation monitor was requested but the patient was unable to follow-up with Dr. Villarreal due to sacral fracture. She was evaluated by Dr. Villarreal here on 12/03/2024 Noting that her outpatient cardiac mobile radiation monitor demonstrated sinus rhythm with frequent PACs, and one four beat run of nonsustained VT. There was a lot of artifact throughout due to tremor from her Parkinson's disease. She initially presented here with nausea, weakness, vomiting, epigastric pain and was felt to be dehydrated. She had a sodium of 121, negative cardiac troponins. The patient developed atrial fibrillation with rapid ventricular response into the 120 beat per minute range. She was initially managed with amiodarone but developed breakthrough atrial fibrillation and has now been transitioned to diltiazem and propafenone therapy. She is on propafenone 150 mg p.o. q.8 hours. She converted to a normal sinus rhythm at approximately 6:00 a.m. this morning and is maintaining a sinus rhythm. She complains of generalized weakness, neck discomfort but overall no complaints of shortness of breath. She underwent a Lexiscan Cardiolite stress test on 12/04/2024 which was negative for ischemia. Her 2D echocardiogram on this admission also was unremarkable with normal LV systolic function with an LVEF of 65-70% and mild MR. Physical Examination: GENERAL: No acute distress. HEAD: Normal with no signs of head trauma. EYES: PERRLA, EOMI, conjunctiva and sclera normal. NECK: Supple without JVD. There is no tenderness, lymphadenopathy, or masses. No thyromegaly. Normal carotid upstrokes without bruits. LUNGS: Clear breath sounds bilaterally. No wheezes, or rhonchi. HEART: Normal rate and rhythm. Normal S1 and S2 without murmurs, gallop or rub. VASC: Peripheral pulses +2 bilaterally. EXT: No clubbing, cyanosis or edema. NEURO: Awake, alert, and oriented x3. No focal neurological deficits noted. Laboratory: Hematology Labs: Test 12/08/24 03:51 12/07/24 03:36 Range/Units White Blood Count 11.6 H 4.8-10.8 K/uL Red Blood Count 4.20 4.00-5.50 MIL/uL Hemoglobin 12.4 12.0-16.0 g/dL Hematocrit 37.0 36-48 % Mean Corpuscular Volume 88.1 79-99 fL Mean Corpuscular Hemoglobin 29.5 27.0-33.0 pg Mean Corpuscular Hemoglobin Concent 33.5 32.0-36.0 g/dL Red Cell Distribution Width 17.4 H 11.0-15.5 % Platelet Count 179 130-400 K/uL Mean Platelet Volume 9.5 7.5-10.5 fL Nucleated Red Blood Cells 0.0 0.0-0.19 % Immature Granulocyte % (Auto) 0.3 0-1 % Neutrophils (%) (Auto) 76.4 40.0-77.0 % Lymphocytes (%) (Auto) 15.4 L 21.0-51.0 % Monocytes (%) (Auto) 7.4 3.0-13.0 % Eosinophils (%) (Auto) 0.3 0.0-8.0 % Basophils (%) (Auto) 0.2 0.0-5.0 % Neutrophils # (Auto) 7.7 1.8-7.7 K/uL Lymphocytes # (Auto) 1.5 1.0-4.8 K/uL Monocytes # (Auto) 0.7 0.1-1.0 K/uL Eosinophils # (Auto) 0.03 0.00-0.70 K/uL Basophils # (Auto) 0.02 0.00-0.20 K/uL Absolute Immature Granulocyte (auto 0.03 0-1 K/uL Chemistry Labs: Test 12/08/24 03:51 12/07/24 03:36 Range/Units Sodium Level 137 136-145 mmol/L Potassium Level 4.3 3.5-5.1 mmol/L Chloride Level 103 101-111 mmol/L Carbon Dioxide Level 26 21-32 mmol/L Blood Urea Nitrogen 20 H 7-18 mg/dL Creatinine 0.7 0.5-1.0 mg/dL Glomerular Filtration Rate Calc 84 >90 mL/min Random Glucose 132 H 70-105 mg/dL Total Calcium 8.8 8.5-10.1 mg/dL Magnesium Level 2.00 1.80-2.40 mg/dL Total Bilirubin 0.6 0.2-1.0 mg/dL Aspartate Amino Transf (AST/SGOT) 15 10-37 U/L Alanine Aminotransferase (ALT/SGPT) 14 # 12-78 U/L Alkaline Phosphatase 115 50-136 U/L Total Protein 6.5 6.0-8.3 g/dL Albumin 3.1 L 3.5-5.0 g/dL Diagnostics / Radiology: Impression and Plan: Admission with generalized weakness, fatigue and hyponatremia to sodium of 121: -sodium has improved and continue medical management Paroxysmal atrial fibrillation with rapid ventricular response with breakthrough atrial fibrillation while on amiodarone: Normal LV systolic function with an LVEF of 65-70% by 2D echocardiogram 12/04/2024: Normal Lexiscan Cardiolite stress test 12/04/2024: -has been transitioned to propafenone 150 mg p.o. q.8 hours and converted to a normal sinus rhythm at approximately 6:00 a.m. on 12/08/2024 -continue rate control with diltiazem 60 mg p.o.T.i.d. and we will consider changing to long-acting diltiazem on discharge -continue Eliquis at an adjusted dose of 2.5 mg p.o. b.i.d. -Continue to monitor on telemetry -discharge planning and progressive mobilization and monitor heart rate and rhythm response Comorbidities: Syncope secondary to ventricular tachycardia with ablation in 1990 at [facility]. Subacute right frontal lobe CVA in 06/2024 at [facility], with possible mild petechial hemorrhage. 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 Hypertension. Parkinsonism. Chronic diastolic heart failure. PHYSICIAN ATTESTATION OF PHYSICIAN BRUSH SANDER DOCUMENTATION: I attest that I was physically present for the wang portions of the service and evaluated the patient with the Physician Polygraph Operator, and I reviewed and discussed the case with the Physician Polygraph Operator and made modifications to the Physician Polygraph Operator's findings and plans of care as documented above PAULA BEAR December 08, 2024 13:04 GALA PETIT MD December 09, 2024 14:43
--- NOTE | 2024-12-08 14:31 | NUR ---
CM NOTE Met with pt and 2 daughters present roby and jesus. . discussed dc plan for snf per md orders. patient and mpoa daughter jesus in agreement. they are requesting [facility] IN [place]. TALON/choice letter obtained.
--- NOTE | 2024-12-08 15:21 | NUR ---
cm note referral sent to [facility] per pt/fam request. spoke to Jennifer burr at [facility] has received referral and will evaluate pt. is Pending Approval.
--- NOTE | 2024-12-08 19:34 | PN ---
[facility] PROGRESS NOTE Date Patient Seen: December 08, 2024 Time of Visit: 11:30 Supervising Physician: Kiet Parker MD Primary Care Physician: Dr. Caridad Iyer Outpatient Specialists: [ ] Inpatient Consults: [ ] PROBLEM LIST: Recurrent AFib with RVR , now converted to SR On anticoagulation with Eliquis Atypical chest pain rule out ACS Acute hyponatremia POA now improved. Leukocytosis POA now resolved. Normal Lexiscan Cardiolite stress test 12/03/24 Hypertension. Hyperlipidemia. Parkinson's disease. Severe Protein calorie malnutrition. History of opioid use with hydrocodone Unremarkable echocardiogram W/ EF 65-70% and mild mitral valve regurgitation on 2D echo 12/04/24 suspected mild pulmonary HTN RVSP 30.7 mmHg Hx of ventricular tachycardia s/p ablation in 1990 INTERVAL HISTORY: Pt converted to SR this morning. Cardizem gtt is now off. She is awake alert and oriented x3. Reports pain to left side of neck with relief with lidocaine patch. She is hemodynamically stable and afebrile. She is saturating 97% at 2L via NC. We will wean off o2. Laboratory unremarkable. Dispo per primary team. REVIEW OF SYSTEMS: Const: [no fever, fatigue, or weight changes] Eyes:[ no recent vision problems] ENT: [No congestion, ear pain, or sore throat] C/V: [no chest pain, palpitations or edema] Resp: [No cough, congestion, wheezing , or Shortness of breath] GI: [No abdominal pain, nausea, vomiting, constipation, or diarrhea] : [No incontinence of or dyuria] M/S: yes to involuntary tremors 2/2 [parkinson's disease and neck pain. Skin: [No rash] Neuro: [no headache, focal numbness, or weakness, dizziness or seizures] Psych: [no depression or anxiety] Heme: [no abnormal bruising or bleeding] Lymph: [no swollen glands] PHYSICAL EXAM: GENERAL: Alert, weak, awake oriented x 3 HEENT: EOMI, Sclera non icteric, moist mucosa NECK: Supple, no JVD, trachea midline LUNGS: Clear breath sounds bilaterally. No wheezes HEART: Regular rate and rhythm. Normal S1 and S2, without murmurs ABD: Abdomen soft, nontender. Bowel sounds present EXT: + parkinon tremors. No clubbing cyanosis or edema NEURO: Alert and oriented to person, follows commands Vital Signs (last 8hr) Date Time Temp Pulse Resp B/P (MAP) Pulse Ox O2 Delivery O2 Flow Rate FiO2 12/08/24 15:52 98.8 75 18 117/53 97 Room Air 12/08/24 12:44 76 18 137/61 97 Room Air LABS: Hematology Labs: Test 12/08/24 03:51 12/07/24 03:36 Range/Units White Blood Count 11.6 H 4.8-10.8 K/uL Red Blood Count 4.20 4.00-5.50 MIL/uL Hemoglobin 12.4 12.0-16.0 g/dL Hematocrit 37.0 36-48 % Mean Corpuscular Volume 88.1 79-99 fL Mean Corpuscular Hemoglobin 29.5 27.0-33.0 pg Mean Corpuscular Hemoglobin Concent 33.5 32.0-36.0 g/dL Red Cell Distribution Width 17.4 H 11.0-15.5 % Platelet Count 179 130-400 K/uL Mean Platelet Volume 9.5 7.5-10.5 fL Nucleated Red Blood Cells 0.0 0.0-0.19 % Immature Granulocyte % (Auto) 0.3 0-1 % Neutrophils (%) (Auto) 76.4 40.0-77.0 % Lymphocytes (%) (Auto) 15.4 L 21.0-51.0 % Monocytes (%) (Auto) 7.4 3.0-13.0 % Eosinophils (%) (Auto) 0.3 0.0-8.0 % Basophils (%) (Auto) 0.2 0.0-5.0 % Neutrophils # (Auto) 7.7 1.8-7.7 K/uL Lymphocytes # (Auto) 1.5 1.0-4.8 K/uL Monocytes # (Auto) 0.7 0.1-1.0 K/uL Eosinophils # (Auto) 0.03 0.00-0.70 K/uL Basophils # (Auto) 0.02 0.00-0.20 K/uL Absolute Immature Granulocyte (auto 0.03 0-1 K/uL Chemistry Labs: Test 12/08/24 03:51 12/07/24 03:36 Range/Units Sodium Level 137 136-145 mmol/L Potassium Level 4.3 3.5-5.1 mmol/L Chloride Level 103 101-111 mmol/L Carbon Dioxide Level 26 21-32 mmol/L Blood Urea Nitrogen 20 H 7-18 mg/dL Creatinine 0.7 0.5-1.0 mg/dL Glomerular Filtration Rate Calc 84 >90 mL/min Random Glucose 132 H 70-105 mg/dL Total Calcium 8.8 8.5-10.1 mg/dL Magnesium Level 2.00 1.80-2.40 mg/dL Total Bilirubin 0.6 0.2-1.0 mg/dL Aspartate Amino Transf (AST/SGOT) 15 10-37 U/L Alanine Aminotransferase (ALT/SGPT) 14 # 12-78 U/L Alkaline Phosphatase 115 50-136 U/L Total Protein 6.5 6.0-8.3 g/dL Albumin 3.1 L 3.5-5.0 g/dL DIAGNOSTICS / RADIOLOGY RESULTS: [ ] PLAN Off drips now SR Follow cardiology recs wean off o2 Continue anticoagulation with eliquis 2.5mg po BID per cardiology recs. Continue cardiac monitoring CTA negative for PE Maintain O2 sats above 92% NEURO: Minimize central acting medications as possible. Maintain fall precautions, adequate lighting during the day PULMONARY: Supplemental 02 as needed. Maintain aspiration precautions at all times CARDIOVASCULAR: Follow hemodynamics. Vital signs per facility protocol GI & NUTRITION: Continue with nutritional support. Continue stool softeners and laxatives as needed. KIDNEYS & ELECTROLYTES: Strict monitoring of intake, output and overall fluid balance. Avoid nephrotoxic medications to the extent possible. Medications to be dosed according to renal function. Monitor electrolytes and replace as needed ENDOCRINE: Maintain blood glucose between 100-180 at all times. Hypoglycemia protocol in place INFECTIOUS DISEASE: Trend temperature, WBC and procalcitonin level Follow cultures, deescalate antibiotics as soon as possible. Panculture if new onset fever ONCOLOGY/HEMATOLOGY/COAGULATION: Monitor for s/s of bleeding Monitor hemoglobin, coagulation studies as needed SKIN: Pressure ulcer prevention per facility protocol Specialty mattress ORTHO/REHAB: Continue PT/OT Prophylaxis: Continue GI and DVT prophylaxis Code Status: Full Resuscitation Disposition: TBD Other: ATTESTATION BY PHYSICIAN I reviewed the documentation, medical decision making, and treatment plan as noted by the mid-level provider above. I agree with the findings and plan of care. Kiet Parker MD, NELLY J ARNP December 08, 2024:34
[2024-12-09] VITALS (8 sets, daily range): BP systolic 124–158; BP diastolic 53–78; PULSE 67–72; RESP 17–18; TEMP 98.1–99.1; O2SAT 96–97
[2024-12-09 04:22] LABS: BASOPHILS # (AUTO) 0.02 K/uL (0.00-0.20); BASOPHILS % (AUTO) 0.2 % (0.0-5.0); EOSINOPHILS # (AUTO) 0.02 K/uL (0.00-0.70); EOSINOPHILS % (AUTO) 0.2 % (0.0-8.0); HEMATOCRIT 36.8 % (36-48); IMMATURE GRANULOCYTE ABSOLUTE 0.03 K/uL (0-1); LYMPHOCYTES % (AUTO) 22.1 % (21.0-51.0); MEAN CORPUSCULAR VOLUME 88.5 fL (79-99); MONOCYTES # (AUTO) 0.6 K/uL (0.1-1.0); MONOCYTES % (AUTO) 6.9 % (3.0-13.0); NEUTROPHILS # (AUTO) 6.3 K/uL (1.8-7.7); NEUTROPHILS % (AUTO) 70.3 % (40.0-77.0); PLATELET COUNT (AUTO) 167 K/uL (130-400); RED BLOOD CELL COUNT(AUTO) 4.16 MIL/uL (4.00-5.50); RED CELL DISTRIBUTION WIDTH 17.4 % (11.0-15.5)
[2024-12-09 04:49] LABS: BILIRUBIN,TOTAL 0.4 mg/dL (0.2-1.0); CREATININE 0.8 mg/dL (0.5-1.0); MAGNESIUM 2.9 mg/dL (1.80-2.40); POTASSIUM 4.8 mmol/L (3.5-5.1); TOTAL PROTEIN, SERUM 6.5 g/dL (6.0-8.3)
--- NOTE | 2024-12-09 09:56 | PN ---
NEPHROLOGY PROGRESS NOTE Date/Time Patient Seen: December 09, 2024 SUBJECTIVE: This is an 89-year-old who has a history of coronary artery disease, CVA, hypertension, hyperlipidemia, back pain with compression fracture needing vertebroplasty, history of atrial fibrillation and Parkinson's disease. The patient is admitted with chest pain and abdominal pain. The patient is having some nausea and vomiting also and the patient has poor oral intake and has multiple other comorbidities. The patient has leukocytosis and now very low sodium and electrolyte problem. Renal function and electrolytes are stable. Cardiology workup is ongoing REVIEW OF SYSTEMS: GENERAL: Negative for any nausea, vomiting, fevers, chills, or weight loss. NEUROLOGIC: Negative for any blurry vision, blind spots, double vision, facial asymmetry, dysphagia, dysarthria, hemiparesis, hemisensory deficits, vertigo, ataxia. HEENT: Negative for any head trauma, neck trauma, neck stiffness, photophobia, phonophobia, sinusitis, rhinitis. CARDIAC: Negative for any chest pain, dyspnea on exertion, paroxysmal nocturnal dyspnea, peripheral edema. PULMONARY: Negative for any shortness of breath, wheezing, COPD, or TB exposure. GASTROINTESTINAL: Negative for any abdominal pain, nausea, vomiting, bright red blood per rectum, melena. GENITOURINARY: Negative for any dysuria, hematuria, incontinence. INTEGUMENTARY: Negative for any rashes, cuts, insect bites. RHEUMATOLOGIC: Negative for any joint pains, photosensitive rashes, history of vasculitis or kidney problems. HEMATOLOGIC: Negative for any abnormal bruising, frequent infections or bleeding. Vital Signs (last 8hr) Date Time Temp Pulse Resp B/P (MAP) Pulse Ox O2 Delivery O2 Flow Rate FiO2 12/03/24 11:44 101 22 104/58 99 Nasal Cannula 4.0 12/03/24 11:29 110 23 117/59 100 Nasal Cannula 4.0 12/03/24 11:14 128 31 134/78 100 Nasal Cannula 4.0 12/03/24 11:06 150 122/88 12/03/24 10:44 98.8 129 26 122/88 99 Nasal Cannula 4.0 12/03/24 10:34 145 19 107/64 99 Nasal Cannula 4.0 12/03/24 10:27 179 12/03/24 10:12 161 28 N/Cannula Low lpm 4.0 12/03/24 09:54 96 Room Air* 0 21 12/03/24 07:40 98.1 63 19 140/67 95 Room Air 12/03/24 06:44 73 140/66 PHYSICAL EXAM: GENERAL: Alert and oriented x 3. No acute distress. Well-nourished. EYES: EOMI. Anicteric. HENT: Moist mucous membranes. No scleral icterus. No cervical lymphadenopathy. LUNGS: Clear to auscultation bilaterally. No accessory muscle use. CARDIOVASCULAR: Regular rate and rhythm. No murmur. No JVD. ABDOMEN: Soft, non-tender and non-distended. No palpable masses. EXTREMITIES: No edema. Non-tender.?SKIN: No rashes or lesions. Warm. NEUROLOGIC: No focal neurological deficits. CN II-XII grossly intact, but not individually tested. PSYCHIATRIC: Cooperative. Appropriate mood and affect. Current Medications Medications (Trade) Dose Ordered Sig/Mahnaz Route PRN Reason Start Time Stop Time Status Last Admin Dose Admin Acetaminophen (TYLenol 500MG TAB) 500 mg Q6H PRN PO MILD PAIN (1-3) 12/02/24 14:30 01/01/25 14:29 12/02/24 17:02 500 MG Adenosine (Adenocard 6mg Vial) 6 mg ONCE STAT IV 12/03/24 10:39 12/03/24 10:42 DC 12/03/24 11:06 6 MG Adenosine (Adenocard 6mg Vial) 6 mg ONCE STAT IV 12/03/24 10:44 12/03/24 10:45 DC Amiodarone HCl 150 mg/Dextrose 103 ml @ 618 mls/hr ONCE IV 12/03/24 11:00 12/03/24 11:03 DC Amiodarone HCl 360 mg/Dextrose 207.2 ml @ 33.3 mls/hr AD IV 12/03/24 11:00 12/03/24 11:03 DC Amlodipine Besylate (NorvASC 5MG TAB) 5 mg DAILY PO 12/03/24 09:00 01/02/25 08:59 12/03/24 09:54 5 MG Apixaban (EliquIS 2.5 mg) 2.5 mg BID PO 12/02/24 21:00 01/01/25 20:59 12/03/24 09:54 2.5 MG Atorvastatin Calcium (LIPItor 40MG) 40 mg HS PO 12/02/24 21:00 01/01/25 20:59 12/02/24 20:07 40 MG Carbidopa/Levodopa (Sinemet 25-100 Tab) 1 each TID PO 12/02/24 21:00 01/01/25 20:59 12/03/24 09:54 1 EACH Ceftriaxone Sodium (ROCEphine 1G INJ) 1 gm Q24H IVPB 12/02/24 14:30 12/12/24 14:29 12/02/24 20:06 1 GM Hydralazine HCl (APRESOLine 20MG INJ) 5 mg Q6H PRN IV ADMINISTER FOR SBP > 160 12/02/24 15:00 12/03/24 04:45 DC Hydralazine HCl (APRESOLine 20MG INJ) 10 mg Q2HPRN PRN IV ADMINISTER FOR SBP > 160 12/03/24 04:30 01/02/25 04:29 12/03/24 05:10 10 MG Hydromorphone HCl (DiLAUDid 0.5MG INJ) 0.5 mg Q6H PRN IVP SEVERE PAIN (7-10) 12/02/24 14:30 12/07/24 14:29 Methocarbamol (methoCARBamol) 500 mg TID PRN PO muscle cramps 12/02/24 15:30 01/01/25 15:29 Metoprolol Tartrate (loprESSOR) 25 mg BID PO 12/02/24 21:00 01/01/25 20:59 12/03/24 09:54 25 MG Metoprolol Tartrate (loprESSOR) 50 mg BID PO 12/02/24 21:00 01/01/25 20:59 12/03/24 12:24 50 MG Miscellaneous Medication (Metoprolol Tartrate ) 1 tab BID PO 12/02/24 21:00 12/02/24 15:32 DC Morphine Sulfate (morPHINE 2MG SYG) 2 mg ONCE STAT IVP 12/02/24 13:33 12/02/24 13:38 DC 12/02/24 13:39 2 MG Nitroglycerin (Nitrostat) 0.4 mg AD PRN SL CHEST PAIN 12/02/24 14:30 01/01/25 14:29 12/03/24 10:25 0.4 MG Ondansetron HCl (zoFRAN 4MG INJ) 4 mg ONCE STAT IVP 12/02/24 13:33 12/02/24 13:38 DC 12/02/24 13:39 4 MG Ondansetron HCl (zoFRAN 4MG INJ) 4 mg Q6H PRN IVP NAUSEA/VOMITING 12/02/24 14:30 01/01/25 14:29 Pantoprazole Sodium (PROTonix 40MG INJ) 40 mg BID IVP 12/03/24 21:00 01/01/25 14:29 Pantoprazole Sodium (PROTonix 40MG INJ) 40 mg Q24H IVP 12/02/24 14:30 12/03/24 09:37 DC 12/02/24 20:10 40 MG Sodium Chloride 1,000 ml @ 60 mls/hr [id number] IV 12/02/24 14:30 12/02/24 14:26 DC Sodium Chloride 1,000 ml @ 60 mls/hr [id number] IV 12/02/24 14:30 01/01/25 14:29 12/02/24 18:12 60 MLS/HR Sodium Chloride 1,000 ml @ 1,000 mls/hr Q1H STAT IV 12/02/24 10:54 12/02/24 11:53 DC 12/02/24 10:54 1,000 MLS/HR Thiamine HCl (Vitamin B-1) 100 mg Q24H IVP 12/02/24 14:30 01/01/25 14:29 12/02/24 20:07 100 MG Trazodone HCl (DesyREL/OlepTRO) 50 mg HS PO 12/02/24 21:00 01/01/25 20:59 12/02/24 20:06 50 MG LABORATORY: [ ] Hematology Labs: Test 12/09/24 04:11 Range/Units White Blood Count 9.0 4.8-10.8 K/uL Red Blood Count 4.16 4.00-5.50 MIL/uL Hemoglobin 12.5 12.0-16.0 g/dL Hematocrit 36.8 36-48 % Mean Corpuscular Volume 88.5 79-99 fL Mean Corpuscular Hemoglobin 30.0 27.0-33.0 pg Mean Corpuscular Hemoglobin Concent 34.0 32.0-36.0 g/dL Red Cell Distribution Width 17.4 H 11.0-15.5 % Platelet Count 167 130-400 K/uL Mean Platelet Volume 8.7 7.5-10.5 fL Immature Granulocyte % (Auto) 0.3 0-1 % Neutrophils (%) (Auto) 70.3 40.0-77.0 % Lymphocytes (%) (Auto) 22.1 21.0-51.0 % Monocytes (%) (Auto) 6.9 3.0-13.0 % Eosinophils (%) (Auto) 0.2 0.0-8.0 % Basophils (%) (Auto) 0.2 0.0-5.0 % Neutrophils # (Auto) 6.3 1.8-7.7 K/uL Lymphocytes # (Auto) 2.0 1.0-4.8 K/uL Monocytes # (Auto) 0.6 0.1-1.0 K/uL Eosinophils # (Auto) 0.02 0.00-0.70 K/uL Basophils # (Auto) 0.02 0.00-0.20 K/uL Absolute Immature Granulocyte (auto 0.03 0-1 K/uL Nucleated Red Blood Cells 0.0 0.0-0.19 % Chemistry Labs: Test 12/09/24 04:11 Range/Units Sodium Level 136 136-145 mmol/L Potassium Level 4.8 3.5-5.1 mmol/L Chloride Level 103 101-111 mmol/L Carbon Dioxide Level 27 21-32 mmol/L Blood Urea Nitrogen 22 H 7-18 mg/dL Creatinine 0.8 0.5-1.0 mg/dL Glomerular Filtration Rate Calc 71 >90 mL/min Random Glucose 116 H 70-105 mg/dL Total Calcium 9.1 8.5-10.1 mg/dL Magnesium Level 2.90 H 1.80-2.40 mg/dL Total Bilirubin 0.4 0.2-1.0 mg/dL Aspartate Amino Transf (AST/SGOT) 13 10-37 U/L Alanine Aminotransferase (ALT/SGPT) 19 12-78 U/L Alkaline Phosphatase 106 50-136 U/L Total Protein 6.5 6.0-8.3 g/dL Albumin 3.0 L 3.5-5.0 g/dL DIAGNOSTICS / RADIOLOGY: REASON: rule out PE ORDERING PHYSICIAN: YULIYA MONROY PROCEDURE: CHES PE - CT CHEST PE PROTOCOL WWO CONT CT angiogram chest CLINICAL INDICATION: rule out PE COMPARISON: None. CT Dose Index (CTDI): 113.50 mGy Dose Length Product (DLP): 1408.10 total mGy PROTOCOL: Contrast: 100 cc of Isovue-370, injected IV, no complications Examination is done at 2.5 millimeter volumetric acquisition after contrast administration. Photography is done at 5 millimeter thick intervals for the thorax. FINDINGS: There is no evidence of pulmonary embolism. The airway is intact. The trachea and major bronchi are unremarkable. No pulmonary infiltrates or mass lesions are seen. No pleural effusions are identified. The exam of the surya and mediastinum is unremarkable. No evidence of hilar enlargement is seen. Ectasia of the ascending thoracic aorta, maximum diameter 4 cm No significant brachiocephalic vascular abnormalities are seen. The heart is unremarkable. It is not enlarged. No significant coronary arterial calcifications are seen. There is no pericardial effusion. The rib cage appears unremarkable. The soft tissues of the chest wall are unremarkable. The dorsal spine shows no significant abnormalities. Limited evaluation of the upper abdomen demonstrates no gross abnormalities. IMPRESSION: No evidence of pulmonary embolism. Clear lungs. Ectasia ascending aorta. This study was performed using dose reduction techniques to include automated exposure control and/or adjustment of the mA and/or kV according to patient size. DICTATED BY: WILLIAM LEON MD DATE: 12/06/24 6981 REASON: dizziness ORDERING PHYSICIAN: MARKELL MAHMOOD MD PROCEDURE: CAROTID - US CAROTID DUPLEX Carotid Duplex and color-flow Doppler bilateral History: dizziness Comparison: None Findings: No significant plaque is identified on either side. Left Internal Carotid Artery Peak Systolic Velocity (PSV), Left Internal Carotid to Common Carotid Artery peak systolic velocity ratio, Right Internal Carotid Artery Peak Systolic Velocity (PSV) and Right Internal Carotid to Common Carotid Artery peak systolic velocity ratio, are all within normal limits. External carotid artery velocities normal bilaterally. Bilateral vertebral arteries show antegrade flow. Impression: Normal exam. NASCET CRITERIA. The degree of internal carotid artery stenosis is based on NASCET criteria. Normal is no stenosis. Mild is less than 50% stenosis. Moderate is 50-69% stenosis. Severe is 70% to 99% stenosis. Total occlusion is no detectable patent lumen. DICTATED BY: WILLIAM LEON MD DATE: 12/05/24 1537 REASON: nonsustained ventricular tachycardia ORDERING PHYSICIAN: MARAL SHERMAN MD PROCEDURE: ECHO [facility] - ECHO 2-D COMPLETE APPROVED REPORT EXAM: Two-dimensional and M-mode echocardiogram with Doppler and color Doppler. INDICATION ICD: nonsustained ventricular tachycardia 2D Dimensions RVDd 3.3 cm LVEF(%) 67.8 (>50%) LVED Vol(simp.) 63.0 mL IVSd 1.4 (0.7-1.1cm) FS(%) 37 % LVES Vol(simp.) 21.0 mL LVDd 3.6 (3.8-5.6cm) LA (2D) 4.2 (1.6-4.0cm) LVEF(%, simp.) 67 % PWd 1.2 (0.7-1.1cm) Ao Root(2D) 2.7 (2.0-3.7cm) LA ESV INDEX (BP) 27.63 mL/m2 LVDs 2.3 (2.5-4.0cm) LVOT diam 1.8 (1.8-2.4cm) IVC diam 1.6 cm Deformation Strain Apical 4 -19.7 % Apical 2 -21.6 % Apical 3 -11.5 % Global Strain -17.6 % M-Mode Dimensions EPSS 0.3 cm LA (MM) 4.7 (1.6-4.0cm) Ao Root(MM) 2.6 (2.0-3.7cm) Aortic Valve AoV Vmax 1.3 m/s Ao Peak GR 6.8 mmHg LVOT Vmax 1.0 m/s AoV VTI 0.3 m Ao Mean GR 2.8 mmHg LVOT VTI 0.23 m KIMBER (VMAX) 1.99 cm2 Al P1/2T 797 ms KIMBER (VTI) 2.0 cm2 Mitral Valve MV E Vmax 88.7 cm/s DECEL Time 217 ms MV A Vmax 88.7 cm/s P 1/2 T 95 ms E/A ratio 1.0 MVA (PHT) 2.3 cm2 TDI E/E' Medial 12.0 E/E' Lateral 10.2 Medial E' Peak V 7.37 cm/s Lateral E' Peak V 8.66 cm/s Tricuspid Valve TR Vmax 2.9 m/s RVSP 30.7 mmHg TR Peak GR 36.5 mmHg Left Ventricle The left ventricle is normal size. Mild concentric left ventricular hypertrophy. LVEF is 65-70%. Indeterminate diastolic dysfunction. Right Ventricle The right ventricle is normal size. The right ventricular systolic function is normal. Atria The left atrium size is normal. The right atrium size is normal. Aortic Valve The aortic valve is normal in structure. Mild aortic regurgitation. There is no aortic valvular stenosis. Mitral Valve Mitral valve leaflets open well. Posterior leaflet is moderately calcified. Mitral regurgitation is mild. There is no mitral valve stenosis. Tricuspid Valve The tricuspid valve is normal in structure. There is mild tricuspid valve regurgitation noted. Pulmonic Valve The pulmonary valve is normal in structure. There is no pulmonic valvular regurgitation. Great Vessels The aortic root is normal in size. The IVC is normal in size and collapses >50% with inspiration. Pericardium There is no pericardial effusion. DICTATED BY: DELLA HARPER MD DATE: 12/04/24 0907 REASON: rule out D VT ORDERING PHYSICIAN: YULIYA MONROY PROCEDURE: VENOUS CECILIA - US VENOUS DOPPLER BILATERAL Exam Type: US VENOUS DOPPLER BILATERAL Clinical Information: rule out D VT Comparison: None Findings: The examination shows normal deep venous system. There is normal compressibility at all levels. There is no intraluminal clot. There is no occlusion. Adequate response is obtained on augmentation. Impression: No evidence of DVT. DICTATED BY: WILLIAM LEON MD DATE: 12/04/24 1238 REASON: chest pain ORDERING PHYSICIAN: MARAL SHERMAN MD PROCEDURE: CARD GERMANIA - NM LEXISCAN CARDIOLITE APPROVED REPORT Height: 5 ft 4in Weight: 125 lbs TEST INDICATIONS Chest Pain The imaging protocol used to acquire images was Rest Tc-99m/stress Tc-99m 1 day Consent: The procedure was explained and understood by the patient. Informerd consent was witnessed by Rashida Summers RN First, low dose rest was performed then high dose stress. RESTING DATA: The resting ekg shows: a-fib Rest SPECT myocardial perfusion imaging was performed in supine position minutes following the intravenous injection of 11.5 mCi of Tc-99 Sestamibi. Time of rest injection: 08:52: Date: 12/04/2024 PHARMACOLOGIC STRESS: Pharmacologic stress test was performed by injecting regadenoson 0.4 mg IV push followed by the intravenous injection of 27 mCi of Tc-99 Sestamibi. Time of stress injection: 11:05: Date: 12/04/2024 Heart Rate at time of stress injection: 66 bpm. Gated Stress SPECT was performed 60 minutes after stress injection. The images were gated to evaluate regional wall motion and calculate left ventricular ejection fraction. STRESS DETAILS Reason for Termination: Infusion complete Stress Symptoms: Dyspnea, Stomach Cramps Max HR Achieved: 84 bpm % of APMHR Achieved: 74 Max Blood Pressure: 137/56/ mmHg Stress ECG: a-fib Study quality was good. Lung uptake was Normal. Artifact: No artifact IMPRESSION Normal pharmacologic nuclear stress test. Conclusion Normal perfusion. TID 0.77. LVEF 42%. DICTATED BY: DELLA HARPER MD DATE: 12/04/24926 REASON: PNA ORDERING PHYSICIAN: BREANNA BARBER NP PROCEDURE: CXR1VW - CHEST 1VW Exam Type: CHEST 1VW Clinical Information: PNA Comparison: None Findings: Pulmonary pattern is as before. No worrisome interval changes have taken place. Impression: Stable exam. DICTATED BY: WILLIAM LEON MD DATE: 12/04/2437 REASON: picc line placement ORDERING PHYSICIAN: BREANNA BARBER NP PROCEDURE: CXR1VW - CHEST 1VW Exam Type: CHEST 1VW Clinical Information: picc line placement Comparison: None Findings: RightPICC line is noted with tip within the distal superior vena cava and there are no other interval changes. IMPRESSION: Right PICC line as noted. DICTATED BY: WILLIAM LEON MD DATE: 12/03/24 1648 REASON: abdominal pain, n/v ORDERING PHYSICIAN: HOLLY WAITE NP PROCEDURE: ABD PEL WO - CT ABDOMEN/PELVIS W/O CONTRAST CT ABDOMEN/PELVIS W/O CONTRAST HISTORY: Abdominal pain COMPARISON: None TECHNIQUE: Multiple sequential axial images of the abdomen and pelvis were obtained from the dome of the diaphragm through symphysis pubis. Patient was not given contrast through intravenous route. Oral contrast was not given. FINDINGS: No pleural effusion is seen bilaterally. Bibasilar linear atelectasis changes are seen. There is no evidence of parenchymal disease or pulmonary nodule of the visualized lower lungs. Degenerative changes of the thoracolumbar spine are present. The heart is not enlarged. Small hiatal hernia is seen. Compression fractures are seen involving L4 and L5 with vertebroplasty changes. The liver, spleen, adrenal glands and pancreas are unremarkable. There is no evidence of hydronephrosis bilaterally. No evidence of renal stone is seen. Fecal material is seen in the colon. There are normal size retroperitoneal and mesenteric lymph nodes. No ascites is seen. Atherosclerotic changes are present. There is diverticulosis. There are small bilateral inguinal hernias with fat content. No CT evidence of acute appendicitis is seen. Pelvic sidewalls are symmetric bilaterally. Bladder is poorly distended. IMPRESSION: 1. No definite bowel obstruction is seen. Small hiatal hernia. Diverticulosis. No ascites is seen. CT was performed with one or more following dose reduction techniques: automated exposure control, adjustment of the mA and kv according to patient's size, or use of a iterative reconstruction technique. DICTATED BY: TIFFANIE SCHAFFER MD DATE: 12/02/24 1326 REASON: cp ORDERING PHYSICIAN: HOLLY WAITE NP PROCEDURE: CXR1VW - CHEST 1VW CHEST 1VW HISTORY: Chest pain COMPARISON: None FINDINGS: A frontal projection of the chest was obtained. No acute pulmonary infiltrates is seen. The heart is borderline enlarged. Left humeral prosthesis is seen. Prominent interstitial markings are seen. No evidence of aortic calcification is seen. IMPRESSION: 1. No acute pulmonary infiltrate is seen. DICTATED BY: TIFFANIE SCHAFFER MD DATE: 12/02/24 1147 ASSESSMENT: Hyponatremia, A-fibb with RVR Atypical chest pain Epigastric abdominal pain with nausea and vomiting Leukocytosis History of CVA in 2023 History of L4-L5 compression fracture with recent history of vertebroplasty in 09/2024 Debility/frailty Prior history of LA in [place] in 09/2023, History of atrial fibrillation maintained on chronic anticoagulation with Anusha aleida History of outpatient use of opioids with hydrocodone Hyperlipidemia Parkinson's disease Urinary retention PLAN: Labs, diagnostic, radiologic exams reviewed and interpreted by myself and supervising physician. We have reviewed external records in detail Require close monitoring of renal function and electrolytes Order CBC, CMP, and electrolytes in am BiPAP as necessary, for respiratory distress Monitor blood pressure adjust medication doses as needed Avoid hypotensive episodes May use Dilaudid 0.5 mg IV every 6 hours as needed for severe pain Monitor blood sugars Strict intake, output, and daily weight should be monitored Please renally adjust medications Avoid nephrotoxic and nonsteroidal drugs Avoid contrast if possible Will continue to monitor renal function, anemia, electrolytes Treatment plan discussed with patient Questions were answered We have discussed with the other team physicians in detail about the care plan We will continue to monitor the patient closely ATTESTATION BY PHYSICIAN I have seen and examined the patient. I reviewed the documentation, medical deci marlen making, and treatment plan as noted by the mid-level provider above. I agree with the findings and plan of care. EDER MESA MD, [facility] December 09, 2024 09:56
[2024-12-09] MEDS: LIDOCAINE 4% ADH..PATCH TP SCH (11:13)
--- NOTE | 2024-12-09 11:24 | PN ---
[facility] PROGRESS NOTE Date of Service: December 09, 2024 Time of Service: 11:22 SUBJECTIVE: [ ] This is a 89-year-old female with underlying history of hypertension, hyperlipidemia, per daughter, prior history of MN in [place] in 09/2023, history of CVA, recent history of compression fractures involving L4 and L5 status post vertebroplasty in [facility], history of atrial fibrillation maintained on chronic anticoagulation with Eliquis, Parkinson's disease who presented to the ER with chief complaint of epigastric pain with midsternal chest discomfort, poor oral intake ongoing since last night. 12/03/24 during my rounds patient was complaining of chest pain states 05/10. Patient was placed on oxygen in given x1 morphine. Patient is retaining urine bladder scan showed [address] Beckham catheter. Patient continues to have chest discomfort patient was given nitroglycerin. AFib with RVR 170. The patient became diaphoretic thereafter radiate to her right arm. Repeat cardiac enzymes. Patient was given one dose of IV Lopressor then was transferred to ICU 12/04/24 patient went down for nuclear medicine. Lexiscan we will follow results. Bradycardia beta-blockers were discontinued patient converted back to sinus We will follow malariologist's recommendations. 12/05/24 the patient was seen earlier: she is fully awake and alert oriented x3. denies chest pain or sob. Primary nurse reports she went into afibb with RVR overnight. This morning was given Diltiazem 10 mg IV one . amiodrone drip was restarted. Lexiscan was negative/ we will wait from DR Villarreal if any further workup. 12/06/24 the patient continue to have Afibb with RVR: this morning she was in the 160's as per Tele transportation planning technician. Button Cutting Machine Operator started PO Cardizen [address] Villarreal scheduled a cardioversion for am. 12/07 the patient has been seen and examined earlier this morning during my rounding, case discussed with the RN, the patient converted back to normal sinus rhythm yesterday around 3:00 p.m., however again earlier this morning, patient went into atrial fibrillation with a rapid ventricular response, with a heart rate between 160-170, she was complaining of mild shortness a breath, reason for which she was started on supplemental oxygen via nasal cannula at 2 L, cardiology notified, patient is started on Cardizem drip. During my visit the patient is alert oriented x3, hemodynamically stable, off supplemental oxygen, saturating normal on room air, heart rate controlled at 88, however still persistent atrial fibrillation. Patient's two daughters at bedside, updated, all questions answered. 12/08 patient is seen and examined at bedside during my rounding, case discussed with the RN, patient off Cardizem drip, converted back to normal sinus rhythm, she is alert oriented x3, complaining of mild pain to the back of the neck. BP 137/61, heart rate of 76, saturating normal on room air. Daughter at bedside d toño my visit, updated. 12/09 cerebral female with a history of Parkinson disease as well as atrial fibrillation, admitted with a AFib RVR, evaluated by EP, heart rate now controlled at 72, on Rythmol 150 mg p.o. q.8 hours and Cardizem 60 mg p.o. t.i.d.. Case management consulted for discharge plan to SNF. REVIEW OF SYSTEMS CONSTITUTIONAL: Denies fevers, chills, or night sweats. No unintentional weight loss reported. NEUROLOGICAL: Denies headache, amaurosis fugax, motor weakness, sensory deficit, vertigo/spinning sensation, gait abnormalities, or tremors. ENT: No hearing loss, otalgia, otorrhea, rhinitis, rhinorrhea, hoarseness, or sore throat. CARDIOVASCULAR: Patient reports having substernal chest discomfort PULMONARY: Denies any shortness of breath, cough, phlegm/sputum, hemoptysis, pleuritic chest pain. SLEEP: Denies morning headaches, daytime somnolence or napping. Denies difficulty falling asleep, staying asleep, waking from sleep. Denies knowledge of snoring. GASTROINTESTINAL: Nausea, vomiting, epigastric pain, mild in intensity, denies any significant lower quadrant abdominal pain GENITOURINARY: Denies frequency, urgency, nocturia, hematuria or incontinence (Storage/Irritative symptoms.) Low urinary stream, straining to void, urinary intermittency or hesitancy, splitting of the voiding stream, terminal dribbling. ENDOCRINOLOGIC: Denies polyuria, polydipsia, polyphagia or heat/cold intolerances. HEMATOLOGIC: Denies thrombophilia/previous clots, or coagulopathy/bleeding disorders. ONCOLOGIC: Denies personal history of malignancy. DERMATOLOGIC: Denies rashes or pruritus. PSYCHIATRIC: Denies any suicidal or homicidal ideation. Denies hallucinations. PHYSICAL EXAM GENERAL APPEARANCE: The patient is awake, alert, appears frail and chronically ill NEUROLOGICAL: Cranial nerves II-XII grossly intact. Patient is moving her upper and lower extremities, resting tremors noted of the hands HEENT: Face is symmetric. Pupils are equal and reactive. Extraocular movements are intact. NECK: Supple. No JVD. No thyromegaly. No submental, submandibular, pre- /postauricular, occipital or supraclavicular lymphadenopathy. CHEST: Normal chest expansion. No Telemetry. LUNGS: Absence of any rales, rhonchi or any wheezing. CARDIOVASCULAR: Irregular, no rubs or gallops noted ABDOMEN: Soft, nontender, and nondistended. No significant tenderness on palpation of the abdomen : Deferred. No Beckham. EXTREMITIES: Non-edematous and not cyanotic. No clubbing. Good capillary refill. SKIN: No skin breakdown. Vital Signs (last 8hr) Date Time Temp Pulse Resp B/P (MAP) Pulse Ox O2 Delivery O2 Flow Rate FiO2 12/09/24 07:00 99.1 72 18 158/78 94 Room Air 12/09/24 04:23 98.6 69 18 156/75 97 Nasal Cannula LABS: Laboratory: Test 12/09/24 04:11 12/07/24 13:59 Range/Units White Blood Count 9.0 4.8-10.8 K/uL Red Blood Count 4.16 4.00-5.50 MIL/uL Hemoglobin 12.5 12.0-16.0 g/dL Hematocrit 36.8 36-48 % Mean Corpuscular Volume 88.5 79-99 fL Mean Corpuscular Hemoglobin 30.0 27.0-33.0 pg Mean Corpuscular Hemoglobin Concent 34.0 32.0-36.0 g/dL Red Cell Distribution Width 17.4 H 11.0-15.5 % Platelet Count 167 130-400 K/uL Mean Platelet Volume 8.7 7.5-10.5 fL Immature Granulocyte % (Auto) 0.3 0-1 % Neutrophils (%) (Auto) 70.3 40.0-77.0 % Lymphocytes (%) (Auto) 22.1 21.0-51.0 % Monocytes (%) (Auto) 6.9 3.0-13.0 % Eosinophils (%) (Auto) 0.2 0.0-8.0 % Basophils (%) (Auto) 0.2 0.0-5.0 % Neutrophils # (Auto) 6.3 1.8-7.7 K/uL Lymphocytes # (Auto) 2.0 1.0-4.8 K/uL Monocytes # (Auto) 0.6 0.1-1.0 K/uL Eosinophils # (Auto) 0.02 0.00-0.70 K/uL Basophils # (Auto) 0.02 0.00-0.20 K/uL Absolute Immature Granulocyte (auto 0.03 0-1 K/uL Nucleated Red Blood Cells 0.0 0.0-0.19 % Sodium Level 136 136-145 mmol/L Potassium Level 4.8 3.5-5.1 mmol/L Chloride Level 103 101-111 mmol/L Carbon Dioxide Level 27 21-32 mmol/L Blood Urea Nitrogen 22 H 7-18 mg/dL Creatinine 0.8 0.5-1.0 mg/dL Glomerular Filtration Rate Calc 71 >90 mL/min Random Glucose 116 H 70-105 mg/dL Total Calcium 9.1 8.5-10.1 mg/dL Magnesium Level 2.90 H 1.80-2.40 mg/dL Total Bilirubin 0.4 0.2-1.0 mg/dL Aspartate Amino Transf (AST/SGOT) 13 10-37 U/L Alanine Aminotransferase (ALT/SGPT) 19 12-78 U/L Alkaline Phosphatase 106 50-136 U/L Total Protein 6.5 6.0-8.3 g/dL Albumin 3.0 L 3.5-5.0 g/dL HIV (1&2) Antibody Non-Reactive Negative HIV P24 Antigen, Qualitative Non-Reactive Negative Current Medications Medications (Trade) Dose Ordered Sig/Mahnaz Route PRN Reason Start Time Stop Time Status Last Admin Dose Admin Acetaminophen (TYLenol 325MG TAB) 650 mg Q6H PRN PO MODERATE PAIN (4-6) 12/06/24 14:30 01/05/25 14:29 12/08/24 14:46 650 MG Acetaminophen (TYLenol 500MG TAB) 500 mg Q6H PRN PO MILD PAIN (1-3) 12/02/24 14:30 01/01/25 14:29 12/04/24 20:58 500 MG Adenosine (Adenocard 6mg Vial) 6 mg ONCE STAT IV 12/03/24 10:39 12/03/24 10:42 DC 12/03/24 11:06 6 MG Adenosine (Adenocard 6mg Vial) 6 mg ONCE STAT IV 12/03/24 10:44 12/03/24 10:45 DC Amiodarone HCl (pacERONE 200MG) 200 mg BID PO 12/06/24 21:00 12/07/24 13:04 DC 12/07/24 08:02 200 MG Amiodarone HCl 150 mg/Dextrose 100 ml @ 0 mls/hr PROTOCOL IV 12/06/24 07:30 12/06/24 07:24 DC Amiodarone HCl 150 mg/Dextrose 103 ml @ 618 mls/hr ONCE IV 12/03/24 11:00 12/03/24 11:03 DC Amiodarone HCl 360 mg/Dextrose 207.2 ml @ 33.3 mls/hr AD IV 12/03/24 11:00 12/03/24 11:03 DC Amiodarone HCl 540 mg/Dextrose 310.8 ml @ 16.7 mls/hr [id number] IV 12/04/24 15:00 12/06/24 18:53 DC 12/06/24 17:50 16.7 MLS/HR Amlodipine Besylate (NorvASC 5MG TAB) 5 mg DAILY PO 12/03/24 09:00 12/03/24 16:08 DC 12/03/24 09:54 5 MG Apixaban (EliquIS 2.5 mg) 2.5 mg BID PO 12/02/24 21:00 01/01/25 20:59 12/09/24 11:13 2.5 MG Atorvastatin Calcium (LIPItor 40MG) 40 mg HS PO 12/02/24 21:00 01/01/25 20:59 12/08/24 20:27 40 MG Carbidopa/Levodopa (Sinemet 25-100 Tab) 1 each TID PO 12/02/24 21:00 12/06/24 15:11 DC 12/06/24 13:45 1 EACH Carbidopa/Levodopa (Sinemet 25-100 Tab) 1 each TIDAC PO 12/06/24 17:00 01/05/25 16:59 12/09/24 11:13 1 EACH Ceftriaxone Sodium (ROCEphine 1G INJ) 1 gm Q24H IVPB 12/02/24 14:30 12/12/24 14:29 12/08/24 14:46 1 GM Diazepam (VALium 5 MG/ML 2 ML SYG) 5 mg Q4H PRN IV ANXIETY 12/04/24 09:30 12/04/24 09:29 DC Diltiazem HCl (CARDIzem 60MG TAB) 60 mg TID PO 12/06/24 08:30 01/05/25 08:29 12/09/24 11:13 60 MG Diltiazem HCl 125 mg/Sodium Chloride 125 ml @ 0 mls/hr PROTOCOL IV 12/07/24 09:00 01/06/25 08:59 12/07/24 08:53 5 MLS/HR Hydralazine HCl (APRESOLine 20MG INJ) 5 mg Q6H PRN IV ADMINISTER FOR SBP > 160 12/02/24 15:00 12/03/24 04:45 DC Hydralazine HCl (APRESOLine 20MG INJ) 10 mg Q2HPRN PRN IV ADMINISTER FOR SBP > 160 12/03/24 04:30 01/02/25 04:29 12/07/24 05:51 10 MG Hydromorphone HCl (DiLAUDid 0.5MG INJ) 0.2 mg Q6H PRN IVP SEVERE PAIN (7-10) 12/06/24 14:30 12/11/24 14:29 12/08/24 17:28 0.2 MG Hydromorphone HCl (DiLAUDid 0.5MG INJ) 0.5 mg Q6H PRN IVP SEVERE PAIN (7-10) 12/02/24 14:30 12/06/24 14:29 DC 12/06/24 06:37 0.5 MG Lidocaine (Lidocaine Patch 4%) 1 each DAILY TP 12/08/24 09:00 12/08/24 12:58 DC 12/08/24 09:51 1 EACH Lidocaine (Lidocaine Patch 4%) 1 each DAILY TP 12/09/24 09:00 01/08/25 08:59 12/09/24 11:13 1 EACH Methocarbamol (methoCARBamol) 500 mg TID PRN PO muscle cramps 12/02/24 15:30 01/01/25 15:29 12/08/24 14:46 500 MG Metoprolol Tartrate (loprESSOR) 25 mg BID PO 12/02/24 21:00 12/04/24 09:07 DC 12/03/24 21:17 25 MG Metoprolol Tartrate (loprESSOR) 50 mg BID PO 12/02/24 21:00 12/04/24 09:07 DC 12/03/24 22:17 50 MG Miscellaneous Medication (Metoprolol Tartrate ) 1 tab BID PO 12/02/24 21:00 12/02/24 15:32 DC Morphine Sulfate (morPHINE 2MG SYG) 2 mg ONCE STAT IVP 12/02/24 13:33 12/02/24 13:38 DC 12/02/24 13:39 2 MG Nitroglycerin (Nitrostat) 0.4 mg AD PRN SL CHEST PAIN 12/02/24 14:30 01/01/25 14:29 12/03/24 10:25 0.4 MG Ondansetron HCl (zoFRAN 4MG INJ) 4 mg ONCE STAT IVP 12/02/24 13:33 12/02/24 13:38 DC 12/02/24 13:39 4 MG Ondansetron HCl (zoFRAN 4MG INJ) 4 mg Q6H PRN IVP NAUSEA/VOMITING 12/02/24 14:30 01/01/25 14:29 12/07/24 21:35 4 MG Pantoprazole Sodium (PROTonix 40MG INJ) 40 mg BID IVP 12/03/24 21:00 01/01/25 14:29 12/09/24 11:12 40 MG Pantoprazole Sodium (PROTonix 40MG INJ) 40 mg Q24H IVP 12/02/24 14:30 12/03/24 09:37 DC 12/02/24 20:10 40 MG Polyethylene Glycol (MIRalax 3350 17 GM POWD.PACK) 17 gm DAILY PO 12/08/24 09:00 01/07/25 08:59 12/09/24 11:13 17 GM Potassium Chloride 100 ml @ 100 mls/hr AD PRN IV POTASSIUM PROTOCOL 12/07/24 12:00 01/06/25 11:59 Potassium Chloride (K-Dur/Klor-Con 20meq) 20 meq AD PRN PO POTASSIUM PROTOCOL 12/07/24 12:00 01/06/25 11:59 12/07/24 12:51 20 MEQ Potassium Chloride (KCl 10% Elixir 20meq/15ml) 20 meq AD PRN PO POTASSIUM PROTOCOL 12/07/24 12:00 01/06/25 11:59 12/07/24 21:19 20 MEQ Propafenone HCl (Rythmol) 150 mg Q8H PO 12/07/24 13:30 01/06/25 13:29 12/09/24 05:08 150 MG Sodium Chloride 1,000 ml @ 60 mls/hr [id number] IV 12/02/24 14:30 12/02/24 14:26 DC Sodium Chloride 1,000 ml @ 60 mls/hr [id number] IV 12/02/24 14:30 12/04/24 09:29 DC 12/04/24 00:16 60 MLS/HR Sodium Chloride 1,000 ml @ 1,000 mls/hr Q1H STAT IV 12/02/24 10:54 12/02/24 11:53 DC 12/02/24 10:54 1,000 MLS/HR Thiamine HCl (Vitamin B-1) 100 mg Q24H IVP 12/02/24 14:30 01/01/25 14:29 12/08/24 14:45 100 MG Trazodone HCl (DesyREL/OlepTRO) 50 mg HS PO 12/02/24 21:00 01/01/25 20:59 12/08/24 20:27 50 MG DIAGNOSTICS / RADIOLOGY: [ ] ASSESSMENT: [id number]-[id number] hyponatremia, POA Atypical chest pain, POA Epigastric abdominal pain with nausea and vomiting, POA Leukocytosis, POA History of CVA in 2023, POA History of L4-L5 compression fracture with recent history of vertebroplasty in 09/2024, POA Debility/frailty, POA Prior history of MN in [place] in 09/2023, POA History of atrial fibrillation maintained on chronic anticoagulation with Eliquis, POA History of ventricular tachycardia status post ablation 1990 History of outpatient use of opioids with hydrocodone, POA Hyperlipidemia, POA Rule out occult infection, POA History of diuretic use as outpatient, POA History of Parkinson's disease, POA Protein calorie malnutrition, POA PLAN: The patient remains admitted to the progressive care unit Continue the patient on child monitor Continue the patient on Rythmol 150 mg p.o. q.8 hours. Continue Cardizem 60 mg p.o. t.i.d. Lidocaine patch one patch topical daily to the back of the neck Continue supplemental oxygen as needed via nasal cannula to keep oxygen saturation greater than 94% GI input noted and appreciated, continue the patient on Eliquis 2.5 mg p.o. b.i.d. Continue home dose of Sinemet for Parkinson's disease Case management consultation requested for discharge plan to [facility]. NEURO: Minimize central acting medications as possible. Fall Precautions. Well lighted room through the day and minimize interruptions through the night to prevent acute delirium. PULMONARY: Supplemental 02 as needed BiPAP as necessary, for respiratory distress Titrate Fio2 to keep Spo2 > or = 90% DuoNeb�s and CPT as needed IS hourly while awake for pulmonary hygiene prn Out of bed to chair as tolerated Maintain aspiration precautions at all times CARDIOVASCULAR: Follow hemodynamics. Vital signs per facility protocol GI & NUTRITION: Continue nutritional support Aspirations precautions Prokinetic agents and laxatives as needed KIDNEYS & ELECTROLYTES: Strict monitoring of intake and output Daily weights Avoid nephrotoxic agents Monitor electrolytes and replace as needed Goal urine output of 30mL/hr or 0.5mL/kg/hr Medications to be dosed according to renal function. Avoid contrast if possible ENDOCRINE: Maintain blood glucose between 100-180 at all times. Insulin sliding scale for blood glucose management Hypoglycemia and hyperglycemia protocol in place INFECTIOUS DISEASE: Trend temperature, WBC and procalcitonin level Follow cultures, deescalate antibiotics as soon as possible. Panculture if new onset fever HEMATOLOGY & COAGULATION: Monitor H&H. Keep Hgb > 7 Transfuse 1 unit of PRBC for Hgb < 7 Transfuse 1 pack of platelets of platelets < 20, 000 Watch for any signs and symptoms of bleeding SKIN: Pressure ulcer prevention per facility protocol Specialty mattress as needed ORTHO/REHAB Continue PT/OT PRN: MEDICATIONS Tylenol 650 mg po every 4 hrs for fever zofran 4 mg IV every 6 hrs for n/v Hydralazine 5 mg IV every 4 hrs systolic pressure > 160 bowel regiment: lactulose 20 gm PO BID PRN constipation Supportive measures: Continue GI and DVT prophylaxis Disposition: Pending improvement in clinical condition All questions answered time spent: > 35 min MARKELL MAHMOOD MD December 09, 2024 11:24
--- NOTE | 2024-12-09 14:50 | PN ---
[facility] CARDIOLOG[facility] PROGRESS NOTE Date Patient Seen: December 09, 2024 Time of Visit: 14:49 Interval History: This is an 89-year-old white female who normally sees her advertising agent, Dr. Aj Carney in [place] and referred to Dr. Villarreal for EP evaluation has a past medical history of hypertension, Parkinsonism, insomnia, ventricular tachycardia with syncope and VT ablation in 1990 ( [facility]), paroxysmal atrial fibrillation during a hospitalization at [facility] May 2024 and decompensation of diastolic congestive heart failure, normal stress test reported earlier this year, hospitalization at [facility] June 2024 with a hypertensive urgency and hallucinations and was noted to have a subacute right frontal lobe infarct with possible mild petechial hemorrhage by MRI of the brain. a CT angiogram of the brain demonstrated mild carotid disease and a 2D echocardiogram at that time demonstrated normal LVEF and negative bubble study. She had not been on anticoagulation after discharge from [facility] in May of 2024. She was evaluated initially by Dr. Villarreal in July of 2024 and at that time, she was maintaining a sinus bradycardia with a heart rates in the 40-50 beat per minute range and she was continued on Eliquis. An outpatient cardiac mobile refrigerated cargo clerk was requested but the patient was unable to follow-up with Dr. Villarreal due to sacral fracture. She was evaluated by Dr. Villarreal here on 12/03/2024 Noting that her outpatient cardiac mobile refrigerated cargo clerk demonstrated sinus rhythm with frequent PACs, and one four beat run of nonsustained VT. There was a lot of artifact throughout due to tremor from her Parkinson's disease. She initially presented here with nausea, weakness, vomiting, epigastric pain and was felt to be dehydrated. She had a sodium of 121, negative cardiac troponins. The patient developed atrial fibrillation with rapid ventricular response into the 120 beat per minute range. She was initially managed with amiodarone but developed breakthrough atrial fibrillation and has now been transitioned to diltiazem and propafenone therapy. She is on propafenone 150 mg p.o. q.8 hours. She underwent a Lexiscan Cardiolite stress test on 12/04/2024 which was negative for ischemia. Her 2D echocardiogram on this admission also was unremarkable with normal LV systolic function with an LVEF of 65-70% and mild MR. Physical Examination: GENERAL: No acute distress. HEAD: Normal with no signs of head trauma. EYES: PERRLA, EOMI, conjunctiva and sclera normal. NECK: Supple without JVD. There is no tenderness, lymphadenopathy, or masses. No thyromegaly. Normal carotid upstrokes without bruits. LUNGS: Clear breath sounds bilaterally. No wheezes, or rhonchi. HEART: Normal rate and rhythm. Normal S1 and S2 without murmurs, gallop or rub. VASC: Peripheral pulses +2 bilaterally. EXT: No clubbing, cyanosis or edema. NEURO: Awake, alert, and oriented x3. No focal neurological deficits noted. Laboratory: Hematology Labs: Test 12/09/24 04:11 Range/Units White Blood Count 9.0 4.8-10.8 K/uL Red Blood Count 4.16 4.00-5.50 MIL/uL Hemoglobin 12.5 12.0-16.0 g/dL Hematocrit 36.8 36-48 % Mean Corpuscular Volume 88.5 79-99 fL Mean Corpuscular Hemoglobin 30.0 27.0-33.0 pg Mean Corpuscular Hemoglobin Concent 34.0 32.0-36.0 g/dL Red Cell Distribution Width 17.4 H 11.0-15.5 % Platelet Count 167 130-400 K/uL Mean Platelet Volume 8.7 7.5-10.5 fL Immature Granulocyte % (Auto) 0.3 0-1 % Neutrophils (%) (Auto) 70.3 40.0-77.0 % Lymphocytes (%) (Auto) 22.1 21.0-51.0 % Monocytes (%) (Auto) 6.9 3.0-13.0 % Eosinophils (%) (Auto) 0.2 0.0-8.0 % Basophils (%) (Auto) 0.2 0.0-5.0 % Neutrophils # (Auto) 6.3 1.8-7.7 K/uL Lymphocytes # (Auto) 2.0 1.0-4.8 K/uL Monocytes # (Auto) 0.6 0.1-1.0 K/uL Eosinophils # (Auto) 0.02 0.00-0.70 K/uL Basophils # (Auto) 0.02 0.00-0.20 K/uL Absolute Immature Granulocyte (auto 0.03 0-1 K/uL Nucleated Red Blood Cells 0.0 0.0-0.19 % Chemistry Labs: Test 12/09/24 04:11 Range/Units Sodium Level 136 136-145 mmol/L Potassium Level 4.8 3.5-5.1 mmol/L Chloride Level 103 101-111 mmol/L Carbon Dioxide Level 27 21-32 mmol/L Blood Urea Nitrogen 22 H 7-18 mg/dL Creatinine 0.8 0.5-1.0 mg/dL Glomerular Filtration Rate Calc 71 >90 mL/min Random Glucose 116 H 70-105 mg/dL Total Calcium 9.1 8.5-10.1 mg/dL Magnesium Level 2.90 H 1.80-2.40 mg/dL Total Bilirubin 0.4 0.2-1.0 mg/dL Aspartate Amino Transf (AST/SGOT) 13 10-37 U/L Alanine Aminotransferase (ALT/SGPT) 19 12-78 U/L Alkaline Phosphatase 106 50-136 U/L Total Protein 6.5 6.0-8.3 g/dL Albumin 3.0 L 3.5-5.0 g/dL Diagnostics / Radiology: Impression and Plan: Admission with generalized weakness, fatigue and hyponatremia to sodium of 121: -sodium has improved and continue medical management Paroxysmal atrial fibrillation with rapid ventricular response with breakthrough atrial fibrillation while on amiodarone: Normal LV systolic function with an LVEF of 65-70% by 2D echocardiogram 12/04/2024: Normal Lexiscan Cardiolite stress test 12/04/2024: -has been transitioned to propafenone 150 mg p.o. q.8 hours and converted to a normal sinus rhythm at approximately 6:00 a.m. on 12/08/2024 -continue rate control with diltiazem 60 mg p.o.T.i.d. and we will consider changing to long-acting diltiazem on discharge -continue Eliquis at an adjusted dose of 2.5 mg p.o. b.i.d. -Continue to monitor on telemetry -discharge planning and progressive mobilization and monitor heart rate and rhythm response Comorbidities: Syncope secondary to ventricular tachycardia with ablation in 1990 at [facility]. Subacute right frontal lobe CV[place] in [place]/20[place] [facility], with possible mild petechial hemorrhage. 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 Hypertension. Parkinsonism. Chronic diastolic heart failure. GALA PETIT MD December 09, 2024 14:50
--- NOTE | 2024-12-09 20:05 | PN ---
[facility] PROGRESS NOTE Date Patient Seen: December 09, 2024 Time of Visit: 10:02 Supervising Physician: Kiet Parker MD Primary Care Physician: Dr. Caridad Iyer Outpatient Specialists: [ ] Inpatient Consults: [ ] PROBLEM LIST: Recurrent AFib with RVR , now converted to SR On anticoagulation with Eliquis Atypical chest pain rule out ACS Acute hyponatremia POA now improved. Leukocytosis POA now resolved. Normal Lexiscan Cardiolite stress test 12/03/24 Hypertension. Hyperlipidemia. Parkinson's disease. Severe Protein calorie malnutrition. History of opioid use with hydrocodone Unremarkable echocardiogram W/ EF 65-70% and mild mitral valve regurgitation on 2D echo 12/04/24 suspected mild pulmonary HTN RVSP 30.7 mmHg Hx of ventricular tachycardia s/p ablation in 1990 INTERVAL HISTORY: Pt has no complains. Currently at room air. SR 68 with ocassional PVC's . labs are unremarkable. Pending SNF Placement, Dispo per primary team. REVIEW OF SYSTEMS: Const: [no fever, fatigue, or weight changes] Eyes:[ no recent vision problems] ENT: [No congestion, ear pain, or sore throat] C/V: [no chest pain, palpitations or edema] Resp: [No cough, congestion, wheezing , or Shortness of breath] GI: [No abdominal pain, nausea, vomiting, constipation, or diarrhea] : [No incontinence of or dyuria] M/S: yes to involuntary tremors 2/2 [parkinson's disease and neck pain. Skin: [No rash] Neuro: [no headache, focal numbness, or weakness, dizziness or seizures] Psych: [no depression or anxiety] Heme: [no abnormal bruising or bleeding] Lymph: [no swollen glands] PHYSICAL EXAM: GENERAL: Alert, weak, awake oriented x 3 HEENT: EOMI, Sclera non icteric, moist mucosa NECK: Supple, no JVD, trachea midline LUNGS: Clear breath sounds bilaterally. No wheezes HEART: Regular rate and rhythm. Normal S1 and S2, without murmurs ABD: Abdomen soft, nontender. Bowel sounds present EXT: + parkinon tremors. No clubbing cyanosis or edema NEURO: Alert and oriented to person, follows commands Vital Signs (last 8hr) Date Time Temp Pulse Resp B/P (MAP) Pulse Ox O2 Delivery O2 Flow Rate FiO2 12/09/24 19:44 98.4 69 18 124/53 97 Nasal Cannula 12/09/24 15:30 98.1 70 18 142/71 98 Room Air LABS: Hematology Labs: Test 12/09/24 04:11 Range/Units White Blood Count 9.0 4.8-10.8 K/uL Red Blood Count 4.16 4.00-5.50 MIL/uL Hemoglobin 12.5 12.0-16.0 g/dL Hematocrit 36.8 36-48 % Mean Corpuscular Volume 88.5 79-99 fL Mean Corpuscular Hemoglobin 30.0 27.0-33.0 pg Mean Corpuscular Hemoglobin Concent 34.0 32.0-36.0 g/dL Red Cell Distribution Width 17.4 H 11.0-15.5 % Platelet Count 167 130-400 K/uL Mean Platelet Volume 8.7 7.5-10.5 fL Immature Granulocyte % (Auto) 0.3 0-1 % Neutrophils (%) (Auto) 70.3 40.0-77.0 % Lymphocytes (%) (Auto) 22.1 21.0-51.0 % Monocytes (%) (Auto) 6.9 3.0-13.0 % Eosinophils (%) (Auto) 0.2 0.0-8.0 % Basophils (%) (Auto) 0.2 0.0-5.0 % Neutrophils # (Auto) 6.3 1.8-7.7 K/uL Lymphocytes # (Auto) 2.0 1.0-4.8 K/uL Monocytes # (Auto) 0.6 0.1-1.0 K/uL Eosinophils # (Auto) 0.02 0.00-0.70 K/uL Basophils # (Auto) 0.02 0.00-0.20 K/uL Absolute Immature Granulocyte (auto 0.03 0-1 K/uL Nucleated Red Blood Cells 0.0 0.0-0.19 % Chemistry Labs: Test 12/09/24 04:11 Range/Units Sodium Level 136 136-145 mmol/L Potassium Level 4.8 3.5-5.1 mmol/L Chloride Level 103 101-111 mmol/L Carbon Dioxide Level 27 21-32 mmol/L Blood Urea Nitrogen 22 H 7-18 mg/dL Creatinine 0.8 0.5-1.0 mg/dL Glomerular Filtration Rate Calc 71 >90 mL/min Random Glucose 116 H 70-105 mg/dL Total Calcium 9.1 8.5-10.1 mg/dL Magnesium Level 2.90 H 1.80-2.40 mg/dL Total Bilirubin 0.4 0.2-1.0 mg/dL Aspartate Amino Transf (AST/SGOT) 13 10-37 U/L Alanine Aminotransferase (ALT/SGPT) 19 12-78 U/L Alkaline Phosphatase 106 50-136 U/L Total Protein 6.5 6.0-8.3 g/dL Albumin 3.0 L 3.5-5.0 g/dL DIAGNOSTICS / RADIOLOGY RESULTS: [ ] PLAN Off drips now SR Follow cardiology recs wean off o2 Continue anticoagulation with eliquis 2.5mg po BID per cardiology recs. Continue cardiac monitoring CTA negative for PE Maintain O2 sats above 92% pending SNF per primary team . NEURO: Minimize central acting medications as possible. Maintain fall precautions, adequate lighting during the day PULMONARY: Supplemental 02 as needed. Maintain aspiration precautions at all times CARDIOVASCULAR: Follow hemodynamics. Vital signs per facility protocol GI & NUTRITION: Continue with nutritional support. Continue stool softeners and laxatives as needed. KIDNEYS & ELECTROLYTES: Strict monitoring of intake, output and overall fluid balance. Avoid nephrotoxic medications to the extent possible. Medications to be dosed according to renal function. Monitor electrolytes and replace as needed ENDOCRINE: Maintain blood glucose between 100-180 at all times. Hypoglycemia protocol in place INFECTIOUS DISEASE: Trend temperature, WBC and procalcitonin level Follow cultures, deescalate antibiotics as soon as possible. Panculture if new onset fever ONCOLOGY/HEMATOLOGY/COAGULATION: Monitor for s/s of bleeding Monitor hemoglobin, coagulation studies as needed SKIN: Pressure ulcer prevention per facility protocol Specialty mattress ORTHO/REHAB: Continue PT/OT Prophylaxis: Continue GI and DVT prophylaxis Code Status: Full Resuscitation Disposition: TBD Other: ATTESTATION BY PHYSICIAN I reviewed the documentation, medical decision making, and treatment plan as noted by the mid-level provider above. I agree with the findings and plan of Kiet Mcgill MD, NELLY J ARNP December 09, 2024 20:05
[2024-12-10] VITALS (7 sets, daily range): BP systolic 124–140; BP diastolic 56–86; PULSE 61–75; RESP 17–18; TEMP 97.9–98.9; O2SAT 97
[2024-12-10 04:45] LABS: BASOPHILS # (AUTO) 0.02 K/uL (0.00-0.20); BASOPHILS % (AUTO) 0.2 % (0.0-5.0); EOSINOPHILS # (AUTO) 0.05 K/uL (0.00-0.70); EOSINOPHILS % (AUTO) 0.6 % (0.0-8.0); HEMATOCRIT 34.3 % (36-48); IMMATURE GRANULOCYTE ABSOLUTE 0.03 K/uL (0-1); LYMPHOCYTES # (AUTO) 1.8 K/uL (1.0-4.8); MEAN CORPUSCULAR HEMOGLOBIN 29.8 pg (27.0-33.0); MEAN CORPUSCULAR HGB CONC 33.2 g/dL (32.0-36.0); MEAN CORPUSCULAR VOLUME 89.8 fL (79-99); MONOCYTES # (AUTO) 0.7 K/uL (0.1-1.0); MONOCYTES % (AUTO) 8.3 % (3.0-13.0); NEUTROPHILS # (AUTO) 5.6 K/uL (1.8-7.7); NEUTROPHILS % (AUTO) 68.5 % (40.0-77.0); PLATELET COUNT (AUTO) 166 K/uL (130-400); RED BLOOD CELL COUNT(AUTO) 3.82 MIL/uL (4.00-5.50); RED CELL DISTRIBUTION WIDTH 17.2 % (11.0-15.5); WHITE BLOOD COUNT (AUTO) 8.1 K/uL (4.8-10.8)
[2024-12-10 05:12] LABS: ALBUMIN 2.8 g/dL (3.5-5.0); BILIRUBIN,TOTAL 0.3 mg/dL (0.2-1.0); CREATININE 0.8 mg/dL (0.5-1.0); MAGNESIUM 2.6 mg/dL (1.80-2.40); PHOSPHORUS 3.9 mg/dL (2.5-4.9); POTASSIUM 4.1 mmol/L (3.5-5.1); TOTAL PROTEIN, SERUM 5.9 g/dL (6.0-8.3)
--- NOTE | 2024-12-10 08:20 | PN ---
[facility] PROGRESS NOTE Date of Service: December 10, 2024 Time of Service: 08:19 SUBJECTIVE: [ ] This is a 89-year-old female with underlying history of hypertension, hyperlipidemia, per daughter, prior history of TX in [place] in 09/2023, history of CVA, recent history of compression fractures involving L4 and L5 status post vertebroplasty in [facility], history of atrial fibrillation maintained on chronic anticoagulation with Eliquis, Parkinson's disease who presented to the ER with chief complaint of epigastric pain with midsternal chest discomfort, poor oral intake ongoing since last night. 12/03/24 during my rounds patient was complaining of chest pain states 05/10. Patient was placed on oxygen in given x1 morphine. Patient is retaining urine bladder scan showed [address] Beckham catheter. Patient continues to have chest discomfort patient was given nitroglycerin. AFib with RVR 170. The patient became diaphoretic thereafter radiate to her right arm. Repeat cardiac enzymes. Patient was given one dose of IV Lopressor then was transferred to ICU 12/04/24 patient went down for nuclear medicine. Lexiscan we will follow results. Bradycardia beta-blockers were discontinued patient converted back to sinus We will follow charging crane operator's recommendations. 12/05/24 the patient was seen earlier: she is fully awake and alert oriented x3. denies chest pain or sob. Primary nurse reports she went into afibb with RVR overnight. This morning was given Diltiazem 10 mg IV one . amiodrone drip was restarted. Lexiscan was negative/ we will wait from DR Villarreal if any further workup. 12/06/24 the patient continue to have Afibb with RVR: this morning she was in the 160's as per Tele radar technician. Tool Polishing Machine Operator started PO Cardizen [address] Villarreal scheduled a cardioversion for am. 12/07 the patient has been seen and examined earlier this morning during my rounding, case discussed with the RN, the patient converted back to normal sinus rhythm yesterday around 3:00 p.m., however again earlier this morning, patient went into atrial fibrillation with a rapid ventricular response, with a heart rate between 160-170, she was complaining of mild shortness a breath, reason for which she was started on supplemental oxygen via nasal cannula at 2 L, cardiology notified, patient is started on Cardizem drip. During my visit the patient is alert oriented x3, hemodynamically stable, off supplemental oxygen, saturating normal on room air, heart rate controlled at 88, however still persistent atrial fibrillation. Patient's two daughters at bedside, updated, all questions answered. 12/08 patient is seen and examined at bedside during my rounding, case discussed with the RN, patient off Cardizem drip, converted back to normal sinus rhythm, she is alert oriented x3, complaining of mild pain to the back of the neck. BP 137/61, heart rate of 76, saturating normal on room air. Daughter at bedside d toño my visit, updated. 12/09 cerebral female with a history of Parkinson disease as well as atrial fibrillation, admitted with a AFib RVR, evaluated by EP, heart rate now controlled at 72, on Rythmol 150 mg p.o. q.8 hours and Cardizem 60 mg p.o. t.i.d.. Case management consulted for discharge plan to SNF. 12/11/23 patient is seen and examined patient is doing well no arrhythmias overnight. Patient is pending placement in process. All questions were addressed denies chest pain or shortness for breath. REVIEW OF SYSTEMS CONSTITUTIONAL: Denies fevers, chills, or night sweats. No unintentional weight loss reported. NEUROLOGICAL: Denies headache, amaurosis fugax, motor weakness, sensory deficit, vertigo/spinning sensation, gait abnormalities, or tremors. ENT: No hearing loss, otalgia, otorrhea, rhinitis, rhinorrhea, hoarseness, or sore throat. CARDIOVASCULAR: Patient reports having substernal chest discomfort PULMONARY: Denies any shortness of breath, cough, phlegm/sputum, hemoptysis, pleuritic chest pain. SLEEP: Denies morning headaches, daytime somnolence or napping. Denies difficulty falling asleep, staying asleep, waking from sleep. Denies knowledge of snoring. GASTROINTESTINAL: Nausea, vomiting, epigastric pain, mild in intensity, denies any significant lower quadrant abdominal pain GENITOURINARY: Denies frequency, urgency, nocturia, hematuria or incontinence (Storage/Irritative symptoms.) Low urinary stream, straining to void, urinary intermittency or hesitancy, splitting of the voiding stream, terminal dribbling. ENDOCRINOLOGIC: Denies polyuria, polydipsia, polyphagia or heat/cold intolerances. HEMATOLOGIC: Denies thrombophilia/previous clots, or coagulopathy/bleeding disorders. ONCOLOGIC: Denies personal history of malignancy. DERMATOLOGIC: Denies rashes or pruritus. PSYCHIATRIC: Denies any suicidal or homicidal ideation. Denies hallucinations. PHYSICAL EXAM GENERAL APPEARANCE: The patient is awake, alert, appears frail and chronically ill NEUROLOGICAL: Cranial nerves II-XII grossly intact. Patient is moving her upper and lower extremities, resting tremors noted of the hands HEENT: Face is symmetric. Pupils are equal and reactive. Extraocular movements are intact. NECK: Supple. No JVD. No thyromegaly. No submental, submandibular, pre-/postauricular, occipital or supraclavicular lymphadenopathy. CHEST: Normal chest expansion. No Telemetry. LUNGS: Absence of any rales, rhonchi or any wheezing. CARDIOVASCULAR: Irregular, no rubs or gallops noted ABDOMEN: Soft, nontender, and nondistended. No significant tenderness on palpation of the abdomen : Deferred. No Beckham. EXTREMITIES: Non-edematous and not cyanotic. No clubbing. Good capillary refill. SKIN: No skin breakdown. Vital Signs (last 8hr) Date Time Temp Pulse Resp B/P (MAP) Pulse Ox O2 Delivery O2 Flow Rate FiO2 12/10/24 07:00 99.0 68 17 140/86 96 Room Air 12/10/24 04:08 98.4 61 18 133/63 97 Room Air LABS: Laboratory: Test 12/10/24 04:35 Range/Units White Blood Count 8.1 4.8-10.8 K/uL Red Blood Count 3.82 L 4.00-5.50 MIL/uL Hemoglobin 11.4 L 12.0-16.0 g/dL Hematocrit 34.3 L 36-48 % Mean Corpuscular Volume 89.8 79-99 fL Mean Corpuscular Hemoglobin 29.8 27.0-33.0 pg Mean Corpuscular Hemoglobin Concent 33.2 32.0-36.0 g/dL Red Cell Distribution Width 17.2 H 11.0-15.5 % Platelet Count 166 130-400 K/uL Mean Platelet Volume 8.8 7.5-10.5 fL Immature Granulocyte % (Auto) 0.4 0-1 % Neutrophils (%) (Auto) 68.5 40.0-77.0 % Lymphocytes (%) (Auto) 22.0 21.0-51.0 % Monocytes (%) (Auto) 8.3 3.0-13.0 % Eosinophils (%) (Auto) 0.6 0.0-8.0 % Basophils (%) (Auto) 0.2 0.0-5.0 % Neutrophils # (Auto) 5.6 1.8-7.7 K/uL Lymphocytes # (Auto) 1.8 1.0-4.8 K/uL Monocytes # (Auto) 0.7 0.1-1.0 K/uL Eosinophils # (Auto) 0.05 0.00-0.70 K/uL Basophils # (Auto) 0.02 0.00-0.20 K/uL Absolute Immature Granulocyte (auto 0.03 0-1 K/uL Nucleated Red Blood Cells 0.0 0.0-0.19 % Sodium Level 137 136-145 mmol/L Potassium Level 4.1 3.5-5.1 mmol/L Chloride Level 104 101-111 mmol/L Carbon Dioxide Level 26 21-32 mmol/L Blood Urea Nitrogen 23 H 7-18 mg/dL Creatinine 0.8 0.5-1.0 mg/dL Glomerular Filtration Rate Calc 71 >90 mL/min Random Glucose 113 H 70-105 mg/dL Total Calcium 8.5 8.5-10.1 mg/dL Phosphorus Level 3.9 2.5-4.9 mg/dL Magnesium Level 2.60 H 1.80-2.40 mg/dL Total Bilirubin 0.3 0.2-1.0 mg/dL Aspartate Amino Transf (AST/SGOT) 13 10-37 U/L Alanine Aminotransferase (ALT/SGPT) 15 12-78 U/L Alkaline Phosphatase 88 50-136 U/L Total Protein 5.9 L 6.0-8.3 g/dL Albumin 2.8 L 3.5-5.0 g/dL Current Medications Medications (Trade) Dose Ordered Sig/Mahnaz Route PRN Reason Start Time Stop Time Status Last Admin Dose Admin Acetaminophen (TYLenol 325MG TAB) 650 mg Q6H PRN PO MODERATE PAIN (4-6) 12/06/24 14:30 01/05/25 14:29 12/08/24 14:46 650 MG Acetaminophen (TYLenol 500MG TAB) 500 mg Q6H PRN PO MILD PAIN (1-3) 12/02/24 14:30 01/01/25 14:29 12/04/24 20:58 500 MG Adenosine (Adenocard 6mg Vial) 6 mg ONCE STAT IV 12/03/24 10:39 12/03/24 10:42 DC 12/03/24 11:06 6 MG Adenosine (Adenocard 6mg Vial) 6 mg ONCE STAT IV 12/03/24 10:44 12/03/24 10:45 DC Amiodarone HCl (pacERONE 200MG) 200 mg BID PO 12/06/24 21:00 12/07/24 13:04 DC 12/07/24 08:02 200 MG Amiodarone HCl 150 mg/Dextrose 100 ml @ 0 mls/hr PROTOCOL IV 12/06/24 07:30 12/06/24 07:24 DC Amiodarone HCl 150 mg/Dextrose 103 ml @ 618 mls/hr ONCE IV 12/03/24 11:00 12/03/24 11:03 DC Amiodarone HCl 360 mg/Dextrose 207.2 ml @ 33.3 mls/hr AD IV 12/03/24 11:00 12/03/24 11:03 DC Amiodarone HCl 540 mg/Dextrose 310.8 ml @ 16.7 mls/hr [id number] IV 12/04/24 15:00 12/06/24 18:53 DC 12/06/24 17:50 16.7 MLS/HR Amlodipine Besylate (NorvASC 5MG TAB) 5 mg DAILY PO 12/03/24 09:00 12/03/24 16:08 DC 12/03/24 09:54 5 MG Apixaban (EliquIS 2.5 mg) 2.5 mg BID PO 12/02/24 21:00 01/01/25 20:59 12/10/24 08:02 2.5 MG Atorvastatin Calcium (LIPItor 40MG) 40 mg HS PO 12/02/24 21:00 01/01/25 20:59 12/09/24 21:36 40 MG Carbidopa/Levodopa (Sinemet 25-100 Tab) 1 each TID PO 12/02/24 21:00 12/06/24 15:11 DC 12/06/24 13:45 1 EACH Carbidopa/Levodopa (Sinemet 25-100 Tab) 1 each TIDAC PO 12/06/24 17:00 01/05/25 16:59 12/09/24 16:53 1 EACH Ceftriaxone Sodium (ROCEphine 1G INJ) 1 gm Q24H IVPB 12/02/24 14:30 12/12/24 14:29 12/09/24 16:05 1 GM Diazepam (VALium 5 MG/ML 2 ML SYG) 5 mg Q4H PRN IV ANXIETY 12/04/24 09:30 12/04/24 09:29 DC Diltiazem HCl (CARDIzem 60MG TAB) 60 mg TID PO 12/06/24 08:30 01/05/25 08:29 12/09/24 21:35 60 MG Diltiazem HCl 125 mg/Sodium Chloride 125 ml @ 0 mls/hr PROTOCOL IV 12/07/24 09:00 01/06/25 08:59 12/07/24 08:53 5 MLS/HR Hydralazine HCl (APRESOLine 20MG INJ) 5 mg Q6H PRN IV ADMINISTER FOR SBP > 160 12/02/24 15:00 12/03/24 04:45 DC Hydralazine HCl (APRESOLine 20MG INJ) 10 mg Q2HPRN PRN IV ADMINISTER FOR SBP > 160 12/03/24 04:30 01/02/25 04:29 12/07/24 05:51 10 MG Hydromorphone HCl (DiLAUDid 0.5MG INJ) 0.2 mg Q6H PRN IVP SEVERE PAIN (7-10) 12/06/24 14:30 12/11/24 14:29 12/08/24 17:28 0.2 MG Hydromorphone HCl (DiLAUDid 0.5MG INJ) 0.5 mg Q6H PRN IVP SEVERE PAIN (7-10) 12/02/24 14:30 12/06/24 14:29 DC 12/06/24 06:37 0.5 MG Lidocaine (Lidocaine Patch 4%) 1 each DAILY TP 12/08/24 09:00 12/08/24 12:58 DC 12/08/24 09:51 1 EACH Lidocaine (Lidocaine Patch 4%) 1 each DAILY TP 12/09/24 09:00 01/08/25 08:59 12/10/24 08:03 1 EACH Methocarbamol (methoCARBamol) 500 mg TID PRN PO muscle cramps 12/02/24 15:30 01/01/25 15:29 12/08/24 14:46 500 MG Metoprolol Tartrate (loprESSOR) 25 mg BID PO 12/02/24 21:00 12/04/24 09:07 DC 12/03/24 21:17 25 MG Metoprolol Tartrate (loprESSOR) 50 mg BID PO 12/02/24 21:00 12/04/24 09:07 DC 12/03/24 22:17 50 MG Miscellaneous Medication (Metoprolol Tartrate ) 1 tab BID PO 12/02/24 21:00 12/02/24 15:32 DC Morphine Sulfate (morPHINE 2MG SYG) 2 mg ONCE STAT IVP 12/02/24 13:33 12/02/24 13:38 DC 12/02/24 13:39 2 MG Nitroglycerin (Nitrostat) 0.4 mg AD PRN SL CHEST PAIN 12/02/24 14:30 01/01/25 14:29 12/03/24 10:25 0.4 MG Ondansetron HCl (zoFRAN 4MG INJ) 4 mg ONCE STAT IVP 12/02/24 13:33 12/02/24 13:38 DC 12/02/24 13:39 4 MG Ondansetron HCl (zoFRAN 4MG INJ) 4 mg Q6H PRN IVP NAUSEA/VOMITING 12/02/24 14:30 01/01/25 14:29 12/10/24 08:02 4 MG Pantoprazole Sodium (PROTonix 40MG INJ) 40 mg BID IVP 12/03/24 21:00 01/01/25 14:29 12/10/24 08:02 40 MG Pantoprazole Sodium (PROTonix 40MG INJ) 40 mg Q24H IVP 12/02/24 14:30 12/03/24 09:37 DC 12/02/24 20:10 40 MG Polyethylene Glycol (MIRalax 3350 17 GM POWD.PACK) 17 gm DAILY PO 12/08/24 09:00 01/07/25 08:59 12/09/24 11:13 17 GM Potassium Chloride 100 ml @ 100 mls/hr AD PRN IV POTASSIUM PROTOCOL 12/07/24 12:00 01/06/25 11:59 Potassium Chloride (K-Dur/Klor-Con 20meq) 20 meq AD PRN PO POTASSIUM PROTOCOL 12/07/24 12:00 01/06/25 11:59 12/07/24 12:51 20 MEQ Potassium Chloride (KCl 10% Elixir 20meq/15ml) 20 meq AD PRN PO POTASSIUM PROTOCOL 12/07/24 12:00 01/06/25 11:59 12/07/24 21:19 20 MEQ Propafenone HCl (Rythmol) 150 mg Q8H PO 12/07/24 13:30 01/06/25 13:29 12/10/24 06:12 150 MG Sodium Chloride 1,000 ml @ 60 mls/hr [id number] IV 12/02/24 14:30 12/02/24 14:26 DC Sodium Chloride 1,000 ml @ 60 mls/hr [id number] IV 12/02/24 14:30 12/04/24 09:29 DC 12/04/24 00:16 60 MLS/HR Sodium Chloride 1,000 ml @ 1,000 mls/hr Q1H STAT IV 12/02/24 10:54 12/02/24 11:53 DC 12/02/24 10:54 1,000 MLS/HR Thiamine HCl (Vitamin B-1) 100 mg Q24H IVP 12/02/24 14:30 01/01/25 14:29 12/09/24 16:04 100 MG Trazodone HCl (DesyREL/OlepTRO) 50 mg HS PO 12/02/24 21:00 01/01/25 20:59 12/09/24 21:35 50 MG DIAGNOSTICS / RADIOLOGY: [ ] ASSESSMENT: [id number] hyponatremia, POA Atypical chest pain, POA Epigastric abdominal pain with nausea and vomiting, POA Leukocytosis, POA History of CVA in 2023, POA History of L4-L5 compression fracture with recent history of vertebroplasty in 09/2024, POA Debility/frailty, POA Prior history of TX in [place] in 09/2023, POA History of atrial fibrillation maintained on chronic anticoagulation with Eliquis, POA History of ventricular tachycardia status post ablation 1990 History of outpatient use of opioids with hydrocodone, POA Hyperlipidemia, POA Rule out occult infection, POA History of diuretic use as outpatient, POA History of Parkinson's disease, POA Protein calorie malnutrition, POA PLAN: The patient PCCU Continue the patient on Rythmol 150 mg p.o. q.8 hours. Continue Cardizem 60 mg p.o. t.i.d. Lidocaine patch one patch topical daily to the back of the neck Continue supplemental oxygen as needed via nasal cannula to keep oxygen saturation greater than 94% GI input noted and appreciated, continue the patient on Eliquis 2.5 mg p.o. b.i.d. Continue home dose of Sinemet for Parkinson's disease Case management consultation requested for discharge plan to halfway facility. NEURO: Minimize central acting medications as possible. Fall Precautions. Well lighted room through the day and minimize interruptions through the night to prevent acute delirium. PULMONARY: Supplemental 02 as needed BiPAP as necessary, for respiratory distress Titrate Fio2 to keep Spo2 > or = 90% DuoNeb�s and CPT as needed IS hourly while awake for pulmonary hygiene prn Out of bed to chair as tolerated Maintain aspiration precautions at all times CARDIOVASCULAR: Follow hemodynamics. Vital signs per facility protocol GI & NUTRITION: Continue nutritional support Aspirations precautions Prokinetic agents and laxatives as needed KIDNEYS & ELECTROLYTES: Strict monitoring of intake and output Daily weights Avoid nephrotoxic agents Monitor electrolytes and replace as needed Goal urine output of 30mL/hr or 0.5mL/kg/hr Medications to be dosed according to renal function. Avoid contrast if possible ENDOCRINE: Maintain blood glucose between 100-180 at all times. Insulin sliding scale for blood glucose management Hypoglycemia and hyperglycemia protocol in place INFECTIOUS DISEASE: Trend temperature, WBC and procalcitonin level Follow cultures, deescalate antibiotics as soon as possible. Panculture if new onset fever HEMATOLOGY & COAGULATION: Monitor H&H. Keep Hgb > 7 Transfuse 1 unit of PRBC for Hgb < 7 Transfuse 1 pack of platelets of platelets < 20, 000 Watch for any signs and symptoms of bleeding SKIN: Pressure ulcer prevention per facility protocol Specialty mattress as needed ORTHO/REHAB Continue PT/OT PRN: MEDICATIONS Tylenol 650 mg po every 4 hrs for fever zofran 4 mg IV every 6 hrs for n/v Hydralazine 5 mg IV every 4 hrs systolic pressure > 160 bowel regiment: lactulose 20 gm PO BID PRN constipation Supportive measures: Continue GI and DVT prophylaxis Disposition: Pending improvement in clinical condition All questions answered time spent: > 35 min ATTESTATION BY PHYSICIAN I have seen and examined the patient. I reviewed the documentation, medical decision making, and treatment plan as noted by the mid-level provider above. I agree with the findings and plan of care. MARKELL MAHMOOD MD, ELIZABETH NP December 10, 2024 08:20
--- NOTE | 2024-12-10 08:38 | PN ---
This is an 89-year-old female with a history syncope and ventricular tachycardia status post VT ablation in 1990, subacute right frontal lobe CVA, hypertension and Parkinson's disease. She was admitted 12/02/2024 with complaints of epigastric pain. She has had recurrent atrial fibrillation with rapid ventricular response. On 12/07/2024 she was started on propafenone 150 mg every 8 hours. She had been on Cardizem drip for rate control which was transitioned to 60 mg every 8 hours. The atrial fibrillation organized to atrial flutter. On 12/08/2024 at around 4:00 p.m. she converted to sinus rhythm. She has been in sinus rhythm in the upper 50s to 80s. She has preserved LVEF with an ejection fraction of 65-70% on this admission. Her most recent blood pressure is 140/86. White blood count 8.1, hemoglobin 11.4, hematocrit 34.3, it was 166, creatinine 0.8, potassium 4.1, magnesium 2.60. She is doing well this morning and offers no new cardiac complaints. She is anxious to be discharged. On exam, she is in no acute distress, resting tremor, regular rate and rhythm, lungs are clear to auscultation bilaterally, no lower extremity edema is noted. Assessment: 1. Atrial fibrillation with rapid ventricular response. 2. Preserved LVEF. 3. History of ventricular tachycardia status post ablation in 1990. 4. Parkinson's disease. Plan: Discussed with Dr. Villarreal. 1. She has maintained sinus rhythm since 6:00 a.m. on 12/08/2024. We will continue propafenone 150 mg every 8 hours. 2. She is on diltiazem 60 mg every 8 hours. On discharge, we will transition to diltiazem ER 180 mg once daily. 3. Continue Eliquis 2.5 mg twice daily. 4. Physical therapy to ambulate today. 5. She is cleared to be discharged from an electrophysiology standpoint. Agree with discharge to care home facility. 6. We will schedule follow-up visit with Dr. Villarreal in two weeks. Vitals/Labs Vital Signs Date Time Temp Pulse Resp B/P (MAP) Pulse Ox O2 Delivery O2 Flow Rate FiO2 12/10/24 07:00 99.0 68 17 140/86 96 Room Air 12/09/24 20:00 0 21 Laboratory Tests 12/10/24 04:35 ZAHEER UNGER December 10, 2024 08:38
[2024-12-10] MEDS ORDERED: PROP150T28 PO (08:42)
[2024-12-10] MEDS ORDERED: DILT180C89 PO (08:42)
--- NOTE | 2024-12-10 11:07 | PN ---
GASTROENTEROLOGY PROGRESS NOTE Date of Visit: December 10, 2024 Time of Visit: 11:07 Events / Notes: [ ] Review of Systems: CONSTITUTIONAL: No malaise or change in sensation of wellbeing. ENMT: No rhinorrhea, otorrhea, sinus pain, ear ache. CARDIOVASCULAR: No angina, palpitations, orthopnea or paroxysmal dyspnea. RESPIRATORY: No SOB. GASTROINTESTINAL: No abdominal pain, nausea, vomiting, diarrhea, hematemesis, melena or change in the patient's habitual bowel movements consistency/number. GENITOURINARY: No dysuria, hematuria or change in bladder continence. MUSCULOSKELETAL: No new muscle pain or decrease in muscular strength. No new joint swelling, redness or tenderness. SKIN: No new rash. Physical Exam: GEN: Awake, alert, oriented in person, time and place, and in no acute distress. HEENT: No sinus tenderness. Tympanic membranes were not examined. No rhinorrhea. Oral pharyngeal mucosa is pink, moist and within normal limits. Neck is supple with no cervical lymphadenopathy, thyromegaly or JVD. CHEST: Inspection, palpation and percussion of the chest were unremarkable. Lung auscultation revealed normal breath sounds bilaterally. CARDIAC: PMI is within normal limits. Heart sounds are regular. Normal S1, S2. No gallop or murmur. ABD: Soft, non-tender and not distended. No peritoneal signs on palpation. No organomegaly. Normal bowel sounds. EXT: No cyanosis or clubbing. No edema. SKIN: Intact. No rashes. JOINTS: No evidence of synovitis or acute arthritis. NEURO: Alert and oriented to name, place and person. Cranial nerve examination is unremarkable. No focal motor deficits. Normal speech. Gait is normal. Strength is normal. Vital Signs (last 8hr) Date Time Temp Pulse Resp B/P (MAP) Pulse Ox O2 Delivery O2 Flow Rate FiO2 12/10/24 07:00 99.0 68 17 140/86 96 Room Air 12/10/24 04:08 98.4 61 18 133/63 97 Room Air Laboratory: [ ] Laboratory: Test 12/10/24 04:35 Range/Units White Blood Count 8.1 4.8-10.8 K/uL Red Blood Count 3.82 L 4.00-5.50 MIL/uL Hemoglobin 11.4 L 12.0-16.0 g/dL Hematocrit 34.3 L 36-48 % Mean Corpuscular Volume 89.8 79-99 fL Mean Corpuscular Hemoglobin 29.8 27.0-33.0 pg Mean Corpuscular Hemoglobin Concent 33.2 32.0-36.0 g/dL Red Cell Distribution Width 17.2 H 11.0-15.5 % Platelet Count 166 130-400 K/uL Mean Platelet Volume 8.8 7.5-10.5 fL Immature Granulocyte % (Auto) 0.4 0-1 % Neutrophils (%) (Auto) 68.5 40.0-77.0 % Lymphocytes (%) (Auto) 22.0 21.0-51.0 % Monocytes (%) (Auto) 8.3 3.0-13.0 % Eosinophils (%) (Auto) 0.6 0.0-8.0 % Basophils (%) (Auto) 0.2 0.0-5.0 % Neutrophils # (Auto) 5.6 1.8-7.7 K/uL Lymphocytes # (Auto) 1.8 1.0-4.8 K/uL Monocytes # (Auto) 0.7 0.1-1.0 K/uL Eosinophils # (Auto) 0.05 0.00-0.70 K/uL Basophils # (Auto) 0.02 0.00-0.20 K/uL Absolute Immature Granulocyte (auto 0.03 0-1 K/uL Nucleated Red Blood Cells 0.0 0.0-0.19 % Sodium Level 137 136-145 mmol/L Potassium Level 4.1 3.5-5.1 mmol/L Chloride Level 104 101-111 mmol/L Carbon Dioxide Level 26 21-32 mmol/L Blood Urea Nitrogen 23 H 7-18 mg/dL Creatinine 0.8 0.5-1.0 mg/dL Glomerular Filtration Rate Calc 71 >90 mL/min Random Glucose 113 H 70-105 mg/dL Total Calcium 8.5 8.5-10.1 mg/dL Phosphorus Level 3.9 2.5-4.9 mg/dL Magnesium Level 2.60 H 1.80-2.40 mg/dL Total Bilirubin 0.3 0.2-1.0 mg/dL Aspartate Amino Transf (AST/SGOT) 13 10-37 U/L Alanine Aminotransferase (ALT/SGPT) 15 12-78 U/L Alkaline Phosphatase 88 50-136 U/L Total Protein 5.9 L 6.0-8.3 g/dL Albumin 2.8 L 3.5-5.0 g/dL Current Medications Medications (Trade) Dose Ordered Sig/Mahnaz Route PRN Reason Start Time Stop Time Status Last Admin Dose Admin Acetaminophen (TYLenol 325MG TAB) 650 mg Q6H PRN PO MODERATE PAIN (4-6) 12/06/24 14:30 01/05/25 14:29 12/08/24 14:46 650 MG Acetaminophen (TYLenol 500MG TAB) 500 mg Q6H PRN PO MILD PAIN (1-3) 12/02/24 14:30 01/01/25 14:29 12/04/24 20:58 500 MG Adenosine (Adenocard 6mg Vial) 6 mg ONCE STAT IV 12/03/24 10:39 12/03/24 10:42 DC 12/03/24 11:06 6 MG Adenosine (Adenocard 6mg Vial) 6 mg ONCE STAT IV 12/03/24 10:44 12/03/24 10:45 DC Amiodarone HCl (pacERONE 200MG) 200 mg BID PO 12/06/24 21:00 12/07/24 13:04 DC 12/07/24 08:02 200 MG Amiodarone HCl 150 mg/Dextrose 100 ml @ 0 mls/hr PROTOCOL IV 12/06/24 07:30 12/06/24 07:24 DC Amiodarone HCl 150 mg/Dextrose 103 ml @ 618 mls/hr ONCE IV 12/03/24 11:00 12/03/24 11:03 DC Amiodarone HCl 360 mg/Dextrose 207.2 ml @ 33.3 mls/hr AD IV 12/03/24 11:00 12/03/24 11:03 DC Amiodarone HCl 540 mg/Dextrose 310.8 ml @ 16.7 mls/hr [id number] IV 12/04/24 15:00 12/06/24 18:53 DC 12/06/24 17:50 16.7 MLS/HR Amlodipine Besylate (NorvASC 5MG TAB) 5 mg DAILY PO 12/03/24 09:00 12/03/24 16:08 DC 12/03/24 09:54 5 MG Apixaban (EliquIS 2.5 mg) 2.5 mg BID PO 12/02/24 21:00 01/01/25 20:59 12/10/24 08:02 2.5 MG Atorvastatin Calcium (LIPItor 40MG) 40 mg HS PO 12/02/24 21:00 01/01/25 20:59 12/09/24 21:36 40 MG Carbidopa/Levodopa (Sinemet 25-100 Tab) 1 each TID PO 12/02/24 21:00 12/06/24 15:11 DC 12/06/24 13:45 1 EACH Carbidopa/Levodopa (Sinemet 25-100 Tab) 1 each TIDAC PO 12/06/24 17:00 01/05/25 16:59 12/10/24 09:30 1 EACH Ceftriaxone Sodium (ROCEphine 1G INJ) 1 gm Q24H IVPB 12/02/24 14:30 12/12/24 14:29 12/09/24 16:05 1 GM Diazepam (VALium 5 MG/ML 2 ML SYG) 5 mg Q4H PRN IV ANXIETY 12/04/24 09:30 12/04/24 09:29 DC Diltiazem HCl (CARDIzem 60MG TAB) 60 mg TID PO 12/06/24 08:30 01/05/25 08:29 12/10/24 08:25 60 MG Diltiazem HCl 125 mg/Sodium Chloride 125 ml @ 0 mls/hr PROTOCOL IV 12/07/24 09:00 01/06/25 08:59 12/07/24 08:53 5 MLS/HR Hydralazine HCl (APRESOLine 20MG INJ) 5 mg Q6H PRN IV ADMINISTER FOR SBP > 160 12/02/24 15:00 12/03/24 04:45 DC Hydralazine HCl (APRESOLine 20MG INJ) 10 mg Q2HPRN PRN IV ADMINISTER FOR SBP > 160 12/03/24 04:30 01/02/25 04:29 12/07/24 05:51 10 MG Hydromorphone HCl (DiLAUDid 0.5MG INJ) 0.2 mg Q6H PRN IVP SEVERE PAIN (7-10) 12/06/24 14:30 12/11/24 14:29 12/08/24 17:28 0.2 MG Hydromorphone HCl (DiLAUDid 0.5MG INJ) 0.5 mg Q6H PRN IVP SEVERE PAIN (7-10) 12/02/24 14:30 12/06/24 14:29 DC 12/06/24 06:37 0.5 MG Lidocaine (Lidocaine Patch 4%) 1 each DAILY TP 12/08/24 09:00 12/08/24 12:58 DC 12/08/24 09:51 1 EACH Lidocaine (Lidocaine Patch 4%) 1 each DAILY TP 12/09/24 09:00 01/08/25 08:59 12/10/24 08:03 1 EACH Methocarbamol (methoCARBamol) 500 mg TID PRN PO muscle cramps 12/02/24 15:30 01/01/25 15:29 12/08/24 14:46 500 MG Metoprolol Tartrate (loprESSOR) 25 mg BID PO 12/02/24 21:00 12/04/24 09:07 DC 12/03/24 21:17 25 MG Metoprolol Tartrate (loprESSOR) 50 mg BID PO 12/02/24 21:00 12/04/24 09:07 DC 12/03/24 22:17 50 MG Miscellaneous Medication (Metoprolol Tartrate ) 1 tab BID PO 12/02/24 21:00 12/02/24 15:32 DC Morphine Sulfate (morPHINE 2MG SYG) 2 mg ONCE STAT IVP 12/02/24 13:33 12/02/24 13:38 DC 12/02/24 13:39 2 MG Nitroglycerin (Nitrostat) 0.4 mg AD PRN SL CHEST PAIN 12/02/24 14:30 01/01/25 14:29 12/03/24 10:25 0.4 MG Ondansetron HCl (zoFRAN 4MG INJ) 4 mg ONCE STAT IVP 12/02/24 13:33 12/02/24 13:38 DC 12/02/24 13:39 4 MG Ondansetron HCl (zoFRAN 4MG INJ) 4 mg Q6H PRN IVP NAUSEA/VOMITING 12/02/24 14:30 01/01/25 14:29 12/10/24 08:02 4 MG Pantoprazole Sodium (PROTonix 40MG INJ) 40 mg BID IVP 12/03/24 21:00 01/01/25 14:29 12/10/24 08:02 40 MG Pantoprazole Sodium (PROTonix 40MG INJ) 40 mg Q24H IVP 12/02/24 14:30 12/03/24 09:37 DC 12/02/24 20:10 40 MG Polyethylene Glycol (MIRalax 3350 17 GM POWD.PACK) 17 gm DAILY PO 12/08/24 09:00 01/07/25 08:59 12/09/24 11:13 17 GM Potassium Chloride 100 ml @ 100 mls/hr AD PRN IV POTASSIUM PROTOCOL 12/07/24 12:00 01/06/25 11:59 Potassium Chloride (K-Dur/Klor-Con 20meq) 20 meq AD PRN PO POTASSIUM PROTOCOL 12/07/24 12:00 01/06/25 11:59 12/07/24 12:51 20 MEQ Potassium Chloride (KCl 10% Elixir 20meq/15ml) 20 meq AD PRN PO POTASSIUM PROTOCOL 12/07/24 12:00 01/06/25 11:59 12/07/24 21:19 20 MEQ Propafenone HCl (Rythmol) 150 mg Q8H PO 12/07/24 13:30 01/06/25 13:29 12/10/24 06:12 150 MG Sodium Chloride 1,000 ml @ 60 mls/hr [id number] IV 12/02/24 14:30 12/02/24 14:26 DC Sodium Chloride 1,000 ml @ 60 mls/hr [id number] IV 12/02/24 14:30 12/04/24 09:29 DC 12/04/24 00:16 60 MLS/HR Sodium Chloride 1,000 ml @ 1,000 mls/hr Q1H STAT IV 12/02/24 10:54 12/02/24 11:53 DC 12/02/24 10:54 1,000 MLS/HR Thiamine HCl (Vitamin B-1) 100 mg Q24H IVP 12/02/24 14:30 01/01/25 14:29 12/09/24 16:04 100 MG Trazodone HCl (DesyREL/OlepTRO) 50 mg HS PO 12/02/24 21:00 01/01/25 20:59 12/09/24 21:35 50 MG Diagnostics / Radiology: [COPY/PASTE HERE IF NO REPORTS PLEASE DELETE SECTION] Assessment: Abdominal pain, improved Constipation Atrial fibrillation on cardizem drip Plan: Patient is not a candidate for endoscopies given hemodynamic instability Will treat conservatively and start laxative for constipation Continue GI prophylaxis Advance diet as tolerated Avoid NSAIDs Antireflux measures Monitor H&H and transfuse as needed Call with questions, concerns or change in clinical status Patient to follow-up at clinic post discharge Thank you for this consult [employer] December 10, 2024 11:07
--- NOTE | 2024-12-10 12:15 | NUR ---
ADDY NICHOLS EXTRUDING MACHINE OPERATOR NOTIFIED THAT PT IS ACCEPTED TO [facility]. EXTRUDING MACHINE OPERATOR STATED SHE WILL REVIEW CHART AND INPUT DC ORDER.
--- NOTE | 2024-12-10 13:38 | DS ---
Discharge Summary Hospital Course Summary: This is a 89-year-old female with underlying history of hypertension, hyperlipidemia, per daughter, prior history of AZ in [place] in 09/2023, history of CVA, recent history of compression fractures involving L4 and L5 status post vertebroplasty in [facility], history of atrial fibrillation maintained on chronic anticoagulation with Eliquis, Parkinson's disease who presented to the ER with chief complaint of epigastric pain with midsternal chest discomfort, poor oral intake ongoing since last night. 12/03/24 during my rounds patient was complaining of chest pain states 05/10. Patient was placed on oxygen in given x1 morphine. Patient is retaining urine bladder scan showed [address] Beckham catheter. Patient continues to have chest discomfort patient was given nitroglycerin. AFib with RVR 170. The patient became diaphoretic thereafter radiate to her right arm. Repeat cardiac enzymes. Patient was given one dose of IV Lopressor then was transferred to ICU 12/04/24 patient went down for nuclear medicine. Lexiscan we will follow results. Bradycardia beta-blockers were discontinued patient converted back to sinus We will follow parking lot attendant's recommendations. 12/05/24 the patient was seen earlier: she is fully awake and alert oriented x3. denies chest pain or sob. Primary nurse reports she went into afibb with RVR overnight. This morning was given Diltiazem 10 mg IV one . amiodrone drip was restarted. Lexiscan was negative/ we will wait from DR Sherman if any further workup. 12/06/24 the patient continue to have Afibb with RVR: this morning she was in the 160's as per Tele civil laboratory technician. Passenger Screener started PO Cardizen [address] Sherman scheduled a cardioversion for am. 12/07 the patient has been seen and examined earlier this morning during my rounding, case discussed with the RN, the patient converted back to normal sinus rhythm yesterday around 3:00 p.m., however again earlier this morning, patient w ent into atrial fibrillation with a rapid ventricular response, with a heart rate between 160-170, she was complaining of mild shortness a breath, reason for which she was started on supplemental oxygen via nasal cannula at 2 L, cardiology notified, patient is started on Cardizem drip. During my visit the patient is alert oriented x3, hemodynamically stable, off supplemental oxygen, saturating normal on room air, heart rate controlled at 88, however still persistent atrial fibrillation. Patient's two daughters at bedside, updated, all questions answered. 12/08 patient is seen and examined at bedside during my rounding, case discussed with the RN, patient off Cardizem drip, converted back to normal sinus rhythm, she is alert oriented x3, complaining of mild pain to the back of the neck. BP 137/61, heart rate of 76, saturating normal on room air. Daughter at bedside during my visit, updated. 12/09 cerebral female with a history of Parkinson disease as well as atrial fibrillation, admitted with a AFib RVR, evaluated by EP, heart rate now controlled at 72, on Rythmol 150 mg p.o. q.8 hours and Cardizem 60 mg p.o. t.i.d.. Case management consulted for discharge plan to SNF. 12/11/23 patient is seen and examined patient is doing well no arrhythmias overnight. Patient is pending placement in process. All questions were addressed denies chest pain or shortness for breath. 1400 patient has got accepted to [facility]. Patient is clinically hemodynamically stable. Appreciate parking lot attendant's input we will continue medication as per their recommendations upon discharge. Sheet Sewer(s): REASON: rule out PE ORDERING PHYSICIAN: YULIYA MONROY PROCEDURE: CHES PE - CT CHEST PE PROTOCOL WWO CONT CT angiogram chest CLINICAL INDICATION: rule out PE COMPARISON: None. CT Dose Index (CTDI): 113.50 mGy Dose Length Product (DLP): 1408.10 total mGy PROTOCOL: Contrast: 100 cc of Isovue-370, injected IV, no complications Examination is done at 2.5 millimeter volumetric acquisition after contrast administration. Photography is done at 5 millimeter thick intervals for the thorax. FINDINGS: There is no evidence of pulmonary embolism. The airway is intact. The trachea and major bronchi are unremarkable. No pulmonary infiltrates or mass lesions are seen. No pleural effusions are identified. The exam of the surya and mediastinum is unremarkable. No evidence of hilar enlargement is seen. Ectasia of the ascending thoracic aorta, maximum diameter 4 cm No significant brachiocephalic vascular abnormalities are seen. The heart is unremarkable. It is not enlarged. No significant coronary arterial calcifications are seen. There is no pericardial effusion. The rib cage appears unremarkable. The soft tissues of the chest wall are unremarkable. The dorsal spine shows no significant abnormalities. Limited evaluation of the upper abdomen demonstrates no gross abnormalities. IMPRESSION: No evidence of pulmonary embolism. Clear lungs. Ectasia ascending aorta. REASON: dizziness ORDERING PHYSICIAN: MARKELL MAHMOOD MD PROCEDURE: CAROTID - US CAROTID DUPLEX Carotid Duplex and color-flow Doppler bilateral History: dizziness Comparison: None Findings: No significant plaque is identified on either side. Left Internal Carotid Artery Peak Systolic Velocity (PSV), Left Internal Carotid to Common Carotid Artery peak systolic velocity ratio, Right Internal Carotid Artery Peak Systolic Velocity (PSV) and Right Internal Carotid to Common Carotid Artery peak systolic velocity ratio, are all within normal limits. External carotid artery velocities normal bilaterally. Bilateral vertebral arteries show antegrade flow. Impression: Normal exam. REASON: nonsustained ventricular tachycardia ORDERING PHYSICIAN: MARAL SHERMAN MD PROCEDURE: ECHO CMP - ECHO 2-D COMPLETE APPROVED REPORT EXAM: Two-dimensional and M-mode echocardiogram with Doppler and color Doppler. INDICATION ICD: nonsustained ventricular tachycardia 2D Dimensions RVDd 3.3 cm LVEF(%) 67.8 (>50%) LVED Vol(simp.) 63.0 mL IVSd 1.4 (0.7-1.1cm) FS(%) 37 % LVES Vol(simp.) 21.0 mL LVDd 3.6 (3.8-5.6cm) LA (2D) 4.2 (1.6-4.0cm) LVEF(%, simp.) 67 % PWd 1.2 (0.7-1.1cm) Ao Root(2D) 2.7 (2.0-3.7cm) LA ESV INDEX (BP) 27.63 mL/m2 LVDs 2.3 (2.5-4.0cm) LVOT diam 1.8 (1.8-2.4cm) IVC diam 1.6 cm Deformation Strain Apical 4 -19.7 % Apical 2 -21.6 % Apical 3 -11.5 % Global Strain -17.6 % M-Mode Dimensions EPSS 0.3 cm LA (MM) 4.7 (1.6-4.0cm) Ao Root(MM) 2.6 (2.0-3.7cm) Aortic Valve AoV Vmax 1.3 m/s Ao Peak GR 6.8 mmHg LVOT Vmax 1.0 m/s AoV VTI 0.3 m Ao Mean GR 2.8 mmHg LVOT VTI 0.23 m KIMBER (VMAX) 1.99 cm2 Al P1/2T 797 ms KIMBER (VTI) 2.0 cm2 Mitral Valve MV E Vmax 88.7 cm/s DECEL Time 217 ms MV A Vmax 88.7 cm/s P 1/2 T 95 ms E/A ratio 1.0 MVA (PHT) 2.3 cm2 TDI E/E' Medial 12.0 E/E' Lateral 10.2 Medial E' Peak V 7.37 cm/s Lateral E' Peak V 8.66 cm/s Tricuspid Valve TR Vmax 2.9 m/s RVSP 30.7 mmHg TR Peak GR 36.5 mmHg Left Ventricle The left ventricle is normal size. Mild concentric left ventricular hypertrophy. LVEF is 65-70%. Indeterminate diastolic dysfunction. Right Ventricle The right ventricle is normal size. The right ventricular systolic function is normal. Atria The left atrium size is normal. The right atrium size is normal. Aortic Valve The aortic valve is normal in structure. Mild aortic regurgitation. There is no aortic valvular stenosis. Mitral Valve Mitral valve leaflets open well. Posterior leaflet is moderately calcified. Mitral regurgitation is mild. There is no mitral valve stenosis. Tricuspid Valve The tricuspid valve is normal in structure. There is mild tricuspid valve regurgitation noted. Pulmonic Valve The pulmonary valve is normal in structure. There is no pulmonic valvular regurgitation. Great Vessels The aortic root is normal in size. The IVC is normal in size and collapses >50% with inspiration. Pericardium There is no pericardial effusion. REASON: rule out D VT ORDERING PHYSICIAN: YULIYA MONROY PROCEDURE: VENOUS CECILIA - US VENOUS DOPPLER BILATERAL Exam Type: US VENOUS DOPPLER BILATERAL Clinical Information: rule out D VT Comparison: None Findings: The examination shows normal deep venous system. There is normal compressibility at all levels. There is no intraluminal clot. There is no occlusion. Adequate response is obtained on augmentation. Impression: No evidence of DVT. REASON: abdominal pain, n/v ORDERING PHYSICIAN: HOLLY WAITE FOUNDRY MANAGER PROCEDURE: ABD PEL WO - CT ABDOMEN/PELVIS W/O CONTRAST CT ABDOMEN/PELVIS W/O CONTRAST HISTORY: Abdominal pain COMPARISON: None TECHNIQUE: Multiple sequential axial images of the abdomen and pelvis were obtained from the dome of the diaphragm through symphysis pubis. Patient was not given contrast through intravenous route. Oral contrast was not given. FINDINGS: No pleural effusion is seen bilaterally. Bibasilar linear atelectasis changes are seen. There is no evidence of parenchymal disease or pulmonary nodule of the visualized lower lungs. Degenerative changes of the thoracolumbar spine are present. The heart is not enlarged. Small hiatal hernia is seen. Compression fractures are seen involving L4 and L5 with vertebroplasty changes. The liver, spleen, adrenal glands and pancreas are unremarkable. There is no evidence of hydronephrosis bilaterally. No evidence of renal stone is seen. Fecal material is seen in the colon. There are normal size retroperitoneal and mesenteric lymph nodes. No ascites is seen. Atherosclerotic changes are present. There is diverticulosis. There are small bilateral inguinal hernias with fat content. No CT evidence of acute appendicitis is seen. Pelvic sidewalls are symmetric bilaterally. Bladder is poorly distended. IMPRESSION: 1. No definite bowel obstruction is seen. Small hiatal hernia. Diverticulosis. No ascites is seen. Procedure(s): REASON: chest pain ORDERING PHYSICIAN: MARAL SHERMAN MD PROCEDURE: CARD GERMANIA - NM LEXISCAN CARDIOLITE APPROVED REPORT Height: 5 ft 4in Weight: 125 lbs TEST INDICATIONS Chest Pain The imaging protocol used to acquire images was Rest Tc-99m/stress Tc-99m 1 day Consent: The procedure was explained and understood by the patient. Informerd consent was witnessed by Rashida Summers RN First, low dose rest was performed then high dose stress. RESTING DATA: The resting ekg shows: a-fib Rest SPECT myocardial perfusion imaging was performed in supine position minutes following the intravenous injection of 11.5 mCi of Tc-99 Sestamibi. Time of rest injection: 08:52: Date: 12/04/2024 PHARMACOLOGIC STRESS: Pharmacologic stress test was performed by injecting regadenoson 0.4 mg IV push followed by the intravenous injection of 27 mCi of Tc-99 Sestamibi. Time of stress injection: 11:05: Date: 12/04/2024 Heart Rate at time of stress injection: 66 bpm. Gated Stress SPECT was performed 60 minutes after stress injection. The images were gated to evaluate regional wall motion and calculate left ventricular ejection fraction. STRESS DETAILS Reason for Termination: Infusion complete Stress Symptoms: Dyspnea, Stomach Cramps Max HR Achieved: 84 bpm % of APMHR Achieved: 74 Max Blood Pressure: 137/56/ mmHg Stress ECG: a-fib Study quality was good. Lung uptake was Normal. Artifact: No artifact IMPRESSION Normal pharmacologic nuclear stress test. Conclusion Normal perfusion. TID 0.77. LVEF 42%. Assessment/Plan: Discharged diagnosis [id number] hyponatremia, POA resolved Atypical chest pain, POA resolved Epigastric abdominal pain with nausea and vomiting, POA resolved Leukocytosis, POA resolved History of CVA in 2023, POA History of L4-L5 compression fracture with recent history of vertebroplasty in 09/2024, POA Debility/frailty, POA Prior history of AZ in [place] in 09/2023, POA History of atrial fibrillation maintained on chronic anticoagulation with Eliquis, POA History of ventricular tachycardia status post ablation 1990 History of outpatient use of opioids with hydrocodone, POA Hyperlipidemia, POA Rule out occult infection, POA History of diuretic use as outpatient, POA History of Parkinson's disease, POA Protein calorie malnutrition, POA PLAN: ADMISSION DATE: 12/02/24 DISCHARGE DATE: 12/10/2024 DISPOSITION: SNF: [facility] rehab CONDITION: stable CODE NUMBER STAMPER(S): EPS, and Passenger Screener GI FOLLOW UP APPOINTMENT(S): PCP 2-3 days, DR Andujar two wks PROCEDURES: lexiscan IMAGING (S) report attached to summary : Echo chest CT, carotid artery ultrasound, venous Doppler study, checks x-ray, abdomen pelvis CT scan MICROBIOLOGY: report attached to summary; ACTIVITY: ab lety as tolerated HOME MEDICATIONS see below CHANGES ON HOME MEDICATIONS NEW MEDICATIONS Diltiazem HCl (Diltiazem 24Hr ER) 180 Mg Cap.er.24h Propafenone HCl 150 Mg Tablet TEACHING: Emergency instructions: The patient was instructed to present to the nearest Emergency Department or call 911 should their symptoms return or worsen. Home Medications: Active Scripts Diltiazem HCl (Diltiazem 24Hr ER) 180 Mg Cap.er.24h, 1 CAP PO DAILY for 30 Days, #30 CAP 1 Refill Prov:JULIANNE UNGERHALIE Chencho BACH 12/10/24 Propafenone HCl (Propafenone HCl) 150 Mg Tablet, 150 MG PO Q8H, #90 TAB 1 Refill Prov:ZAHEER UNGER Chencho BACH 12/10/24 Reported Medications Trazodone HCl (Trazodone HCl) 50 Mg Tablet, 50 MG PO HSPRN, TAB 12/02/24 Hydrocodone/Acetaminophen (Hydrocodon-Acetaminophen 5-325) 5 Mg-325 Mg Tablet, 1 TAB PO Q6HPRN PRN for pain for 5 Days, #15 TAB 0 Refills 12/02/24 Apixaban (Eliquis) 2.5 Mg Tablet, 1 TAB PO BID, TAB 0 Refills 12/02/24 Methocarbamol (Methocarbamol) 500 Mg Tablet, 1 TAB PO TID for 30 Days, #90 TAB 0 Refills 12/02/24 Atorvastatin Calcium (LIPITOR) 40 Mg Tablet, 1 TAB PO HS, TAB 0 Refills 12/02/24 Carbidopa/Levodopa (Carbidopa-Levodopa 25-100 Tab) 25 Mg-100 Mg Tablet, 1 TAB PO TID, TAB 0 Refills 12/02/24 Discontinued Reported Medications Metoprolol Tartrate (Metoprolol Tartrate) 75 Mg Tablet, 1 TAB PO BID, TAB 0 Refills 12/02/24 Furosemide (Furosemide) 20 Mg Tablet, 1 TAB PO DAILY for 30 Days, #30 TAB 0 Refills 12/02/24 Amlodipine Besylate (Amlodipine Besylate) 5 Mg Tablet, 5 MG PO DAILY, TAB 12/02/24 New Medications: Diltiazem HCl (Diltiazem 24Hr ER) 180 Mg Cap.er.24h 1 CAP PO DAILY for 30 Days, #30 CAP 1 Refill Propafenone HCl (Propafenone HCl) 150 Mg Tablet 150 MG PO Q8H, #90 TAB 1 Refill Continued Medications: Apixaban (Eliquis) 2.5 Mg Tablet 1 TAB PO BID, TAB 0 Refills Atorvastatin Calcium (Lipitor) 40 Mg Tablet 1 TAB PO HS, TAB 0 Refills Discontinued Medications: Amlodipine Besylate (Amlodipine Besylate) 5 Mg Tablet 5 MG PO DAILY, TAB Metoprolol Tartrate (Metoprolol Tartrate) 75 Mg Tablet 1 TAB PO BID, TAB 0 Refills Time spent arranging discharge: 31-60 minutes ATTESTATION BY PHYSICIAN I have seen and examined the patient. I reviewed the documentation, medical decision making, and treatment plan as noted by the mid-level provider above. I agree with the findings and plan of care. Kaylah Cavazos MD, ELIZABETH NP December 10, 2024 13:38
--- NOTE | 2024-12-10 14:30 | NUR ---
DCP Pt requests private room at [facility], facility unable to provide private room stated they have a private room at [facility], Pt agreed to transfer to [facility].
--- NOTE | 2024-12-10 15:49 | NUR ---
Called [facility] to give report, spoke with Nola,was transferred to Varun. Varun confirmed that paperwork faxed and stated he is not a nurse to get report. Patient's nurse is Suraj. Varun stated that he will give Suraj phone call back number and Suraj the nurse will contact me to get report because i can not be transferred to the nurse phone.
--- NOTE | 2024-12-10 16:07 | NUR ---
Patient states that FC is very uncomfortable, and is burning and she would like it removed. Patient educated that due to urinary retention physician ordered bladder training and FC to be DC at the discharge facility in case patient unable to void. Despite education provided patient requests for FC to be removed. Spoke with BISMARK Nelson, to remove FC as per patient request and inform DC facility to follow up on patient void.
--- NOTE | 2024-12-10 16:25 | NUR ---
KATERINA Mcintyre, notified that primary nurse having difficulty to give report,attempted to call again to give report and no answer was received. Nurse Ruelas did not return call. CM will help to reach facility in order to give report.
--- NOTE | 2024-12-10 16:40 | NUR ---
[facility] administrator pesticide Behzad made aware of Nurse at their facility not taking report. Provided them with number to speak with SAJI Mireles so she is able to give report.
--- NOTE | 2024-12-10 16:43 | NUR ---
6 Fr 3 lumen IVON PICC DC as per TYPEWRITER ALIGNER order. PICC removed with no resistance, aseptic technique maintained, occlusive dressing applied, line removed at 37 cm. pressure applied for 15 minutes. Patient tolerated well.
--- NOTE | 2024-12-10 16:54 | NUR ---
Received call from nurse Ruelas, [facility]. Report given, all questions answered, nurse verbalized understanding.
--- NOTE | 2024-12-10 17:10 | NUR ---
Patient alert and oriented with daughter at bedside being discharged to [facility]. Discharge instructions given, medications explained, including side effects. Educated to follow up with Dr. Villarreal as per scheduled blake, with PCP and GI post facility DC. Medication safety and fall prevention educated. All questions answered, patient and daughter verbalized understanding. Patient gathered all belongings and took with her at DC.
--- NOTE | 2024-12-10 17:14 | NUR ---
DC skin assessment done, skin is intact.
--- NOTE | 2024-12-10 18:30 | NUR ---
Called facility to follow up on ETOA, spoke with Holland. 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
--- NOTE | 2024-12-10 19:34 | PN ---
[facility] PROGRESS NOTE Date Patient Seen: December 10, 2024 Time of Visit: 11:30 Supervising Physician: Kiet Parker MD Primary Care Physician: Dr. Caridad Iyer Outpatient Specialists: [ ] Inpatient Consults: [ ] PROBLEM LIST: Recurrent AFib with RVR , now converted to SR On anticoagulation with Eliquis Atypical chest pain rule out ACS Acute hyponatremia POA now improved. Leukocytosis POA now resolved. Normal Lexiscan Cardiolite stress test 12/03/24 Hypertension. Hyperlipidemia. Parkinson's disease. Severe Protein calorie malnutrition. History of opioid use with hydrocodone Unremarkable echocardiogram W/ EF 65-70% and mild mitral valve regurgitation on 2D echo 12/04/24 suspected mild pulmonary HTN RVSP 30.7 mmHg Hx of ventricular tachycardia s/p ablation in 1990 INTERVAL HISTORY: No major overnight events per RN Pt reports decreased pain to neck. She denies any further palpitations or SOB, She is in NAD on RA. She reports good urine output. We will start bladder training. if successful we should remove FC prior to DC. - Although we have to really assess for the urgency, given that FC was placed on arrival for urinary retentions. She is working with PT . Pt is pending SNF placement to [facility] per correctional casework specialist. otherwise labs unremarkable. REVIEW OF SYSTEMS: Const: [no fever, fatigue, or weight changes] Eyes:[ no recent vision problems] ENT: [No congestion, ear pain, or sore throat] C/V: [no chest pain, palpitations or edema] Resp: [No cough, congestion, wheezing , or Shortness of breath] GI: [No abdominal pain, nausea, vomiting, constipation, or diarrhea] : [No incontinence of or dyuria] M/S: yes to involuntary tremors 2/2 [parkinson's disease and neck pain. Skin: [No rash] Neuro: [no headache, focal numbness, or weakness, dizziness or seizures] Psych: [no depression or anxiety] Heme: [no abnormal bruising or bleeding] Lymph: [no swollen glands] PHYSICAL EXAM: GENERAL: Alert, weak, awake oriented x 3 HEENT: EOMI, Sclera non icteric, moist mucosa NECK: Supple, no JVD, trachea midline LUNGS: Clear breath sounds bilaterally. No wheezes HEART: Regular rate and rhythm. Normal S1 and S2, without murmurs ABD: Abdomen soft, nontender. Bowel sounds present EXT: + parkinon tremors. No clubbing cyanosis or edema NEURO: Alert and oriented to person, follows commands Vital Signs (last 8hr) Date Time Temp Pulse Resp B/P (MAP) Pulse Ox O2 Delivery O2 Flow Rate FiO2 12/10/24 15:30 99.0 71 17 124/56 91 Room Air LABS: Hematology Labs: Test 12/10/24 04:35 Range/Units White Blood Count 8.1 4.8-10.8 K/uL Red Blood Count 3.82 L 4.00-5.50 MIL/uL Hemoglobin 11.4 L 12.0-16.0 g/dL Hematocrit 34.3 L 36-48 % Mean Corpuscular Volume 89.8 79-99 fL Mean Corpuscular Hemoglobin 29.8 27.0-33.0 pg Mean Corpuscular Hemoglobin Concent 33.2 32.0-36.0 g/dL Red Cell Distribution Width 17.2 H 11.0-15.5 % Platelet Count 166 130-400 K/uL Mean Platelet Volume 8.8 7.5-10.5 fL Immature Granulocyte % (Auto) 0.4 0-1 % Neutrophils (%) (Auto) 68.5 40.0-77.0 % Lymphocytes (%) (Auto) 22.0 21.0-51.0 % Monocytes (%) (Auto) 8.3 3.0-13.0 % Eosinophils (%) (Auto) 0.6 0.0-8.0 % Basophils (%) (Auto) 0.2 0.0-5.0 % Neutrophils # (Auto) 5.6 1.8-7.7 K/uL Lymphocytes # (Auto) 1.8 1.0-4.8 K/uL Monocytes # (Auto) 0.7 0.1-1.0 K/uL Eosinophils # (Auto) 0.05 0.00-0.70 K/uL Basophils # (Auto) 0.02 0.00-0.20 K/uL Absolute Immature Granulocyte (auto 0.03 0-1 K/uL Nucleated Red Blood Cells 0.0 0.0-0.19 % Chemistry Labs: Test 12/10/24 04:35 Range/Units Sodium Level 137 136-145 mmol/L Potassium Level 4.1 3.5-5.1 mmol/L Chloride Level 104 101-111 mmol/L Carbon Dioxide Level 26 21-32 mmol/L Blood Urea Nitrogen 23 H 7-18 mg/dL Creatinine 0.8 0.5-1.0 mg/dL Glomerular Filtration Rate Calc 71 >90 mL/min Random Glucose 113 H 70-105 mg/dL Total Calcium 8.5 8.5-10.1 mg/dL Phosphorus Level 3.9 2.5-4.9 mg/dL Magnesium Level 2.60 H 1.80-2.40 mg/dL Total Bilirubin 0.3 0.2-1.0 mg/dL Aspartate Amino Transf (AST/SGOT) 13 10-37 U/L Alanine Aminotransferase (ALT/SGPT) 15 12-78 U/L Alkaline Phosphatase 88 50-136 U/L Total Protein 5.9 L 6.0-8.3 g/dL Albumin 2.8 L 3.5-5.0 g/dL DIAGNOSTICS / RADIOLOGY RESULTS: [ ] PLAN continue SR continue cardiac monitoring Follow cardiology recs Continue anticoagulation with eliquis 2.5mg po BID per cardiology recs. Continue cardiac monitoring CTA negative for PE Maintain O2 sats above 92% pending SNF per primary team . NEURO: Minimize central acting medications as possible. Maintain fall precautions, adequate lighting during the day PULMONARY: Supplemental 02 as needed. Maintain aspiration precautions at all times CARDIOVASCULAR: Follow hemodynamics. Vital signs per facility protocol GI & NUTRITION: Continue with nutritional support. Continue stool softeners and laxatives as needed. KIDNEYS & ELECTROLYTES: Strict monitoring of intake, output and overall fluid balance. Avoid nephrotoxic medications to the extent possible. Medications to be dosed according to renal function. Monitor electrolytes and replace as needed ENDOCRINE: Maintain blood glucose between 100-180 at all times. Hypoglycemia protocol in place INFECTIOUS DISEASE: Trend temperature, WBC and procalcitonin level Follow cultures, deescalate antibiotics as soon as possible. Panculture if new onset fever ONCOLOGY/HEMATOLOGY/COAGULATION: Monitor for s/s of bleeding Monitor hemoglobin, coagulation studies as needed SKIN: Pressure ulcer prevention per facility protocol Specialty mattress ORTHO/REHAB: Continue PT/OT Prophylaxis: Continue GI and DVT prophylaxis Code Status: Full Resuscitation Disposition: TBD Other: ATTESTATION BY PHYSICIAN I reviewed the documentation, medical decision making, and treatment plan as noted by the mid-level provider above. I agree with the findings and plan of care. Kiet Parker MD, [facility] December 10, 2024 19:34
--- NOTE | 2024-12-10 19:40 | NUR ---
Nurse Ruelas from [facility] called stating that estimated arrival of transport to be at 2100.
--- NOTE | 2024-12-10 22:23 | NUR ---
Removed telemetry from pt. EMS arrived to transport pt to care facility. Pt assisted onto stretcher and left with EMS for [facility] [place] with her personal belongings in her possession.
--- NOTE | 2024-12-11 01:04 | PN ---
NEPHROLOGY NOTE SUBJECTIVE: The patient has atrial fibrillation, hyponatremia. The patient has generalized weakness and tremors. The patient has no fevers, chills or rigors. No cough, expectoration or hemoptysis. No abdominal pain. No nausea or vomiting. No chest pain. No orthopnea or PND. Other systemic review is unchanged. The patient has previous abdominal pain and constipation. Other system unchanged. PHYSICAL EXAMINATION: GENERAL: Pale, no other distress or deformities, lying in bed. VITAL SIGNS: Blood pressure is 127/61, pulse 75, respiratory rate is 18. HEENT: Head is atraumatic, normocephalic. Pupils are round and reactive. Sclerae are anicteric. Conjunctivae not pale. Oral mucosa is not dry. NECK: Without masses or bruits. Thyroid is palpable. Neck has no bruits. CHEST: Equal thoracic percussion note being resonant in all areas. LABORATORY DATA: We have reviewed the available labs in detail with a hemoglobin of 11.4, hematocrit is 34, white cell count normal, BUN of 23, low sodium intermittently. PROBLEMS: * Renal dysfunction. * Anemia. * Hyponatremia before. * Underlying multiple other comorbidities. PLAN: Continue monitoring of sodium level. Avoid drugs which can potentiate hyponatremia. Follow up on renal function and electrolytes. Other antihypertensives will be adjusted. The patient remains on treatment for atrial fibrillation. We have discussed with other team members. Followup labs as needed. Followup on electrolyte, weight and overall status. Condition remain guarded. I will continue to monitor closely. TID: [id number] RECEIPT: [id number]
== END 2024-12-10 22:05 | DRG 640 ==
LOC: EDH 10:29 → EDHIP 13:54 → 3BH 15:35 → 2CH 12-03 10:37 → 2AH 12-05 04:05
PROVIDERS: ADMIT Internal Medicine; ATTEND Internal Medicine
DX: E87.1 Hypo-osmolality and hyponatremia (principal); E43 Unspecified severe protein-calorie malnutrition; I48.19 Other persistent atrial fibrillation; I50.32 Chronic diastolic (congestive) heart failure; I11.0 Hypertensive heart disease with heart failure; D72.829 Elevated white blood cell count, unspecified; E78.5 Hyperlipidemia, unspecified; E86.0 Dehydration; G20.A1 Parkinson's disease without dyskinesia, without mention of fluctuations; G47.00 Insomnia, unspecified; D64.9 Anemia, unspecified; I34.0 Nonrheumatic mitral (valve) insufficiency; I25.10 Atherosclerotic heart disease of native coronary artery without angina pectoris; K44.9 Diaphragmatic hernia without obstruction or gangrene; K57.30 Diverticulosis of large intestine without perforation or abscess without bleeding; M94.0 Chondrocostal junction syndrome [Tietze]; I25.2 Old myocardial infarction; Z86.73 Personal history of transient ischemic attack (TIA), and cerebral infarction without residual deficits; Z86.79 Personal history of other diseases of the circulatory system; Z90.710 Acquired absence of both cervix and uterus; Z82.49 Family history of ischemic heart disease and other diseases of the circulatory system; Z79.01 Long term (current) use of anticoagulants; Z79.899 Other long term (current) drug therapy; Z68.22 Body mass index [BMI] 22.0-22.9, adult
CPT/HCPCS: 36415; 71045; 71270; 74176; 78452; 80048; 80053; 80076; 81001; 82533; 82550; 82570; 82948; 83690; 83735; 83930; 83935; 84100; 84132; 84145; 84300; 84443; 84484; 84550; 85025; 85027; 85378; 85610; 85651; 85730; 86140; 86701; 87086; 87390; 87635; 87804; 93005; 93017; 93306; 93356; 93880; 93970; 96374; 96375; 99285; A9500; G0378; J0153; J0282; J0360; J0696; J1171; J2270; J2405; J2470; J2785; J3411; J3490; J7030; J7060; Q9967; J0283